=== PATIENT | female | born 1940 | race Caucasian/White ===

== ENCOUNTER → 2017-10-02 15:43 | Outpatient (CLI) | payer MEDICARE, SELFPAY ==
[2017-10-02 18:15] LABS: Absolute Lymphocyte Count 1.78 X10^3/ul (0.83-4.51); Absolute Neutrophil Count 5.6 X10^3/uL (2.0-7.7); Basophil# 0.03 X10^3/uL; Basophil% 0.3 % (0-1); Eosinophil# 0.28 X10^3/uL; Eosinophils% 3.2 % (0-5); Hematocrit 43.3 % (37-47); Hemoglobin 13.8 g/dl (12.0-15.0); Lymphocyte # 1.78 X10^3/ul (4.0); Lymphocyte % 20.5 % (19-41); Mean Corp Hgb Conc 31.9 g/gl (32-36); Mean Corpuscular Hgb 32.2 pg (27.0-32.0); Mean Corpuscular Volume 101.2 fL (81-99); Mean Platelet Vol. 10.6 fl (6.2-12.0); Monocyte# 0.99 X10^3/uL; Monocyte% 11.4 % (0-10); Neutrophil # 5.59 X10^3/uL (2.7-7.7); Neutrophil % 64.3 % (47-70); Platelet Count 230 K/mm3 (150-450); RBC Distribution Width CV 13.2 % (11.6-14.6); RBC Distribution Width SD 47.8 fl (35.1-43.9); Red Blood Count 4.28 M/mm3 (4.2-5.4); White Blood Count 8.7 K/mm3 (4.4-11.0)
[2017-10-02 18:21] LABS: POSITIVE COUNT NO; POSITIVE DIFFERENTIAL NO; POSITIVE MORPHOLOGY NO
[2017-10-02 18:28] LABS: ALB/GLOB Ratio 0.9 RATIO (0.9-2.4); AST(SGOT) 14 U/L (15-37); Alanine Aminotransfer ALT/SGPT 27 U/L (13-56); Albumin, Serum 3.5 g/dL (3.2-5.0); Alkaline Phosphatase 100 U/L (45-117); Anion Gap 10 (5-15); BUN 41 mg/dL (7-18); BUN/Creat Ratio 17.2 RATIO (10-20); Chloride 107 mmol/L (98-107); Creatinine, Serum 2.38 mg/dL (0.55-1.02); EST Glomerular Filtration Rate 21 mL/min (>60); Est Glom Filt Rate - Afr Amer 25 mL/min (>60); Globulin 3.8 g/dL (2.2-4.2); Glucose 69 mg/dL (74-106); Protein, Total 7.3 g/dL (6.4-8.2); Sodium Level 141 mmol/L (136-145); Uric Acid 9.1 mg/dL (2.6-6.0)
[2017-10-02 19:11] LABS: BNP,B-Type NATRIURETIC PEPTIDE 40.8 pg/mL (0-100)
== END ==
PROVIDERS: Family Provider Family Medicine; PCP Family Medicine; Visit Provider Family Medicine
DX: N18.4 Chronic kidney disease, stage 4 (severe) (principal); I50.9 Heart failure, unspecified
CPT/HCPCS: 36415; 80053; 82306; 83880; 83970; 84100; 84550; 85025

== ENCOUNTER → 2017-10-04 12:50 | Outpatient (CLI) | payer MEDICARE, SELFPAY ==
[2017-10-04 13:11] LABS: Color, Urine Yellow (Yellow); Glucose, Dipstick Normal (Normal); Ketone-Dipstick Negative (Negative); Leukocyte Esterase-Dipstick Negative /ul (Negative); Nitrite-Dipstick Negative (Negative); Occult Blood-Urine Negative /ul (Negative); Protein-Dipstick 15 mg/dl (Negative); Urine Bilirubin Dipstick Negative (Negative); Urine Clarity Clear (Clear); Urine Urobilinogen Normal (Normal); Urine pH 6.5 (5.0 - 8.0)
[2017-10-04 13:39] LABS: Microalbumin,Random Urine 57.9 mg/L (NO RANGE EST.); Microalbumin:Creatinine Ratio 58.3 mg/g CRE (<30 mg/g CRE)
== END ==
PROVIDERS: Family Provider Family Medicine; PCP Family Medicine; Visit Provider Family Medicine
DX: N18.4 Chronic kidney disease, stage 4 (severe) (principal); I50.9 Heart failure, unspecified
CPT/HCPCS: 81002; 82043; 82570

== ENCOUNTER 2017-10-10 12:36 | Emergency (ER) | payer MEDICARE, SELFPAY ==
[2017-10-10 12:40] VITALS: BP 133/74; PULSE 95; RESP 14; TEMP 36.6; O2SAT 94; O2SAT 97; BMI 39.0
[2017-10-10] MEDS: HYDROcodone Bitartrate/Apap 5/325 Tablet PO (12:59)
[2017-10-10] MEDS: predniSONE 20 MG Tablet 40 MG PO (12:59)
[2017-10-10 13:05] LABS: Bedside Glucose 68 mg/dL (70-110)
--- NOTE | 2017-10-10 13:12 | ED.VISSUMM ---
- ER Visit Summary Date of Service: 10/10/17 Chief Complaint: Atraumatic pain and swelling left foot History of Present Illness: The patient is a 77 F who presents from assisted living facility with atraumatic left foot pain. She states touch causes significant pain. She denies history of gout or pseudogout. She is diabetic. She is uncertain if she is on a water pill. She denies fever, chills night sweats. She denies any other symptoms. Please read written note for complete detail. Physical Examination: Vital signs are remarkable slight elevation blood pressure 133/74. Examination of the left foot reveals swelling erythema and slight warmth over the MTP joint of the left great toe. Minimal passive range of motion causes pain. Touching the area causes significant pain. There is no induration, lymphangitis, popliteal or inguinal lymphadenopathy. Test Results: Blood glucose is 68. Emergency Department Course and Treatment: Patient was informed she has gout. She received a dose of [place] and prednisone. Treatment Plan: Option for 40 mg of prednisone for 5 days and 24 hour supply of [place] Disposition: Discharge to assisted living facility Impression: 1. 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 History of type 2 diabetes 3. History of adrenal insufficiency 4. History of hypertension 5. History of end-stage renal disease secondary to hypertension This note was generated with [employer] dictation software. It may contain incorrect words, spelling, and punctuation that were not noted in review of the chart prior to signing ED Disposition - Plan for ED Patient: Disposition: Home or Assisted Living Chief Complaint: Lower Extremity Injury Instructions: ED Arthritis Gout, ED Diet Gout Prescriptions: Hydrocodone Bitart/Apap 5-325 [[place] 5MG-325MG] 1 tab PO Q4H PRN PRN 2 Days #10 tab PRN Reason: Pain Prednisone [Deltasone] 40 mg PO DAILY #10 tab Referrals: Tito Huerta DO [Primary Care Provider] - 3-5 Days if not improving
[2017-10-10 13:33] VITALS: BP 128/78; PULSE 90; RESP 14; O2SAT 97
--- NOTE | 2017-10-10 13:33 | NURSING ---
called hiral fox wheelchair for ride back to [facility]
== END 2017-10-10 14:09 | disposition home or self-care (01) ==
PROVIDERS: Emergency Provider Emergency Medicine; Family Provider Family Medicine; PCP Family Medicine
DX: M10.9 Gout, unspecified (principal); E11.9 Type 2 diabetes mellitus without complications; E27.40 Unspecified adrenocortical insufficiency; I12.0 Hypertensive chronic kidney disease with stage 5 chronic kidney disease or end stage renal disease; N18.6 End stage renal disease; K21.9 Gastro-esophageal reflux disease without esophagitis
CPT/HCPCS: 82962; 99285

== ENCOUNTER → 2018-01-08 13:17 | Outpatient (CLI) | payer MEDICARE, SELFPAY ==
--- NOTE | 2018-01-08 13:21 | VDLE_ITS ---
Reason For Study: Pain and Swelling RIGHT LEFT GSV is normal. GSV is normal. CFV is compressible, spontaneous, phasic, CFV is compressible, spontaneous, phasic, competent and demonstrates normal competent, and demonstrates normal augmentation. augmentation. FV is compressible, spontaneous, phasic, FV is compressible, spontaneous, phasic, competent and demonstrates normal competent and demonstrates normal augmentation. augmentation. POP V is compressible, spontaneous, phasic, POP V is compressible, spontaneous, phasic, competent and demonstrates normal competent and demonstrates normal augmentation. augmentation. T/P Trunk is compressible. T/P Trunk is compressible. PTV is compressible. PTV is compressible. Unable to visualize Rt PeroV LT PerV is compressible. Lt SFJ is Incompetent Unable to visualize Rt PTV mid and prox calf due to wounds/bandages Lt GSV is Competent Difficult to visualize GastrocV due to edema Lt SSV is Competent Rt SFJ is Competent Unable to visualize Lt PTV and Lt PeroV mid and prox calf due to wounds/bandages. Rt GSV is Competent Rt SSV is Competent. Procedure Exam performed in department. The study was technically difficult. The study was technically limited. The exam was of poor technical quality due to patient body habitus.. Patient unable to tolerate compressions and augments due to severe pain in the legs. Relied on color doppler. A preliminary report was called and/or faxed to Dr. Elmore. Interpretation Summary 1. Bilateral no DVT or SVt where visualized. 2. No significant relux noted in bilateral legs. Ordering Physician: David Elmore Referring Physician: Tito Huerta Performed By: Aneta Pineda, ADONAYCS, RVT
--- NOTE | 2018-01-10 07:59 | LEAS ---
Arterial Study - Arterial Study Arterial Study: Date of scan 01/08/[address] Elmore History: Patient with bilateral leg pain and edema Interpretation: Patient with increasing pain and unable to get any blood pressure cuffs on her ankle secondary to the pain so ABIs were not obtained. Duplex does show bilateral triphasic flow of both posterior tibial and dorsalis pedis. Able to get a digit brachial index was 0.97 on the right 0.87 on the left. X Impression: 1. Unable to get TEN secondary to pain. She does have normal triphasic waveform noted at the ankle and normal digit brachial index 0.97 and 0.87. Further evaluation as clinically clinically warranted
== END ==
PROVIDERS: Family Provider Family Medicine; PCP Family Medicine; Visit Provider Surgery Vascular Surgery
DX: I70.213 Atherosclerosis of native arteries of extremities with intermittent claudication, bilateral legs (principal); M79.89 Other specified soft tissue disorders; M79.609 Pain in unspecified limb
CPT/HCPCS: 93922; 93970

== ENCOUNTER 2018-02-06 08:29 | Outpatient (RCR) | payer MEDICARE, SELFPAY ==
--- NOTE | 2018-02-07 09:00 | HP.OTEVAL_ITS ---
Patient's Visit Information SVETLANA ELLIS is a 78 year old F, referred to Occupational Therapy by Tito Huerta DO, with a diagnosis of bilateral Lymphedema. Date of Evaluation: 02/06/18 Occupational Therapist: Kina Gonzalez, SYLVIA/Jaciel, CHT - Subjective Subjective: Pt states she has had swelling in her LE for about a year. pt states she had cellulitis, wounds and blisters on her LE. pt lives at [facility] and staff at the facility wraps her LE with ekenan wraps to help decrease swelling. pt states legs are painful and she has difficulty with ambulation. Pt states she sleeps sitting up in a chair with legs on foot stool. Pt states she feels like her room is damp at the [facility] and does not want to lay in her bed when it feels damp. But pt admits she has not been sleeping in her bad for a while. Pt states she would like to learn how to get swelling under control. Pt has complex medical hx. Dementia, CAD, CKA, COPD, OA, StageII pressure ulce of buttock, candidal dermatitis, anxiety, chronic pain. - Pain BLE 5 Pain Intensity Range: 1, 6 - Lymphedema (Circumferential Measure) Mid-foot: R/L 30cm/31cm Ankle: R/L 30cm/32cm Lower calf: R/L 36cm/38cm Largest calf: R/L 48cm/50cm Below knee: R/L 48cm/51cm - Lower Limb Functional Index Lower Extremity Functional Score: 5 - Goals Demonstrate adequate knowledge skin care/prec by 2nd week: Yes Demonstrate adequate knowledge therapeutic exercises by d/c: Yes Select approp compression garment w/donning/care/wear by d/c: Yes Voice need to replace compression garment every 4-6mo by dc: Yes Goal:: ed. pt on benefit laying down vs sitting up in her chair all day and night. - Rehabilitation General Assessment: Pt demo with stage II lymphedema to Bilateral LE. Pt arrives to facility with keenan wraps on LE. due to the high compression of keenan wraps this could be adding to LE pain. Pt legs dry and skin flakes. Therapist rec'd short wrap bandaging, but due to cost to pt she is unable to buy the short stretch wraps. Therapist rec'd 20-30 mmHg compression socks pt was more receptive to this as cost was much less then wraps. therapist gave pt handout on socks to show staff at [facility]. Pt demo understanding and advised therapist to speak with social media intern at [facility]. PT was ed. on lymph stim ex, as well as the benefits to laying down vs sitting in her chair all day and night. pt demo understanding -Therapist gave pt contact info so pt and social media intern could call therapist with questions/concerns. pt to return once she get her compression hose to ensure proper fit. Rehabilitation Potential: Questionable - Anticipated Interventions Anticipated Interventions: Education re Diagnosis, Manual Lymph Drainage, Education re Life-long lymphedema Management, Education re Skin Care and Precautions, Education re Self Massage Techniques, Education re Correct Donning Tech,Care&Wearing Sched Comp Garments, Caregiver Training - Visit Plan Frequency: PRN TEXT: Thank you for the opportunity to evaluate your patient. For Medicare and Medicare HMO plans, please review the plan of care and approve it. It will need to be FAXED BACK to us at [phone] for Medicare purposes. Please let me know if there are questions or concerns regarding this plan of care. Physician Signature: Date:
--- NOTE | 2018-04-17 07:55 | HP.OT.NRP ---
HP - Discharge Summary - Patient Information SVETLANA ELLIS was seen in my office for initial evaluation on 02/06/18. The following Plan of Care was established for this patient: Initial Frequency: PRN - Anticipated Interventions Anticipated Interventions: Education re Diagnosis, Manual Lymph Drainage, Education re Life-long lymphedema Management, Education re Skin Care and Precautions, Education re Self Massage Techniques, Education re Correct Donning Tech,Care&Wearing Sched Comp Garments, Caregiver Training This patient was last seen in our office 02/06/18. Pertinent comments regarding their Occupational therapy will appear below: Pt seen for inital OT eval only. pt has not scheduled a follow up visit. Due to timelaps in scheduling Pt. D/C at this time. At this point I will be discontinuing this patient from occupational therapy. I would be happy to see this patient again in the future if found appropriate by the physician. Thank you! Kina Gonzalez, OTR/L, CHT
== END 2018-02-06 19:00 | disposition home or self-care (01) ==
LOC: OT 08:29
PROVIDERS: Family Provider Family Medicine; PCP Family Medicine; Visit Provider Family Medicine
DX: I89.0 Lymphedema, not elsewhere classified (principal)
CPT/HCPCS: 97165; 97166

== ENCOUNTER 2018-02-25 08:09 | Observation (INO) | payer MEDICARE, SELFPAY ==
[2018-02-25 08:10] VITALS: BP 142/63; PULSE 77; RESP 18; TEMP 36.5; O2SAT 100; BMI 40.5
--- NOTE | 2018-02-25 08:30 | ED.DCSUM_ITS ---
- ER Visit Summary Date of Service: 02/25/18 Chief Complaint: Chronic leg wounds History of Present Illness: The patient is a 78 F states she lives in assisted living. Patient states that so a pressure sore on her lower buttock back area. She denies any recent illness. She denies any nausea, vomiting or diarrhea. She denies any fever. States she was recently hospitalized at another facility within the last month. Physical Examination: Older female vital signs: Afebrile. She does not look septic or toxic. She is in no acute. H EENT exam unremarkable. Moist mucous membranes. Normal speech. Neck nontender. No lymphadenopathy. Lungs clear to auscultation bilaterally. Heart regular rhythm no murmur. Abdomen soft and nontender. She is moving all 4 extremities. She has chronic 1+ edema in the lower extremities. Neurologically she is awake and alert. Answering questions and following commands. No focal motor deficits. Test Results: CBC shows a white count of 5. Hemoglobin 12. Electrolytes unremarkable. Gap is 7. Chronic renal insufficiency with a creatinine 1.7 previously was 2.3. Glucose of 151. Emergency Department Course and Treatment: I spoke to the patient's daughter via phone. She would like her mother admitted. She also wants wound care consulted and her to be transferred once her evaluation and workup is complete in the hospital to a extended care facility. She does not feel she can any longer be in assisted living. Treatment Plan: I spoke to the hospitalist Dr. Lopez and the patient will be admitted to the medical surgical floor. Disposition: admit Impression: Acute on chronic bilateral lower extremity lymphedema Facial buttock pressure sore Chronic renal insufficiency History of insulin-dependent diabetes This note was generated with [employer] dictation software. It may contain incorrect words, spelling, and punctuation that were not noted in review of the chart prior to signing ED Disposition - Plan for ED Patient: Chief Complaint: Wound Check Referrals: Tito Huerta DO [Primary Care Provider] -
[2018-02-25] MEDS: morphine 8 MG/ML Syringe 6 MG IV (09:20)
[2018-02-25] MEDS: Ondansetron 4 MG/2 ML Vial IV (09:20)
[2018-02-25 09:29] LABS: Absolute Lymphocyte Count 1.12 X10^3/ul (0.83-4.51); Absolute Neutrophil Count 3.5 X10^3/uL (2.0-7.7); Anion Gap 7 (5-15); BUN 41 mg/dL (7-18); BUN/Creat Ratio 24.1 RATIO (10-20); Basophil# 0.01 X10^3/uL; Basophil% 0.2 % (0-1); Calcium,Total 8.8 mg/dL (8.5-10.1); Chloride 107 mmol/L (98-107); EST Glomerular Filtration Rate 31 mL/min (>60); Eosinophil# 0.31 X10^3/uL; Eosinophils% 5.5 % (0-5); Est Glom Filt Rate - Afr Amer 37 mL/min (>60); Estimated Creatinine Clearance 21.57 ml/min; Glucose 151 mg/dL (74-106); Hematocrit 38.9 % (37-47); Hemoglobin 12.4 g/dl (12.0-15.0); Lymphocyte # 1.12 X10^3/ul (4.0); Mean Corp Hgb Conc 31.9 g/gl (32-36); Mean Corpuscular Volume 97.3 fL (81-99); Mean Platelet Vol. 10.2 fl (6.2-12.0); Monocyte# 0.68 X10^3/uL; Monocyte% 12.1 % (0-10); Neutrophil # 3.48 X10^3/uL (2.7-7.7); Platelet Count 202 K/mm3 (150-450); Potassium 3.4 mmol/L (3.5-5.1); RBC Distribution Width CV 13.1 % (11.6-14.6); RBC Distribution Width SD 46.3 fl (35.1-43.9); Sodium Level 141 mmol/L (136-145); White Blood Count 5.6 K/mm3 (4.4-11.0)
[2018-02-25 09:30] LABS: POSITIVE COUNT NO; POSITIVE DIFFERENTIAL NO; POSITIVE MORPHOLOGY NO
--- NOTE | 2018-02-25 10:07 | NURSING ---
DR ANTONIO PISANO
--- NOTE | 2018-02-25 10:16 | NURSING ---
MED SURG LYMPHEDEMA, PRESSURE SORES, IDDM, RENAL INSUFFICIENCY TERLETSKY OBS
[2018-02-25 11:18] VITALS: BMI 40.1
[2018-02-25 11:47] VITALS: BP 108/64; PULSE 87; RESP 18; TEMP 36.8; O2SAT 99
--- NOTE | 2018-02-25 12:06 | HP.PCM_ITS ---
Problem List (1) Pressure ulcer Status: Chronic (2) Lymphedema Status: Chronic (3) Glucocorticoid deficiency Status: Chronic (4) Esophageal reflux Status: Chronic (5) Type 2 diabetes mellitus without (mention of) complications Status: Chronic (6) Hypertensive chronic kidney disease with stage 1 through stage 4 chronic kidney disease, or chronic kidney disease Status: Chronic (7) Hypertension Status: Chronic (8) Anemia Status: Chronic History of Present Illness Date of Admission: 02/25/18 Chief Complaint: worsening lymphedema The patient is a 78 year old F with a hx of lymphedema, DMt2, CKDIII, Dementia, GERD, hypothyroid, adrenal insufficiency, HTN, epilepsy, who presents to the ER with c/o worsening LE edema. She has lymphedema treated by her PCP and home nursing at assisted living. She also has a known sacral pressure ulcer treated at home as well. She was told to come to [facility] by her home nurses as the legs have been more swollen, painful, and draining clear fluid from blisters. She does not have lymphedema pumps. The patient is also very weak and cannot stand without assistance. Her daughters are present and state that she is severely demented, and that her whom she lives with is severely demented. They are concerned that she is unsafe to return to assisted living and that she is not making rational decisions, and that she will try to leave tonight. 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 They are also concerned that one of her sons is bringing her additional pain medication doses at assisted living, which is strictly controlled by the nurses because she might be addicted. [] Past Medical History Past Medical History (Chronic Problems): Chronic Problems Pressure ulcer (Chronic) Lymphedema (Chronic) Glucocorticoid deficiency (Chronic) Esophageal reflux (Chronic) Epilepsy undetermined as to focal or generalized, intractable (Chronic) Diverticulosis of colon (without mention of hemorrhage) (Chronic) Type 2 diabetes mellitus without (mention of) complications (Chronic) Chronic kidney disease (CKD), stage IV (severe) (Chronic) Carotid artery occlusion without infarction (Chronic) Stage II pressure ulcer of left buttock (Chronic) 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 (Chronic) Stage III pressure ulcer of left buttock (Chronic) Stage III pressure ulcer of sacral region (Chronic) Anxiety (Chronic) Asthma, chronic (Chronic) Stage III pressure ulcer of right buttock (Chronic) Adrenal insufficiency (Chronic) Renal artery atherosclerosis (Chronic) Pure hypercholesterolemia (Chronic) 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, or chronic kidney disease (Chronic) Hypertension (Chronic) Anemia (Chronic) Allergies Iodinated Contrast- Oral and IV Dye [Iodinated Contrast Media - IV Dye] Adverse Reaction (Verified 10/10/17 12:37) Other NAUSEA AFFECTS KIDNEYS Home Medications: Ambulatory Orders Medication Instructions Recorded Buspirone HCl [Buspar] 10 mg PO BID 06/06/14 Omeprazole [Prilosec] 20 mg PO DAILY 05/08/15 Colesevelam Hydrochloride [Welchol] 650 mg PO BID 08/07/15 Insulin Aspart [Novolog Flexpen] 16 units SC TID 12/21/15 Calcium Carbonate [Calcium] 500 mg PO DAILY 01/26/17 Hydrocortisone 5 mg PO TID 01/26/17 Aspirin [Aspir-Low] 81 mg PO DAILY 02/25/18 Bumetanide [Bumex] 2 mg PO BID 02/25/18 Cholecalciferol (Vitamin D3) 50,000 unit PO Q7D 02/25/18 [Vitamin D3] Docusate Sodium [Colace] 100 mg PO DAILY 02/25/18 Donepezil HCl [Aricept] 10 mg PO QHS 02/25/18 Insulin Glargine,Hum.rec.anlog 30 unit SQ DAILY 02/25/18 [Basaglar Kwikpen U-100] Insulin Glargine,Hum.rec.anlog 70 unit SQ QHS 02/25/18 [Basaglar Kwikpen U-100] Levothyroxine [Synthroid] 150 mcg PO DAILY 02/25/18 Loratadine [Claritin] 10 mg PO DAILY 02/25/18 Lorazepam [Ativan] 0.5 mg PO BID 02/25/18 Oxycodone CR [Oxycontin] 20 mg PO TID 02/25/18 Potassium Chloride [K-Dur] 20 meq PO DAILY 02/25/18 Topiramate [Topamax] 100 mg PO QHS 02/25/18 Topiramate [Topamax] 200 mg PO DAILY 02/25/18 Surgical History: cholecystectomy, back surgery Psychiatric History: Anxiety RECREATION PROGRAM SPECIALIST History: No pertinent RECREATION PROGRAM SPECIALIST history Lives: Spouse/ Significant Other Smoking Status: Former smoker Tobacco Use: Non-smoker Alcohol: None Drugs: None - *Family History Maternal History Items: Cancer Paternal History Items: Cancer Review of Systems Constitutional: Denies: Chills, Fever, Weight Change HEENT: Denies: Head Aches, Sinus Congestion, Sinus Drainage Cardiovascular: Denies: Chest Pain, Palpitations Respiratory: Denies: Cough, Shortness of breath at rest, Sputum production Gastrointestinal: Denies: Abdominal Pain, Nausea, Vomiting Genitourinary: Denies: Dysuria Musculoskeletal: Denies: Joint Pain, Joint Tenderness Skin: Reports: Skin Changes, Wounds, - - increased swelling, pain, drainage, blisters.. Denies: Rash Neurological: Denies: Numbness, Tingling, Focal weakness Psychiatric: Denies: Anxiety, Depression, Homicidal Ideations, Suicidal Ideations Hematologic/ Lymphatic: Denies: Easy Bruising, Easy Bleeding VTE Information - Inpt Only VTE Present on Admission: No VTE Mechan Device Prophylaxis: None VTE Pharm Prophylaxis ordered?: Yes - Physical Exam General: Alert, Cooperative, Confused HEENT: Atraumatic, PERRLA, EOMI, Normocephalic Neck: Supple, No JVD, Negative Carotid Bruits Lungs: Clear to auscultation, Normal air movement Cardiovascular: Regular rate, No murmurs Abdomen: Bowel Sounds Present, Soft, Non Tender Extremities: Capillary Refill Less than 3 Seconds, Edema, - - lymphedema with blisters, sloughing, clear drainage, tender to light touch. Skin: No rashes, No breakdown Musculoskeletal: No Tenderness to Palpation of Joints or Extremities Neurological: Cranial nerves II-XII grossly intact Psych/Mental Status: Normal Affect, Appropriate, - - pleasantly confused Vital Signs Temp Pulse Resp BP Pulse Ox 98.2 F 87 18 108/64 99 02/25/18 11:47 02/25/18 11:47 02/25/18 11:47 02/25/18 11:47 02/25/18 11:47 Oxygen Delivery Method Room Air Weight: 219 lb 5.759 oz Body Mass Index (BMI) 40.1 Assessment/Plan All Active Problems Skin ulcer of buttock (Acute) Syncope and collapse (Acute) Dysuria (Acute) 1. Worsening of lymphedema - daily dressings, wound care consult. Also sacral pressure ulcer present on admission. Wound care to eval. 2. Worsening of generalized weakness - PTOT, SNF placement 3. Dementia - aricept + namenda 4. CKD III - stable 5. DMt2 with morbid obesity - add SSI, titrate home insulin 6. HTN - stable 7. 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 8. Hx epilepsy - topamax 9. Hypothyroid - synthroid DVT ppx: heparin DC planning: SNF. C/s to case management for dementia of pt and , poor decision making, no POA. This patient was seen by Anshu Argueta PA-C under the supervision of Doctor Posey.
[2018-02-25 12:51] LABS: Bedside Glucose 136 mg/dL (70-110)
[2018-02-25] MEDS: Heparin Injection (Vial) 5,000 UNIT/ML VIAL 5000 UNIT SC ×2 (14:35→22:11)
[2018-02-25] MEDS: Hydrocortisone 10 MG Tablet 5 MG PO ×2 (14:36→22:09)
[2018-02-25] MEDS: Furosemide 40 MG/4 ML Vial IV ×2 (14:36→22:12)
[2018-02-25] MEDS: 0.9% NaCl Peripheral Flush Adult/Peds IV (14:48)
[2018-02-25 17:00] VITALS: BP 112/60; PULSE 94; RESP 18; TEMP 37.2; O2SAT 96
[2018-02-25] MEDS: Insulin Lispro 100 UNIT/ML INSULN.PEN 16 UNIT SC (17:05)
[2018-02-25] MEDS: Acetaminophen 325 MG Tablet 650 MG PO (17:09)
[2018-02-25] MEDS: Insulin Lispro 100 UNIT/ML INSULN.PEN SC (17:10)
[2018-02-25 17:26] LABS: Bedside Glucose 208 mg/dL (70-110)
[2018-02-25 21:03] VITALS: BP 140/69; PULSE 90; RESP 20; TEMP 37.2; O2SAT 99
[2018-02-25] MEDS: LORazepam 0.5 MG Tablet PO (22:08)
[2018-02-25] MEDS: busPIRone 5 MG Tablet 10 MG PO (22:09)
[2018-02-25] MEDS: Donepezil HCl 10 MG Tablet PO (22:11)
[2018-02-25] MEDS: Topiramate 100 MG Tablet PO (22:12)
[2018-02-25] MEDS: Memantine Hydrochloride 5 MG Tablet PO (22:12)
[2018-02-25 22:56] LABS: Bedside Glucose 60 mg/dL (70-110)
[2018-02-25] MEDS: oxyCODONE 5 MG Tablet PO (23:00)
[2018-02-25 23:05] LABS: Bedside Glucose 85 mg/dL (70-110)
[2018-02-26] MEDS: Acetaminophen 325 MG Tablet 650 MG PO ×3 (03:27→20:22)
[2018-02-26 03:30] VITALS: BP 128/58; PULSE 85; RESP 18; TEMP 36.9; O2SAT 96
[2018-02-26 03:46] LABS: Bedside Glucose 151 mg/dL (70-110)
[2018-02-26] MEDS: Hydrocortisone 10 MG Tablet 5 MG PO ×3 (06:24→22:31)
[2018-02-26] MEDS: Menthol/Lanolin/Calamine/Znox 113 GM Tube 1 APPLIC TOPICAL ×3 (06:24→22:33)
[2018-02-26] MEDS: Levothyroxine 150 MCG Tablet PO (06:25)
[2018-02-26] MEDS: Heparin Injection (Vial) 5,000 UNIT/ML VIAL 5000 UNIT SC ×3 (06:25→22:31)
[2018-02-26] MEDS: Furosemide 40 MG/4 ML Vial IV ×3 (06:25→22:32)
[2018-02-26] MEDS: 0.9% NaCl Peripheral Flush Adult/Peds IV ×2 (06:26→14:06)
[2018-02-26 06:52] LABS: Anion Gap 8 (5-15); BUN 35 mg/dL (7-18); BUN/Creat Ratio 21.9 RATIO (10-20); Calcium,Total 8.5 mg/dL (8.5-10.1); Chloride 111 mmol/L (98-107); EST Glomerular Filtration Rate 33 mL/min (>60); Est Glom Filt Rate - Afr Amer 40 mL/min (>60); Estimated Creatinine Clearance 22.92 ml/min; Glucose 139 mg/dL (74-106); Potassium 3.3 mmol/L (3.5-5.1); Sodium Level 146 mmol/L (136-145)
[2018-02-26 08:12] VITALS: BP 117/62; PULSE 81; RESP 16; TEMP 36.9; O2SAT 96
[2018-02-26] MEDS: Pantoprazole Sodium 20 MG Tablet PO (08:44)
[2018-02-26] MEDS: Aspirin E.C. 81 MG Tablet PO (08:44)
[2018-02-26] MEDS: Docusate Sodium 100 MG Capsule PO (08:44)
[2018-02-26] MEDS: busPIRone 5 MG Tablet 10 MG PO ×2 (08:44→22:31)
[2018-02-26] MEDS: Topiramate 200 MG Tablet PO (08:44)
[2018-02-26] MEDS: Insulin Lispro 100 UNIT/ML INSULN.PEN 16 UNIT SC ×2 (08:45→12:16)
[2018-02-26] MEDS: Calcium (Elemental) 500 MG Tablet PO (08:45)
[2018-02-26] MEDS: oxyCODONE 5 MG Tablet PO ×2 (08:45→17:31)
[2018-02-26] MEDS: LORazepam 0.5 MG Tablet PO ×2 (09:01→22:33)
[2018-02-26] MEDS: Memantine Hydrochloride 5 MG Tablet PO ×2 (09:02→22:33)
--- NOTE | 2018-02-26 09:17 | NURSING ---
wound photo: right medial lower leg
--- NOTE | 2018-02-26 09:18 | NURSING ---
wound photo: left medial lower leg
--- NOTE | 2018-02-26 09:26 | PCA ---
Sent to doctor radha office a request from medical records that doctor brandt requested for colonoscopy results..
[2018-02-26 09:36] LABS: Bedside Glucose 132 mg/dL (70-110)
--- NOTE | 2018-02-26 10:05 | CASEMGMT ---
Social Work Note RUTHIE placed a call to pt's daughter Jemma. Jemma confirms that the pt is from [facility] but Jemma is wanting a referral sent to first choice [facility] and then second choice [facility] for short term rehabilitation with the transition to long-term care. RUTHIE explained referral process and pre-cert needing to obtained before pt is able to discharge. RUTHIE asked Jemma about Advanced Directives. Per Jemma, pt hasn't completed Advanced Directives yet but pt needs to while at [facility]. RUTHIE explained that pt has to be alert and orientated and able to complete advanced directives on own. Jemma states understanding. Jemma asked this worker about pt's Jacob being able to transfer to facility that pt goes to. RUTHIE explained that this worker will inform facilities that eventually pt's Jacob would be coming to new facility as well. RUTHIE placed a call to quality management Camryn Wellington and informed her of referrals to [facility] or [facility]. Per Camryn she will send referrals. Plan: [facility] or [facility] pending acceptance and pre-cert SW to follow up with pt to complete advanced directives. Nida Potts EXPORT SALES MANAGER, EXHIBITOR SALES
--- NOTE | 2018-02-26 10:26 | CASEMGMT ---
Per RUTHIE Mix, patient's first choice is [facility] for SNF, second choice is [facility]. Call placed to Tammy at [facility], Tammy will get back to this WAREHOUSE SHIPPING SUPERVISOR in regards to bed availability. Referral not faxed at this time. Call placed to Alta at [facility], voicemail left regarding referral being faxed. Camryn Wellington, WAREHOUSE SHIPPING SUPERVISOR Clinical Support
--- NOTE | 2018-02-26 11:13 | CASEMGMT ---
Have not had a response from [facility]. Referral faxed to nicanor Holm, at [facility]. Fax confirmation rec'd. Camryn Wellington LPN Clinical Support
[2018-02-26 11:56] VITALS: BP 128/64; PULSE 78; RESP 16; TEMP 37.6; O2SAT 97
--- NOTE | 2018-02-26 11:58 | CASEMGMT ---
Rec'd call from Alta at [facility]. Needs PT/OT documentation before giving an answer about whether they can accept patient. Call placed to RUTHIE Alva to inform her that [facility] needs therapy documentation prior to giving a response. No return phone call from [facility] at this time. RUTHIE updated of same. Camryn Wellington LPN Clinical Support
[2018-02-26 12:25] LABS: Bedside Glucose 80 mg/dL (70-110)
--- NOTE | 2018-02-26 14:30 | CASEMGMT ---
Social Work Note Pt is listed as being from [facility]. Per H+P, pt's daughter joya DO that they want pt to go to either [facility] or [facility] for halfway facility. H+P states that pt is severely demented, pleasantly confused and is poor historian. RUTHIE placed a call to pt's daughter Jemma as she is noted to be person to contact for pt. Per Jemma she confirms that pt is from [facility] but she doesn't want pt to return there at discharge. Per Jemma, pt has had a lot of issues at [facility] including financial issues and staffing issues. Jemma states that pt has not gotten the care that she needs at [facility]. Jemma states that pt's Jacob lives at [facility] family literacy coordinator care next to pt and pt is dependent on Jacob to provide her with care instead of the staff. Jemma states that the hope is for pt to go to SNF short term initially for short term rehabilitation and then transition to [facility] care with her Jacob coming to new facility for family literacy coordinator care as well. Jemma states that she would also like pt to completed Advanced Directives. RUTHIE explained that pt has to be alert and orientated and able to comprehend Advanced Directives. Jemma states understanding. SW met with pt. SW introduced self and role at [facility]. Pt is alert and oriented but does display some confusion. Pt confirms that she is from [facility] but is unsure at this time where she wishes to discharge to. Pt asked this worker why she can't return to [facility]. SW explained that per pt's daughter Jemma, Jemma felt like pt wasn't getting good enough care at [facility]. SW explained to pt that Jemma had wanted referrals sent to either [facility] or [facility] and would like pt to have private room. Pt states concerns about leaving her Jacob back at [facility]. SW explained that per pt's daughter Jemma she hopes to move pt's Jacob to new facility for family literacy coordinator care with pt. SW attempted to complete Advanced Directives with pt, but as mentioned above pt's H+P states pt has dementia and has confusion. SW updated pt's daughter Jemma that because pt has confusion and dementia, Advanced Directives can't be completed at this time. RUTHIE explained that Advanced Directives can be completed once pt goes to new facility. Jemma states understanding and would like Advanced Directives information and documents to complete. RUTHIE states understanding and informed Jemma that she can come to [facility] and ask for Advanced Directive documents or documents can go to SNF with pt. Jemma states understanding. RUTHIE placed a call to Tammy at [facility] and spoke with Tammy. Per Tammy she is waiting to hear back from pt's on waitlist to determine if she has a bed available. RUTHIE faxed PT/OT notes to Alta at [facility] and called Alta and left her a voicemail. Plan: SNF pending acceptance and pre-cert. SW to continue to follow along to determine discharge plans. Nida Potts SUPERVISORY AIDE, DIVISION SALES MANAGER
--- NOTE | 2018-02-26 15:57 | CASEMGMT ---
Social Work Note SW received message from Tammy at [facility] stating she doesn't have any female beds at this time. SW waiting to hear back from [facility] if they are able to accept pt. Plan: [facility] pending acceptance and pre-cert Nida Potts WRAPPER SELECTOR, LEAD JAVASCRIPT DEVELOPER
[2018-02-26 16:31] LABS: Bedside Glucose 65 mg/dL (70-110)
--- NOTE | 2018-02-26 18:40 | PCM.PROGNOTE ---
Subjective: Patient seen and examined today, she remains confused and complains about generalized pains in her legs. I talked to the wound care nurse today, the wound care nurse states that it appears she is responding to Remy wraps on her legs and IV diuretics. We are currently awaiting for approval for the patient to be transferred to a penitentiary facility for further care. - Physical Exam General: Alert, Cooperative, Well developed, Confused HEENT: Atraumatic, PERRLA, EOMI, Normocephalic Oral: Moist Mucosa Neck: Supple, No Nuchal Rigidity, Trachea Midline, Thyroid Normal Size and Texture Lungs: Clear to auscultation, Normal air movement, No rhonchi, No wheeze, No rales Cardiovascular: Regular rate, Regular Rhythm, Normal S1, Normal S2, No murmurs, No Ectopic Activity, PMI Normal, No rub noted, No Gallop Abdomen: Bowel Sounds Present, Soft, Non Tender, Non-Distended, No hernias noted Extremities: No clubbing, No cyanosis, Edema - Generalized edema is noted over both lower legs Skin: No rashes, Ulcer/ Wound - There are open blisters noted over the patient's lower legs bilaterally Neurological: Cranial nerves II-XII grossly intact, Neuro grossly intact, Sensory exam intact to light touch and pain Psych/Mental Status: - - Patient is alert but confused Vital Signs Temp Pulse Resp BP Pulse Ox 99.6 F H 78 16 128/64 H 97 02/26/18 11:56 02/26/18 11:56 02/26/18 11:56 02/26/18 11:56 02/26/18 11:56 Oxygen Delivery Method Room Air Weight: 97.7 kg Body Mass Index (BMI) 40.1 Intake and Output for Last 24 Hours 02/24/18 02/25/18 02/26/18 23:59 23:59 23:59 Intake Total 1450 / 1450 Output Total 4700 / 4700 Balance -3250 / -3250 Laboratory Tests Past 24 Hrs 02/26/18 06:16 Sodium 146 H Potassium 3.3 L Chloride 111 H Carbon Dioxide 27.0 Anion Gap 8 BUN 35 H Creatinine 1.60 H Estim Creat Clear Calc 22.92 Est GFR (MDRD) Af Amer 40 L Est GFR (MDRD) Non-Af 33 L BUN/Creatinine Ratio 21.9 H Glucose 139 H Calcium 8.5 POC Glucose 02/26/18 02/26/18 02/26/18 16:09 12:10 08:35 POC Glucose 65 L 80 132 H 02/26/18 02/25/18 02/25/18 03:30 22:59 22:23 POC Glucose 151 H 85 60 L Medical Necessity - Tobacco Use Smoking Status: Former smoker Tobacco Use: Non-smoker Assessment/Plan All Active Problems Skin ulcer of buttock (Resolved) Syncope and collapse (Resolved) Dysuria (Resolved) #1 generalized debility secondary to dementia and osteoarthritis-we are currently awaiting placement in a penitentiary facility for the patient, PT and OT will continue #2 chronic lymphedema of the lower legs-patient will remain on IV Lasix, Remy wraps will be continued, wound care nurse is seeing patient #3 Alzheimer's dementia #4 osteoarthritis #5 hypokalemia-patient was given additional potassium today, BMP will be rechecked tomorrow #6 chronic kidney disease stage III secondary to type 2 diabetes #7 type 2 diabetes #8 adrenal insufficiency-patient has been on glucocorticoids for quite some time, I will order a serum cortisol level on the patient #9 hypothyroidism #10 seizure disorder #11 hyperlipidemia #12 hypertension #13 chronic pain secondary to osteoarthritis and lymphedema Code Visit OBSV E&M: 46750 Subsequent observation care L3
--- NOTE | 2018-02-26 18:44 | PN_ITS ---
Subjective: Patient seen and examined today, she remains confused and complains about generalized pains in her legs. I talked to the wound care nurse today, the wound care nurse states that it appears she is responding to Remy wraps on her legs and IV diuretics. We are currently awaiting for approval for the patient to be transferred to a group home facility for further care. - Physical Exam General: Alert, Cooperative, Well developed, Confused HEENT: Atraumatic, PERRLA, EOMI, Normocephalic Oral: Moist Mucosa Neck: Supple, No Nuchal Rigidity, Trachea Midline, Thyroid Normal Size and Texture Lungs: Clear to auscultation, Normal air movement, No rhonchi, No wheeze, No rales Cardiovascular: Regular rate, Regular Rhythm, Normal S1, Normal S2, No murmurs, No Ectopic Activity, PMI Normal, No rub noted, No Gallop Abdomen: Bowel Sounds Present, Soft, Non Tender, Non-Distended, No hernias noted Extremities: No clubbing, No cyanosis, Edema - Generalized edema is noted over both lower legs Skin: No rashes, Ulcer/ Wound - There are open blisters noted over the patient' s lower legs bilaterally Neurological: Cranial nerves II-XII grossly intact, Neuro grossly intact, Sensory exam intact to light touch and pain Psych/Mental Status: - - Patient is alert but confused Vital Signs Temp Pulse Resp BP Pulse Ox 99.6 F H 78 16 128/64 H 97 02/26/18 11:56 02/26/18 11:56 02/26/18 11:56 02/26/18 11:56 02/26/18 11:56 Oxygen Delivery Method Room Air Weight: 97.7 kg Body Mass Index (BMI) 40.1 Intake and Output for Last 24 Hours 02/24/18 02/25/18 02/26/18 23:59 23:59 23:59 Intake Total 1450 / 1450 Output Total 4700 / 4700 Balance -3250 / -3250 Laboratory Tests Past 24 Hrs 02/26/18 06:16 Sodium 146 H Potassium 3.3 L Chloride 111 H Carbon Dioxide 27.0 Anion Gap 8 BUN 35 H Creatinine 1.60 H Estim Creat Clear Calc 22.92 Est GFR (MDRD) Af Amer 40 L Est GFR (MDRD) Non-Af 33 L BUN/Creatinine Ratio 21.9 H Glucose 139 H Calcium 8.5 POC Glucose 02/26/18 02/26/18 02/26/18 16:09 12:10 08:35 POC Glucose 65 L 80 132 H 02/26/18 02/25/18 02/25/18 03:30 22:59 22:23 POC Glucose 151 H 85 60 L Medical Necessity - Tobacco Use Smoking Status: Former smoker Tobacco Use: Non-smoker Assessment/Plan All Active Problems Skin ulcer of buttock (Resolved) Syncope and collapse (Resolved) Dysuria (Resolved) #1 generalized debility secondary to dementia and osteoarthritis-we are currently awaiting placement in a group home facility for the patient, PT and OT will continue #2 chronic lymphedema of the lower legs-patient will remain on IV Lasix, Remy wraps will be continued, wound care nurse is seeing patient #3 Alzheimer's dementia #4 osteoarthritis #5 hypokalemia-patient was given additional potassium today, BMP will be rechecked tomorrow #6 chronic kidney disease stage III secondary to type 2 diabetes #7 type 2 diabetes #8 adrenal insufficiency-patient has been on glucocorticoids for quite some time , I will order a serum cortisol level on the patient #9 hypothyroidism #10 seizure disorder #11 hyperlipidemia #12 hypertension #13 chronic pain secondary to osteoarthritis and lymphedema Code Visit OBSV E&M: 13409 Subsequent observation care L3
[2018-02-26 20:48] VITALS: BP 133/65; PULSE 80; RESP 16; TEMP 37.1; O2SAT 98
[2018-02-26] MEDS: Donepezil HCl 10 MG Tablet PO (22:31)
[2018-02-26] MEDS: Topiramate 100 MG Tablet PO (22:34)
[2018-02-26 22:46] LABS: Bedside Glucose 148 mg/dL (70-110)
[2018-02-27] MEDS: oxyCODONE 5 MG Tablet PO ×2 (00:45→10:01)
[2018-02-27 02:00] VITALS: BP 150/73; PULSE 82; RESP 16; TEMP 36.5; O2SAT 100
[2018-02-27] MEDS: Levothyroxine 150 MCG Tablet PO (05:47)
[2018-02-27] MEDS: Heparin Injection (Vial) 5,000 UNIT/ML VIAL 5000 UNIT SC ×3 (05:48→22:25)
[2018-02-27] MEDS: Hydrocortisone 10 MG Tablet 5 MG PO ×3 (05:48→22:27)
[2018-02-27] MEDS: Furosemide 40 MG/4 ML Vial IV (05:48)
[2018-02-27] MEDS: Menthol/Lanolin/Calamine/Znox 113 GM Tube 1 APPLIC TOPICAL ×3 (05:48→22:27)
[2018-02-27 07:38] LABS: Anion Gap 10 (5-15); BUN 28 mg/dL (7-18); BUN/Creat Ratio 17.6 RATIO (10-20); Calcium,Total 8.9 mg/dL (8.5-10.1); Chloride 108 mmol/L (98-107); Creatinine, Serum 1.59 mg/dL (0.55-1.02); EST Glomerular Filtration Rate 33 mL/min (>60); Est Glom Filt Rate - Afr Amer 40 mL/min (>60); Estimated Creatinine Clearance 23.06 ml/min; Glucose 92 mg/dL (74-106); Potassium 3.4 mmol/L (3.5-5.1); Sodium Level 145 mmol/L (136-145)
[2018-02-27 07:50] VITALS: BP 133/68; PULSE 74; RESP 16; TEMP 37.1; O2SAT 91
[2018-02-27] MEDS: Aspirin E.C. 81 MG Tablet PO (07:55)
[2018-02-27] MEDS: Calcium (Elemental) 500 MG Tablet PO (07:56)
--- NOTE | 2018-02-27 09:00 | CASEMGMT ---
Addendum entered by Nida Potts 02/27/18 10:47: SW placed a call to pt's CM Aye Romero at [facility] and left her a message informing her of pt's admission into [facility] and the discharge plan. Original Note: Social Work Note SW received message from Tammy at [facility] stating she doesn't have any beds available at this time. SW received mesage from Alta at [facility] stating she is unable to accept pt. RUTHIE placed a call to pt's daughter Jemma and informed her of this. Per Jemma she wishes to have pt discharge back to [facility] and placed on the [facility] waitlist. RUTHIE placed a call to Tammy at [facility] and left her a message and informed her that pt is going to be discharged back to [facility] but per the pt's family they wish to place the pt on [facility] waitlist. RUTHIE placed a call to [facility] and spoke with Princess who states Poornima is not in yet but will give this worker a call once she is in. RUTHIE faxed referral to Poornima at [facility]. Plan: Discharge to [facility] skilled pending pre-cert Nida Potts TEAM OTR TRUCK DRIVER, FELT CUTTING MACHINE OPERATOR
[2018-02-27 09:06] LABS: Bedside Glucose 100 mg/dL (70-110)
[2018-02-27] MEDS: LORazepam 0.5 MG Tablet PO ×2 (09:58→22:26)
[2018-02-27] MEDS: Docusate Sodium 100 MG Capsule PO (09:58)
[2018-02-27] MEDS: busPIRone 5 MG Tablet 10 MG PO ×2 (09:58→22:25)
[2018-02-27] MEDS: Topiramate 200 MG Tablet PO (09:59)
[2018-02-27] MEDS: Pantoprazole Sodium 20 MG Tablet PO (09:59)
[2018-02-27] MEDS: Memantine Hydrochloride 5 MG Tablet PO ×2 (09:59→22:27)
[2018-02-27] MEDS: Insulin Lispro 100 UNIT/ML INSULN.PEN 16 UNIT SC (10:07)
--- NOTE | 2018-02-27 11:17 | CASEMGMT ---
Addendum entered by Nida Potts 02/27/18 11:19: SW updated pt of this. Pt states understanding. Original Note: Social Work Note SW spoke with Poornima at [facility] who states she is able to accept pt and has submitted for pre-cert. SW asked that since pt is LISA at [facility] if pt can discharge without pre-cert and then once pre-cert is obtained transition to Skilled side. [facility]orn[facility] states that she will need pre-cert before pt can go to skilled side. Plan: [facility] once pre-cert is obtained Nida Potts GUNNER'S MATE M, VIBRATION TECHNICIAN
[2018-02-27 11:47] VITALS: BP 112/49; PULSE 80; RESP 16; TEMP 37.2; O2SAT 96
[2018-02-27 12:25] LABS: Bedside Glucose 190 mg/dL (70-110)
--- NOTE | 2018-02-27 14:47 | PCM.PROGNOTE ---
Subjective: resting comfortably in bed. Drainage decreased per nursing. BL burning leg pain continues. No sob. No cough. no n/v/d. waiting for placement. No difficulty emptying cath. - Physical Exam General: Alert, Oriented x3, Cooperative HEENT: Atraumatic, PERRLA, EOMI, Normocephalic Neck: Supple, No JVD, Negative Carotid Bruits Lungs: Clear to auscultation, Normal air movement Cardiovascular: Regular rate, No murmurs Abdomen: Bowel Sounds Present, Soft, Non Tender Extremities: Capillary Refill Less than 3 Seconds, Tenderness, - - lymphedema, improved. wrapped. Skin: No rashes, No breakdown Musculoskeletal: No Tenderness to Palpation of Joints or Extremities Neurological: Cranial nerves II-XII grossly intact Psych/Mental Status: Normal Affect, Appropriate, Alert and oriented to time, place, person, mood and affect Vital Signs Temp Pulse Resp BP Pulse Ox 99.0 F 80 16 112/49 L 96 02/27/18 11:47 02/27/18 11:47 02/27/18 11:47 02/27/18 11:47 02/27/18 11:47 Oxygen Delivery Method Room Air Weight: 214 lb 8.156 oz Body Mass Index (BMI) 40.1 Finger Stick Blood Glucose 68 Intake and Output for Last 24 Hours 02/25/18 02/26/18 02/27/18 23:59 23:59 23:59 Intake Total 1450 / 1450 300 / 300 Output Total 4700 / 4700 1100 / 1100 Balance -3250 / -3250 -800 / -800 Laboratory Tests Past 24 Hrs 02/27/18 06:55 Sodium 145 Potassium 3.4 L Chloride 108 H Carbon Dioxide 27.0 Anion Gap 10 BUN 28 H Creatinine 1.59 H Estim Creat Clear Calc 23.06 Est GFR (MDRD) Af Amer 40 L Est GFR (MDRD) Non-Af 33 L BUN/Creatinine Ratio 17.6 Glucose 92 Calcium 8.9 POC Glucose 02/27/18 02/27/18 02/26/18 11:45 07:54 22:26 POC Glucose 190 H 100 148 H 02/26/18 16:09 POC Glucose 65 L Medical Necessity - Tobacco Use Smoking Status: Former smoker Tobacco Use: Non-smoker Assessment/Plan All Active Problems Skin ulcer of buttock (Resolved) Syncope and collapse (Resolved) Dysuria (Resolved) 1. Worsening of lymphedema - daily dressings, wound care consult. Also sacral pressure ulcer present on admission. Wound care following. adaptic and keenan wraps. lasix to po today. trial neurontin for BLE pain. 2. Worsening of generalized weakness - PTOT, SNF placement 3. Dementia - aricept + namenda 4. CKD III - stable 5. DMt2 with morbid obesity - add SSI, titrate home insulin 6. HTN - stable 7. 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 8. Hx epilepsy - topamax 9. Hypothyroid - synthroid DVT ppx: heparin DC planning: SNF. precert pending. This patient was seen by Anshu Argueta PA-C under the supervision of Doctor Posey.
[2018-02-27 15:00] VITALS: RESP 18
[2018-02-27] MEDS: Furosemide 40 MG Tablet PO ×2 (15:12→22:29)
[2018-02-27 15:34] LABS: Magnesium 2.1 mg/dL (1.6-2.6); Phosphorus 4.1 mg/dL (2.5-4.9)
[2018-02-27 16:31] VITALS: BP 128/61; PULSE 75; RESP 16; TEMP 37.3; O2SAT 96
[2018-02-27] MEDS: Gabapentin 100 MG Capsule PO (16:40)
[2018-02-27 17:00] LABS: Bedside Glucose 113 mg/dL (70-110)
[2018-02-27] MEDS: Topiramate 100 MG Tablet PO (22:25)
[2018-02-27 22:30] VITALS: BP 114/60; PULSE 75; RESP 16; TEMP 36.6; O2SAT 98
[2018-02-27] MEDS: Donepezil HCl 10 MG Tablet PO (22:31)
[2018-02-27 22:40] LABS: Bedside Glucose 144 mg/dL (70-110)
[2018-02-28 04:30] VITALS: BP 116/62; PULSE 71; RESP 16; TEMP 37; O2SAT 97
[2018-02-28] MEDS: Furosemide 40 MG Tablet PO ×3 (05:11→22:15)
[2018-02-28] MEDS: Hydrocortisone 10 MG Tablet 5 MG PO ×3 (05:11→22:11)
[2018-02-28] MEDS: Levothyroxine 150 MCG Tablet PO (05:11)
[2018-02-28] MEDS: Menthol/Lanolin/Calamine/Znox 113 GM Tube 1 APPLIC TOPICAL ×3 (05:12→22:01)
[2018-02-28] MEDS: Heparin Injection (Vial) 5,000 UNIT/ML VIAL 5000 UNIT SC ×3 (05:12→22:03)
[2018-02-28] MEDS: Aspirin E.C. 81 MG Tablet PO (08:03)
[2018-02-28] MEDS: Calcium (Elemental) 500 MG Tablet PO (08:04)
[2018-02-28] MEDS: Gabapentin 100 MG Capsule PO (08:06)
[2018-02-28] MEDS: oxyCODONE 5 MG Tablet PO (08:06)
[2018-02-28 08:16] LABS: Bedside Glucose 82 mg/dL (70-110)
--- NOTE | 2018-02-28 08:42 | NURSING ---
wound photo: left lower leg
--- NOTE | 2018-02-28 08:42 | NURSING ---
wound photo: right lower leg
[2018-02-28] MEDS: Insulin Lispro 100 UNIT/ML INSULN.PEN 16 UNIT SC ×2 (08:58→12:42)
[2018-02-28 09:02] VITALS: BP 100/54; PULSE 72; RESP 16; TEMP 36.9; O2SAT 93
--- NOTE | 2018-02-28 09:06 | CASEMGMT ---
Addendum entered by Nida Potts 02/28/18 10:31: RUTHIE faxed updated clinicals to Poornima at [facility]. Still waiting for pre-certification Original Note: Addendum entered by Nida Potts 02/28/18 10:17: SW spoke with pt's daughter Jemma who states she and pt's daughters were talking and wanted pt to go to a different SNF than [facility] and then transition pt to [facility]. SW explained that referral has already been sent to [facility] and they accepted and pre-cert has already been submitted. SW explained that if pre-cert is cancelled pt may get denied skilled care. Jemma states understanding and is ok with pt returning to [facility] and wait until [facility] has a bed available for pt. Original Note: Social Work Note SW received message from pt's daughter Jemma stating she would like pt to be placed at SNF with the moth exterminator goal to get pt to [facility]. Per previous notes, this has been the plan for pt and this worker is waiting to get pre-certification from pt's insurance to get pt to [facility]. Pt is already placed on [facility] waitlist. RUTHIE attempted to call Jemma back but Jemma didn't answer and pt's voicemail is full and this worker is unable to leave message. RUTHIE will attempt to call pt's daughter at a later time today. Plan: [facility] pending pre-cert Nida Potts BUTTON STATION WORKER, VIDEO PRODUCER
[2018-02-28] MEDS: busPIRone 5 MG Tablet 10 MG PO ×2 (10:34→22:15)
[2018-02-28] MEDS: Docusate Sodium 100 MG Capsule PO (10:35)
[2018-02-28] MEDS: Memantine Hydrochloride 5 MG Tablet PO (10:36)
[2018-02-28] MEDS: Pantoprazole Sodium 20 MG Tablet PO (10:36)
[2018-02-28] MEDS: LORazepam 0.5 MG Tablet PO ×2 (10:43→22:14)
[2018-02-28] MEDS: Acetaminophen 325 MG Tablet 650 MG PO (10:50)
[2018-02-28] MEDS: Topiramate 200 MG Tablet PO (11:34)
[2018-02-28 11:55] LABS: Bedside Glucose 82 mg/dL (70-110)
--- NOTE | 2018-02-28 12:21 | CASEMGMT ---
Addendum entered by Nida Potts 02/28/18 13:09: SW received message from Poornima at [facility] stating she hasn't received pre-cert yet from pt's insurance. Original Note: Social Work Note SW placed a call to [facility] and per Radha Noguera just stepped out of the office. Radha took message for Poornima. RUTHIE waiting to hear back from Poornima at [facility] in regards to pre-cert. Plan: [facility] pending pre-cert Nida Potts SECOND GRADE TEACHER, PHARMACY HELPER
--- NOTE | 2018-02-28 13:07 | PCM.PROGNOTE ---
Subjective: No acute issues. Pain has started to improve since gabapentin - bee stings. Edema has decreased. No SOB. - Physical Exam General: Alert, Oriented x3, Cooperative HEENT: Atraumatic, PERRLA, EOMI, Normocephalic Neck: Supple, No JVD, Negative Carotid Bruits Lungs: Clear to auscultation, Normal air movement Cardiovascular: Regular rate, No murmurs Abdomen: Bowel Sounds Present, Soft, Non Tender Extremities: Capillary Refill Less than 3 Seconds, Edema - improved. Skin: No rashes, No breakdown Musculoskeletal: No Tenderness to Palpation of Joints or Extremities Neurological: Cranial nerves II-XII grossly intact Psych/Mental Status: Normal Affect, Appropriate, Alert and oriented to time, place, person, mood and affect Vital Signs Temp Pulse Resp BP Pulse Ox 98.5 F 72 16 100/54 L 93 02/28/18 09:02 02/28/18 09:02 02/28/18 09:02 02/28/18 09:02 02/28/18 09:02 Oxygen Delivery Method Room Air Weight: 212 lb 11.937 oz Body Mass Index (BMI) 40.1 Finger Stick Blood Glucose 68 Intake and Output for Last 24 Hours 02/26/18 02/27/18 02/28/18 23:59 23:59 23:59 Intake Total 1450 / 1450 900 / 900 500 / 500 Output Total 4700 / 4700 1100 / 1100 500 / 500 Balance -3250 / -3250 -200 / -200 0 / 0 Laboratory Tests Past 24 Hrs 02/27/18 06:55 Phosphorus 4.1 Magnesium 2.1 POC Glucose 02/28/18 02/28/18 02/27/18 11:38 07:57 22:24 POC Glucose 82 82 144 H 02/27/18 16:26 POC Glucose 113 H Medical Necessity - Tobacco Use Smoking Status: Former smoker Tobacco Use: Non-smoker Assessment/Plan All Active Problems Skin ulcer of buttock (Resolved) Syncope and collapse (Resolved) Dysuria (Resolved) 1. Worsening of lymphedema - daily dressings, wound care consult. Also sacral pressure ulcer present on admission. Wound care following. adaptic and keenan wraps. lasix to po today. trial neurontin for BLE pain. 2. Worsening of generalized weakness - PTOT, SNF placement. Stands and pivots with assist. 3. Dementia - aricept + namenda 4. CKD III - stable 5. DMt2 with morbid obesity - add SSI, titrate home insulin 6. HTN - stable 7. 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 8. Hx epilepsy - topamax 9. Hypothyroid - synthroid DVT ppx: heparin DC planning: SNF. precert pending. This patient was seen by Anshu Argueta PA-C under the supervision of Doctor Posey.
[2018-02-28 15:21] VITALS: BP 101/54; PULSE 66; RESP 16; TEMP 37.2; O2SAT 95
--- NOTE | 2018-02-28 15:38 | TREXTCAR_ITS ---
Addendum entered and electronically signed by TIGIST Hicks 03/02/18 10:06: Code Visit Discharge date 03/02/18. Original Note: - Diet 02/25/18 10:14 Diet: Calorie Controlled How many daily calories?: 1800 calorie - Routine Orders/Code Status Suppository Type: Dulcolax 10mg Suppository Frequency: Daily PRN Routine Lab Work: BMP - 3 days Code Status: Full Code - Wound(s) BILAT LE Wound Type: blisters COCCYX Wound Type: Pressure Injury left elbow Wound Type: Abrasion right medial lower leg Wound Type: open blister Dressing Change: Adaptic left medial lower leg Wound Type: small open blister Dressing Change: Adaptic - Therapies Physical Therapy: Eval and Treat Occupational Therapy: Eval and Treat - Problem/Diagnosis (1) Pressure ulcer Status: Chronic Current Visit: Yes (2) Lymphedema Status: Chronic Current Visit: Yes (3) Glucocorticoid deficiency Status: Chronic Current Visit: No (4) Esophageal reflux Status: Chronic Current Visit: No (5) Type 2 diabetes mellitus without (mention of) complications Status: Chronic Current Visit: No (6) Hypertension Status: Chronic Current Visit: No (7) Anemia Status: Chronic Current Visit: No (8) CKD (chronic kidney disease) stage 3, GFR 30-59 ml/min Status: Chronic Current Visit: Yes - Allergies/Procedures Done in Hospital Allergies/Adverse Reactions: Allergies Iodinated Contrast- Oral and IV Dye [Iodinated Contrast Media - IV Dye] Adverse Reaction (Verified 10/10/17 12:37) Other NAUSEA AFFECTS KIDNEYS Procedures: None - Type of Care/Length of Stay Estimated LOS: Convalescent Care Less Than 30 days Type of Care Needed: Skilled Rehab Potential: Fair Prognosis: Fair - Additional Orders/Day of Discharge Additional Orders: Continue wound care with daily Adaptic with firm Remy wraps to bilateral lower extremities from toes to below the knees Day of Discharge: 02/28/18 - Dietary and Speech Recommendations Dietitian Recommendations/Changes: Rec diet change to 1800 og Cardiac/low sodium w/ fluid restriction as indicated. Rec Dev bid to help w/ skin healing - order from pharmacy - Follow Up Care Primary Care Physician: Tito Huerta DO [Primary Care Provider] - Please follow up with your Primary Care Physician in: 1-2 weeks
--- NOTE | 2018-02-28 15:45 | DS.PCM_ITS ---
Discharge Date and Diagnosis Date of Admission: 02/25/18 Date of Discharge: 02/28/18 - Primary Discharge Diagnosis Worsening of lymphedema Debility with inability to ambulate CKD stage III Dementia Diabetes mellitus type 2 with obesity Hypertension History of epilepsy Chronic pain syndrome Hypothyroidism Decubitus ulcer present on admission Glucocorticoid insufficiency - Secondary Discharge Diagnosis Chronic Problems CKD (chronic kidney disease) stage 3, GFR 30-59 ml/min (Chronic) Pressure ulcer (Chronic) Lymphedema (Chronic) Glucocorticoid deficiency (Chronic) Esophageal reflux (Chronic) Epilepsy undetermined as to focal or generalized, intractable (Chronic) Diverticulosis of colon (without mention of hemorrhage) (Chronic) Type 2 diabetes mellitus without (mention of) complications (Chronic) Chronic kidney disease (CKD), stage IV (severe) (Chronic) Carotid artery occlusion without infarction (Chronic) Stage II pressure ulcer of left buttock (Chronic) 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 (Chronic) Stage III pressure ulcer of left buttock (Chronic) Stage III pressure ulcer of sacral region (Chronic) Anxiety (Chronic) Asthma, chronic (Chronic) Stage III pressure ulcer of right buttock (Chronic) Adrenal insufficiency (Chronic) Renal artery atherosclerosis (Chronic) Pure hypercholesterolemia (Chronic) 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, or chronic kidney disease (Chronic) Hypertension (Chronic) Anemia (Chronic) Hospital Course and Treatment Consultations 02/25/18 11:17 Consult: Onc/Wound/designer writer Routine Comment: Operations: None Procedures: None Summary of Care Provided: Physical exam on day of discharge: See daily progress note Hospital course: The patient is a 78 year old F with a history of decubitus ulcer, lymphedema, epilepsy, glucocorticoid insufficiency, hypertension, CKD stage III, dementia, who presented to the emergency room from assisted living as directed by her home health care team as they noticed her lymphedema was significantly worse with sloughing, increased clear drainage from her wounds, and worsening ability to function at home with inability to walk on her own. She was admitted to the general medical floor and wound care was consulted. She was given daily Adaptic dressings with firm Remy wraps. Her Bumex was changed to a higher dose of Lasix with appropriate potassium supplementation. She continued to have some burning pain described as bee sting sensations in her lower extremities and was given gabapentin with good response. She worked with physical therapy and occupational therapy and correction was recommended as opposed to going home back to assisted living with home care. This was arranged for her and the patient was agreeable. Namenda was added to Aricept for discharge. She is discharged to correction in stable condition. Please continue daily wound care as above, with nutrition supplementation. She needs daily PT and OT. Please check a BMP in 3 days to assess effectiveness of Lasix and potassium. She will need to follow-up with her PCP in 1-2 weeks. This patient was seen by Anshu Argueta PA-C under the supervision of Doctor Kalpesh. [] Discharge Diet: Low fat/ Low Cholesterol, 1800 Calorie Control Diet, 2000 mg Sodium Diet Discharge Activity: Return to Normal Activity Home Medications: Medications to take at Discharge Buspirone HCl [Buspar] 10 mg PO BID 06/06/14 Omeprazole [Prilosec] 20 mg PO DAILY 05/08/15 Colesevelam Hydrochloride [Welchol] 650 mg PO BID 08/07/15 Insulin Aspart [Novolog Flexpen] 16 units SC TID 12/21/15 Calcium Carbonate [Calcium] 500 mg PO DAILY 01/26/17 Hydrocortisone 5 mg PO TID 01/26/17 Aspirin [Aspir-Low] 81 mg PO DAILY 02/25/18 Cholecalciferol (Vitamin D3) [Vitamin D3] 50,000 unit PO Q7D 02/25/18 Docusate Sodium [Colace] 100 mg PO DAILY 02/25/18 Donepezil HCl [Aricept] 10 mg PO QHS 02/25/18 Insulin Glargine,Hum.rec.anlog [Basaglar Kwikpen U-100] 30 unit SQ DAILY 02/25/18 Insulin Glargine,Hum.rec.anlog [Basaglar Kwikpen U-100] 70 unit SQ QHS 02/25/18 Levothyroxine [Synthroid] 150 mcg PO DAILY 02/25/18 Topiramate [Topamax] 100 mg PO QHS 02/25/18 Topiramate [Topamax] 200 mg PO DAILY 02/25/18 Acetaminophen [Tylenol Tablet] 650 mg PO Q6H PRN PRN tablet 02/28/18 Furosemide [Lasix] 40 mg PO TID tablet 02/28/18 Gabapentin [Neurontin] 200 mg PO BIDCM capsule 02/28/18 Lorazepam [Ativan] 0.5 mg PO BID PRN PRN 3 Days #6 tab 02/28/18 Memantine Hydrochloride [Namenda] 10 mg PO BID tablet 02/28/18 Menthol/Lanolin/Calamine/Znox [Calmoseptine Ointment] 1 applic TOPICAL TID tube 02/28/18 Oxycodone CR [Oxycontin] 20 mg PO TID 2 Days #6 tab 02/28/18 Potassium Chloride [K-Dur] 20 meq PO BIDCM tablet 02/28/18 Following Prescrptions Were Given to Patient: Lorazepam [Ativan] 0.5 mg PO BID PRN PRN 3 Days #6 tab PRN Reason: Anxiety Oxycodone CR [Oxycontin] 20 mg PO TID 2 Days #6 tab Primary Care Physician: Tito Huerta DO [Primary Care Provider] - Please follow up with your Primary Care Physician in: 1-2 weeks [facility]position[facility] facility Minutes spent on discharge:: 35 Patient Condition:: Stable Medical Necessity - Tobacco Use Smoking Status: Former smoker Tobacco Use: Non-smoker Meaningful Use Info Meaningful Use Diagnoses (Choose all that apply): None applicable
--- NOTE | 2018-02-28 16:42 | NURSING ---
REPORT CALLED TO [facility] SPOKE WITH FRANCESCO BERUMEN
--- NOTE | 2018-02-28 17:00 | NURSING ---
orders changed and pt not going to [facility] today - [place] [facility] - will call [facility] and let them know pt is not coming today
[2018-02-28] MEDS: Gabapentin 100 MG Capsule 200 MG PO (17:07)
--- NOTE | 2018-02-28 17:30 | CASEMGMT ---
Social Work Note SW received call from Poornima at [facility] that pre-cert has been obtained and pt is able to discharge to [facility] today. RUTHIE updated Anshu DAY. RUTHIE faxed completed discharge paperwork including transfer to extended care facility, signed medication list and any scripts. Originals in SNF folder and on pt's chart. RUTHIE completed PAS/RR in HENS. Original in SNF folder and copy on pt's chart. SW set up transportation via cot through [facility] for 5:00pm. Transportation form on SNF folder and copy on pt's chart. RUTHIE placed a call to pt's daughter Jemma and updated her on this. Jemma states that her and her sister don't want pt returning to [facility] at discharge. RUTHIE explained that discharge orders have been put in and medically the pt is able to discharge. SW explained that once pt return to [facility] if they are continued to be unhappy with pt's care at [facility] pt can be transferred to a different facility at a later time. RUTHIE explained that pt will be returning to the skilled side at discharge and will get more care compared to when pt was on AL side. Jemma states that she still doesn't want pt to return there at discharge and will call her sister to discuss discharge plans. Pt's daughters Fely and Jemma present at [facility]. RUTHIE explained to Fely that discharge orders are in and pt is ready to discharge. Fely states that pt won't be returning to [facility] and asked to have discharge orders cancelled. RUTHIE updated Anshu DAY and Dr. Posey of pt's daughter wanting to cancel the discharge. Fely states that she is fine with pt going to any other facility than [facility] and [facility] is the third choice. RUTHIE explained that this worker spoke with pt's daughter Jemma yesterday who informed this worker that she was fine with pt returning to [facility] until a bed became available at [facility]. Fely states that this was miscommunication between this worker and her sister Jemma and once again states pt won't be returning to [facility] as pt didn't receive the care she needed. RUTHIE once again explained that pt is going to the skilled side at discharge and pt will be getting more care than she was on the AL side. Fely is still adamant that she doesn't want pt to discharge to [facility]. RUTHIE explained that this worker will have to check on beds at [facility] and will have to start pre-cert process again. Fely states understanding. RUTHIE placed a call to [facility] and cancelled transportation. [place] Rita informed this worker that she called [facility] and informed them that pt won't be discharged tonight. It should be noted that this SW gave pt's daughter Jemma the option of looking at other facilities or returning to [facility] the other day when Jemma informed this worker that she was fine with pt returning to [facility]. RUTHIE placed a call to Yvonne at [facility] and informed her of referral for pt. RUTHIE explained that the plan is for pt to come to [facility] skilled and then transition to railroad worker side with her Jacob transitioning to [facility] at a later time. Yvonne states understanding and she has beds available. SW to fax referral to [facility] tomorrow as admission has now left for the day. Plan: [facility] pending pre-cert Nida Potts ROVING TECHNICIAN, AUTOMOTIVE BRAKE SPECIALIST
[2018-02-28 17:31] LABS: Bedside Glucose 95 mg/dL (70-110)
[2018-02-28 17:31] LABS: Bedside Glucose 58 mg/dL (70-110)
[2018-02-28 17:31] LABS: Bedside Glucose 57 mg/dL (70-110)
[2018-02-28 21:51] VITALS: BP 92/63; PULSE 77; RESP 16; TEMP 37; O2SAT 92
[2018-02-28] MEDS: Insulin Lispro 100 UNIT/ML INSULN.PEN SC (21:59)
[2018-02-28] MEDS: Memantine Hydrochloride 10 MG Tablet PO (22:14)
[2018-02-28] MEDS: Donepezil HCl 10 MG Tablet PO (22:15)
[2018-02-28] MEDS: Topiramate 100 MG Tablet PO (22:15)
[2018-02-28 22:36] LABS: Bedside Glucose 193 mg/dL (70-110)
[2018-03-01 03:46] VITALS: BP 103/56; PULSE 77; RESP 16; TEMP 36.9; O2SAT 94
[2018-03-01] MEDS: Heparin Injection (Vial) 5,000 UNIT/ML VIAL 5000 UNIT SC ×3 (05:30→22:11)
[2018-03-01] MEDS: Menthol/Lanolin/Calamine/Znox 113 GM Tube 1 APPLIC TOPICAL ×3 (05:30→22:33)
[2018-03-01] MEDS: Hydrocortisone 10 MG Tablet 5 MG PO ×3 (05:31→22:11)
[2018-03-01] MEDS: Furosemide 40 MG Tablet PO ×3 (05:31→22:08)
[2018-03-01] MEDS: Levothyroxine 150 MCG Tablet PO (05:31)
[2018-03-01 06:42] LABS: Anion Gap 7 (5-15); BUN 33 mg/dL (7-18); BUN/Creat Ratio 19.9 RATIO (10-20); Calcium,Total 8.6 mg/dL (8.5-10.1); Chloride 107 mmol/L (98-107); Creatinine, Serum 1.66 mg/dL (0.55-1.02); EST Glomerular Filtration Rate 32 mL/min (>60); Est Glom Filt Rate - Afr Amer 38 mL/min (>60); Estimated Creatinine Clearance 22.09 ml/min; Glucose 134 mg/dL (74-106); Sodium Level 140 mmol/L (136-145)
[2018-03-01 08:31] LABS: Bedside Glucose 147 mg/dL (70-110)
[2018-03-01] MEDS: Aspirin E.C. 81 MG Tablet PO (08:38)
[2018-03-01] MEDS: Gabapentin 100 MG Capsule 200 MG PO ×2 (08:39→16:37)
[2018-03-01] MEDS: Calcium (Elemental) 500 MG Tablet PO (08:39)
[2018-03-01] MEDS: Insulin Lispro 100 UNIT/ML INSULN.PEN 16 UNIT SC ×3 (08:40→17:36)
[2018-03-01] MEDS: oxyCODONE 5 MG Tablet PO (08:42)
--- NOTE | 2018-03-01 10:33 | CASEMGMT ---
Social Work Note SW met with pt today as pt is upset with her daughters and to confirm discharge plans. It should be noted that Camryn Lance SUPERVISOR MELT HOUSE, RN Janice and Charge Nurse Aye feel that pt is alert and orientated to make decisions for herself regarding SNF placement. SW met with pt. Spent much time with pt providing emotional support and confirming discharge plans. Pt states that she is very upset with her daughters Jemma and Fely and that they don't need to be making decisions for her. Pt states that she was unable to sleep last night as she was very upset with her daughters for making decisions for her. SW explained that as long as pt is alert and orientated she is able to make decisions for herself and she has the right to determine which facilities she wishes to discharge to. Pt states understanding. SW provided active listening skills and provided support for pt. Pt states I don't know which facility to go to, I just want to go somewhere where they will be able to provided care for my legs. SW explained that any facility she wants to go to can provided skilled services and will be able to provide skilled services which will involve more care. SW explained that once pt gets the extra care she needs she can then transition to AL side again. SW explained that once pt goes to a facility if she doesn't like it there or wishes to go to a different facility she can choose to do so. Pt states understanding. Pt spent much time talking to this worker about her children and how she feels like her daughters are controlling and don't make the best decisions for her. Pt states she would much rather have her son's either Roderick. Timothy, or Alberto make decisions for her. SW approached topic of Advanced Directives. Pt states that she wishes to think about them and who she wants to name HCPOA. SW will meet with pt at later time to determine if she wishes to complete advanced directives. SW explained that Advanced Directives can also be completed at SNF. Pt states she wishes to view ratings on SNF as she is still unsure where she wants to go. SW provided pt with Medicare ratings and discussed Medicare Ratings with pt. Pt states that she would prefer a SNF in [place] and doesn't want to go to [place]. SW compared [facility]. SW explained that overall it is her choice which facility she chooses to go with. SW explained that this worker had already called [facility] yesterday and they confirmed that they have beds available and will be able to take her Jacob on the prison side as well. Pt states that she is still hesitate to leave Jacob at [facility] and that he is a little demented and she feels bad for leaving her. SW again provided active listening skills and provided emotional support and again informed pt that [facility] already knows about pt's and that they will have a bed available for him at [facility]. SW again though informed pt that she can choose where she wishes to go at discharge. Pt states understanding. Pt states that she is agreeable to referral being sent to [facility]. Pt states that [facility] is in [place] and it is closer to her children if they want to visit her. Pt states that her daughters were the ones that put her at [facility] but since she's been there they haven't visited a lot. Pt's son Timothy called pt while this worker was in room. Pt gave this worker permission to speak to her son Timothy. Per pt Timothy lives in [place]. SW spoke with Timothy about discharge plans. Timothy is ok with pt going to [facility] if her Jacob is able to come to [facility] as well. SW explained that this worker has already spoken to [facility] that her would also be coming to [facility] on the continuous churn buttermaker side eventually and they were ok with this. SW explained that this worker went over Medicare ratings with pt and informed Timothy that [facility] was rated above average or average on three of the four categories and [facility] was rated below or much below average on three of the four categories. Timothy states understanding and once again is ok with pt moving to [facility]. SW confirmed with pt that she wishes to have a referral sent to [facility] and pt confirms this. Pt thanked this worker for talking to her. SW placed a call to Yvonne at [facility] and informed her that referral will be faxed. Yvonne states that once referral is received she will submit for pre-cert. SW asked Yvonne if she could expedite the referral and Yvonne states that she will ask [facility] to expedite the pre-cert. SW faxed referral to [facility]. Plan: [facility] pending pre-cert Nida Potts CLIENT SERVICES VICE PRESIDENT, PIPE BLANKS CUT OFF SAW OPERATOR
--- NOTE | 2018-03-01 10:55 | PN_ITS ---
Subjective: Patient seen and examined. Resting in chair eating breakfast, no acute distress. Complains of lower extremity pain following dressing changes this morning. Denies other complaints. - Physical Exam General: Alert, Cooperative, No apparent distress HEENT: Atraumatic, PERRLA, EOMI, Normocephalic Oral: Moist Mucosa Neck: Supple, No JVD, Negative Carotid Bruits Lungs: Clear to auscultation, Diminished Cardiovascular: Regular rate, Regular Rhythm, Normal S1, Normal S2, No murmurs Abdomen: Bowel Sounds Present, Soft, Non Tender, Non-Distended, Obese Extremities: No clubbing, No cyanosis, Edema - BLLE Skin: No rashes, No breakdown, - - Bilateral lower extremity wounds, dressings clean dry and intact. Musculoskeletal: No Tenderness to Palpation of Joints or Extremities Neurological: Cranial nerves II-XII grossly intact, Neuro grossly intact Psych/Mental Status: Normal Affect, Appropriate Vital Signs Temp Pulse Resp BP Pulse Ox 98.5 F 77 16 103/56 L 94 03/01/18 03:46 03/01/18 03:46 03/01/18 03:46 03/01/18 03:46 03/01/18 03:46 Oxygen Delivery Method Room Air Weight: 212 lb 15.465 oz Body Mass Index (BMI) 40.1 Finger Stick Blood Glucose 68 Intake and Output for Last 24 Hours 02/27/18 02/28/18 03/01/18 23:59 23:59 23:59 Intake Total 900 / 900 1650 / 1650 200 / 200 Output Total 1100 / 1100 1000 / 1000 1100 / 1100 Balance -200 / -200 650 / 650 -900 / -900 Laboratory Tests Past 24 Hrs 03/01/18 06:08 Sodium 140 Potassium 4.0 Chloride 107 Carbon Dioxide 26.0 Anion Gap 7 BUN 33 H Creatinine 1.66 H Estim Creat Clear Calc 22.09 Est GFR (MDRD) Af Amer 38 L Est GFR (MDRD) Non-Af 32 L BUN/Creatinine Ratio 19.9 Glucose 134 H Calcium 8.6 POC Glucose 03/01/18 02/28/18 02/28/18 08:24 21:57 17:14 POC Glucose 147 H 193 H 95 02/28/18 02/28/18 02/28/18 16:53 16:33 11:38 POC Glucose 58 L 57 L 82 Medical Necessity - Tobacco Use Smoking Status: Former smoker Tobacco Use: Non-smoker Assessment/Plan All Active Problems Skin ulcer of buttock (Resolved) Syncope and collapse (Resolved) Dysuria (Resolved) 1. Dementia, failure to thrive/generalized weakness-SNF pending pre-cert. Previously from assisted living which patient was not receiving adequate care. Continue Aricept and Namenda regimen. PT/OT. 2. Chronic lymphedema with bilateral lower extremity wounds, present on admission-patient noted to have sacral pressure ulcer, also present on admission. Wound RN following. Continue adaptic/Remy wraps bilateral lower extremities. Continue Lasix regimen. Neurontin added for bilateral lower extremity pain. 3. Type 2 diabetes [id number]-[id number] before meals at bedtime with sliding scale insulin. 4. Chronic kidney disease stage III- stable. 5. Hypertension-stable, continue current regimen. 6. History of seizures-continue home Topamax regimen. 7. Hypothyroidism-continue home Synthroid regimen. 8. Morbid obesity-encourage diet and lifestyle modifications. Nutrition cons ult. DVT prophylaxis-heparin subcu. This patient was seen by TIGIST Hicks under the supervision of Dr. Posey.
[2018-03-01 11:05] VITALS: BP 99/55; PULSE 76; RESP 18; TEMP 37.1; O2SAT 97
[2018-03-01] MEDS: busPIRone 5 MG Tablet 10 MG PO ×2 (11:13→22:10)
[2018-03-01] MEDS: Docusate Sodium 100 MG Capsule PO (11:13)
[2018-03-01] MEDS: LORazepam 0.5 MG Tablet PO ×2 (11:24→22:08)
[2018-03-01] MEDS: Pantoprazole Sodium 20 MG Tablet PO (11:25)
[2018-03-01] MEDS: Topiramate 200 MG Tablet PO (11:26)
[2018-03-01 12:00] LABS: Bedside Glucose 142 mg/dL (70-110)
[2018-03-01] MEDS: Memantine Hydrochloride 10 MG Tablet PO ×2 (13:39→22:33)
[2018-03-01 13:45] VITALS: BP 101/64; PULSE 74; RESP 18; TEMP 37.2; O2SAT 95
[2018-03-01 16:46] LABS: Bedside Glucose 72 mg/dL (70-110)
[2018-03-01 19:43] VITALS: BP 143/121; PULSE 90; RESP 16; TEMP 36.8; O2SAT 100
[2018-03-01] MEDS: Topiramate 100 MG Tablet PO (22:09)
[2018-03-01] MEDS: Donepezil HCl 10 MG Tablet PO (22:10)
[2018-03-01 22:40] LABS: Bedside Glucose 121 mg/dL (70-110)
[2018-03-02 03:59] VITALS: BP 125/60; PULSE 71; RESP 14; TEMP 36.9; O2SAT 96
[2018-03-02 06:27] LABS: Anion Gap 9 (5-15); BUN 38 mg/dL (7-18); BUN/Creat Ratio 25.3 RATIO (10-20); Calcium,Total 8.6 mg/dL (8.5-10.1); Chloride 108 mmol/L (98-107); EST Glomerular Filtration Rate 36 mL/min (>60); Est Glom Filt Rate - Afr Amer 43 mL/min (>60); Estimated Creatinine Clearance 24.45 ml/min; Glucose 123 mg/dL (74-106); Potassium 3.8 mmol/L (3.5-5.1); Sodium Level 143 mmol/L (136-145)
[2018-03-02] MEDS: Menthol/Lanolin/Calamine/Znox 113 GM Tube 1 APPLIC TOPICAL (06:43)
[2018-03-02] MEDS: Hydrocortisone 10 MG Tablet 5 MG PO (06:44)
[2018-03-02] MEDS: Furosemide 40 MG Tablet PO (06:45)
[2018-03-02] MEDS: Heparin Injection (Vial) 5,000 UNIT/ML VIAL 5000 UNIT SC (06:45)
[2018-03-02] MEDS: Levothyroxine 150 MCG Tablet PO (06:46)
[2018-03-02 07:35] LABS: Bedside Glucose 118 mg/dL (70-110)
[2018-03-02 07:53] VITALS: BP 106/62; PULSE 65; RESP 16; TEMP 37.1; O2SAT 96
[2018-03-02 08:03] VITALS: PULSE 65; O2SAT 96
[2018-03-02] MEDS: Gabapentin 100 MG Capsule 200 MG PO (08:45)
[2018-03-02] MEDS: Calcium (Elemental) 500 MG Tablet PO (08:45)
[2018-03-02] MEDS: Aspirin E.C. 81 MG Tablet PO (08:45)
[2018-03-02] MEDS: busPIRone 5 MG Tablet 10 MG PO (08:46)
[2018-03-02] MEDS: Docusate Sodium 100 MG Capsule PO (08:46)
[2018-03-02] MEDS: Memantine Hydrochloride 10 MG Tablet PO (08:46)
[2018-03-02] MEDS: Pantoprazole Sodium 20 MG Tablet PO (08:47)
[2018-03-02] MEDS: Topiramate 200 MG Tablet PO (08:47)
[2018-03-02] MEDS: LORazepam 0.5 MG Tablet PO (08:51)
[2018-03-02] MEDS: Insulin Lispro 100 UNIT/ML INSULN.PEN 16 UNIT SC ×2 (08:56→10:53)
--- NOTE | 2018-03-02 09:12 | CASEMGMT ---
Social Work Note SW faxed updated clinicals to Yvonne at [facility]. Plan: [facility] pending pre-cert Nida Potts FLIGHT ENGINEER INSTRUCTOR, WILDLIFE REFUGE MANAGER
--- NOTE | 2018-03-02 10:12 | PCM.DC.SUM ---
Discharge Date and Diagnosis Date of Admission: 02/25/18 Date of Discharge: 03/02/18 - Primary Discharge Diagnosis 1. Worsening lymphedema with bilateral lower extremity wounds, present on admission 2. Dementia, failure to thrive/generalized weakness 3. Type 2 diabetes mellitus 4. Chronic kidney disease stage III 5. Hypertension 6. History of seizures 7. Hypothyroidism 8. Morbid obesity - Secondary Discharge Diagnosis Chronic Problems CKD (chronic kidney disease) stage 3, GFR 30-59 ml/min (Chronic) Pressure ulcer (Chronic) Lymphedema (Chronic) Glucocorticoid deficiency (Chronic) Esophageal reflux (Chronic) Epilepsy undetermined as to focal or generalized, intractable (Chronic) Diverticulosis of colon (without mention of hemorrhage) (Chronic) Type 2 diabetes mellitus without (mention of) complications (Chronic) Chronic kidney disease (CKD), stage IV (severe) (Chronic) Carotid artery occlusion without infarction (Chronic) Stage II pressure ulcer of left buttock (Chronic) 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 (Chronic) Stage III pressure ulcer of left buttock (Chronic) Stage III pressure ulcer of sacral region (Chronic) Anxiety (Chronic) Asthma, chronic (Chronic) Stage III pressure ulcer of right buttock (Chronic) Adrenal insufficiency (Chronic) Renal artery atherosclerosis (Chronic) Pure hypercholesterolemia (Chronic) 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 She has a past medical history of lymphedema, dementia, type 2 diabetes mellitus, chronic kidney disease stage III, GERD, hypothyroidism, adrenal insufficiency, hypertension, history of seizure disorder. Previously from assisted living facility. Patient requiring more care and will be discharged to SNF. 1. Dementia, failure to thrive/generalized weakness-SNF at discharge. Previously from assisted living which patient was not receiving adequate care. Continue Aricept and Namenda regimen. PT/OT. 2. Worsening chronic lymphedema with bilateral lower extremity wounds, present on admission-patient noted to have sacral pressure ulcer, also present on admission. Continue adaptic/Remy wraps bilateral lower extremities. Continue wound care daily. Elevate lower extremities. Continue Lasix regimen. Neurontin added for bilateral lower extremity pain. 3. Type 2 diabetes mellitus-continue home insulin regimen. 4. Chronic kidney disease stage III- stable. 5. Hypertension-stable, continue current regimen. 6. History of seizures-continue home Topamax regimen. 7. Hypothyroidism-continue home Synthroid regimen. 8. Morbid obesity-encourage diet and lifestyle modifications. General: Alert, Cooperative, No apparent distress HEENT: Atraumatic, PERRLA, EOMI, Normocephalic Oral: Moist Mucosa Neck: Supple, No JVD, Negative Carotid Bruits Lungs: Clear to auscultation, Diminished Cardiovascular: Regular rate, Regular Rhythm, Normal S1, Normal S2, No murmurs Abdomen: Bowel Sounds Present, Soft, Non Tender, Non-Distended, Obese Extremities: No clubbing, No cyanosis, Edema - BLLE lymphedema Skin: No rashes, No breakdown, - - Bilateral lower extremity wounds, dressings clean dry and intact. Musculoskeletal: No Tenderness to Palpation of Joints or Extremities Neurological: Cranial nerves II-XII grossly intact, Neuro grossly intact Psych/Mental Status: Normal Affect, Appropriate Patient seen exam prior to discharge. Physical assessment as noted above. Patient stable for discharge to SNF. This patient was seen by TIGIST Hicks under the supervision of Dr. Posey. Discharge Diet: Low fat/ Low Cholesterol, 1800 Calorie Control Diet, 2000 mg Sodium Diet Discharge Activity: Return to Normal Activity Home Medications: Medications to take at Discharge Buspirone HCl [Buspar] 10 mg PO BID 06/06/14 Omeprazole [Prilosec] 20 mg PO DAILY 05/08/15 Colesevelam Hydrochloride [Welchol] 650 mg PO BID 08/07/15 Insulin Aspart [Novolog Flexpen] 16 units SC TID 12/21/15 Calcium Carbonate [Calcium] 500 mg PO DAILY 01/26/17 Hydrocortisone 5 mg PO TID 01/26/17 Aspirin [Aspir-Low] 81 mg PO DAILY 02/25/18 Cholecalciferol (Vitamin D3) [Vitamin D3] 50,000 unit PO Q7D 02/25/18 Docusate Sodium [Colace] 100 mg PO DAILY 02/25/18 Donepezil HCl [Aricept] 10 mg PO QHS 02/25/18 Insulin Glargine,Hum.rec.anlog [Basaglar Kwikpen U-100] 30 unit SQ DAILY 02/25/18 Insulin Glargine,Hum.rec.anlog [Basaglar Kwikpen U-100] 70 unit SQ QHS 02/25/18 Levothyroxine [Synthroid] 150 mcg PO DAILY 02/25/18 Topiramate [Topamax] 100 mg PO QHS 02/25/18 Topiramate [Topamax] 200 mg PO DAILY 02/25/18 Acetaminophen [Tylenol Tablet] 650 mg PO Q6H PRN PRN tablet 02/28/18 Furosemide [Lasix] 40 mg PO TID tablet 02/28/18 Gabapentin [Neurontin] 200 mg PO BIDCM capsule 02/28/18 Lorazepam [Ativan] 0.5 mg PO BID PRN PRN 3 Days #6 tab 02/28/18 Memantine Hydrochloride [Namenda] 10 mg PO BID tablet 02/28/18 Menthol/Lanolin/Calamine/Znox [Calmoseptine Ointment] 1 applic TOPICAL TID tube 02/28/18 Potassium Chloride [K-Dur] 20 meq PO BIDCM tablet 02/28/18 Following Prescrptions Were Given to Patient: Lorazepam [Ativan] 0.5 mg PO BID PRN PRN 3 Days #6 tab PRN Reason: Anxiety Primary Care Physician: Tito Huerta DO [Primary Care Provider] - Please follow up with your Primary Care Physician in: 1-2 weeks Disposition: Longterm facility Minutes spent on discharge:: 35 Patient Condition:: Stable Medical Necessity - Tobacco Use Smoking Status: Former smoker Tobacco Use: Non-smoker Meaningful Use Info Meaningful Use Diagnoses (Choose all that apply): None applicable
--- NOTE | 2018-03-02 10:44 | CASEMGMT ---
Addendum entered by Nida Potts 03/02/18 12:29: SW once again spoke with pt about this worker calling her daughter to let her know pt is being discharged today to [facility]. Pt states that her daughter Fely called in today and she updated her that pt was going to be discharged to [facility]. Pt gave this worker permission to clall her daughter Jemma. SW placed a call to pt's daughter Jemma and updated her on discharge. Original Note: Social Work Note SW received message from Shira at [facility] stating that she received pre-cert. SW updated Camryn Lance NP. RUTHIE faxed completed discharge paperwork to Shira at [facility] including transfer to extended care facility, signed medication list, and any scripts. Originals in SNF folder and copy on pt's chart. SW updated pt on pre-cert being obtained. Pt states that she would like transportation to be set up via cot. SW placed a call to [facility] and set up transportation for 1:00pm. Transportation form on SNF folder and copy on pt's chart. RUTHIE updated pt, RN Sha, Charge Nurse Erinn, Home Care Manager Rn Emeterio and left a message for Shira at [facility] of transportation time. SW completed PAS/RR. Original in SNF folder and copy on pt's chart. SW emailed the help desk at [facility] and updated them that the original PAS/RR is not the correct one and the one that was submitted today is correct. Pt states she doesn't want this SW calling her daughter to let her know of discharge and requests that this worker call her son Roderick to let him know. SW placed a call to pt's son and left him a message regarding discharge. Plan: Pt to discharge to [facility] today at 1:00pm with [facility] transporting Nida Delroy MANAGER CULINARY, TRACER POWDER BLENDER
[2018-03-02] MEDS: Insulin Lispro 100 UNIT/ML INSULN.PEN SC (10:53)
[2018-03-02] MEDS: oxyCODONE 5 MG Tablet PO (10:59)
[2018-03-02] MEDS: Acetaminophen 325 MG Tablet 650 MG PO (11:00)
[2018-03-02 11:06] LABS: Bedside Glucose 154 mg/dL (70-110)
== END 2018-03-02 13:26 | disposition skilled nursing facility (03) ==
LOC: ED 08:35 → MS3 11:02
PROVIDERS: Nurse Practitioner Family; Physician Assistant; Admitting Provider Internal Medicine; Emergency Provider Emergency Medicine; Family Provider Family Medicine; PCP Family Medicine; Visit Provider Internal Medicine
DX: I89.0 Lymphedema, not elsewhere classified (principal); L89.153 Pressure ulcer of sacral region, stage 3; E11.22 Type 2 diabetes mellitus with diabetic chronic kidney disease; I12.9 Hypertensive chronic kidney disease with stage 1 through stage 4 chronic kidney disease, or unspecified chronic kidney disease; N18.3 Chronic kidney disease, stage 3 (moderate); E27.49 Other adrenocortical insufficiency; Z23 Encounter for immunization; K21.9 Gastro-esophageal reflux disease without esophagitis; G40.909 Epilepsy, unspecified, not intractable, without status epilepticus; F41.9 Anxiety disorder, unspecified; E66.01 Morbid (severe) obesity due to excess calories; E03.9 Hypothyroidism, unspecified; G89.4 Chronic pain syndrome; E11.40 Type 2 diabetes mellitus with diabetic neuropathy, unspecified; Z87.891 Personal history of nicotine dependence; Z79.899 Other long term (current) drug therapy; Z79.4 Long term (current) use of insulin; Z79.82 Long term (current) use of aspirin; Z79.52 Long term (current) use of systemic steroids; Z68.39 Body mass index [BMI] 39.0-39.9, adult; Z71.3 Dietary counseling and surveillance; G30.9 Alzheimer's disease, unspecified; F02.80 Dementia in other diseases classified elsewhere, unspecified severity, without behavioral disturbance, psychotic disturbance, mood disturbance, and anxiety; E78.5 Hyperlipidemia, unspecified; M19.90 Unspecified osteoarthritis, unspecified site; E87.6 Hypokalemia
CPT/HCPCS: 36415; 80048; 82962; 83735; 84100; 85025; 96372; 96374; 96375; 96376; 97162; 97166; 97530; 97535; 97802; 99218; 99285; J7050; 90686; A4216; G0378; J1940; J2405

== ENCOUNTER 2018-08-08 14:41 | Inpatient (IN) | payer MEDICARE, SELFPAY ==
[2018-08-08] VITALS (13 sets, daily range): BP systolic 92–114; BP diastolic 40–69; PULSE 74–95; RESP 18–24; TEMP 37.6–39.3; O2SAT 89–97; BMI 37.4; BMI 40.4
--- NOTE | 2018-08-08 15:06 | EKG12_ITS ---
Test Reason : FEVER Blood Pressure : / mmHG Vent. Rate : 090 BPM Atrial Rate : 090 BPM P-R Int : 162 ms QRS Dur : 094 ms QT Int : 380 ms P-R-T Axes : 050 -33 024 degrees QTc Int : 464 ms Normal sinus rhythm Left axis deviation Moderate voltage criteria for LVH, may be normal variant Inferior infarct , age undetermined Abnormal ECG Confirmed by ESEQUIEL FISHER, BETSY ([id number]), news editor EMA JOHNSON ([id number]) on 08/14/2018 8:54:02 AM Referred By: NEO Confirmed By:BETSY IRAHETA MD
--- NOTE | 2018-08-08 15:15 | RAD_ITS ---
STUDY: X-RAY CHEST REASON FOR EXAM: Female, 78 years old. Fever. CHF. TECHNIQUE: Single AP portable view of the chest. COMPARISON: Comparison is made with prior study dated June 08, 2016. FINDINGS: EKG electrode leads are seen. There is evidence of vascular congestion and mild degree of CHF. There is no demonstrated pleural abnormality. There is moderate cardiac enlargement. Normal mediastinum and violet. Normal visualized pulmonary arteries. There is atherosclerotic calcification of the aortic arch with tortuosity. There are diffuse degenerative changes of the visualized thoracic spine. Scoliosis. There is degenerative osteoarthritis of the bilateral shoulders. There is no demonstrated abnormality of the visualized soft tissue structures of the upper abdomen. RAD/Chest 1 View (Portable) IMPRESSION: Vascular congestion and mild degree of CHF. Electronically Signed: Maxime Arreguin, at 15:36 EST , Service support ,
--- NOTE | 2018-08-08 15:16 | VDLE_ITS ---
Reason For Study: LEG SWELLING Procedure LEFT Exam performed portable in ED. GSV is normal. Technically difficult due to body habitus. CFV is compressible, spontaneous, phasic, A preliminary report was called and/or faxed competent, and demonstrates normal to ED nurse. augmentation. FV is compressible, spontaneous, phasic, competent and demonstrates normal augmentation. POP V is compressible, spontaneous, phasic, competent and demonstrates normal augmentation. T/P Trunk is compressible. PTV is compressible. LT PerV is compressible. Interpretation Summary Deep veins of the left lower extremity are patent and compressible segmentally. There is no evidence of left lower extremity deep vein thrombosis. Valvular competence appears intact within the proximal deep venous system on the left . The left greater saphenous vein appears patent and compressible segmentally. Ordering Physician: Junie Osborne Referring Physician: Tito Huerta Performed By: Laila Garza RVT
--- NOTE | 2018-08-08 15:20 | ED.VISSUMM ---
- ER Visit Summary Date of Service: 08/08/18 Chief Complaint: Fever History of Present Illness: The patient is a 78 F presenting with fever. Patient had a temperature up to 104.4 at the senior care this morning. Family states that she was doing well yesterday. alf staff called today advising of a fever and confusion. Her roommate at the senior care recently had pneumonia. She has a history of dementia and history is limited. She presented to the ED with clothes soaked in urine. She has history of lymphedema. She has increasing redness left lower extremity. Physical Examination: Blood pressure 111/58, temperature 102.8, heart rate 95, respiratory rate 24. Pulse ox 89% on room air. Alert no acute distress. HEENT exam dry mucous membranes Neck is supple. No meningismus Lungs are clear and equal bilaterally. Heart is regular rate and rhythm. Abdomen is soft nontender nondistended. Extremities left lower extremity diffusely tender with erythema to the mid thigh. Anterior leg wounds with purulent drainage. Normal distal pulses. Skin is warm and dry. No focal neurologic deficit. Remainder of exam is unremarkable. Emergency Department Course and Treatment: Patient was given Tylenol. Chest x-ray shows vascular congestion, mild CHF. Left lower extremity ultrasound shows no evidence of DVT. EKG is sinus rate of 90. CBC shows white count 13.2. Chemistries show potassium 3.4, glucose 167, BUN 31, creatinine 1.76. Urinalysis unremarkable. Troponin 0.069. BNP 110.1. Lactic acid 2.1. Blood cultures were sent. Influenza was negative. She is given Ancef IV. Discussed with hospitalist for admission. Disposition: Admission Impression: Left lower extremity cellulitis, mild CHF This note was generated with [employer] dictation software. It may contain incorrect words, spelling, and punctuation that were not noted in review of the chart prior to signing ED Disposition - Plan for ED Patient: Referrals: Tito Huerta DO [STAFF PHYSICIAN] -
[2018-08-08 15:23] LABS: Absolute Lymphocyte Count 0.39 X10^3/ul (0.83-4.51); Absolute Neutrophil Count 11.8 X10^3/uL (2.0-7.7); Basophil# 0.01 X10^3/uL; Basophil% 0.1 % (0-1); Eosinophil# 0.04 X10^3/uL; Eosinophils% 0.3 % (0-5); Hematocrit 41.2 % (37-47); Hemoglobin 12.7 g/dl (12.0-15.0); Lymphocyte # 0.39 X10^3/ul (4.0); Mean Corp Hgb Conc 30.8 g/gl (32-36); Mean Corpuscular Hgb 30.7 pg (27.0-32.0); Mean Corpuscular Volume 99.5 fL (81-99); Mean Platelet Vol. 10.4 fl (6.2-12.0); Monocyte# 0.91 X10^3/uL; Monocyte% 6.9 % (0-10); Neutrophil # 11.76 X10^3/uL (2.7-7.7); Neutrophil % 89.2 % (47-70); Platelet Count 201 K/mm3 (150-450); RBC Distribution Width CV 14.1 % (11.6-14.6); RBC Distribution Width SD 50.4 fl (35.1-43.9); Red Blood Count 4.14 M/mm3 (4.2-5.4); White Blood Count 13.2 K/mm3 (4.4-11.0)
--- NOTE | 2018-08-08 15:23 | ED.DCSUM_ITS ---
- ER Visit Summary Date of Service: 08/08/18 Chief Complaint: Fever History of Present Illness: The patient is a 78 F presenting with fever. Patient [facility] a [facility]4 [facility]. Family states that she was doing well yesterday. senior living staff called today advising of a fever and confusion. Her [facility]mate at the [facility] recently had pneumonia. She has a history of dementia and history is limited. She presented to the ED with clothes soaked in urine. She has history of lymphedema. She has increasing redness left lower extremity. Physical Examination: Blood pressure 111/58, temperature 102.8, heart rate 95, respiratory rate 24. Pulse ox 89% on room air. Alert no acute distress. HEENT exam dry mucous membranes Neck is supple. No meningismus Lungs are clear and equal bilaterally. Heart is regular rate and rhythm. Abdomen is soft nontender nondistended. Extremities left lower extremity diffusely tender with erythema to the mid thigh. Anterior leg wounds with purulent drainage. Normal distal pulses. Skin is warm and dry. No focal neurologic deficit. Remainder of exam is unremarkable. Emergency Department Course and Treatment: Patient was given Tylenol. Chest x- ray shows vascular congestion, mild CHF. Left lower extremity ultrasound shows no evidence of DVT. EKG is sinus rate of 90. CBC shows white count 13.2. Chemistries show potassium 3.4, glucose 167, BUN 31, creatinine 1.76. Urinalysis unremarkable. Troponin 0.069. BNP 110.1. Lactic acid 2.1. Blood cultures were sent. Influenza was negative. She is given Ancef IV. Discussed with hospitalist for admission. Disposition: Admission Impression: Left lower extremity cellulitis, mild CHF This note was generated with [employer] dictation software. It may contain incorrect words, spelling, and punctuation that were not noted in review of the chart prior to signing ED Disposition - Plan for ED Patient: Referrals: Tito Huerta DO [STAFF PHYSICIAN] -
[2018-08-08 15:24] LABS: Differential Indicated SCAN CRITERIA MET; POSITIVE COUNT NO; POSITIVE DIFFERENTIAL YES; POSITIVE MORPHOLOGY NO
[2018-08-08] MEDS: Acetaminophen 500 MG Tablet 1000 MG PO (15:24)
[2018-08-08 15:38] LABS: Anion Gap 11 (5-15); BUN 31 mg/dL (7-18); BUN/Creat Ratio 17.6 RATIO (10-20); Calcium,Total 8.4 mg/dL (8.5-10.1); Chloride 110 mmol/L (98-107); Creatinine, Serum 1.76 mg/dL (0.55-1.02); EST Glomerular Filtration Rate 30 mL/min (>60); Est Glom Filt Rate - Afr Amer 36 mL/min (>60); Estimated Creatinine Clearance 24.66 ml/min; Glucose 167 mg/dL (74-106); Potassium 3.4 mmol/L (3.5-5.1); Sodium Level 144 mmol/L (136-145)
[2018-08-08 15:51] LABS: Lactic Acid 2.1 mmol/L (0.4-2.0)
[2018-08-08 15:58] LABS: Platelet Estimate ADEQUATE (ADEQ)
[2018-08-08 15:59] LABS: Anisocytosis 1+; Red Cell Morphology N CHROM NORMAL (NORM C&C)
[2018-08-08 16:00] LABS: BNP,B-Type NATRIURETIC PEPTIDE 110.1 pg/mL (0-100)
[2018-08-08 16:01] LABS: Bacteria 0 SEEN /hpf (None Seen); Mucous, Urine 0 SEEN /hpf (<or=2+); Red Blood Cells-Urine 0 SEEN /hpf (0-5); Squamous Epithelial Cells - UA 0 SEEN /hpf (5-10); White Blood Cells 0 SEEN /hpf (0-5)
[2018-08-08 16:06] LABS: Color, Urine Yellow (Yellow); Glucose, Dipstick Normal (Normal); Ketone-Dipstick Negative (Negative); Leukocyte Esterase-Dipstick Negative /ul (Negative); Nitrite-Dipstick Negative (Negative); Occult Blood-Urine 25 /ul (Negative); Protein-Dipstick 30 mg/dl (Negative); Urine Bilirubin Dipstick Negative (Negative); Urine Clarity Clear (Clear); Urine Urobilinogen Normal (Normal)
[2018-08-08] MEDS: Cefazolin 1 GM/50 ML BAG IV (17:37)
--- NOTE | 2018-08-08 17:38 | NURSING ---
113 EMPERATRIZ SWARTZ CELLULITIS, MILD CHF
--- NOTE | 2018-08-08 18:02 | CASEMGMT ---
RN CM Assessment Introduced role of RN CM to Patient daughter Jemma at bedside as patient was sleeping. Care providers, pharmacy, and demographics verified. Presentation: Patient currently residential/Correction at [facility]. Sent by [facility] for Fever 104.4, O2 sats 90%ra, labs and Cxr- elevated WBC and CHF. Per dtr Jemma Redness to LE sudden and unsure of timeframe when wounds started to LE. PCP: Dr Torres- Koffi at [facility] Specialists: Endo- Dr Wall Preferred Pharmacy: [facility] Insurance: [employer] [facility] Prescription Benefit: Yes LNOK: Son Roderick Walden Living Arrangements: Lives at [facility], [facility]. Currently receiving OT at [facility]. Transportation: [facility] to appointments. DME: Glucometer, WC, Walker, Motorized Scooter HHC: Past SNF: [facility] and then converted from Skilled to Correction. DC PLAN: Back to [facility], May need Skilled for possible IV Abx, Wound Care, PT. SGilberto Snowden RNCM
--- NOTE | 2018-08-08 18:57 | ECHOCS_ITS ---
Reason For Study: CHF Procedure This was a 2D Doppler, Color Flow transthoracic echocardiogram. Contrast injection was performed. Exam performed portable in patient room. Left Ventricle Mild concentric left ventricular hypertrophy. The estimated ejection fraction is 65 %. Stage 1 diastolic dysfunction. No regional wall motion abnormalities noted. Right Ventricle Normal size and thickness. Normal systolic function. Atria Normal left atrium. Normal right atrium. Normal atrial septum. Mitral Valve The mitral valve is structurally normal. No prolapse or stenosis seen. Tricuspid Valve Normal tricuspid valve. Trivial tricuspid valve insufficiency. Right ventricular systolic pressure estimated to be 41 mmHg. Mild pulmonary hypertension. Aortic Valve Trisinus/trileaflet aortic valve. Mild diffuse aortic valve thickening. Pulmonic Valve The pulmonic valve is not well visualized. Great Vessels Normal aortic root. Normal arch. Normal inferior vena cava. Inferior vena cava collapse with sniff. Pericardium/Pleural No pericardial effusion. Medication Diluted definity 2ml given slow IV push to enhance endocardial definition. MMode/2D Measurements & Calculations LVIDd: 4.4 cm IVSd: 1.2 cm LVOT diam: 2.0 cm LVIDs: 2.6 cm LVPWd: 1.5 cm FS: 41.3 % LVOT area: 3.3 cm2 Ao root diam: 3.1 cm LAV(MOD-sp4): 50.6 ml LA A4 area: 19.6 cm2 LA dimension: 3.4 cm Time Measurements MV dec time: 0.29 sec Doppler Measurements & Calculations MV E max franc: 74.1 cm/sec Lat Peak E' Franc: 8.3 cm/sec Med Peak E' Franc: 8.1 cm/sec MV A max franc: 112.5 cm/sec E/E' lat: 8.9 E/E' med: 9.1 MV E/A: 0.66 MV V2 max: 152.2 cm/sec MV P1/2t max franc: 112.7 cm/sec Ao V2 max: 249.4 cm/sec MV max P.3 mmHg MV P1/2t: 84.0 msec Ao max P.9 mmHg MV V2 mean: 79.1 cm/sec Ao V2 mean: 156.4 cm/sec MV mean P.0 mmHg MV dec slope: 392.9 cm/sec2 Ao mean P.8 mmHg MV V2 VTI: 44.0 cm MVA(P1/2t): 2.6 cm2 Ao V2 VTI: 45.1 cm MVA(VTI): 2.3 cm2 GENESIS(I,D): 2.2 cm2 GENESIS(V,D): 1.9 cm2 AI max franc: 301.5 cm/sec LV V1 max: 146.7 cm/sec SV(LVOT): 101.1 ml AI max P.4 mmHg LV V1 max P.6 mmHg AI dec slope: 179.0 cm/sec2 LV V1 mean P.7 mmHg AI P1/2t: 493.3 msec LV V1 mean: 87.3 cm/sec LV V1 VTI: 30.6 cm PA V2 max: 79.9 cm/sec TR max franc: 301.0 cm/sec TR max P.2 mmHg Interpretation Summary Mild concentric left ventricular hypertrophy. The estimated ejection fraction is 65 %. Stage 1 diastolic dysfunction. Trivial tricuspid valve insufficiency. Right ventricular systolic pressure estimated to be 41 mmHg. Mild pulmonary hypertension. Compared to echo report dated 03/08/2017, LV function has remained the same, but RVSP has increased from 27 to 41 mm Hg. The study was technically difficult. Contrast injection was performed. Ordering Physician: Miguel Aguila Referring Physician: Rubin Valdivia Performed By: Brennon Aguilar RCS
--- NOTE | 2018-08-08 19:03 | HP.PCM_ITS ---
Problem List (1) Severe sepsis Status: Acute (2) Cellulitis of left lower extremity Status: Acute History of Present Illness Date of Admission: 08/08/18 Chief Complaint: fever The patient is a 78 year old F presents with fever and left lower extremity erythema. Patient was in her normal state of health yesterday. And then her symptoms began. Patient has chronic lymphedema of her lower extremities and some venous stasis ulcers. Patient was sent to the emergency room where her fever was 39.1 Celsius had a lactic acid of 2.1. In the emergency room, she received Tylenol, Cefazolin. Patient has not had cellulitis of her left lower extremity previously. [] Past Medical History Past Medical History (Chronic Problems): Chronic Problems CKD (chronic kidney disease) stage 3, GFR 30-59 ml/min (Chronic) Pressure ulcer (Chronic) Lymphedema (Chronic) Glucocorticoid deficiency (Chronic) Esophageal reflux (Chronic) Epilepsy undetermined as to focal or generalized, intractable (Chronic) Diverticulosis of colon (without mention of hemorrhage) (Chronic) Type 2 diabetes mellitus without (mention of) complications (Chronic) Chronic kidney disease (CKD), stage IV (severe) (Chronic) Carotid artery occlusion without infarction (Chronic) Stage II pressure ulcer of left buttock (Chronic) 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 (Chronic) Stage III pressure ulcer of left buttock (Chronic) Stage III pressure ulcer of sacral region (Chronic) Anxiety (Chronic) Asthma, chronic (Chronic) Stage III pressure ulcer of right buttock (Chronic) Adrenal insufficiency (Chronic) Renal artery atherosclerosis (Chronic) Pure hypercholesterolemia (Chronic) 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, or chronic kidney disease (Chronic) Hypertension (Chronic) Anemia (Chronic) Allergies Iodinated Contrast- Oral and IV Dye [Iodinated Contrast Media - IV Dye] Adverse Reaction (Verified 08/08/18 15:16) Other NAUSEA AFFECTS KIDNEYS Home Medications: Ambulatory Orders Medication Instructions Recorded Omeprazole [Prilosec] 20 mg PO DAILY 05/08/15 Insulin Aspart [Novolog Flexpen] 10 units SC TIDCM 12/21/15 Aspirin [Aspir-Low] 81 mg PO DAILY 02/25/18 Docusate Sodium [Colace] 100 mg PO DAILY 02/25/18 Donepezil HCl [Aricept] 10 mg PO QHS 02/25/18 Insulin Glargine,Hum.rec.anlog 40 unit SQ QHS 02/25/18 [Basaglar Kwikpen U-100] Insulin Glargine,Hum.rec.anlog 45 unit SQ DAILY 02/25/18 [Basaglar Kwikpen U-100] Levothyroxine [Synthroid] 150 mcg PO DAILY 02/25/18 Topiramate [Topamax] 100 mg PO QHS MDD epilepsy 02/25/18 Potassium Chloride [K-Dur] 20 meq PO BIDCM tablet 02/28/18 Acetaminophen [Tylenol Tablet] 650 mg PO Q4H PRN PRN 08/08/18 Ammonium Lactate [Skin Treatment] 1 applic TP QHS 08/08/18 Calcium Carbonate 500 mg PO DAILY 08/08/18 Cholecalciferol (Vitamin D3) 50,000 unit PO SA 08/08/18 [Vitamin D] Cholestyramine (with Sugar) 4 gm PO QHS 08/08/18 [Questran Packet] Furosemide [Lasix] 40 mg PO TIDCM 08/08/18 Gabapentin [Neurontin] 300 mg PO TIDCM 08/08/18 Hydrocortisone 5 mg PO TID 08/08/18 Memantine Hydrochloride [Namenda] 10 mg PO BID 08/08/18 Oxycodone HCl 5 mg PO Q6H PRN PRN 08/08/18 Paroxetine HCl [Paxil] 10 mg PO QHS 08/08/18 Topiramate [Topamax] 200 mg PO DAILY 08/08/18 Surgical History: cholecystectomy, back surgery Smoking Status: Former smoker Tobacco Use: Cigarettes - *Family History Maternal History Items: Cancer Paternal History Items: Cancer Review of Systems Constitutional: Reports: Chills, Fever, Malaise, Weakness. Denies: Anorexia Eyes: Denies: Blurred vision, Double vision Cardiovascular: Reports: Edema. Denies: Chest Pain, Palpitations Respiratory: Denies: Cough, Shortness of breath at rest, Sputum production Gastrointestinal: Denies: Abdominal Pain, Nausea, Vomiting Genitourinary: Denies: Dysuria Musculoskeletal: Reports: Leg Pain. Denies: Arm Pain Skin: Reports: Rash, Wounds Neurological: Denies: Numbness, Tingling, Focal weakness Psychiatric: Denies: Anxiety, Depression Endocrine: Reports: Change in Body Habitus. Denies: Heat/ Cold Intolerance Hematologic/ Lymphatic: Denies: Easy Bruising, Easy Bleeding, Hx of blood clot Comment: A 10 point review of systems were negative except as mentioned in the history of present illness and the other review of systems. VTE Information - Inpt Only VTE Present on Admission: No VTE Mechan Device Prophylaxis: None VTE Pharm Prophylaxis ordered?: Yes Patient Problems: Active and Suspected Problems Severe sepsis (Acute) Cellulitis of left lower extremity (Acute) - Physical Exam General: Alert, Cooperative, No apparent distress, - - febrile HEENT: Atraumatic, Normocephalic Oral: Moist Mucosa, No Gingival or Mucosal Lesions/ Ulcerations Neck: No Nodes, Thyroid Normal Size and Texture Lungs: Diminished, Wheezes Cardiovascular: Regular rate, Regular Rhythm, Normal S1, Normal S2, No murmurs Abdomen: Bowel Sounds Present, Soft, Non Tender, Non-Distended, No Hepato- splenomegaly Extremities: Edema Skin: - - Erythema of the left lower extremity. Does have some superficial lesions on the anterior mathew. No erythema extending into the foot. Does have onychomycosis of bilateral feet. Musculoskeletal: No Muscle Wasting, Tenderness Neurological: Neuro grossly intact, Sensory exam intact to light touch and pain Psych/Mental Status: Normal Affect, Appropriate Vital Signs Temp Pulse Resp BP Pulse Ox 39.1 C H 80 23 H 92/42 L 94 08/08/18 18:10 08/08/18 18:15 08/08/18 18:10 08/08/18 18:10 08/08/18 18:10 Oxygen Flow Rate (L/min) 2 Oxygen Delivery Method Nasal Cannula Weight: 103.4 kg Body Mass Index (BMI) 40.4 Finger Stick Blood Glucose 68 Microbiology Past 72 Hours 08/08/18 15:16 Influenza Types A,B Direct FA (SILVIO) - Final Mucosa - Nose Laboratory Tests Past 24 Hrs 08/08/18 08/08/18 08/08/18 15:00 15:00 15:00 WBC 13.2 H RBC 4.14 L Hgb 12.7 Hct 41.2 MCV 99.5 H MCH 30.7 MCHC 30.8 L RDW 14.1 RDW Differential 50.4 H Plt Count 201 MPV 10.4 Immature Gran % (Auto) 0.500 Neut % (Auto) 89.2 H Lymph % (Auto) 3.0 L [place] % (Auto) 6.9 Eos % (Auto) 0.3 Baso % (Auto) 0.1 Absolute Neuts (auto) 11.8 H Absolute Lymphs (auto) 0.39 L Total Counted Not Reportable Differential Comment Platelet Estimate ADEQUATE RBC Morphology N CHROM Anisocytosis 1+ Sodium 144 Potassium 3.4 L Chloride 110 H Carbon Dioxide 23.0 Anion Gap 11 BUN 31 H Creatinine 1.76 H Estim Creat Clear Calc 24.66 Est GFR (MDRD) Af Amer 36 L Est GFR (MDRD) Non-Af 30 L BUN/Creatinine Ratio 17.6 Glucose 167 H Lactic Acid 2.1 H Calcium 8.4 L Troponin I 0.069 H B-Natriuretic Peptide Urine Color Urine Clarity Urine pH Ur Specific [place] Urine Protein Urine Glucose (UA) Urine Ketones Urine Occult Blood Urine Nitrite Urine Bilirubin Urine Urobilinogen Ur Leukocyte Esterase Urine RBC Urine WBC Ur Squamous Epith Cells Urine Bacteria Urine Mucus 08/08/18 08/08/18 15:00 15:50 WBC RBC Hgb Hct MCV MCH MCHC RDW RDW Differential Plt Count MPV Immature Gran % (Auto) Neut % (Auto) Lymph % (Auto) [place] % (Auto) Eos % (Auto) Baso % (Auto) Absolute Neuts (auto) Absolute Lymphs (auto) Total Counted Differential Comment Platelet Estimate RBC Morphology Anisocytosis Sodium Potassium Chloride Carbon Dioxide Anion Gap BUN Creatinine Estim Creat Clear Calc Est GFR (MDRD) Af Amer Est GFR (MDRD) Non-Af BUN/Creatinine Ratio Glucose Lactic Acid Calcium Troponin I B-Natriuretic Peptide 110.1 H Urine Color Yellow Urine Clarity Clear Urine pH 6.0 Ur Specific [place] 1.010 Urine Protein 30 H Urine Glucose (UA) Normal Urine Ketones Negative Urine Occult Blood 25 H Urine Nitrite Negative Urine Bilirubin Negative Urine Urobilinogen Normal Ur Leukocyte Esterase Negative Urine RBC 0 SEEN Urine WBC 0 SEEN Ur Squamous Epith Cells 0 SEEN Urine Bacteria 0 SEEN Urine Mucus 0 SEEN Chest x-ray reviewed and shows poor respiratory effort no obvious pulmonary edema nor infiltrates. Unchanged from June 2016. Assessment/Plan All Active Problems Severe sepsis (Acute) Cellulitis of left lower extremity (Acute) Skin ulcer of buttock (Resolved) Syncope and collapse (Resolved) Dysuria (Resolved) 1. Severe sepsis: Present on admission. Secondary to left lower extremity cellulitis. Influenza negative. Blood cultures pending. IV fluids and reevaluate lactic acid 2. Left lower extremity cellulitis. Likely nidus of infection was her superficial venous stasis ulcers. Received cefazolin in the emergency room. More concerned about staph or MRSA so I will put the patient on vancomycin. Try to elevate the left lower extremity as much as possible. No concern for necrotizing fasciitis at this time. 3. Elevated troponin: Minimally elevated. I suspect is more of a demand issue related with her severe sepsis. We will cycle troponins. We will check an echocardiogram as patient has not had an echocardiogram in our system in about 6 years. 4. Heart failure with preserved ejection fraction: I do not appreciate heart failure on her chest x-ray but her echocardiogram from 2013 showed ejection fraction of 65% but also right ventricular systolic pressure of 41 mmHg. Concern about worsening right heart failure and pulmonary hypertension is to the source of her continued and worsening lower extremity edema. 5. Diabetes mellitus type 2: Continue with her home medications plus sliding scale. 6. Chronic kidney disease stage III. Creatinine appears around baseline overall. Be cautious with vancomycin and follow-up BMPs while she is here. Follow-up with nephrology as outpatient or unless there is an acute worsening while she is inpatient. 7. DVT prophylaxis with subcu heparin 8. Advanced care planning: Discussed with the patient and her daughter at bedside. Verify the patient is DNR Comfort Care arrest no intubation. I advised him that this can be changed if deemed necessary. Code Visit Inpatient E&M: 41598 Init Hosp L3
[2018-08-08 19:12] LABS: Reflex Lactate? Y
[2018-08-08] MEDS: oxyCODONE 5 MG Tablet PO (20:15)
[2018-08-08] MEDS: 0.9% Normal Saline 1,000 ML 150 ML IV (20:16)
--- NOTE | 2018-08-08 20:25 | PCM.RX.CS ---
Consult Pharmacy has been consulted to manage selected antiobiotic: Vancomycin Type of Consult: New start Suspected Infection: Sepsis Prior Doses of Antibiotics Received/Current Regimen: NONE Labs: Sodium 144 mmol/L (136-145) 08/08/18 15:00 Potassium 3.4 mmol/L (3.5-5.1) L 08/08/18 15:00 Chloride 110 mmol/L (98-107) H 08/08/18 15:00 Carbon Dioxide 23.0 mmol/L (21.0-32.0) 08/08/18 15:00 Anion Gap 11 (5-15) 08/08/18 15:00 BUN 31 mg/dL (7-18) H 08/08/18 15:00 Creatinine 1.76 mg/dL (0.55-1.02) H 08/08/18 15:00 Est GFR (MDRD) Af Amer 36 mL/min (>60) L 08/08/18 15:00 Est GFR (MDRD) Non-Af 30 mL/min (>60) L 08/08/18 15:00 BUN/Creatinine Ratio 17.6 RATIO (10-20) 08/08/18 15:00 Glucose 167 mg/dL (74-106) H 08/08/18 15:00 Microbiology: Microbiology 08/08/18 15:16 Mucosa - Nose Influenza Types A,B Direct FA (SILVIO) - Final Weight used for dosin kg Estimated Creatinine Clearance: 24ML/MIN Goal Trough: 15-20 mcg/mL Pharmacy Plan for Drug Dosing: PLAN/RECOMMENDATIONS 1. Vancomycin initial dose of 1500mg IV x1 to be given 08/08/18 @2099 2. Scheduled vancomycin 1000mg IV q24hrs to start 08/09/18 @2099 3. Trough ordered prior to 3rd total dose per protocol 08/10/18 @2029 4. Pharmacy Service will continue to monitor and adjust dosing as required.
[2018-08-08 20:51] LABS: Lactic Acid 1.6 mmol/L (0.4-2.0)
[2018-08-08] MEDS: Donepezil HCl 10 MG Tablet PO (22:34)
[2018-08-08] MEDS: Heparin Injection (Vial) 5,000 UNIT/ML VIAL 5000 UNIT SC (22:35)
[2018-08-08] MEDS: Memantine Hydrochloride 10 MG Tablet PO (22:36)
[2018-08-08] MEDS: PARoxetine 10 MG Tablet PO (22:36)
[2018-08-08] MEDS: Senna/Docusate Sodium 1 Tablet 2 TABLET PO (22:37)
[2018-08-08] MEDS: Topiramate 100 MG Tablet PO (22:38)
[2018-08-08] MEDS: Acetaminophen 325 MG Tablet 650 MG PO (22:40)
[2018-08-08] MEDS: Cholestyramine/Sucrose 4 GM/PACKET PO (22:42)
[2018-08-09] VITALS (11 sets, daily range): BP systolic 100–119; BP diastolic 39–58; PULSE 68–84; RESP 16–20; TEMP 37.1–38.7; O2SAT 90–95
[2018-08-09 00:05] LABS: Bedside Glucose 143 mg/dL (70-110)
[2018-08-09 05:23] LABS: Absolute Lymphocyte Count 0.87 X10^3/ul (0.83-4.51); Absolute Neutrophil Count 10.8 X10^3/uL (2.0-7.7); Basophil# 0.02 X10^3/uL; Basophil% 0.2 % (0-1); Eosinophil# 0.02 X10^3/uL; Eosinophils% 0.2 % (0-5); Hematocrit 38.7 % (37-47); Hemoglobin 11.7 g/dl (12.0-15.0); Lymphocyte # 0.87 X10^3/ul (4.0); Lymphocyte % 6.8 % (19-41); Mean Corp Hgb Conc 30.2 g/gl (32-36); Mean Corpuscular Hgb 30.6 pg (27.0-32.0); Mean Corpuscular Volume 101.3 fL (81-99); Mean Platelet Vol. 10.1 fl (6.2-12.0); Monocyte# 0.94 X10^3/uL; Monocyte% 7.4 % (0-10); Neutrophil # 10.83 X10^3/uL (2.7-7.7); Neutrophil % 85.2 % (47-70); Platelet Count 170 K/mm3 (150-450); RBC Distribution Width CV 14.2 % (11.6-14.6); RBC Distribution Width SD 51.2 fl (35.1-43.9); Red Blood Count 3.82 M/mm3 (4.2-5.4); White Blood Count 12.7 K/mm3 (4.4-11.0)
[2018-08-09 05:28] LABS: POSITIVE COUNT NO; POSITIVE DIFFERENTIAL NO; POSITIVE MORPHOLOGY NO
[2018-08-09 05:36] LABS: Anion Gap 10 (5-15); BUN 32 mg/dL (7-18); BUN/Creat Ratio 17.7 RATIO (10-20); Calcium,Total 7.9 mg/dL (8.5-10.1); Chloride 110 mmol/L (98-107); Creatinine, Serum 1.81 mg/dL (0.55-1.02); EST Glomerular Filtration Rate 29 mL/min (>60); Est Glom Filt Rate - Afr Amer 35 mL/min (>60); Estimated Creatinine Clearance 21.19 ml/min; Glucose 110 mg/dL (74-106); Magnesium 1.9 mg/dL (1.6-2.6); Potassium 3.3 mmol/L (3.5-5.1); Sodium Level 144 mmol/L (136-145)
[2018-08-09] MEDS: Heparin Injection (Vial) 5,000 UNIT/ML VIAL 5000 UNIT SC ×3 (06:54→21:07)
[2018-08-09] MEDS: Levothyroxine 150 MCG Tablet PO (06:54)
[2018-08-09] MEDS: Acetaminophen 325 MG Tablet 650 MG PO (06:54)
[2018-08-09 07:05] LABS: Bedside Glucose 104 mg/dL (70-110)
[2018-08-09] MEDS: Hydrocortisone 10 MG Tablet 5 MG PO ×3 (08:58→17:12)
[2018-08-09] MEDS: Aspirin E.C. 81 MG Tablet PO (08:58)
[2018-08-09] MEDS: Furosemide 40 MG Tablet PO (08:59)
[2018-08-09] MEDS: Gabapentin 300 MG Capsule PO ×3 (08:59→17:12)
[2018-08-09] MEDS: Docusate Sodium 100 MG Capsule PO (09:00)
[2018-08-09] MEDS: Calcium (Elemental) 500 MG Tablet PO (09:00)
[2018-08-09] MEDS: Memantine Hydrochloride 10 MG Tablet PO ×2 (09:00→21:08)
[2018-08-09] MEDS: Topiramate 100 MG Tablet 200 MG PO (09:01)
[2018-08-09] MEDS: Senna/Docusate Sodium 1 Tablet 2 TABLET PO ×2 (09:01→21:09)
[2018-08-09] MEDS: Insulin Lispro 100 UNIT/ML INSULN.PEN 10 UNIT SC ×3 (09:09→17:11)
[2018-08-09] MEDS: Pantoprazole Sodium 20 MG Tablet PO (09:09)
[2018-08-09 09:40] LABS: Phosphorus 3.7 mg/dL (2.5-4.9)
--- NOTE | 2018-08-09 10:48 | RAD_ITS ---
STUDY: X-RAY - LEFT KNEE REASON FOR EXAM: Female, 78 years old. Pain TECHNIQUE: 3 view(s) of the knee. COMPARISON: None. FINDINGS: There is no evidence of fracture or dislocation. There are moderate to severe tricompartmental degenerative changes which are most pronounced in the medial compartment. There are no radiodense foreign bodies. RAD/Knee 1 or 2 Views IMPRESSION: No fracture or dislocation. Moderate to severe degenerative changes which are most pronounced in the medial compartment. Electronically Signed: Justin Ramos, at 15:01 EST Tel , Service support ,
--- NOTE | 2018-08-09 11:34 | NURSING ---
wound photo: right mathew
--- NOTE | 2018-08-09 11:35 | NURSING ---
wound photo: left anterior lower leg
--- NOTE | 2018-08-09 11:35 | NURSING ---
wound photo: left posterolateral lower leg
[2018-08-09] MEDS: Magnesium Oxide 400 MG Tablet 800 MG PO (11:58)
[2018-08-09] MEDS: oxyCODONE 5 MG Tablet PO (11:59)
[2018-08-09 12:10] LABS: Bedside Glucose 127 mg/dL (70-110)
--- NOTE | 2018-08-09 13:09 | CASEMGMT ---
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 RUTHIE faxed updates to [facility]. Felisha BLANCO MSW
[2018-08-09 13:52] LABS: M R Staph aureus DNA By PCR Negative (Negative); Probe Check PASS; Specimen Processing Control PASS; Staph aureus DNA By PCR POSITIVE (Negative)
--- NOTE | 2018-08-09 14:36 | PN_ITS ---
<Anshu Argueta - Last Filed: 08/09/18 14:28> Patient Problems: Active and Suspected Problems Severe sepsis (Acute) Cellulitis of left lower extremity (Acute) Subjective: Ongoing 6/10 pain in left leg. + fever this AM. No chills. Small open areas on wound. No n/v/d. No SOB. She complains of significant knee swelling and pain, however some of this is chronic and she is weight bearing on it. - Physical Exam General: Alert, Oriented x3, Cooperative HEENT: Atraumatic, PERRLA, EOMI, Normocephalic Neck: Supple, No JVD, Negative Carotid Bruits Lungs: Clear to auscultation, Normal air movement Cardiovascular: Regular rate, No murmurs Abdomen: Bowel Sounds Present, Soft, Non Tender Extremities: Capillary Refill Less than 3 Seconds, Edema Skin: Rash Present - LLE foot to proximal leg erythema, warmth, small open areas, no abscess. Tender to touch. Left knee tender to light touch, minimal ROM. Musculoskeletal: No Tenderness to Palpation of Joints or Extremities Neurological: Cranial nerves II-XII grossly intact Psych/Mental Status: Normal Affect, Appropriate Vital Signs Temp Pulse Resp BP Pulse Ox 100.9 F H 74 18 108/39 L 92 08/09/18 08:20 08/09/18 08:20 08/09/18 08:20 08/09/18 08:20 08/09/18 08:20 Oxygen Flow Rate (L/min) 2 Oxygen Delivery Method Room Air Weight: 227 lb 15.327 oz Body Mass Index (BMI) 40.4 Finger Stick Blood Glucose 68 Intake and Output for Last 24 Hours 08/07/18 08/08/18 08/09/18 23:59 23:59 23:59 Intake Total 1320 / 1320 1369 / 1369 Output Total 275 / 275 500 / 500 Balance 1045 / 1045 869 / 869 Microbiology Past 72 Hours 08/09/18 11:42 Gram Stain - Final Wound - Leg, Left 08/08/18 15:16 Influenza Types A,B Direct FA (SILVIO) - Final Mucosa - Nose Laboratory Tests Past 24 Hrs 08/08/18 08/08/18 08/08/18 15:00 15:00 15:00 WBC 13.2 H RBC 4.14 L Hgb 12.7 Hct 41.2 MCV 99.5 H MCH 30.7 MCHC 30.8 L RDW 14.1 RDW Differential 50.4 H Plt Count 201 MPV 10.4 Immature Gran % (Auto) 0.500 Neut % (Auto) 89.2 H Lymph % (Auto) 3.0 L [place] % (Auto) 6.9 Eos % (Auto) 0.3 Baso % (Auto) 0.1 Absolute Neuts (auto) 11.8 H Absolute Lymphs (auto) 0.39 L Total Counted Not Reportable Differential Comment Platelet Estimate ADEQUATE RBC Morphology N CHROM Anisocytosis 1+ Sodium 144 Potassium 3.4 L Chloride 110 H Carbon Dioxide 23.0 Anion Gap 11 BUN 31 H Creatinine 1.76 H Estim Creat Clear Calc 24.66 Est GFR (MDRD) Af Amer 36 L Est GFR (MDRD) Non-Af 30 L BUN/Creatinine Ratio 17.6 Glucose 167 H Lactic Acid 2.1 H Calcium 8.4 L Phosphorus Magnesium Troponin I 0.069 H B-Natriuretic Peptide Urine Color Urine Clarity Urine pH Ur Specific [place] Urine Protein Urine Glucose (UA) Urine Ketones Urine Occult Blood Urine Nitrite Urine Bilirubin Urine Urobilinogen Ur Leukocyte Esterase Urine RBC Urine WBC Ur Squamous Epith Cells Urine Bacteria Urine Mucus S.aureus Protein A PCR MRSA (PCR) 08/08/18 08/08/18 08/08/18 15:00 15:50 19:25 WBC RBC Hgb Hct MCV MCH MCHC RDW RDW Differential Plt Count MPV Immature Gran % (Auto) Neut % (Auto) Lymph % (Auto) [place] % (Auto) Eos % (Auto) Baso % (Auto) Absolute Neuts (auto) Absolute Lymphs (auto) Total Counted Differential Comment Platelet Estimate RBC Morphology Anisocytosis Sodium Potassium Chloride Carbon Dioxide Anion Gap BUN Creatinine Estim Creat Clear Calc Est GFR (MDRD) Af Amer Est GFR (MDRD) Non-Af BUN/Creatinine Ratio Glucose Lactic Acid Calcium Phosphorus Magnesium Troponin I 0.073 H B-Natriuretic Peptide 110.1 H Urine Color Yellow Urine Clarity Clear Urine pH 6.0 Ur Specific [place] 1.010 Urine Protein 30 H Urine Glucose (UA) Normal Urine Ketones Negative Urine Occult Blood 25 H Urine Nitrite Negative Urine Bilirubin Negative Urine Urobilinogen Normal Ur Leukocyte Esterase Negative Urine RBC 0 SEEN Urine WBC 0 SEEN Ur Squamous Epith Cells 0 SEEN Urine Bacteria 0 SEEN Urine Mucus 0 SEEN S.aureus Protein A PCR MRSA (PCR) 08/08/18 08/08/18 08/09/18 20:04 22:07 05:10 WBC 12.7 H RBC 3.82 L Hgb 11.7 L Hct 38.7 MCV 101.3 H MCH 30.6 MCHC 30.2 L RDW 14.2 RDW Differential 51.2 H Plt Count 170 MPV 10.1 Immature Gran % (Auto) 0.200 Neut % (Auto) 85.2 H Lymph % (Auto) 6.8 L [place] % (Auto) 7.4 Eos % (Auto) 0.2 Baso % (Auto) 0.2 Absolute Neuts (auto) 10.8 H Absolute Lymphs (auto) 0.87 Total Counted Not Reportable Differential Comment Platelet Estimate RBC Morphology Anisocytosis Sodium Potassium Chloride Carbon Dioxide Anion Gap BUN Creatinine Estim Creat Clear Calc Est GFR (MDRD) Af Amer Est GFR (MDRD) Non-Af BUN/Creatinine Ratio Glucose Lactic Acid 1.6 Calcium Phosphorus Magnesium Troponin I 0.048 H B-Natriuretic Peptide Urine Color Urine Clarity Urine pH Ur Specific [place] Urine Protein Urine Glucose (UA) Urine Ketones Urine Occult Blood Urine Nitrite Urine Bilirubin Urine Urobilinogen Ur Leukocyte Esterase Urine RBC Urine WBC Ur Squamous Epith Cells Urine Bacteria Urine Mucus S.aureus Protein A PCR MRSA (PCR) 08/09/18 08/09/18 08/09/18 05:10 05:10 11:42 WBC RBC Hgb Hct MCV MCH MCHC RDW RDW Differential Plt Count MPV Immature Gran % (Auto) Neut % (Auto) Lymph % (Auto) [place] % (Auto) Eos % (Auto) Baso % (Auto) Absolute Neuts (auto) Absolute Lymphs (auto) Total Counted Differential Comment Platelet Estimate RBC Morphology Anisocytosis Sodium 144 Potassium 3.3 L Chloride 110 H Carbon Dioxide 24.0 Anion Gap 10 BUN 32 H Creatinine 1.81 H Estim Creat Clear Calc 21.19 Est GFR (MDRD) Af Amer 35 L Est GFR (MDRD) Non-Af 29 L BUN/Creatinine Ratio 17.7 Glucose 110 H Lactic Acid Calcium 7.9 L Phosphorus 3.7 Magnesium 1.9 Troponin I B-Natriuretic Peptide Urine Color Urine Clarity Urine pH Ur Specific [place] Urine Protein Urine Glucose (UA) Urine Ketones Urine Occult Blood Urine Nitrite Urine Bilirubin Urine Urobilinogen Ur Leukocyte Esterase Urine RBC Urine WBC Ur Squamous Epith Cells Urine Bacteria Urine Mucus S.aureus Protein A PCR POSITIVE H MRSA (PCR) Negative POC Glucose 08/09/18 08/09/18 08/08/18 11:55 06:58 22:13 POC Glucose 127 H 104 143 H Medical Necessity - Tobacco Use Smoking Status: Former smoker Tobacco Use: Cigarettes Assessment/Plan All Active Problems Severe sepsis (Acute) Cellulitis of left lower extremity (Acute) Skin ulcer of buttock (Resolved) Syncope and collapse (Resolved) Dysuria (Resolved) 1. Acute severe sepsis 2/2 LLE cellulitis - MRSA neg, MSSA +. Vanc to cefazolin. Still with fever. WBC improved. Cultures pending. Rash has not receding. Xray knee for involvement. 2. Elevated troponin - no CP. tele/ekg negative. trops flat. likely 2/2 sepsis / demand ischemia. Echo pending. 3. Hx chronic diastolic CHF - no acute exacerbation at this time. 4. CKDIII - small bump, trend. 5. Hypokalemia - replete. replete mag. 6. DMt2 with morbid obesity - currently well controlled. Continue current therapy. DVT ppx: heparin DC planning: return to SNF when appropriate. This patient was seen by Anshu Argueta PA-C under the supervision of Doctor Elmore. <Erica Elmore - Last Filed: 08/09/18 15:00> - Physical Exam Vital Signs Temp Pulse Resp BP Pulse Ox 99.5 F H 68 16 100/42 L 95 08/09/18 14:49 08/09/18 14:49 08/09/18 14:49 08/09/18 14:49 08/09/18 14:49 Oxygen Flow Rate (L/min) 2 Oxygen Delivery Method Room Air Weight: 103.4 kg Body Mass Index (BMI) 40.4 Finger Stick Blood Glucose 68 Intake and Output for Last 24 Hours 08/07/18 08/08/18 08/09/18 23:59 23:59 23:59 Intake Total 1320 / 1320 1369 / 1369 Output Total 275 / 275 500 / 500 Balance 1045 / 1045 869 / 869 Microbiology Past 72 Hours 08/09/18 11:42 Gram Stain - Final Wound - Leg, Left 08/08/18 15:16 Influenza Types A,B Direct FA (SILVIO) - Final Mucosa - Nose Laboratory Tests Past 24 Hrs 08/08/18 08/08/18 08/08/18 15:00 15:00 15:00 WBC 13.2 H RBC 4.14 L Hgb 12.7 Hct 41.2 MCV 99.5 H MCH 30.7 MCHC 30.8 L RDW 14.1 RDW Differential 50.4 H Plt Count 201 MPV 10.4 Immature Gran % (Auto) 0.500 Neut % (Auto) 89.2 H Lymph % (Auto) 3.0 L [place] % (Auto) 6.9 Eos % (Auto) 0.3 Baso % (Auto) 0.1 Absolute Neuts (auto) 11.8 H Absolute Lymphs (auto) 0.39 L Total Counted Not Reportable Differential Comment Platelet Estimate ADEQUATE RBC Morphology N CHROM Anisocytosis 1+ Sodium 144 Potassium 3.4 L Chloride 110 H Carbon Dioxide 23.0 Anion Gap 11 BUN 31 H Creatinine 1.76 H Estim Creat Clear Calc 24.66 Est GFR (MDRD) Af Amer 36 L Est GFR (MDRD) Non-Af 30 L BUN/Creatinine Ratio 17.6 Glucose 167 H Lactic Acid 2.1 H Calcium 8.4 L Phosphorus Magnesium Troponin I 0.069 H B-Natriuretic Peptide Urine Color Urine Clarity Urine pH Ur Specific [place] Urine Protein Urine Glucose (UA) Urine Ketones Urine Occult Blood Urine Nitrite Urine Bilirubin Urine Urobilinogen Ur Leukocyte Esterase Urine RBC Urine WBC Ur Squamous Epith Cells Urine Bacteria Urine Mucus S.aureus Protein A PCR MRSA (PCR) 08/08/18 08/08/18 08/08/18 15:00 15:50 19:25 WBC RBC Hgb Hct MCV MCH MCHC RDW RDW Differential Plt Count MPV Immature Gran % (Auto) Neut % (Auto) Lymph % (Auto) [place] % (Auto) Eos % (Auto) Baso % (Auto) Absolute Neuts (auto) Absolute Lymphs (auto) Total Counted Differential Comment Platelet Estimate RBC Morphology Anisocytosis Sodium Potassium Chloride Carbon Dioxide Anion Gap BUN Creatinine Estim Creat Clear Calc Est GFR (MDRD) Af Amer Est GFR (MDRD) Non-Af BUN/Creatinine Ratio Glucose Lactic Acid Calcium Phosphorus Magnesium Troponin I 0.073 H B-Natriuretic Peptide 110.1 H Urine Color Yellow Urine Clarity Clear Urine pH 6.0 Ur Specific [place] 1.010 Urine Protein 30 H Urine Glucose (UA) Normal Urine Ketones Negative Urine Occult Blood 25 H Urine Nitrite Negative Urine Bilirubin Negative Urine Urobilinogen Normal Ur Leukocyte Esterase Negative Urine RBC 0 SEEN Urine WBC 0 SEEN Ur Squamous Epith Cells 0 SEEN Urine Bacteria 0 SEEN Urine Mucus 0 SEEN S.aureus Protein A PCR MRSA (PCR) 08/08/18 08/08/18 08/09/18 20:04 22:07 05:10 WBC 12.7 H RBC 3.82 L Hgb 11.7 L Hct 38.7 MCV 101.3 H MCH 30.6 MCHC 30.2 L RDW 14.2 RDW Differential 51.2 H Plt Count 170 MPV 10.1 Immature Gran % (Auto) 0.200 Neut % (Auto) 85.2 H Lymph % (Auto) 6.8 L [place] % (Auto) 7.4 Eos % (Auto) 0.2 Baso % (Auto) 0.2 Absolute Neuts (auto) 10.8 H Absolute Lymphs (auto) 0.87 Total Counted Not Reportable Differential Comment Platelet Estimate RBC Morphology Anisocytosis Sodium Potassium Chloride Carbon Dioxide Anion Gap BUN Creatinine Estim Creat Clear Calc Est GFR (MDRD) Af Amer Est GFR (MDRD) Non-Af BUN/Creatinine Ratio Glucose Lactic Acid 1.6 Calcium Phosphorus Magnesium Troponin I 0.048 H B-Natriuretic Peptide Urine Color Urine Clarity Urine pH Ur Specific [place] Urine Protein Urine Glucose (UA) Urine Ketones Urine Occult Blood Urine Nitrite Urine Bilirubin Urine Urobilinogen Ur Leukocyte Esterase Urine RBC Urine WBC Ur Squamous Epith Cells Urine Bacteria Urine Mucus S.aureus Protein A PCR MRSA (PCR) 08/09/18 08/09/18 08/09/18 05:10 05:10 11:42 WBC RBC Hgb Hct MCV MCH MCHC RDW RDW Differential Plt Count MPV Immature Gran % (Auto) Neut % (Auto) Lymph % (Auto) [place] % (Auto) Eos % (Auto) Baso % (Auto) Absolute Neuts (auto) Absolute Lymphs (auto) Total Counted Differential Comment Platelet Estimate RBC Morphology Anisocytosis Sodium 144 Potassium 3.3 L Chloride 110 H Carbon Dioxide 24.0 Anion Gap 10 BUN 32 H Creatinine 1.81 H Estim Creat Clear Calc 21.19 Est GFR (MDRD) Af Amer 35 L Est GFR (MDRD) Non-Af 29 L BUN/Creatinine Ratio 17.7 Glucose 110 H Lactic Acid Calcium 7.9 L Phosphorus 3.7 Magnesium 1.9 Troponin I B-Natriuretic Peptide Urine Color Urine Clarity Urine pH Ur Specific [place] Urine Protein Urine Glucose (UA) Urine Ketones Urine Occult Blood Urine Nitrite Urine Bilirubin Urine Urobilinogen Ur Leukocyte Esterase Urine RBC Urine WBC Ur Squamous Epith Cells Urine Bacteria Urine Mucus S.aureus Protein A PCR POSITIVE H MRSA (PCR) Negative POC Glucose 08/09/18 08/09/18 08/08/18 11:55 06:58 22:13 POC Glucose 127 H 104 143 H Assessment/Plan This patient was seen in conjunction with SHAY Avilez. I have independently interviewed and examined the patient and reviewed pertinent historical, laboratory, and other data. Please refer to SHAY Avilez note for his patient's presentation, findings, and recommendations. I have reviewed and his note and concur with his documentation Patient was seen and examined. Complains of severe pain in the left lower extremity. Examined patient in the presence of the wound nurse. Seen superficial venous blisters and ulceration that appear acute on chronic. Patient is fevers. T-max is 102.8F 2D echo shows EF of 65%, stage I dysfunction. Blood cultures are pending Physical Exam: Gen: Looks in some discomfort, morbidly obese, not pale, not jaundiced CVS:HS I +II, regular, no murmurs RESP: Diminished at lung bases GI: Full, soft, nontender, no palpable organs EXT: Bilateral leg edema, +2-3, erythema of the right lower extremity up to the groin, superficial venous stasis ulcerations and blisters Kindly refer to the wound nurse follow ASSESSMENT: 1. Severe sepsis secondary to Lower extremity cellulitis, likely pathogen is Streptococcus, will discontinue vancomycin, switch to cefazolin 2. Elevated troponins, indeterminate, secondary to sepsis, 2D echo shows EF 55%, diastolic dysfunction 3. Possible acute on chronic diastolic CHF, in a morbidly obese patient, admitting BNP was 110.1, patient has acute on chronic venous stasis ulcers 4. Acute on chronic venous stasis ulcers 5. CKD stage III 6. Hypokalemia, hypomagnesemia 7. Type II DM 8. Morbidly obese, BMI 40.4 Plan: Switch patient from oral Lasix to IV Lasix 20 mg q. 8 Topical wound dressing, Remy wrap to the extremity, elevate leg Continue on IV cefazolin, trend labs Replace electrolytes Continue to monitor blood sugars Code Visit Inpatient E&M: 80604 Subs Hosp L2
--- NOTE | 2018-08-09 14:46 | CHAPLAIN ---
Type of Pastoral Visit _x__ Initial Visit ___ Follow-up Visit ___ On-call Visit ___ General Patient Visit ___ Spiritual Assessment ___ Family Conference ___ Bereavement ___ Rapid Response ___ Code Blue ___ Other (describe below) Pastoral Care Referral From _x__ Patient ___ Family ___ Nurse ___ Physician ___ Chief Operating Engineer ___ Military Administrative Technician ___ Other (describe below) Sacrament/Intervention _x__ Active listening ___ Anointing ___ Orthodoxy ___ Bereavement ___ Communion _x__ Shanice exploration ___ _x__ Life review _x__ Prayer ___ Reconciliation ___ Sacrament of Sick _x__ Supportive presence ___ Wedding ___ Other (describe below) Pastoral Comments found patient to be eager for spiritual support, prayer, and conversation
[2018-08-09] MEDS: Furosemide 20 MG/2 ML VIAL IV ×2 (14:52→21:08)
[2018-08-09] MEDS: Acetaminophen 500 MG Tablet 1000 MG PO ×2 (14:52→21:12)
[2018-08-09] MEDS: Insulin Lispro 100 UNIT/ML INSULN.PEN SQ (17:10)
[2018-08-09 17:26] LABS: Bedside Glucose 168 mg/dL (70-110)
[2018-08-09] MEDS: Donepezil HCl 10 MG Tablet PO (21:07)
[2018-08-09] MEDS: 0.9% NaCl Peripheral Flush Adult/Peds IV ×2 (21:08→21:17)
[2018-08-09] MEDS: Cholestyramine/Sucrose 4 GM/PACKET PO (21:09)
[2018-08-09] MEDS: PARoxetine 10 MG Tablet PO (21:09)
[2018-08-09] MEDS: Topiramate 100 MG Tablet PO (21:10)
[2018-08-09] MEDS: Cefazolin 2 GM in 0.9% Normal Saline 100 ML IV (21:13)
[2018-08-09 22:51] LABS: Bedside Glucose 161 mg/dL (70-110)
[2018-08-10] VITALS (11 sets, daily range): BP systolic 108–154; BP diastolic 55–67; PULSE 63–72; RESP 16–18; TEMP 36.9–37.3; O2SAT 93–95
[2018-08-10] MEDS: 0.9% NaCl Peripheral Flush Adult/Peds IV ×4 (05:28→22:42)
[2018-08-10] MEDS: Levothyroxine 150 MCG Tablet PO (05:28)
[2018-08-10] MEDS: Acetaminophen 500 MG Tablet 1000 MG PO ×3 (05:28→22:48)
[2018-08-10] MEDS: Heparin Injection (Vial) 5,000 UNIT/ML VIAL 5000 UNIT SC ×3 (05:29→22:44)
[2018-08-10] MEDS: Furosemide 20 MG/2 ML VIAL IV ×3 (05:29→22:45)
[2018-08-10] MEDS: oxyCODONE 5 MG Tablet PO ×3 (05:37→20:31)
[2018-08-10 06:07] LABS: Anion Gap 9 (5-15); BUN 32 mg/dL (7-18); BUN/Creat Ratio 18.4 RATIO (10-20); Calcium,Total 8.1 mg/dL (8.5-10.1); Chloride 112 mmol/L (98-107); Creatinine, Serum 1.74 mg/dL (0.55-1.02); EST Glomerular Filtration Rate 30 mL/min (>60); Est Glom Filt Rate - Afr Amer 36 mL/min (>60); Estimated Creatinine Clearance 22.04 ml/min; Glucose 115 mg/dL (74-106); Magnesium 2.3 mg/dL (1.6-2.6); Potassium 3.6 mmol/L (3.5-5.1); Sodium Level 144 mmol/L (136-145)
[2018-08-10 06:19] LABS: Absolute Lymphocyte Count 0.98 X10^3/ul (0.83-4.51); Absolute Neutrophil Count 5.5 X10^3/uL (2.0-7.7); Basophil# 0.02 X10^3/uL; Basophil% 0.3 % (0-1); Eosinophil# 0.33 X10^3/uL; Eosinophils% 4.4 % (0-5); Hematocrit 36.3 % (37-47); Hemoglobin 10.9 g/dl (12.0-15.0); Lymphocyte # 0.98 X10^3/ul (4.0); Mean Corpuscular Hgb 30.4 pg (27.0-32.0); Mean Corpuscular Volume 101.4 fL (81-99); Mean Platelet Vol. 10.4 fl (6.2-12.0); Monocyte# 0.71 X10^3/uL; Monocyte% 9.4 % (0-10); Neutrophil # 5.47 X10^3/uL (2.7-7.7); Neutrophil % 72.8 % (47-70); Platelet Count 179 K/mm3 (150-450); RBC Distribution Width CV 14.3 % (11.6-14.6); RBC Distribution Width SD 51.7 fl (35.1-43.9); Red Blood Count 3.58 M/mm3 (4.2-5.4); White Blood Count 7.5 K/mm3 (4.4-11.0)
[2018-08-10 06:33] LABS: POSITIVE COUNT NO; POSITIVE DIFFERENTIAL NO; POSITIVE MORPHOLOGY NO
[2018-08-10 07:00] LABS: Bedside Glucose 111 mg/dL (70-110)
[2018-08-10] MEDS: Hydrocortisone 10 MG Tablet 5 MG PO ×3 (08:49→17:02)
[2018-08-10] MEDS: Gabapentin 300 MG Capsule PO ×3 (08:49→17:02)
[2018-08-10] MEDS: Senna/Docusate Sodium 1 Tablet 2 TABLET PO ×2 (08:50→22:48)
[2018-08-10] MEDS: Aspirin E.C. 81 MG Tablet PO (08:50)
[2018-08-10] MEDS: Docusate Sodium 100 MG Capsule PO (08:50)
[2018-08-10] MEDS: Calcium (Elemental) 500 MG Tablet PO (08:50)
[2018-08-10] MEDS: Memantine Hydrochloride 10 MG Tablet PO ×2 (08:51→22:46)
[2018-08-10] MEDS: Topiramate 100 MG Tablet 200 MG PO (08:51)
[2018-08-10] MEDS: Pantoprazole Sodium 20 MG Tablet PO (08:54)
[2018-08-10] MEDS: Insulin Lispro 100 UNIT/ML INSULN.PEN 10 UNIT SC ×3 (08:57→17:03)
[2018-08-10] MEDS: Cefazolin 2 GM in 0.9% Normal Saline 100 ML IV ×2 (09:01→22:42)
[2018-08-10 09:48] LABS: Vitamin B12 333 pg/mL (211-911)
[2018-08-10 09:55] LABS: Iron 20 ug/dL (50-170); Iron Binding Capacity,Total 182 ug/dL (250-450)
--- NOTE | 2018-08-10 11:32 | CASEMGMT ---
RUTHIE faxed therapy notes to [facility] this am. RUTHIE also called Olena and let her know patient may be discharged over the weekend. RUTHIE put green sheet on chart with instructions. Plan: d/c back to [facility] under skilled level of care. Staff to set up transport. Felisha BLANCO MSW
--- NOTE | 2018-08-10 13:35 | PCM.PROGNOTE ---
<Anshu Argueta - Last Filed: 08/10/18 13:35> Patient Problems: Active and Suspected Problems Severe sepsis (Acute) Cellulitis of left lower extremity (Acute) Subjective: Night sweats continue. No further fever, no chills. Left leg pain is still severe, rash has only had minimal improvement. No N/V/D. pt is able to use bedside commode, will dc chilel. - Physical Exam General: Alert, Oriented x3, Cooperative HEENT: Atraumatic, PERRLA, EOMI, Normocephalic Neck: Supple, No JVD, Negative Carotid Bruits Lungs: Clear to auscultation, Normal air movement Cardiovascular: Regular rate, No murmurs Abdomen: Bowel Sounds Present, Soft, Non Tender, Obese Extremities: No edema, Capillary Refill Less than 3 Seconds Skin: Rash Present - her LE rash, erythema, warmth has only slight improvement with margins slightly receding away from demarcations. Musculoskeletal: No Tenderness to Palpation of Joints or Extremities Neurological: Cranial nerves II-XII grossly intact Psych/Mental Status: Normal Affect, Appropriate, Alert and oriented to time, place, person, mood and affect Vital Signs Temp Pulse Resp BP Pulse Ox 98.4 F 66 16 111/55 L 95 08/10/18 08:44 08/10/18 11:00 08/10/18 08:44 08/10/18 08:44 08/10/18 08:44 Oxygen Flow Rate (L/min) 2 Oxygen Delivery Method Room Air Weight: 233 lb 3.985 oz Body Mass Index (BMI) 40.4 Finger Stick Blood Glucose 68 Intake and Output for Last 24 Hours 08/08/18 08/09/18 08/10/18 23:59 23:59 23:59 Intake Total 1320 / 1320 1509 / 1509 Output Total 275 / 275 1250 / 1250 1025 / 1025 Balance 1045 / 1045 259 / 259 -1025 / -1025 Microbiology Past 72 Hours 08/09/18 11:42 Gram Stain - Final Wound - Leg, Left Wound Culture - Preliminary Staphylococcus aureus 08/08/18 15:16 Influenza Types A,B Direct FA (SILVIO) - Final Mucosa - Nose Laboratory Tests Past 24 Hrs 08/09/18 08/10/18 08/10/18 11:42 05:25 05:25 WBC 7.5 RBC 3.58 L Hgb 10.9 L Hct 36.3 L MCV 101.4 H MCH 30.4 MCHC 30.0 L RDW 14.3 RDW Differential 51.7 H Plt Count 179 MPV 10.4 Immature Gran % (Auto) 0.100 Neut % (Auto) 72.8 H Lymph % (Auto) 13.0 L [place] % (Auto) 9.4 Eos % (Auto) 4.4 Baso % (Auto) 0.3 Absolute Neuts (auto) 5.5 Absolute Lymphs (auto) 0.98 Total Counted Not Reportable Sodium 144 Potassium 3.6 Chloride 112 H Carbon Dioxide 23.0 Anion Gap 9 BUN 32 H Creatinine 1.74 H Estim Creat Clear Calc 22.04 Est GFR (MDRD) Af Amer 36 L Est GFR (MDRD) Non-Af 30 L BUN/Creatinine Ratio 18.4 Glucose 115 H Calcium 8.1 L Magnesium 2.3 Iron TIBC Iron Saturation Vitamin B12 Folate S.aureus Protein A PCR POSITIVE H MRSA (PCR) Negative 08/10/18 08/10/18 09:00 09:00 WBC RBC Hgb Hct MCV MCH MCHC RDW RDW Differential Plt Count MPV Immature Gran % (Auto) Neut % (Auto) Lymph % (Auto) [place] % (Auto) Eos % (Auto) Baso % (Auto) Absolute Neuts (auto) Absolute Lymphs (auto) Total Counted Sodium Potassium Chloride Carbon Dioxide Anion Gap BUN Creatinine Estim Creat Clear Calc Est GFR (MDRD) Af Amer Est GFR (MDRD) Non-Af BUN/Creatinine Ratio Glucose Calcium Magnesium Iron 20 L TIBC 182 L Iron Saturation 11.0 L Vitamin B12 333 Folate 13.80 S.aureus Protein A PCR MRSA (PCR) POC Glucose 08/10/18 08/09/18 08/09/18 06:57 21:04 17:07 POC Glucose 111 H 161 H 168 H Medical Necessity - Tobacco Use Smoking Status: Former smoker Tobacco Use: Cigarettes Assessment/Plan All Active Problems Severe sepsis (Acute) Cellulitis of left lower extremity (Acute) Skin ulcer of buttock (Resolved) Syncope and collapse (Resolved) Dysuria (Resolved) 1. Acute severe sepsis 2/2 LLE cellulitis - MRSA neg, MSSA +. Continue cefazolin. WBC count normal now. Culture showing staph susceptibility pending. Rash with miminal improvement. LLE venous US negative Knee XR negative for acute process - arthritis. 2. Elevated troponin - no CP. tele/ekg negative. trops flat. likely 2/2 sepsis / demand ischemia. Echo shows EF 65%, st 1 diastolic dysfxn, no wall abnormalities, mild pulmonary htn. 3. Hx chronic diastolic CHF - no acute exacerbation at this time. 4. CKDIII - stable 5. Hypokalemia - resolved 6. DMt2 with morbid obesity - currently well controlled. Continue current therapy. 7. Macrocytic anemia - iron panels with deficiency, folate and b12 negative. provide venofer with transition to ferrex. DVT ppx: heparin DC planning: return to SNF when appropriate. This patient was seen by Anshu Argueta PA-C under the supervision of Doctor Ramírez. <Erica Elmore - Last Filed: 08/10/18 16:33> - Physical Exam Vital Signs Temp Pulse Resp BP Pulse Ox 98.5 F 72 16 125/61 H 93 08/10/18 14:29 08/10/18 14:29 08/10/18 14:29 08/10/18 14:29 08/10/18 14:29 Oxygen Flow Rate (L/min) 2 Oxygen Delivery Method Room Air Weight: 105.8 kg Body Mass Index (BMI) 40.4 Finger Stick Blood Glucose 68 Intake and Output for Last 24 Hours 08/08/18 08/09/18 08/10/18 23:59 23:59 23:59 Intake Total 1320 / 1320 1509 / 1509 Output Total 275 / 275 1250 / 1250 1025 / 1025 Balance 1045 / 1045 259 / 259 -1025 / -1025 Microbiology Past 72 Hours 08/09/18 11:42 Gram Stain - Final Wound - Leg, Left Wound Culture - Preliminary Staphylococcus aureus 08/08/18 15:16 Influenza Types A,B Direct FA (SILVIO) - Final Mucosa - Nose Laboratory Tests Past 24 Hrs 08/10/18 08/10/18 08/10/18 05:25 05:25 09:00 WBC 7.5 RBC 3.58 L Hgb 10.9 L Hct 36.3 L MCV 101.4 H MCH 30.4 MCHC 30.0 L RDW 14.3 RDW Differential 51.7 H Plt Count 179 MPV 10.4 Immature Gran % (Auto) 0.100 Neut % (Auto) 72.8 H Lymph % (Auto) 13.0 L [place] % (Auto) 9.4 Eos % (Auto) 4.4 Baso % (Auto) 0.3 Absolute Neuts (auto) 5.5 Absolute Lymphs (auto) 0.98 Total Counted Not Reportable Sodium 144 Potassium 3.6 Chloride 112 H Carbon Dioxide 23.0 Anion Gap 9 BUN 32 H Creatinine 1.74 H Estim Creat Clear Calc 22.04 Est GFR (MDRD) Af Amer 36 L Est GFR (MDRD) Non-Af 30 L BUN/Creatinine Ratio 18.4 Glucose 115 H Calcium 8.1 L Magnesium 2.3 Iron 20 L TIBC 182 L Iron Saturation 11.0 L Vitamin B12 Folate 13.80 08/10/18 09:00 WBC RBC Hgb Hct MCV MCH MCHC RDW RDW Differential Plt Count MPV Immature Gran % (Auto) Neut % (Auto) Lymph % (Auto) [place] % (Auto) Eos % (Auto) Baso % (Auto) Absolute Neuts (auto) Absolute Lymphs (auto) Total Counted Sodium Potassium Chloride Carbon Dioxide Anion Gap BUN Creatinine Estim Creat Clear Calc Est GFR (MDRD) Af Amer Est GFR (MDRD) Non-Af BUN/Creatinine Ratio Glucose Calcium Magnesium Iron TIBC Iron Saturation Vitamin B12 333 Folate POC Glucose 08/10/18 08/10/18 08/09/18 11:58 06:57 21:04 POC Glucose 149 H 111 H 161 H 08/09/18 17:07 POC Glucose 168 H Assessment/Plan This patient was seen in conjunction with SHAY Avilez. I have independently interviewed and examined the patient and reviewed pertinent historical, laboratory, and other data. Please refer to SHAY Avilez note for his patient's presentation, findings, and recommendations. I have reviewed and his note and concur with his documentation Patient was seen and examined. Overall she feels improved, fevers seen overnight. Vitals are stable. No acute events overnight. Physical Exam: Gen: Comfortable, morbidly obese, not pale, not jaundiced CVS:HS I +II, regular, no murmurs RESP: Diminished at lung bases GI: Full, soft, nontender, no palpable organs EXT: Bilateral leg edema, REMY wraps to both legs, erythema of left leg is improving ASSESSMENT: 1. Severe sepsis secondary to Lower extremity cellulitis, improving 2. Elevated troponins, indeterminate, secondary to sepsis, 2D echo shows EF 55%, diastolic dysfunction 3. Possible acute on chronic diastolic CHF, in a morbidly obese patient, admitting BNP was 110.1, patient has acute on chronic venous stasis ulcers 4. Acute on chronic venous stasis ulcers 5. CKD stage III 6. Hypokalemia, hypomagnesemia 7. Type II DM 8. Morbidly obese, BMI 40.4 Plan: Continue on cefazolin, continue with Remy wraps, Continue Chiell catheter We will continue to evaluate patient Code Visit Inpatient E&M: 22875 Subs Hosp L2
[2018-08-10 14:41] LABS: Bedside Glucose 149 mg/dL (70-110)
[2018-08-10] MEDS: Glucerna Shake 120 ML LIQUID PO ×2 (17:10→22:49)
[2018-08-10 17:15] LABS: Bedside Glucose 149 mg/dL (70-110)
[2018-08-10] MEDS: Cholestyramine/Sucrose 4 GM/PACKET PO (20:34)
[2018-08-10] MEDS: Donepezil HCl 10 MG Tablet PO (22:43)
[2018-08-10] MEDS: PARoxetine 10 MG Tablet PO (22:47)
[2018-08-10] MEDS: Topiramate 100 MG Tablet PO (22:48)
[2018-08-11 00:31] LABS: Bedside Glucose 127 mg/dL (70-110)
[2018-08-11 02:30] VITALS: BP 136/63; PULSE 65; RESP 18; TEMP 37.3; O2SAT 93
[2018-08-11] MEDS: oxyCODONE 5 MG Tablet PO ×2 (02:44→08:55)
[2018-08-11 03:00] VITALS: PULSE 62
[2018-08-11] MEDS: 0.9% NaCl Peripheral Flush Adult/Peds IV ×4 (05:58→14:52)
[2018-08-11] MEDS: Acetaminophen 500 MG Tablet 1000 MG PO ×2 (05:58→14:51)
[2018-08-11] MEDS: Furosemide 20 MG/2 ML VIAL IV ×2 (05:58→14:51)
[2018-08-11] MEDS: Heparin Injection (Vial) 5,000 UNIT/ML VIAL 5000 UNIT SC (05:58)
[2018-08-11] MEDS: Levothyroxine 150 MCG Tablet PO (05:59)
[2018-08-11 06:54] VITALS: PULSE 58
[2018-08-11 07:10] LABS: Bedside Glucose 86 mg/dL (70-110)
[2018-08-11 07:39] LABS: Absolute Lymphocyte Count 1.27 X10^3/ul (0.83-4.51); Absolute Neutrophil Count 2.9 X10^3/uL (2.0-7.7); Basophil# 0.02 X10^3/uL; Basophil% 0.4 % (0-1); Eosinophil# 0.39 X10^3/uL; Eosinophils% 7.2 % (0-5); Hematocrit 37.5 % (37-47); Hemoglobin 11.2 g/dl (12.0-15.0); Lymphocyte # 1.27 X10^3/ul (4.0); Lymphocyte % 23.4 % (19-41); Mean Corp Hgb Conc 29.9 g/gl (32-36); Mean Corpuscular Hgb 30.3 pg (27.0-32.0); Mean Corpuscular Volume 101.4 fL (81-99); Mean Platelet Vol. 10.6 fl (6.2-12.0); Monocyte# 0.83 X10^3/uL; Monocyte% 15.3 % (0-10); Neutrophil % 53.3 % (47-70); Platelet Count 199 K/mm3 (150-450); RBC Distribution Width CV 14.1 % (11.6-14.6); RBC Distribution Width SD 51.3 fl (35.1-43.9); White Blood Count 5.4 K/mm3 (4.4-11.0)
[2018-08-11 07:49] LABS: POSITIVE COUNT NO; POSITIVE DIFFERENTIAL NO; POSITIVE MORPHOLOGY NO
[2018-08-11 07:51] LABS: Anion Gap 8 (5-15); BUN 31 mg/dL (7-18); BUN/Creat Ratio 19.6 RATIO (10-20); Calcium,Total 8.5 mg/dL (8.5-10.1); Chloride 111 mmol/L (98-107); Creatinine, Serum 1.58 mg/dL (0.55-1.02); EST Glomerular Filtration Rate 34 mL/min (>60); Est Glom Filt Rate - Afr Amer 41 mL/min (>60); Estimated Creatinine Clearance 24.27 ml/min; Glucose 80 mg/dL (74-106); Potassium 3.8 mmol/L (3.5-5.1); Sodium Level 144 mmol/L (136-145)
[2018-08-11] MEDS: Aspirin E.C. 81 MG Tablet PO (08:50)
[2018-08-11] MEDS: Gabapentin 300 MG Capsule PO ×2 (08:50→11:02)
[2018-08-11] MEDS: Hydrocortisone 10 MG Tablet 5 MG PO ×2 (08:50→11:03)
[2018-08-11] MEDS: Calcium (Elemental) 500 MG Tablet PO (08:50)
[2018-08-11 08:56] VITALS: BP 121/65; PULSE 60; RESP 18; TEMP 36.6; O2SAT 94
[2018-08-11] MEDS: Insulin Lispro 100 UNIT/ML INSULN.PEN 10 UNIT SC ×2 (08:58→11:10)
[2018-08-11] MEDS: Cefazolin 2 GM in 0.9% Normal Saline 100 ML IV (10:56)
[2018-08-11] MEDS: Memantine Hydrochloride 10 MG Tablet PO (10:58)
[2018-08-11] MEDS: Senna/Docusate Sodium 1 Tablet 2 TABLET PO (10:58)
[2018-08-11] MEDS: Docusate Sodium 100 MG Capsule PO (10:58)
[2018-08-11] MEDS: Topiramate 100 MG Tablet 200 MG PO (10:59)
[2018-08-11] MEDS: Glucerna Shake 120 ML LIQUID PO ×2 (11:07→14:52)
[2018-08-11] MEDS: Pantoprazole Sodium 20 MG Tablet PO (11:07)
[2018-08-11 11:21] LABS: Bedside Glucose 130 mg/dL (70-110)
--- NOTE | 2018-08-11 11:44 | CASEMGMT ---
Pt's daughter had left a message for RUTHIE/TORI to call her. SW called daughter Jemma Larsen, let her know that pt returning to [facility] today. Daughter is agreeable for pt to return to [facility]. However, she states things have not been addressed as they should at the retirement. She spoke to SW at [facility] about moving pt from [facility], daughter does not feel that [facility] has enough staff. She does have pt on a waiting list at another facility. Daughter asked about pt getting follow up at the [facility], and if there is anything else she can do at [facility]. SW explained will talk to the PA about putting for pt to follow up at the [facility] on the discharge instructions. RUTHIE also gave daughter the number to the [facility] at [facility], encouraged her to follow up as they may be able to assist her in navigating the situation at [facility]. Daughter states they are due for a case conference at [facility] and they want to do it during the day, and Jemma ames cannot get there during the day as she works. RUTHIE also encouraged daughter to speak w/the director life sales at [facility], and see if the only time they can do the conference is during the day, if they can call daughter and have her participate via speaker phone. Daughter states understanding. No further needs, pt to [facility] today, support and encouragement offered to daughter, and RUTHIE did let PA know about having pt follow up at the [facility]. NANO Law, [employer]ATOR
[2018-08-11 11:54] VITALS: PULSE 78
--- NOTE | 2018-08-11 12:14 | PCM.EXTCARCO ---
- Diet 08/08/18 18:57 Diet: Cardiac/Low Cholesterol, Calorie controlled diet 1800 og/day Food consistency:: Regular Liquid Consistency:: Regular/Thin Is pt able to select menu?: Yes - Routine Orders/Code Status Suppository Type: Dulcolax 10mg Suppository Frequency: Daily PRN Routine Lab Work: CBC - 5 days, BMP - 3 days Code Status: DNC-A - Wound(s) L anterior mathew Wound Type: blisters/open R mathew Wound Type: Stasis Ulcer Dressing Change: Adaptic left lower leg Wound Type: scattered superficial stasis ulcers Dressing Change: Adaptic - Therapies Physical Therapy: Eval and Treat Occupational Therapy: Eval and Treat - Problem/Diagnosis (1) Severe sepsis Status: Acute Current Visit: Yes (2) Cellulitis of left lower extremity Status: Acute Current Visit: Yes (3) Diabetes Status: Chronic Current Visit: Yes (4) Iron deficiency anemia Status: Chronic Current Visit: Yes (5) Adrenal insufficiency Status: Chronic Current Visit: No (6) Anxiety Status: Chronic Current Visit: No (7) Asthma, chronic Status: Chronic Current Visit: No (8) CKD (chronic kidney disease) stage 3, GFR 30-59 ml/min Status: Chronic Current Visit: No (9) Esophageal reflux Status: Chronic Current Visit: No (10) Hypertension Status: Chronic Current Visit: No (11) 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 Current Visit: No - Allergies/Procedures Done in Hospital Allergies/Adverse Reactions: Allergies Iodinated Contrast- Oral and IV Dye [Iodinated Contrast Media - IV Dye] Adverse Reaction (Verified 08/08/18 15:16) Other NAUSEA AFFECTS KIDNEYS Procedures: 2-D Echocardiogram - Type of Care/Length of Stay Estimated LOS: Convalescent Care Less Than 30 days Type of Care Needed: Skilled Rehab Potential: Fair Prognosis: Fair - Additional Orders/Day of Discharge H&P will serve as current which was dated: 08/08/18 Day of Discharge: 08/11/18 - Dietary and Speech Recommendations Dietitian Recommendations/Changes: Rec diet change to 1800 calorie controlled, cardiac, low sodium diet. Will provide Glucerna 120 mL 4x/day w/ medpass for additional calories/protein if consumed. - Follow Up Care Primary Care Physician: Tito Huerta DO [STAFF PHYSICIAN] - Please follow up with your Primary Care Physician in: 2 weeks Please Follow Up With: [facility] When: 3-5 days
--- NOTE | 2018-08-11 14:17 | PCM.DC.SUM ---
<Anshu Argueta - Last Filed: 08/11/18 14:17> Discharge Date and Diagnosis - Problem List Patient Problems: Active and Suspected Problems Severe sepsis (Acute) Cellulitis of left lower extremity (Acute) Date of Admission: 08/08/18 Date of Discharge: 08/11/18 - Primary Discharge Diagnosis Active and Suspected Problems Severe sepsis (Acute) 2.2 Cellulitis of left lower extremity (Acute) - MSSA Elevated troponin, indeterminate, secondary to sepsis demand History of chronic diastolic congestive heart failure CKD stage III Hypokalemia-resolved Type 2 diabetes mellitus with morbid obesity Microcytic anemia with iron deficiency Severe debility Dementia osteoarthritis - Secondary Discharge Diagnosis Chronic Problems CKD (chronic kidney disease) stage 3, GFR 30-59 ml/min (Chronic) Iron deficiency anemia (Chronic) Diabetes (Chronic) Pressure ulcer (Chronic) Lymphedema (Chronic) Glucocorticoid deficiency (Chronic) Esophageal reflux (Chronic) Epilepsy undetermined as to focal or generalized, intractable (Chronic) Diverticulosis of colon (without mention of hemorrhage) (Chronic) Type 2 diabetes mellitus without (mention of) complications (Chronic) Chronic kidney disease (CKD), stage IV (severe) (Chronic) Carotid artery occlusion without infarction (Chronic) Stage II pressure ulcer of left buttock (Chronic) 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 (Chronic) Stage III pressure ulcer of left buttock (Chronic) Stage III pressure ulcer of sacral region (Chronic) Anxiety (Chronic) Asthma, chronic (Chronic) Stage III pressure ulcer of right buttock (Chronic) Adrenal insufficiency (Chronic) Renal artery atherosclerosis (Chronic) Pure hypercholesterolemia (Chronic) 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 Interpretation Summary Deep veins of the left lower extremity are patent and compressible segmentally. There is no evidence of left lower extremity deep vein thrombosis. Valvular competence appears intact within the proximal deep venous system on the left . The left greater saphenous vein appears patent and compressible segmentally. Echo: Interpretation Summary Mild concentric left ventricular hypertrophy. The estimated ejection fraction is 65 %. Stage 1 diastolic dysfunction. Trivial tricuspid valve insufficiency. Right ventricular systolic pressure estimated to be 41 mmHg. Mild pulmonary hypertension. Compared to echo report dated 03/08/2017, LV function has remained the same, but RVSP has increased from 27 to 41 mm Hg. RAD/Knee 1 or 2 Views IMPRESSION: No fracture or dislocation. Moderate to severe degenerative changes which are most pronounced in the medial compartment. Consultations 08/09/18 01:51 Consult: Onc/Wound/pipe inspector Routine Comment: Operations: None Procedures: 2-D Echocardiogram Summary of Care Provided: Hospital course: The patient is a 78 year old F with past medical history of CKD stage III, diastolic congestive heart failure, type 2 diabetes, morbid obesity, dementia, who [facility] complaints of left lower extremity swelling, rash, pain. She appeared to have signs of severe sepsis as her leg appeared cellulitic, she had a fever, pulse greater than 90, tachypnea, and lactic acidosis. She was started on Vanco and Zosyn and admitted to the PCU and cardiac monitoring as she had an indeterminate troponin. She had some open wounds on the distal lower extremity medial aspect. Wound care was provided. A culture was obtained. Culture demonstrated MSSA. She was transitioned to cefazolin. She continued to progressively improve. As she had an indeterminate troponin we obtained an echocardiogram which did not demonstrate any significant acute findings. Her indeterminate troponin was felt to be secondary to demand ischemia and sepsis. She was somewhat anemic and iron panel revealed iron deficiency. This was repleted and she was started on oral iron. Signs of sepsis resolved. She was transitioned to Keflex and will complete a total of 10 days of therapy. She reported that the oxycodone pain regimen that she was prescribed did not provide her with any pain relief at all, and she was agreeable to trying a different agent-she agreed to try tramadol. This was ordered to discharge. [facility]. She will need to follow-up with her PCP in 1-2 weeks. I have also advised her to follow-up with the wound care center within the next week. This patient was seen by Anshu Argueta PA-C under the supervision of Doctor Elmore. [] Patient Problems: Active and Suspected Problems Severe sepsis (Acute) Cellulitis of left lower extremity (Acute) - Physical Exam General: Alert, Oriented x3, Cooperative HEENT: Atraumatic, PERRLA, EOMI, Normocephalic Neck: Supple, No JVD, Negative Carotid Bruits Lungs: Clear to auscultation, Normal air movement Cardiovascular: Regular rate, No murmurs Abdomen: Bowel Sounds Present, Soft, Non Tender, Obese Extremities: Capillary Refill Less than 3 Seconds, Edema Skin: Rash Present - LLE, demarcated, warmth, erythema, receding away from demarcations. Musculoskeletal: No Tenderness to Palpation of Joints or Extremities Neurological: Cranial nerves II-XII grossly intact Psych/Mental Status: Normal Affect, Appropriate, Alert and oriented to time, place, person, mood and affect Vital Signs Temp Pulse Resp BP Pulse Ox 97.8 F 60 18 121/65 H 94 08/11/18 08:56 08/11/18 08:56 08/11/18 08:56 08/11/18 08:56 08/11/18 08:56 Oxygen Flow Rate (L/min) 2 Oxygen Delivery Method Room Air Weight: 233 lb 3.985 oz Body Mass Index (BMI) 40.4 Finger Stick Blood Glucose 68 Intake and Output for Last 24 Hours 08/09/18 08/10/18 08/11/18 23:59 23:59 23:59 Intake Total 1509 / 1509 233 / 233 500 / 500 Output Total 1250 / 1250 2875 / 2875 1150 / 1150 Balance 259 / 259 -2642 / -2642 -650 / -650 Microbiology Past 72 Hours 08/08/18 15:00 Blood Culture - Preliminary Blood Culture (Wb) - Right Forearm No growth in 48 hours. 08/08/18 15:00 Blood Culture - Preliminary Blood Culture (Wb) - Anticubital Left No growth in 48 hours. 08/09/18 11:42 Gram Stain - Final Wound - Leg, Left Wound Culture - Preliminary Staphylococcus aureus 08/08/18 15:16 Influenza Types A,B Direct FA (SILVIO) - Final Mucosa - Nose Laboratory Tests Past 24 Hrs 08/11/18 08/11/18 06:37 06:37 WBC 5.4 RBC 3.70 L Hgb 11.2 L Hct 37.5 MCV 101.4 H MCH 30.3 MCHC 29.9 L RDW 14.1 RDW Differential 51.3 H Plt Count 199 MPV 10.6 Immature Gran % (Auto) 0.400 Neut % (Auto) 53.3 Lymph % (Auto) 23.4 Butts % (Auto) 15.3 H Eos % (Auto) 7.2 H Baso % (Auto) 0.4 Absolute Neuts (auto) 2.9 Absolute Lymphs (auto) 1.27 Total Counted Not Reportable Sodium 144 Potassium 3.8 Chloride 111 H Carbon Dioxide 25.0 Anion Gap 8 BUN 31 H Creatinine 1.58 H Estim Creat Clear Calc 24.27 Est GFR (MDRD) Af Amer 41 L Est GFR (MDRD) Non-Af 34 L BUN/Creatinine Ratio 19.6 Glucose 80 Calcium 8.5 POC Glucose 08/11/18 08/11/18 08/10/18 11:09 06:49 22:39 POC Glucose 130 H 86 127 H 08/10/18 08/10/18 16:56 11:58 POC Glucose 149 H 149 H Discharge Diet: 1800 Calorie Control Diet Discharge Activity: Return to Normal Activity Home Medications: Medications to take at Discharge Omeprazole [Prilosec] 20 mg PO DAILY 05/08/15 Insulin Aspart [Novolog Flexpen] 10 units SC TIDCM 12/21/15 Aspirin [Aspir-Low] 81 mg PO DAILY 02/25/18 Docusate Sodium [Colace] 100 mg PO DAILY 02/25/18 Donepezil HCl [Aricept] 10 mg PO QHS 02/25/18 Insulin Glargine,Hum.rec.anlog [Basaglar Kwikpen U-100] 40 unit SQ QHS 02/25/18 Insulin Glargine,Hum.rec.anlog [Basaglar Kwikpen U-100] 45 unit SQ DAILY 02/25/18 Levothyroxine [Synthroid] 150 mcg PO DAILY 02/25/18 Topiramate [Topamax] 100 mg PO QHS MDD epilepsy 02/25/18 Acetaminophen [Tylenol Tablet] 650 mg PO Q4H PRN PRN 08/08/18 Ammonium Lactate [Skin Treatment] 1 applic TP QHS 08/08/18 Calcium Carbonate 500 mg PO DAILY 08/08/18 Cholecalciferol (Vitamin D3) [Vitamin D3] 50,000 unit PO SA 08/08/18 Cholestyramine (with Sugar) [Questran Packet] 4 gm PO QHS 08/08/18 Gabapentin [Neurontin] 300 mg PO TIDCM 08/08/18 Hydrocortisone 5 mg PO TID 08/08/18 Memantine Hydrochloride [Namenda] 10 mg PO BID 08/08/18 Paroxetine HCl [Paxil] 10 mg PO QHS 08/08/18 Topiramate [Topamax] 200 mg PO DAILY 08/08/18 Cephalexin [Keflex] 500 mg PO Q12H #13 capsule 08/11/18 Furosemide [Lasix] 40 mg PO BID #0 08/11/18 Glucerna Shake 120 ml PO 4X/DAY liquid 08/11/18 Iron Polysaccharide Complex [Ferrex 150] 150 mg PO DAILYCM capsule 08/11/18 Potassium Chloride [K-Dur] 40 meq PO BIDCM tablet 08/11/18 traMADol [Ultram] 50 mg PO Q6H PRN PRN 3 Days #12 tab 08/11/18 Following Prescrptions Were Given to Patient: Cephalexin [Keflex] 500 mg PO Q12H #13 capsule traMADol [Ultram] 50 mg PO Q6H PRN PRN 3 Days #12 tab PRN Reason: Moderate Pain (4-5/10) Primary Care Physician: Tito Huerta DO [STAFF PHYSICIAN] - Please follow up with your Primary Care Physician in: 2 weeks Please Follow Up With: [facility] When: 3-5 days Disposition: [facility] facility Minutes spent on discharge:: 35 Patient Condition:: Stable Medical Necessity - Tobacco Use Smoking Status: Former smoker Tobacco Use: Cigarettes Meaningful Use Info Meaningful Use Diagnoses (Choose all that apply): None applicable <Erica Elmore - Last Filed: 08/11/18 16:56> Discharge Date and Diagnosis - Primary Discharge Diagnosis Active and Suspected Problems Severe sepsis (Acute) Cellulitis of left lower extremity (Acute) - Secondary Discharge Diagnosis Chronic Problems CKD (chronic kidney disease) stage 3, GFR 30-59 ml/min (Chronic) Iron deficiency anemia (Chronic) Diabetes (Chronic) Pressure ulcer (Chronic) Lymphedema (Chronic) Glucocorticoid deficiency (Chronic) Esophageal reflux (Chronic) Epilepsy undetermined as to focal or generalized, intractable (Chronic) Diverticulosis of colon (without mention of hemorrhage) (Chronic) Type 2 diabetes mellitus without (mention of) complications (Chronic) Chronic kidney disease (CKD), stage IV (severe) (Chronic) Carotid artery occlusion without infarction (Chronic) Stage II pressure ulcer of left buttock (Chronic) 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 (Chronic) Stage III pressure ulcer of left buttock (Chronic) Stage III pressure ulcer of sacral region (Chronic) Anxiety (Chronic) Asthma, chronic (Chronic) Stage III pressure ulcer of right buttock (Chronic) Adrenal insufficiency (Chronic) Renal artery atherosclerosis (Chronic) Pure hypercholesterolemia (Chronic) 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 I have independently interviewed and examined the patient and reviewed pertinent historical, laboratory, and other data. Please refer to SHAY Avilez note for his patient's presentation, findings, and recommendations. I have reviewed and his note and concur with his documentation 78-year-old female with past medical history of chronic diastolic CHF, type II DM, morbid obesity, BMI 41, CKD stage III, who is a resident in a detention comes in with complaint complaints of left lower extremity erythema, pain and swelling. She was seen and managed as severe sepsis secondary to left lower extremity cellulitis. She had acute on chronic venous stasis ulcerations with blistering Patient was started initially on IV vancomycin and Zosyn. This was switched to IV cefazolin. Wound cultures grew MSSA. She had indeterminate troponins without any complaints of chest pain. Patient was also started on Lasix, Remy wrapping of the legs. Her left lower extremity erythema continued to improve and she was finally discharged back to the detention. On the day of discharge, patient denied any new complaints, did not have any fevers or chills or dizziness or chest pain. Physical Exam: Gen:Appears comfortable, on room air,, morbidly obese, not pale, not jaundiced CVS:HS I +II, regular, no murmurs RESP: Diminished at lung bases GI: Full, soft, nontender, no palpable organs EXT: Bilateral leg edema, wraps to both lower extremities ASSESSMENT 1. Severe sepsis secondary to Lower extremity cellulitis, 2. Elevated troponins, indeterminate, secondary to sepsis, 2D echo shows EF 55%, diastolic dysfunction 3. Possible acute on chronic diastolic CHF, in a morbidly obese patient 4. Acute on chronic venous stasis ulcers 5. CKD stage III 6. Hypokalemia, hypomagnesemia, resolved 7. Type II DM 8. Morbidly obese, BMI 40.4 Plan: Continue with Keflex, Lasix, REMY-wraps to both lower extremities. - Physical Exam Vital Signs Temp Pulse Resp BP Pulse Ox 98.3 F 63 17 103/53 L 95 08/11/18 14:43 08/11/18 14:43 08/11/18 14:43 08/11/18 14:43 08/11/18 14:43 Oxygen Flow Rate (L/min) 2 Oxygen Delivery Method Room Air Weight: 105.8 kg Body Mass Index (BMI) 40.4 Finger Stick Blood Glucose 68 Intake and Output for Last 24 Hours 08/09/18 08/10/18 08/11/18 23:59 23:59 23:59 Intake Total 1509 / 1509 233 / 233 500 / 500 Output Total 1250 / 1250 2875 / 2875 1150 / 1150 Balance 259 / 259 -2642 / -2642 -650 / -650 Microbiology Past 72 Hours 08/08/18 15:00 Blood Culture - Preliminary Blood Culture (Wb) - Right Forearm No growth in 48 hours. 08/08/18 15:00 Blood Culture - Preliminary Blood Culture (Wb) - Anticubital Left No growth in 48 hours. 08/09/18 11:42 Gram Stain - Final Wound - Leg, Left Wound Culture - Preliminary Staphylococcus aureus 08/08/18 15:16 Influenza Types A,B Direct FA (SILVIO) - Final Mucosa - Nose Laboratory Tests Past 24 Hrs 08/11/18 08/11/18 06:37 06:37 WBC 5.4 RBC 3.70 L Hgb 11.2 L Hct 37.5 MCV 101.4 H MCH 30.3 MCHC 29.9 L RDW 14.1 RDW Differential 51.3 H Plt Count 199 MPV 10.6 Immature Gran % (Auto) 0.400 Neut % (Auto) 53.3 Lymph % (Auto) 23.4 Butts % (Auto) 15.3 H Eos % (Auto) 7.2 H Baso % (Auto) 0.4 Absolute Neuts (auto) 2.9 Absolute Lymphs (auto) 1.27 Total Counted Not Reportable Sodium 144 Potassium 3.8 Chloride 111 H Carbon Dioxide 25.0 Anion Gap 8 BUN 31 H Creatinine 1.58 H Estim Creat Clear Calc 24.27 Est GFR (MDRD) Af Amer 41 L Est GFR (MDRD) Non-Af 34 L BUN/Creatinine Ratio 19.6 Glucose 80 Calcium 8.5 POC Glucose 08/11/18 08/11/18 08/10/18 11:09 06:49 22:39 POC Glucose 130 H 86 127 H 08/10/18 16:56 POC Glucose 149 H Code Visit Inpatient E&M: 13466 Disch Hosp
--- NOTE | 2018-08-11 14:24 | DS.PCM_ITS ---
<Anshu Argueta - Last Filed: 08/11/18 14:17> Discharge Date and Diagnosis - Problem List Patient Problems: Active and Suspected Problems Severe sepsis (Acute) Cellulitis of left lower extremity (Acute) Date of Admission: 08/08/18 Date of Discharge: 08/11/18 - Primary Discharge Diagnosis Active and Suspected Problems Severe sepsis (Acute) 2.2 Cellulitis of left lower extremity (Acute) - MSSA Elevated troponin, indeterminate, secondary to sepsis demand History of chronic diastolic congestive heart failure CKD stage III Hypokalemia-resolved Type 2 diabetes mellitus with morbid obesity Microcytic anemia with iron deficiency Severe debility Dementia osteoarthritis - Secondary Discharge Diagnosis Chronic Problems CKD (chronic kidney disease) stage 3, GFR 30-59 ml/min (Chronic) Iron deficiency anemia (Chronic) Diabetes (Chronic) Pressure ulcer (Chronic) Lymphedema (Chronic) Glucocorticoid deficiency (Chronic) Esophageal reflux (Chronic) Epilepsy undetermined as to focal or generalized, intractable (Chronic) Diverticulosis of colon (without mention of hemorrhage) (Chronic) Type 2 diabetes mellitus without (mention of) complications (Chronic) Chronic kidney disease (CKD), stage IV (severe) (Chronic) Carotid artery occlusion without infarction (Chronic) Stage II pressure ulcer of left buttock (Chronic) 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 (Chronic) Stage III pressure ulcer of left buttock (Chronic) Stage III pressure ulcer of sacral region (Chronic) Anxiety (Chronic) Asthma, chronic (Chronic) Stage III pressure ulcer of right buttock (Chronic) Adrenal insufficiency (Chronic) Renal artery atherosclerosis (Chronic) Pure hypercholesterolemia (Chronic) 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 Interpretation Summary Deep veins of the left lower extremity are patent and compressible segmentally. There is no evidence of left lower extremity deep vein thrombosis. Valvular competence appears intact within the proximal deep venous system on the left . The left greater saphenous vein appears patent and compressible segmentally. Echo: Interpretation Summary Mild concentric left ventricular hypertrophy. The estimated ejection fraction is 65 %. Stage 1 diastolic dysfunction. Trivial tricuspid valve insufficiency. Right ventricular systolic pressure estimated to be 41 mmHg. Mild pulmonary hypertension. Compared to echo report dated 03/08/2017, LV function has remained the same, but RVSP has increased from 27 to 41 mm Hg. RAD/Knee 1 or 2 Views IMPRESSION: No fracture or dislocation. Moderate to severe degenerative changes which are most pronounced in the medial compartment. Consultations 08/09/18 01:51 Consult: Onc/Wound/television camera operator Routine Comment: Operations: None Procedures: 2-D Echocardiogram Summary of Care Provided: Hospital course: The patient is a 78 year old F with past medical history of CKD stage III, diastolic congestive heart failure, type 2 diabetes, morbid obesity, dementia, who presented to the emergency room from assisted with complaints of left lower extremity swelling, rash, pain. She appeared to have signs of severe sepsis as her leg appeared cellulitic, she had a fever, pulse greater than 90, tachypnea, and lactic acidosis. She was started on Vanco and Zosyn and admitted to the PCU and cardiac monitoring as she had an indeterminate troponin. She had some open wounds on the distal lower extremity medial aspect. Wound care was p rovided. A culture was obtained. Culture demonstrated MSSA. She was transitioned to cefazolin. She continued to progressively improve. As she had an indeterminate troponin we obtained an echocardiogram which did not demonstrate any significant acute findings. Her indeterminate troponin was felt to be secondary to demand ischemia and sepsis. She was somewhat anemic and iron panel revealed iron deficiency. This was repleted and she was started on oral iron. Signs of sepsis resolved. She was transitioned to Keflex and will complete a total of 10 days of therapy. She reported that the oxycodone pain regimen that she was prescribed did not provide her with any pain relief at all, and she was agreeable to trying a different agent-she agreed to try tramadol. This was ordered to discharge. She was discharged back to assisted in stable condition. She will need to follow-up with her PCP in 1-2 weeks. I have also advised her to follow-up with the wound care center within the next week. This patient was seen by Anshu Argueta PA-C under the supervision of Doctor Elmore. [] Patient Problems: Active and Suspected Problems Severe sepsis (Acute) Cellulitis of left lower extremity (Acute) - Physical Exam General: Alert, Oriented x3, Cooperative HEENT: Atraumatic, PERRLA, EOMI, Normocephalic Neck: Supple, No JVD, Negative Carotid Bruits Lungs: Clear to auscultation, Normal air movement Cardiovascular: Regular rate, No murmurs Abdomen: Bowel Sounds Present, Soft, Non Tender, Obese Extremities: Capillary Refill Less than 3 Seconds, Edema Skin: Rash Present - LLE, demarcated, warmth, erythema, receding away from demarcations. Musculoskeletal: No Tenderness to Palpation of Joints or Extremities Neurological: Cranial nerves II-XII grossly intact Psych/Mental Status: Normal Affect, Appropriate, Alert and oriented to time, place, person, mood and affect Vital Signs Temp Pulse Resp BP Pulse Ox 97.8 F 60 18 121/65 H 94 08/11/18 08:56 08/11/18 08:56 08/11/18 08:56 08/11/18 08:56 08/11/18 08:56 Oxygen Flow Rate (L/min) 2 Oxygen Delivery Method Room Air Weight: 233 lb 3.985 oz Body Mass Index (BMI) 40.4 Finger Stick Blood Glucose 68 Intake and Output for Last 24 Hours 08/09/18 08/10/18 08/11/18 23:59 23:59 23:59 Intake Total 1509 / 1509 233 / 233 500 / 500 Output Total 1250 / 1250 2875 / 2875 1150 / 1150 Balance 259 / 259 -2642 / -2642 -650 / -650 Microbiology Past 72 Hours 08/08/18 15:00 Blood Culture - Preliminary Blood Culture (Wb) - Right Forearm No growth in 48 hours. 08/08/18 15:00 Blood Culture - Preliminary Blood Culture (Wb) - Anticubital Left No growth in 48 hours. 08/09/18 11:42 Gram Stain - Final Wound - Leg, Left Wound Culture - Preliminary Staphylococcus aureus 08/08/18 15:16 Influenza Types A,B Direct FA (SILVIO) - Final Mucosa - Nose Laboratory Tests Past 24 Hrs 08/11/18 08/11/18 06:37 06:37 WBC 5.4 RBC 3.70 L Hgb 11.2 L Hct 37.5 MCV 101.4 H MCH 30.3 MCHC 29.9 L RDW 14.1 RDW Differential 51.3 H Plt Count 199 MPV 10.6 Immature Gran % (Auto) 0.400 Neut % (Auto) 53.3 Lymph % (Auto) 23.4 Swain % (Auto) 15.3 H Eos % (Auto) 7.2 H Baso % (Auto) 0.4 Absolute Neuts (auto) 2.9 Absolute Lymphs (auto) 1.27 Total Counted Not Reportable Sodium 144 Potassium 3.8 Chloride 111 H Carbon Dioxide 25.0 Anion Gap 8 BUN 31 H Creatinine 1.58 H Estim Creat Clear Calc 24.27 Est GFR (MDRD) Af Amer 41 L Est GFR (MDRD) Non-Af 34 L BUN/Creatinine Ratio 19.6 Glucose 80 Calcium 8.5 POC Glucose 08/11/18 08/11/18 08/10/18 11:09 06:49 22:39 POC Glucose 130 H 86 127 H 08/10/18 08/10/18 16:56 11:58 POC Glucose 149 H 149 H Discharge Diet: 1800 Calorie Control Diet Discharge Activity: Return to Normal Activity Home Medications: Medications to take at Discharge Omeprazole [Prilosec] 20 mg PO DAILY 05/08/15 Insulin Aspart [Novolog Flexpen] 10 units SC TIDCM 12/21/15 Aspirin [Aspir-Low] 81 mg PO DAILY 02/25/18 Docusate Sodium [Colace] 100 mg PO DAILY 02/25/18 Donepezil HCl [Aricept] 10 mg PO QHS 02/25/18 Insulin Glargine,Hum.rec.anlog [Basaglar Kwikpen U-100] 40 unit SQ QHS 02/25/18 Insulin Glargine,Hum.rec.anlog [Basaglar Kwikpen U-100] 45 unit SQ DAILY 02/25/18 Levothyroxine [Synthroid] 150 mcg PO DAILY 02/25/18 Topiramate [Topamax] 100 mg PO QHS MDD epilepsy 02/25/18 Acetaminophen [Tylenol Tablet] 650 mg PO Q4H PRN PRN 08/08/18 Ammonium Lactate [Skin Treatment] 1 applic TP QHS 08/08/18 Calcium Carbonate 500 mg PO DAILY 08/08/18 Cholecalciferol (Vitamin D3) [Vitamin D3] 50,000 unit PO SA 08/08/18 Cholestyramine (with Sugar) [Questran Packet] 4 gm PO QHS 08/08/18 Gabapentin [Neurontin] 300 mg PO TIDCM 08/08/18 Hydrocortisone 5 mg PO TID 08/08/18 Memantine Hydrochloride [Namenda] 10 mg PO BID 08/08/18 Paroxetine HCl [Paxil] 10 mg PO QHS 08/08/18 Topiramate [Topamax] 200 mg PO DAILY 08/08/18 Cephalexin [Keflex] 500 mg PO Q12H #13 capsule 08/11/18 Furosemide [Lasix] 40 mg PO BID #0 08/11/18 Glucerna Shake 120 ml PO 4X/DAY liquid 08/11/18 Iron Polysaccharide Complex [Ferrex 150] 150 mg PO DAILYCM capsule 08/11/18 Potassium Chloride [K-Dur] 40 meq PO BIDCM tablet 08/11/18 traMADol [Ultram] 50 mg PO Q6H PRN PRN 3 Days #12 tab 08/11/18 Following Prescrptions Were Given to Patient: Cephalexin [Keflex] 500 mg PO Q12H #13 capsule traMADol [Ultram] 50 mg PO Q6H PRN PRN 3 Days #12 tab PRN Reason: Moderate Pain (4-5/10) Primary Care Physician: Tito Huerta DO [STAFF PHYSICIAN] - Please follow up with your Primary Care Physician in: 2 weeks Please Follow Up With: Wound Care Center When: 3-5 days Disposition: [facility] Minutes spent on discharge:: 35 Patient Condition:: Stable Medical Necessity - Tobacco Use Smoking Status: Former smoker Tobacco Use: Cigarettes Meaningful Use Info Meaningful Use Diagnoses (Choose all that apply): None applicable <Erica Elmore - Last Filed: 08/11/18 16:56> Discharge Date and Diagnosis - Primary Discharge Diagnosis Active and Suspected Problems Severe sepsis (Acute) Cellulitis of left lower extremity (Acute) - Secondary Discharge Diagnosis Chronic Problems CKD (chronic kidney disease) stage 3, GFR 30-59 ml/min (Chronic) Iron deficiency anemia (Chronic) Diabetes (Chronic) Pressure ulcer (Chronic) Lymphedema (Chronic) Glucocorticoid deficiency (Chronic) Esophageal reflux (Chronic) Epilepsy undetermined as to focal or generalized, intractable (Chronic) Diverticulosis of colon (without mention of hemorrhage) (Chronic) Type 2 diabetes mellitus without (mention of) complications (Chronic) Chronic kidney disease (CKD), stage IV (severe) (Chronic) Carotid artery occlusion without infarction (Chronic) Stage II pressure ulcer of left buttock (Chronic) 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 (Chronic) Stage III pressure ulcer of left buttock (Chronic) Stage III pressure ulcer of sacral region (Chronic) Anxiety (Chronic) Asthma, chronic (Chronic) Stage III pressure ulcer of right buttock (Chronic) Adrenal insufficiency (Chronic) Renal artery atherosclerosis (Chronic) Pure hypercholesterolemia (Chronic) 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 I have independently interviewed and examined the patient and reviewed pertinent historical, laboratory, and other data. Please refer to SHAY Avilez note for his patient's presentation, findings, and recommendations. I have reviewed and his note and concur with his documentation 78-year-old female with past medical history of chronic diastolic CHF, type II DM, morbid obesity, BMI 41, CKD stage III, who is a resident in a [facility] comes in with complaint complaints of left lower extremity erythema, pain and swelling. She was seen and managed as severe sepsis secondary to left lower extremity cellulitis. She had acute on chronic venous stasis ulcerations with blistering Patient was started initially on IV vancomycin and Zosyn. This was switched to IV cefazolin. Wound cultures grew MSSA. She had indeterminate troponins without any complaints of chest pain. Patient was also started on Lasix, Remy wrapping of the legs. Her left lower extremity erythema continued to improve and she was finally discharged back to the [facility]. On the day of discharge, patient denied any new complaints, did not have any fevers or chills or dizziness or chest pain. Physical Exam: Gen:Appears comfortable, on room air,, morbidly obese, not pale, not jaundiced CVS:HS I +II, regular, no murmurs RESP: Diminished at lung bases GI: Full, soft, nontender, no palpable organs EXT: Bilateral leg edema, wraps to both lower extremities ASSESSMENT 1. Severe sepsis secondary to Lower extremity cellulitis, 2. Elevated troponins, indeterminate, secondary to sepsis, 2D echo shows EF 55%, diastolic dysfunction 3. Possible acute on chronic diastolic CHF, in a morbidly obese patient 4. Acute on chronic venous stasis ulcers 5. CKD stage III 6. Hypokalemia, hypomagnesemia, resolved 7. Type II DM 8. Morbidly obese, BMI 40.4 Plan: Continue with Keflex, Lasix, REMY-wraps to both lower extremities. - Physical Exam Vital Signs Temp Pulse Resp BP Pulse Ox 98.3 F 63 17 103/53 L 95 08/11/18 14:43 08/11/18 14:43 08/11/18 14:43 08/11/18 14:43 08/11/18 14:43 Oxygen Flow Rate (L/min) 2 Oxygen Delivery Method Room Air Weight: 105.8 kg Body Mass Index (BMI) 40.4 Finger Stick Blood Glucose 68 Intake and Output for Last 24 Hours 08/09/18 08/10/18 08/11/18 23:59 23:59 23:59 Intake Total 1509 / 1509 233 / 233 500 / 500 Output Total 1250 / 1250 2875 / 2875 1150 / 1150 Balance 259 / 259 -2642 / -2642 -650 / -650 Microbiology Past 72 Hours 08/08/18 15:00 Blood Culture - Preliminary Blood Culture (Wb) - Right Forearm No growth in 48 hours. 08/08/18 15:00 Blood Culture - Preliminary Blood Culture (Wb) - Anticubital Left No growth in 48 hours. 08/09/18 11:42 Gram Stain - Final Wound - Leg, Left Wound Culture - Preliminary Staphylococcus aureus 08/08/18 15:16 Influenza Types A,B Direct FA (SILVIO) - Final Mucosa - Nose Laboratory Tests Past 24 Hrs 08/11/18 08/11/18 06:37 06:37 WBC 5.4 RBC 3.70 L Hgb 11.2 L Hct 37.5 MCV 101.4 H MCH 30.3 MCHC 29.9 L RDW 14.1 RDW Differential 51.3 H Plt Count 199 MPV 10.6 Immature Gran % (Auto) 0.400 Neut % (Auto) 53.3 Lymph % (Auto) 23.4 Swain % (Auto) 15.3 H Eos % (Auto) 7.2 H Baso % (Auto) 0.4 Absolute Neuts (auto) 2.9 Absolute Lymphs (auto) 1.27 Total Counted Not Reportable Sodium 144 Potassium 3.8 Chloride 111 H Carbon Dioxide 25.0 Anion Gap 8 BUN 31 H Creatinine 1.58 H Estim Creat Clear Calc 24.27 Est GFR (MDRD) Af Amer 41 L Est GFR (MDRD) Non-Af 34 L BUN/Creatinine Ratio 19.6 Glucose 80 Calcium 8.5 POC Glucose 08/11/18 08/11/18 08/10/18 11:09 06:49 22:39 POC Glucose 130 H 86 127 H 08/10/18 16:56 POC Glucose 149 H Code Visit Inpatient E&M: [id number] Disch Hosp
[2018-08-11 14:43] VITALS: BP 103/53; PULSE 63; RESP 17; TEMP 36.8; O2SAT 95
[2018-08-11] MEDS: traMADol 50 MG Tablet PO (14:51)
--- NOTE | 2018-08-11 16:53 | NURSING ---
called report to cc also called and spoke with daughter and gave her updates
== END 2018-08-11 16:27 | disposition skilled nursing facility (03) | DRG 871 ==
LOC: ED 16:22 → PCU 17:35
PROVIDERS: Physician Assistant; Emergency Provider Emergency Medicine; Family Provider Family Medicine; PCP Family Medicine; Visit Provider Internal Medicine
DX: A41.01 Sepsis due to Methicillin susceptible Staphylococcus aureus (principal); I50.33 Acute on chronic diastolic (congestive) heart failure; L03.116 Cellulitis of left lower limb; Z68.41 Body mass index [BMI] 40.0-44.9, adult; I24.8 Other forms of acute ischemic heart disease; I13.0 Hypertensive heart and chronic kidney disease with heart failure and stage 1 through stage 4 chronic kidney disease, or unspecified chronic kidney disease; R65.20 Severe sepsis without septic shock; E66.01 Morbid (severe) obesity due to excess calories; E87.6 Hypokalemia; E83.42 Hypomagnesemia; R53.81 Other malaise; F03.90 Unspecified dementia, unspecified severity, without behavioral disturbance, psychotic disturbance, mood disturbance, and anxiety; M19.90 Unspecified osteoarthritis, unspecified site; E11.40 Type 2 diabetes mellitus with diabetic neuropathy, unspecified; I87.2 Venous insufficiency (chronic) (peripheral); D50.9 Iron deficiency anemia, unspecified; E11.22 Type 2 diabetes mellitus with diabetic chronic kidney disease; Z79.4 Long term (current) use of insulin; N18.3 Chronic kidney disease, stage 3 (moderate); K21.9 Gastro-esophageal reflux disease without esophagitis; Z87.891 Personal history of nicotine dependence; B95.61 Methicillin susceptible Staphylococcus aureus infection as the cause of diseases classified elsewhere
CPT/HCPCS: 36415; 71045; 73560; 80048; 81001; 82607; 82746; 82962; 83540; 83550; 83605; 83735; 83880; 84100; 84484; 85025; 87040; 87070; 87077; 87186; 87205; 87640; 87804; 93005; 93306; 93971; 97162; 97166; 97530; 99285; J1756; J7030; J7040; Q9957; A4216; C8929; J1940

== ENCOUNTER 2020-11-20 03:59 | Inpatient (IN) | payer MEDICARE, MEDICAID, SELFPAY ==
[2018-08-08 18:10] VITALS: BMI 40.4
[2020-11-20] VITALS (21 sets, daily range): BP systolic 83–119; BP diastolic 37–63; PULSE 54–79; RESP 14–19; TEMP 35.8–37; O2SAT 89–100; BMI 40.6; BMI 39.9
--- NOTE | 2020-11-20 04:15 | RAD_ITS ---
STUDY: X-RAY CHEST REASON FOR EXAM: Female, 80 years old. Altered mental status TECHNIQUE: Single AP portable view of the chest. COMPARISON: 08/08/2018 chest x-ray FINDINGS: The lungs are clear and expanded. There is no demonstrated pleural abnormality. There is mild cardiac enlargement. Normal mediastinum and violet. Normal visualized pulmonary arteries. There is atherosclerotic calcification of the aortic arch with tortuosity. There are diffuse degenerative changes of the visualized thoracic spine. Normal visualized ribs, clavicles, and shoulders. There is no demonstrated abnormality of the visualized soft tissue structures of the upper abdomen. RAD/Chest 1 View (Portable) IMPRESSION: Degenerative changes, as described above. Mild cardiac enlargement. No demonstrated acute cardiopulmonary process. Electronically Signed: Dalila Macdonald MD at 5:22 EDT Tel , Service support ,
--- NOTE | 2020-11-20 04:15 | EKG12_ITS ---
Test Reason : CONFUSION Blood Pressure : / mmHG Vent. Rate : 061 BPM Atrial Rate : 061 BPM P-R Int : 178 ms QRS Dur : 092 ms QT Int : 466 ms P-R-T Axes : 026 -33 013 degrees QTc Int : 469 ms Normal sinus rhythm Left axis deviation Minimal voltage criteria for LVH, may be normal variant Abnormal ECG Confirmed by BERENICE FISHER, HOLLIE ([id number]), photo editor JUAN R RAJPUT ([id number]) on 11/23/2020 10:59:36 A M Referred By: JULIÁN Confirmed By:RAOUL NG MD
--- NOTE | 2020-11-20 04:15 | CT_ITS ---
STUDY: CT BRAIN WITHOUT CONTRAST REASON FOR EXAM: Female, 80 years old. Altered mental status RADIATION DOSAGE (If Supplied By Facility): CTDIvol = ( 44.99 ) mGy, DLP = ( 815.79 ) mGycm TECHNIQUE: Transaxial CT imaging of the brain was performed without administration of intravenous contrast material. Individualized dose optimization techniques were used for this CT. COMPARISON: 12/21/2015 CT head FINDINGS: Normal soft tissue structures. Normal calvarium. There is disproportionate enlargement of the lateral and third ventricles, as compared to the extra-axial spaces. The findings suggest normal pressure hydrocephalus (NPH). There are areas of decreased attenuation within the white matter tracts of the supratentorial brain, consistent with microvascular disease changes. Normal basal ganglia and thalami. Normal brainstem. There is mild cerebellar atrophy. There is no intracranial hemorrhage. There are no findings of an acute ischemic infarction. Normal visualized paranasal sinuses. CT/Brain/Head without Contrast IMPRESSION: There is persistent disproportionate distention of the ventricles including the third ventricle relative to the CSF space which could potentially represent normal pressure/hydrocephalus. No evidence of acute hemorrhage or infarct or edema. Electronically Signed: Dalila Macdonald MD at 5:18 EDT Tel , Service support ,
[2020-11-20 04:27] LABS: Absolute Lymphocyte Count 1.77 X10^3/uL (0.83-4.51); Absolute Neutrophil Count 7.6 X10^3/uL (2.0-7.7); Basophil# 0.05 X10^3/uL; Basophil% 0.5 % (0-1); Eosinophil# 0.19 X10^3/uL; Eosinophils% 1.8 % (0-5); Hematocrit 33.8 % (37-47); Hemoglobin 10.5 g/dL (12.0-15.0); Lymphocyte # 1.77 X10^3/ul (0.83-4.51); Lymphocyte % 16.6 % (19-41); Mean Corp Hgb Conc 31.1 g/dL (32-36); Mean Corpuscular Hgb 30.4 pg (27.0-32.0); Mean Platelet Vol. 10.7 fl (6.2-12.0); Monocyte# 1.08 X10^3/uL; Monocyte% 10.1 % (0-10); NRBC Flagged by Analyzer 0 % (0-5); Neutrophil # 7.55 X10^3/uL (2.7-7.7); Neutrophil % 70.7 % (47-70); Platelet Count 184 K/mm3 (150-450); RBC Distribution Width CV 14.5 % (11.6-14.6); RBC Distribution Width SD 52.3 fl (35.1-43.9); Red Blood Count 3.45 M/mm3 (4.2-5.4); White Blood Count 10.7 K/mm3 (4.4-11.0)
--- NOTE | 2020-11-20 04:27 | EX.ED.DYSGE1 ---
HPI History of Present Illness Chief Complaint: Confusion Narrative Narrative: 80-year-old female presenting for altered mental status. It is reported by her halfway she is usually alert and oriented x3 but now she seems a little confused. She has history of pressure ulcers on her sacrum and buttocks. She presents today with erythema, swelling, pressure ulcer on the left leg. There was no reported fever. The patient states her leg hurts. She is not complaining of cough or shortness of breath. She states she felt sleepy all day yesterday and apparently at some point had a temperature of 100.9. She states that she has no other pain. [facility] Medical History Atrial fibrillation Dementia Hyperlipidemia Irregular heart beat Home Medications omeprazole 20 mg PO DAILY 05/08/15 [History Last Taken 08/08/18] Basaglar KwikPen U-100 Insulin 40 unit SQ QHS 02/25/18 [History Last Taken 08/07/18] Basaglar KwikPen U-100 Insulin 42 unit SQ DAILY 02/25/18 [History Last Taken 08/08/18] aspirin [Aspir-Low] 81 mg PO DAILY 02/25/18 [History Last Taken 08/08/18] docusate sodium [DOK] 100 mg PO DAILY 02/25/18 [History Last Taken 08/08/18] donepezil 10 mg PO QHS 02/25/18 [History Last Taken 08/07/18] levothyroxine 150 mcg PO DAILY 02/25/18 [History Last Taken 08/08/18] acetaminophen [Tylenol] 650 mg PO Q4H PRN PRN 08/08/18 [History Last Taken 08/08/18] ammonium lactate [Skin Treatment] 1 applic TP QHS 08/08/18 [History Last Taken 08/07/18] cholecalciferol (vitamin D3) 50,000 unit PO SA 08/08/18 [History Last Taken 08/04/18] gabapentin 300 mg PO TIDCM 08/08/18 [History Last Taken 08/08/18] hydrocortisone 5 mg PO TID 08/08/18 [History Last Taken 08/08/18] memantine 10 mg PO BID 08/08/18 [History Last Taken 08/08/18] furosemide 40 mg PO BID #0 08/11/18 [Rx Last Taken 08/08/18] potassium chloride [Klor-Con M20] 40 meq PO BIDCM tablet 08/11/18 [Rx Last Taken Unknown] aripiprazole 1 mg PO QHS 11/20/20 [History Last Taken Unknown] atorvastatin 20 mg PO DAILY 11/20/20 [History Last Taken Unknown] citalopram [Celexa] 30 mg PO QHS 11/20/20 [History Last Taken Unknown] clonidine HCl 0.5 mg PO BID 11/20/20 [History Last Taken Unknown] cyanocobalamin (vitamin B-12) 500 mcg PO DAILY 11/20/20 [History Last Taken Unknown] fenofibrate 145 mg PO QHS 11/20/20 [History Last Taken Unknown] insulin glargine [Basaglar KwikPen U-100 Insulin] 34 unit SUBCUT QPM 11/20/20 [History Last Taken Unknown] insulin lispro [Humalog U-100 Insulin] 6 unit SUBCUT DAILY 11/20/20 [History Last Taken Unknown] lisinopril 5 mg PO DAILY 11/20/20 [History Last Taken Unknown] Allergy/AdvReac Type Severity Reaction Status Date / Time Iodinated Contrast Media AdvReac Other Verified 11/20/20 04:05 [Iodinated Contrast Media - IV Dye] Social History Smoking Status: Former smoker ROS ROS ED Eyes Eyes: Denies blurry vision or change in vision ENT ENT ED: Denies ear pain or rhinorrhea Cardiovascular Cardiovascular: Denies chest pain, palpitations or racing heartbeat Respiratory/Chest Respiratory/Chest: Denies cough or dyspnea Gastrointestinal Gastrointestinal: Denies abdominal pain, nausea or vomiting Musculoskeletal Musculoskeletal: Reports other Details: Left leg pain Neurologic Neurologic: Reports weakness; Denies headache(s) Endocrine Endocrinology: Denies polydipsia or polyuria EXAM Physical Exam Const Vital Signs: 11/20/20 04:00 11/20/20 05:00 11/20/20 05:02 Temperature 98.6 F 98.0 F Temperature Source Oral Oral Pulse Rate 63 79 79 Respiratory Rate 19 H 16 16 Blood Pressure 98/46 L 103/51 L 103/51 L Blood Pressure Mean 63 68 68 Pulse Ox 92 92 92 Oxygen Delivery Method Room Air Room Air Oxygen Flow Rate (L/min) 06/18/21 05:59 11/20/20 06:05 Temperature 97.6 F L 97.6 F L Temperature Source Temporal Temporal Pulse Rate 56 L 56 L Respiratory Rate 16 16 Blood Pressure 99/56 L 99/56 L Blood Pressure Mean 70 70 Pulse Ox 89 96 Oxygen Delivery Method Nasal Cannula Nasal Cannula Oxygen Flow Rate (L/min) 2 2 Positive obese General Appearance ED: other Hypotensive but answering questions Nutritional Appearance: obese HEENT Reports dry mucous membranes Negative for trauma Mouth ED: Yes dry mucous membranes Mouth: dry mucous membranes Eyes PERRL and EOMs intact bilaterally Resp normal respiratory effort and clear to auscultation bilaterally Cardio regular rate and regular rhythm GI normal to inspection, nondistended, normoactive bowel sounds Palpation: soft Extremity Extremity Narrative: Erythema and swelling noted diffusely over the left lateral calf. There appears to be a developing pressure ulcer here as well. I do not feel any crepitance. Neuro oriented x3 Sensorium / Orientation: alert Psych mental status grossly normal Skin Skin Narrative: Wound as described above MDM MDM MDM Narrative Medical decision making narrative: 80-year-old female presenting with generalized weakness, confusion, left leg pain. This appears to be cellulitic on the left leg and there might be a developing ulcer here. Patient had hypotension and was slightly tachypneic and her O2 sat dropped to 90 therefore sepsis work-up was initiated. Given the hypotension she is given vancomycin and Zosyn as well. EKG performed on arrival shows a sinus rhythm at 61 bpm, FL interval 178, QRS duration 92, QTc 469. Patient's blood pressure did respond and was 103/51 following 1500 cc of fluids. I did give her a dose of Solu-Cortef 50 mg with the last liter of fluids after seeing in the medical record that she has adrenal insufficiency. Patient's white blood cell count is 10.7 with a slight left shift. Hemoglobin is near baseline. Her electrolytes are normal however creatinine is 2.27 which is worse than her normal creatinine. She seems to be usually between 1.5 and 1.8 her creatinine. LFTs are unremarkable. Lactic acid is 0.7. Urinalysis is negative. Chest x-ray as interpreted by myself shows cardiomegaly but no acute infiltrates. Ammonia level was normal. I did obtain a CT brain which was read as persistent disproportionate distention of the ventricles including the third ventricle relative to the CSF space which could potentially represent normal pressure/hydrocephalus. There does not appear to be any acute change from previous CTs of her brain. X-ray of the left tib-fib shows no subcutaneous gas and no acute fracture as interpreted by myself and the radiologist does agree. Patient was discussed with hospitalist and will be admitted to the ICU. Impression: 1. Cellulitis left leg 2. Hypotension 3. Generalized weakness 4. Acute kidney injury Lab Data Labs: Laboratory Results - last 24 hr 11/20/20 11/20/20 11/20/20 04:05 04:05 04:05 WBC 10.7 RBC 3.45 L Hgb 10.5 L Hct 33.8 L MCV 98.0 MCH 30.4 MCHC 31.1 L RDW Std Deviation 52.3 H RDW Coeff of Neisha 14.5 Plt Count 184 MPV 10.7 Immature Gran % (Auto) 0.300 Neut % (Auto) 70.7 H Lymph % (Auto) 16.6 L [place] % (Auto) 10.1 H Eos % (Auto) 1.8 Baso % (Auto) 0.5 Absolute Neuts (auto) 7.6 Absolute Lymphs (auto) 1.77 Nucleated RBC % 0 Sodium 141 Potassium 4.2 Chloride 105 Carbon Dioxide 28.0 Anion Gap 8 BUN 49 H Creatinine 2.27 H Estim Creat Clear Calc 16.35 Est GFR (MDRD) Af Amer 27 L Est GFR (MDRD) Non-Af 22 L BUN/Creatinine Ratio 21.6 H Glucose 100 Lactic Acid Calcium 8.3 L Total Bilirubin 0.40 AST 18 ALT 12 L Alkaline Phosphatase 83 Ammonia Troponin I < 0.015 Total Protein 6.5 Albumin 2.6 L Globulin 3.9 Albumin/Globulin Ratio 0.7 L Urine Color Urine Clarity Urine pH Ur Specific [place] Urine Protein Urine Glucose (UA) Urine Ketones Urine Occult Blood Urine Nitrite Urine Bilirubin Urine Urobilinogen Ur Leukocyte Esterase Urine RBC Urine WBC Ur Squamous Epith Cells Urine Bacteria Urine Mucus Urine Opiates Screen Urine Methadone Screen Ur Barbiturates Screen Ur Phencyclidine Scrn Ur Amphetamines Screen U Methamphetamin-MDMA U Benzodiazepines Scrn Urine Cocaine Screen U Cannabinoids Screen Ur Drug Screen Comment Ethyl Alcohol 3.0 11/20/20 11/20/20 11/20/20 04:20 04:45 04:45 WBC RBC Hgb Hct MCV MCH MCHC RDW Std Deviation RDW Coeff of Neisha Plt Count MPV Immature Gran % (Auto) Neut % (Auto) Lymph % (Auto) [place] % (Auto) Eos % (Auto) Baso % (Auto) Absolute Neuts (auto) Absolute Lymphs (auto) Nucleated RBC % Sodium Potassium Chloride Carbon Dioxide Anion Gap BUN Creatinine Estim Creat Clear Calc Est GFR (MDRD) Af Amer Est GFR (MDRD) Non-Af BUN/Creatinine Ratio Glucose Lactic Acid 0.7 Calcium Total Bilirubin AST ALT Alkaline Phosphatase Ammonia Troponin I Total Protein Albumin Globulin Albumin/Globulin Ratio Urine Color Yellow Urine Clarity Clear Urine pH 6.0 Ur Specific [place] 1.010 Urine Protein 15 H Urine Glucose (UA) Normal Urine Ketones Negative Urine Occult Blood 25 H Urine Nitrite Negative Urine Bilirubin Negative Urine Urobilinogen Normal Ur Leukocyte Esterase 25 H Urine RBC 0-5 SEEN Urine WBC 0-5 SEEN Ur Squamous Epith Cells 0 SEEN Urine Bacteria 0 SEEN Urine Mucus 0 SEEN Urine Opiates Screen NEGATIVE Urine Methadone Screen NEGATIVE Ur Barbiturates Screen NEGATIVE Ur Phencyclidine Scrn NEGATIVE Ur Amphetamines Screen NEGATIVE U Methamphetamin-MDMA NEGATIVE U Benzodiazepines Scrn NEGATIVE Urine Cocaine Screen NEGATIVE U Cannabinoids Screen NEGATIVE Ur Drug Screen Comment Ethyl Alcohol 11/20/20 04:55 WBC RBC Hgb Hct MCV MCH MCHC RDW Std Deviation RDW Coeff of Neisha Plt Count MPV Immature Gran % (Auto) Neut % (Auto) Lymph % (Auto) [place] % (Auto) Eos % (Auto) Baso % (Auto) Absolute Neuts (auto) Absolute Lymphs (auto) Nucleated RBC % Sodium Potassium Chloride Carbon Dioxide Anion Gap BUN Creatinine Estim Creat Clear Calc Est GFR (MDRD) Af Amer Est GFR (MDRD) Non-Af BUN/Creatinine Ratio Glucose Lactic Acid Calcium Total Bilirubin AST ALT Alkaline Phosphatase Ammonia 17.0 Troponin I Total Protein Albumin Globulin Albumin/Globulin Ratio Urine Color Urine Clarity Urine pH Ur Specific [place] Urine Protein Urine Glucose (UA) Urine Ketones Urine Occult Blood Urine Nitrite Urine Bilirubin Urine Urobilinogen Ur Leukocyte Esterase Urine RBC Urine WBC Ur Squamous Epith Cells Urine Bacteria Urine Mucus Urine Opiates Screen Urine Methadone Screen Ur Barbiturates Screen Ur Phencyclidine Scrn Ur Amphetamines Screen U Methamphetamin-MDMA U Benzodiazepines Scrn Urine Cocaine Screen U Cannabinoids Screen Ur Drug Screen Comment Ethyl Alcohol Radiography Diagnostic Testing: Radiology Impression Brain CT 11/20/20 04:15 IMPRESSION: There is persistent disproportionate distention of the ventricles including the third ventricle relative to the CSF space which could potentially represent normal pressure/hydrocephalus. No evidence of acute hemorrhage or infarct or edema. Electronically Signed: Dalila Macdonald MD at 5:18 EDT Tel , Service support , Chest X-Ray 11/20/20 04:15 IMPRESSION: Degenerative changes, as described above. Mild cardiac enlargement. No demonstrated acute cardiopulmonary process. Electronically Signed: Dalila Macdonald MD at 5:22 EDT Tel , Service support , Tibia/Fibula X-Ray 11/20/20 04:28 IMPRESSION: Bony osteopenia is worse, advanced degenerative change of the left knee joint. No visualized acute fracture. Electronically Signed: Dalila Macdonald MD at 5:24 EDT Tel , Service support , Discharge Plan Triage Chief Complaint: Confusion ED Provider: Johnathan Fleming Dx/Rx/DC Orders Prescriptions: No Action omeprazole 20 MG capsule 20 mg PO DAILY RF: 0 donepezil 10 MG tablet 10 mg PO QHS RF: 0 aspirin [Aspir-Low] 81 MG tablet,delayed release (DR/EC) 81 mg PO DAILY RF: 0 levothyroxine 150 MCG tablet 150 mcg PO DAILY RF: 0 docusate sodium [DOK] 100 MG capsule 100 mg PO DAILY RF: 0 Basaglar KwikPen U-100 Insulin 100 UNIT/ML insulin pen 42 unit SQ DAILY RF: 0 Basaglar KwikPen U-100 Insulin 100 UNIT/ML insulin pen 40 unit SQ QHS RF: 0 hydrocortisone 5 MG tablet 5 mg PO TID RF: 0 ammonium lactate [Skin Treatment] 400 GM Lotion 1 applic TP QHS RF: 0 gabapentin 300 MG capsule 300 mg PO TIDCM RF: 0 cholecalciferol (vitamin D3) 50,000 UNIT capsule 50,000 unit PO SA RF: 0 acetaminophen [Tylenol] 325 MG tablet 650 mg PO Q4H PRN PRN (Reason: pain and fever) RF: 0 memantine 10 MG tablet 10 mg PO BID RF: 0 potassium chloride [Klor-Con M20] 20 MEQ tablet 40 meq PO BIDCM RF: 0 furosemide 40 MG tablet 40 mg PO BID Qty: 0 RF: 0 clonidine HCl 0.1 mg Tablet 0.5 mg PO BID RF: 0 atorvastatin 20 mg Tablet 20 mg PO DAILY RF: 0 citalopram [Celexa] 20 mg Tablet 30 mg PO QHS RF: 0 lisinopril 5 mg Tablet 5 mg PO DAILY RF: 0 Humalog U-100 Insulin 100 unit/mL Cartridge 6 unit SUBCUT DAILY RF: 0 aripiprazole 2 mg Tablet 1 mg PO QHS RF: 0 Basaglar KwikPen U-100 Insulin 100 unit/mL (3 mL) Insulin Pen 34 unit SUBCUT QPM RF: 0 fenofibrate 120 mg Tablet 145 mg PO QHS RF: 0 cyanocobalamin (vitamin B-12) 500 mcg Lozenge 500 mcg PO DAILY RF: 0 Primary Care Provider: Enedina Castaneda
--- NOTE | 2020-11-20 04:28 | RAD_ITS ---
STUDY: X-RAY - LEFT TIBIA AND FIBULA REASON FOR EXAM: Female, 80 years old. Leg pain TECHNIQUE: 4 view(s) of the tibia and fibula were obtained. COMPARISON: Left knee x-ray 04/09/2014 FINDINGS: There is demineralization of the tibia. There is demineralization of the fibula. 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 There is degenerative change of the patellofemoral compartment. Vascular calcifications. RAD/Tibia & Fibula 2 Views IMPRESSION: Bony osteopenia is worse, advanced degenerative change of the left knee joint. No visualized acute fracture. Electronically Signed: Dalila Macdonald MD at 5:24 EDT Tel , Service support ,
[2020-11-20 04:41] LABS: ALB/GLOB Ratio 0.7 RATIO (0.9-2.4); AST(SGOT) 18 U/L (15-37); Alanine Aminotransfer ALT/SGPT 12 U/L (13-56); Albumin, Serum 2.6 g/dL (3.2-5.0); Alkaline Phosphatase 83 U/L (45-117); Anion Gap 8 (5-15); BUN 49 mg/dL (7-18); BUN/Creat Ratio 21.6 RATIO (10-20); Calcium,Total 8.3 mg/dL (8.5-10.1); Chloride 105 mmol/L (98-107); Creatinine, Serum 2.27 mg/dL (0.55-1.02); EST Glomerular Filtration Rate 22 mL/min (>60); Est Glom Filt Rate - Afr Amer 27 mL/min (>60); Estimated Creatinine Clearance 16.35 ml/min; Globulin 3.9 g/dL (2.2-4.2); Glucose 100 mg/dL (74-106); Potassium 4.2 mmol/L (3.5-5.1); Protein, Total 6.5 g/dL (6.4-8.2); Sodium Level 141 mmol/L (136-145)
[2020-11-20 04:47] LABS: Bacteria 0 SEEN /hpf (None Seen); Mucous, Urine 0 SEEN /hpf (<or=2+); Squamous Epithelial Cells - UA 0 SEEN /hpf (5-10)
[2020-11-20 04:48] LABS: Lactic Acid 0.7 mmol/L (0.4-1.9)
[2020-11-20 04:49] LABS: Color, Urine Yellow (Yellow); Glucose, Dipstick Normal (Normal); Ketone-Dipstick Negative (Negative); Leukocyte Esterase-Dipstick 25 /ul (Negative); Nitrite-Dipstick Negative (Negative); Occult Blood-Urine 25 /ul (Negative); Protein-Dipstick 15 mg/dl (Negative); Urine Bilirubin Dipstick Negative (Negative); Urine Clarity Clear (Clear); Urine Urobilinogen Normal (Normal)
[2020-11-20 04:54] LABS: Red Blood Cells-Urine 0-5 SEEN /hpf (0-5); White Blood Cells 0-5 SEEN /hpf (0-5)
[2020-11-20 05:00] LABS: Amphetamine Urine VISTA NEGATIVE (<1000 ng/mL); Barbiturate Urine VISTA NEGATIVE (< 200 ng/mL); Benzodiazepine Urine VISTA NEGATIVE (< 200 ng/mL); Cocaine Urine VISTA NEGATIVE (< 300 ng/mL); Ecstacy Urine VISTA NEGATIVE (< 500 ng/mL); Methadone Urine VISTA NEGATIVE (< 300 ng/mL); PCP Urine VISTA NEGATIVE (< 25 ng/mL); THC Urine VISTA NEGATIVE (< 50 ng/mL); Vista UDS pH Range 6
--- NOTE | 2020-11-20 06:21 | PCM.HP.STD ---
HPI - General General Date of Admission: 11/20/20 HPI Narrative SVETLANA ELLIS, is a 80 F with a significant history of diabetes mellitus; asthma; epilepsy; atrial fibrillation; sacrococcygeal pressure ulcer; and adrenal insufficiency and who lives at a longterm who presents to the emergency department with altered mental status for started a day before presentation. Patient reported that she was sleepy all day. Further reportedly she has a temperature of 100.9 Fahrenheit at the longterm. She reported that she has had a wound at this a right leg but the wound seems to be worsening. [facility] Medical History Atrial fibrillation Dementia Hyperlipidemia Irregular heart beat Home Medications omeprazole 20 mg PO DAILY 05/08/15 [History Last Taken 08/08/18] Basaglar KwikPen U-100 Insulin 40 unit SQ QHS 02/25/18 [History Last Taken 08/07/18] Basaglar KwikPen U-100 Insulin 42 unit SQ DAILY 02/25/18 [History Last Taken 08/08/18] aspirin [Aspir-Low] 81 mg PO DAILY 02/25/18 [History Last Taken 08/08/18] docusate sodium [DOK] 100 mg PO DAILY 02/25/18 [History Last Taken 08/08/18] donepezil 10 mg PO QHS 02/25/18 [History Last Taken 08/07/18] levothyroxine 150 mcg PO DAILY 02/25/18 [History Last Taken 08/08/18] acetaminophen [Tylenol] 650 mg PO Q4H PRN PRN 08/08/18 [History Last Taken 08/08/18] ammonium lactate [Skin Treatment] 1 applic TP QHS 08/08/18 [History Last Taken 08/07/18] cholecalciferol (vitamin D3) 50,000 unit PO SA 08/08/18 [History Last Taken 08/04/18] gabapentin 300 mg PO TIDCM 08/08/18 [History Last Taken 08/08/18] hydrocortisone 5 mg PO TID 08/08/18 [History Last Taken 08/08/18] memantine 10 mg PO BID 08/08/18 [History Last Taken 08/08/18] furosemide 40 mg PO BID #0 08/11/18 [Rx Last Taken 08/08/18] potassium chloride [Klor-Con M20] 40 meq PO BIDCM tablet 08/11/18 [Rx Last Taken Unknown] aripiprazole 1 mg PO QHS 11/20/20 [History Last Taken Unknown] atorvastatin 20 mg PO DAILY 11/20/20 [History Last Taken Unknown] citalopram [Celexa] 30 mg PO QHS 11/20/20 [History Last Taken Unknown] clonidine HCl 0.5 mg PO BID 11/20/20 [History Last Taken Unknown] cyanocobalamin (vitamin B-12) 500 mcg PO DAILY 11/20/20 [History Last Taken Unknown] fenofibrate 145 mg PO QHS 11/20/20 [History Last Taken Unknown] insulin glargine [Basaglar KwikPen U-100 Insulin] 34 unit SUBCUT QPM 11/20/20 [History Last Taken Unknown] insulin lispro [Humalog U-100 Insulin] 6 unit SUBCUT DAILY 11/20/20 [History Last Taken Unknown] lisinopril 5 mg PO DAILY 11/20/20 [History Last Taken Unknown] Allergy/AdvReac Type Severity Reaction Status Date / Time Iodinated Contrast Media AdvReac Other Verified 11/20/20 04:05 [Iodinated Contrast Media - IV Dye] Family History Other Cancer Surgical History H/O: hysterectomy History of tonsillectomy Social History Smoking Status: Former smoker ROS ROS Narrative 12 point review of system is negative except as stated in HPI. Vital Signs Vital Signs Vital Signs: 11/20/20 04:00 11/20/20 05:00 11/20/20 05:02 Temperature 98.6 F 98.0 F Temperature Source Oral Oral Pulse Rate 63 79 79 Respiratory Rate 19 H 16 16 Blood Pressure 98/46 L 103/51 L 103/51 L Blood Pressure Mean 63 68 68 Pulse Ox 92 92 92 Oxygen Delivery Method Room Air Room Air Oxygen Flow Rate (L/min) 11/20/20 05:59 11/20/20 06:05 Temperature 97.6 F L 97.6 F L Temperature Source Temporal Temporal Pulse Rate 56 L 56 L Respiratory Rate 16 16 Blood Pressure 99/56 L 99/56 L Blood Pressure Mean 70 70 Pulse Ox 89 96 Oxygen Delivery Method Nasal Cannula Nasal Cannula Oxygen Flow Rate (L/min) 2 2 Weight Weight: 103.9 kg Body Mass Index (BMI) 40.6 Physical Exam Narrative Physical exam: General: Well-nourished, well-developed, no acute distress Head: Normocephalic, atraumatic, no tenderness Eyes: PERRLA, EOMI ENT, no trauma, moist mucous membranes, no rhinorrhea Neck: Nontender, full range of motion, no spinal tenderness, deformities, step-off CVS: Regular rate and rhythm Respiratory no acute distress, clear to auscultation bilaterally, chest wall nontender, no wheezing Abdomen: Soft, nontender, nondistended, normal bowel sounds, no masses : Deferred Back: Nontender, no CVA tenderness, no midline spinal tenderness, deformities, step-offs Extremities: Nontender full range of motion, no trauma Skin: Normal color, no trauma, abrasions Neuro: Lethargic, oriented to place; month and year. Cranial nerves II through XII grossly intact. Integumentary: Left leg with erythema and swelling. Wound at posterior left leg. Sacral coccygeal area with open areas. Inguinal folds with erythema. Results Lab / Micro Data Result Diagrams: 11/20/20 04:05 11/20/20 04:05 Labs: Laboratory Results - last 24 hr 11/20/20 11/20/20 11/20/20 04:05 04:05 04:05 WBC 10.7 RBC 3.45 L Hgb 10.5 L Hct 33.8 L MCV 98.0 MCH 30.4 MCHC 31.1 L RDW Std Deviation 52.3 H RDW Coeff of Neisha 14.5 Plt Count 184 MPV 10.7 Immature Gran % (Auto) 0.300 Neut % (Auto) 70.7 H Lymph % (Auto) 16.[address] % (Auto) 10.1 H Eos % (Auto) 1.8 Baso % (Auto) 0.5 Absolute Neuts (auto) 7.6 Absolute Lymphs (auto) 1.77 Nucleated RBC % 0 Sodium 141 Potassium 4.2 Chloride 105 Carbon Dioxide 28.0 Anion Gap 8 BUN 49 H Creatinine 2.27 H Estim Creat Clear Calc 16.35 Est GFR (MDRD) Af Amer 27 L Est GFR (MDRD) Non-Af 22 L BUN/Creatinine Ratio 21.6 H Glucose 100 Lactic Acid Calcium 8.3 L Total Bilirubin 0.40 AST 18 ALT 12 L Alkaline Phosphatase 83 Ammonia Troponin I < 0.015 Total Protein 6.5 Albumin 2.6 L Globulin 3.9 Albumin/Globulin Ratio 0.7 L Urine Color Urine Clarity Urine pH Ur Specific Gentry Urine Protein Urine Glucose (UA) Urine Ketones Urine Occult Blood Urine Nitrite Urine Bilirubin Urine Urobilinogen Ur Leukocyte Esterase Urine RBC Urine WBC Ur Squamous Epith Cells Urine Bacteria Urine Mucus Urine Opiates Screen Urine Methadone Screen Ur Barbiturates Screen Ur Phencyclidine Scrn Ur Amphetamines Screen U Methamphetamin-MDMA U Benzodiazepines Scrn Urine Cocaine Screen U Cannabinoids Screen Ur Drug Screen Comment Ethyl Alcohol 3.0 11/20/20 11/20/20 11/20/20 04:20 04:45 04:45 WBC RBC Hgb Hct MCV MCH MCHC RDW Std Deviation RDW Coeff of Neisha Plt Count MPV Immature Gran % (Auto) Neut % (Auto) Lymph % (Auto) [facility] % (Auto) Eos % (Auto) Baso % (Auto) Absolute Neuts (auto) Absolute Lymphs (auto) Nucleated RBC % Sodium Potassium Chloride Carbon Dioxide Anion Gap BUN Creatinine Estim Creat Clear Calc Est GFR (MDRD) Af Amer Est GFR (MDRD) Non-Af BUN/Creatinine Ratio Glucose Lactic Acid 0.7 Calcium Total Bilirubin AST ALT Alkaline Phosphatase Ammonia Troponin I Total Protein Albumin Globulin Albumin/Globulin Ratio Urine Color Yellow Urine Clarity Clear Urine pH 6.0 Ur Specific Gentry 1.010 Urine Protein 15 H Urine Glucose (UA) Normal Urine Ketones Negative Urine Occult Blood 25 H Urine Nitrite Negative Urine Bilirubin Negative Urine Urobilinogen Normal Ur Leukocyte Esterase 25 H Urine RBC 0-5 SEEN Urine WBC 0-5 SEEN Ur Squamous Epith Cells 0 SEEN Urine Bacteria 0 SEEN Urine Mucus 0 SEEN Urine Opiates Screen NEGATIVE Urine Methadone Screen NEGATIVE Ur Barbiturates Screen NEGATIVE Ur Phencyclidine Scrn NEGATIVE Ur Amphetamines Screen NEGATIVE U Methamphetamin-MDMA NEGATIVE U Benzodiazepines Scrn NEGATIVE Urine Cocaine Screen NEGATIVE U Cannabinoids Screen NEGATIVE Ur Drug Screen Comment Ethyl Alcohol 11/20/20 04:55 WBC RBC Hgb Hct MCV MCH MCHC RDW Std Deviation RDW Coeff of Neisha Plt Count MPV Immature Gran % (Auto) Neut % (Auto) Lymph % (Auto) [facility] % (Auto) Eos % (Auto) Baso % (Auto) Absolute Neuts (auto) Absolute Lymphs (auto) Nucleated RBC % Sodium Potassium Chloride Carbon Dioxide Anion Gap BUN Creatinine Estim Creat Clear Calc Est GFR (MDRD) Af Amer Est GFR (MDRD) Non-Af BUN/Creatinine Ratio Glucose Lactic Acid Calcium Total Bilirubin AST ALT Alkaline Phosphatase Ammonia 17.0 Troponin I Total Protein Albumin Globulin Albumin/Globulin Ratio Urine Color Urine Clarity Urine pH Ur Specific Gentry Urine Protein Urine Glucose (UA) Urine Ketones Urine Occult Blood Urine Nitrite Urine Bilirubin Urine Urobilinogen Ur Leukocyte Esterase Urine RBC Urine WBC Ur Squamous Epith Cells Urine Bacteria Urine Mucus Urine Opiates Screen Urine Methadone Screen Ur Barbiturates Screen Ur Phencyclidine Scrn Ur Amphetamines Screen U Methamphetamin-MDMA U Benzodiazepines Scrn Urine Cocaine Screen U Cannabinoids Screen Ur Drug Screen Comment Ethyl Alcohol Micro: Microbiology 11/20/20 04:30 SARS-CoV-2 Antigen (Rapid) - Final Mucosa - Nose Radiology Impression Brain CT 11/20/20 04:15 IMPRESSION: There is persistent disproportionate distention of the ventricles including the third ventricle relative to the CSF space which could potentially represent normal pressure/hydrocephalus. No evidence of acute hemorrhage or infarct or edema. Electronically Signed: Dalila Macdonald MD at 5:18 EDT Tel , Service support , Chest X-Ray 11/20/20 04:15 IMPRESSION: Degenerative changes, as described above. Mild cardiac enlargement. No demonstrated acute cardiopulmonary process. Electronically Signed: Dalila Macdonald MD at 5:22 EDT Tel , Service support , Tibia/Fibula X-Ray 11/20/20 04:28 IMPRESSION: Bony osteopenia is worse, advanced degenerative change of the left knee joint. No visualized acute fracture. Electronically Signed: Dalila Macdonald MD at 5:24 EDT Tel , Service support , Assessment & Plan Assessment/Plan (1) Cellulitis: QUALIFIERS: Laterality: left Site of cellulitis: extremity Site of cellulitis of extremity: lower extremity Qualified Code(s): L03.116 - Cellulitis of left lower limb (2) Chronic kidney disease (CKD), stage IV (severe): (3) JEB (acute kidney injury): (4) 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: (5) Stage II pressure ulcer of left buttock: (6) Diabetes mellitus, type 2: QUALIFIERS: Chronic kidney disease stage: stage 4 (severe) Diabetes mellitus complication detail: with chronic kidney disease Diabetes mellitus complication status: with kidney complications Diabetes mellitus [facility] insulin use: with [facility] use Qualified Code(s): E11.22 - Type 2 diabetes mellitus with diabetic chronic kidney disease; N18.4 - Chronic kidney disease, stage 4 (severe); Z79.4 - [facility] (current) use of insulin (7) Adrenal insufficiency: (8) Adrenal insufficiency: PLAN: Cellulitis Impression of CXR: Degenerative changes, as described above. Mild cardiac enlargement. No demonstrated acute cardiopulmonary process. Actual Chest x-ray image was independently reviewed and I agree radiologist interpretation. Tibia-fibula x-ray with no fracture or acute pathology. CT of the brain with no acute pathology but with chronic enlargement of the ventricles. While at the emergency department her blood pressure to my reading were less than 65. Of note review of old records shows that patient's blood pressures are typically soft. Will admit patient to intensive care unit. Received vancomycin and Zosyn in the emergency department. Vancomycin and ceftriaxone ordered. Lactic acid was less than 2. Blood cultures were ordered emergency department follow. Review of ED records shows normal white counts. Trend CBC and BMP. JEB on ckd stage IV. Likely secondary to hypertensive nephrosclerosis and diabetic nephropathy Review of old records shows a creatinine baseline around 1.75. Of note last creatinine on file was in 2019. On presentation creatinine was 2.27. Received normal saline bolus at emergency department. Gentle IV hydration ordered. Avoid nephrotoxins. De-escalate home gabapentin. Hold home fenofibrate. Hold home NALLELY inhibitor and home Lasix. Trend BMP. Diabetes mellitus Blood sugar is marginal. Hold on home hypoglycemic regimen. Trend BMP. Stage II pressure ulcer on sacrococcygeal area/leg wound Calmoseptine ordered Wound care consult Adrenal insufficiency On home steroids. Discussed with ED doctor to escalate steroids. Hydrocortisone 50 mg IV push x1 given at the ED. Hydrocortisone 50 mg IV every 8 hours. Intertrigo Nystatin ordered DVT prophylaxis Subcutaneous heparin ordered Charges/Coding Visit Charges Inpatient E&M: 51812 Init Hosp L3
--- NOTE | 2020-11-20 06:32 | ED.RN ---
ALEX dodson called and notified of admission
--- NOTE | 2020-11-20 06:33 | NURSING ---
129 agyepong sepsis, cellulitis
--- NOTE | 2020-11-20 06:33 | ED.RN ---
called and spoke with daughter at this time and made aware of admission, and patient condition and admission status
[2020-11-20] MEDS: Hydrocortisone Sod Succinate 100 MG/2 ML Vial 50 MG IV ×3 (06:40→21:53)
--- NOTE | 2020-11-20 06:58 | ED.RN ---
report called to icu,liz toro.
--- NOTE | 2020-11-20 07:04 | ED.RN ---
per dr norris,he wanted the full liter of normal saline to be completed and not just the one liter.
--- NOTE | 2020-11-20 07:27 | PN.HOSP_ITS ---
Subjective Subjective An 80-year-old lady resident of the [facility] brought to the emergency department with increasing confusion with an assessment of cellulitis made admitted for subsequent inpatient management Objective Data Objective Data Vital Signs: Vital Signs Temp Pulse Resp BP Pulse Ox 97.6 F L 60 16 95/41 L 96 11/20/20 06:43 11/20/20 06:43 11/20/20 06:43 11/20/20 06:43 11/20/20 06:43 Oxygen Flow Rate (L/min) 2 Oxygen Delivery Method Nasal Cannula Weight: 103.9 kg Body Mass Index (BMI) 40.6 Intake & Output: Intake and Output for Last 24 Hours 11/18/20 11/19/20 11/20/20 23:59 23:59 23:59 Intake Total 2049 Balance 2049 Lab / Micro Data Result Diagrams: 11/20/20 04:05 11/20/20 04:05 Micro: Microbiology 11/20/20 04:30 Mucosa - Nose SARS-CoV-2 Antigen (Rapid) - Final Radiography Diagnostic Testing: Radiology Impression Brain CT 11/20/20 04:15 IMPRESSION: There is persistent disproportionate distention of the ventricles including the third ventricle relative to the CSF space which could potentially represent normal pressure/hydrocephalus. No evidence of acute hemorrhage or infarct or edema. Electronically Signed: Dalila Macdonald MD at 5:18 EDT Tel , Service support , Chest X-Ray 11/20/20 04:15 IMPRESSION: Degenerative changes, as described above. Mild cardiac enlargement. No demonstrated acute cardiopulmonary process. Electronically Signed: Dalila Macdonald MD at 5:22 EDT Tel , Service support , Tibia/Fibula X-Ray 11/20/20 04:28 IMPRESSION: Bony osteopenia is worse, advanced degenerative change of the left knee joint. No visualized acute fracture. Electronically Signed: Dalila Macdonald MD at 5:24 EDT Tel , Service support , Physical Exam Narrative GENERAL: cooperative HEENT: Atraumatic; EYES; Anicteric, Normal Conjunctiva NECK; supple, normal thyroid, RESPIRATORY: Diminished to auscultation CARDIOVASCULAR: Regular S1 S2, GI: soft, normoactive bowel sounds, : No Renal angle tenderness; EXTREMITIES: Area of erythema distal right lower extremity MUSCULOSKELETAL: no muscle waisting NEURO: Awake; no lateralizing signs. SKIN: As described above PSYCH; Flat affect Assessment & Plan Assessment/Plan (1) Cellulitis: QUALIFIERS: Laterality: left Site of cellulitis: extremity Site of cellulitis of extremity: lower extremity Qualified Code(s): L03.116 - Cellulitis of left lower limb (2) Chronic kidney disease (CKD), stage IV (severe): (3) JEB (acute kidney injury): (4) 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: (5) Stage II pressure ulcer of left buttock: (6) Diabetes mellitus, type 2: QUALIFIERS: Chronic kidney disease stage: stage 4 (severe) Diabetes mellitus complication detail: with chronic kidney disease Diabetes mellitus complication status: with kidney complications Diabetes mellitus [facility] [employer] [facility] repeater insulin use: with [facility] terminal and repeater use Qualified Code(s): E11.22 - Type 2 diabetes mellitus with diabetic chronic kidney disease; N18.4 - Chronic kidney disease, stage 4 (severe); 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 Right lower extremity cellulitis ?Admitted t intensive care initially in view of patient relatively low blood pressure. Started on broad-spectrum antibiotic therapy with vancomycin as well as cefazolin 2. Acute on chronic kidney disease stage IV . Baseline creatinine 1.75 patient creatinine on admission was 2.27 started on IV fluid with subsequent monitoring of electrolytes 3. Diabetes mellitus type II -patient's oral hypoglycemics held. Placed on long acting insulin, Accu-Cheks a.c. and at bedtime and covered with sliding scale insulin 4. Hypothyroidism - Patient is on levothyroxine home dose continued 5. Essential hypertension ?Patient blood pressure on hold 6. Dyslipidemia ?Patient is on fenofibrate held 7. Depression with anxiety ?Patient is on SSRI 8. GERD patient is on PPI 9. Dyslipidemia -Patient is on statin therapy, continued at home dose 10. Stage II pressure ulcer on sacrococcygeal area/leg wound Present on admission consult placed wound care nurse 11. Adrenal insufficiency On home steroids. Patient started on stress doses of hydrocortisone 50 mg IV every 8 hours. 12. Intertrigo Nystatin ordered 13. DVT prophylaxis Subcutaneous heparin ordered 14. Obesity with BMI of 39.9 ?Weight loss advised Advance planning; did discuss with the patientregarding advanced directives as well as CODE STATUS. Did explain the various scenarios involved ( FULL CODE, DNR CCA, DNR CCA with no intubation, and DNR CC and what each meant) patient elected to be DNR CCA no intubation. Order was placed. Time spent on discussion 18 minutes. Charges/Coding Procedures Hospitalists Procedures: 58028 Advncd Care Plan 30 Min
[2020-11-20] MEDS: 0.9% Normal Saline 1,000 ML 75 ML IV ×2 (08:10→21:49)
--- NOTE | 2020-11-20 09:28 | CASEMGMT ---
Patient is from [facility]. According to the paperwork from [facility] it looks like she is there longterm. SW will follow for d/c back to [facility]. Felisha BLANCO
[2020-11-20] MEDS: 0.9% Normal Saline 1,000 ML 999 ML IV (09:30)
[2020-11-20] MEDS: 0.9% Saline Lock 10 ML Syringe IV ×2 (10:47→14:16)
[2020-11-20] MEDS: Nystatin Powder 15gm Bottle 1 APPLIC TOPICAL ×3 (10:52→21:49)
[2020-11-20] MEDS: Cefazolin 2 GM in 0.9% Normal Saline 100 ML IV ×2 (11:09→21:49)
[2020-11-20] MEDS: Gabapentin 100 MG Capsule PO ×2 (11:14→17:15)
[2020-11-20] MEDS: Heparin Injection (Vial) 5,000 UNIT/ML VIAL 5000 UNIT SC ×2 (11:14→21:53)
[2020-11-20] MEDS: Aspirin E.C. 81 MG Tablet PO (11:14)
[2020-11-20] MEDS: Cyanocobalamin 500 MCG Tablet PO (11:15)
[2020-11-20] MEDS: Memantine Hydrochloride 10 MG Tablet PO ×2 (11:15→21:53)
[2020-11-20] MEDS: Levothyroxine 150 MCG Tablet PO (11:15)
[2020-11-20] MEDS: Pantoprazole Sodium 20 MG Tablet PO (11:15)
[2020-11-20] MEDS: Atorvastatin Calcium 20 MG Tablet PO (11:15)
--- NOTE | 2020-11-20 12:26 | CON.PCM.CC_ITS ---
Assessment & Plan Assessment/Plan (1) Cellulitis: QUALIFIERS: Laterality: left Site of cellulitis: extremity Site of cellulitis of extremity: lower extremity Qualified Code(s): L03.116 - Cellulitis of left lower limb (2) Adrenal insufficiency: PLAN: RECOMMENDATIONS: 1. Continue empiric antimicrobials. 2. Continue stress dose steroids. 3. Continue gentle IV fluid hydration. 4. Encourage incentive spirometer use and mobilize patient as tolerated. IMPRESSIONS: 1. Lower extremity cellulitis The patient does have some chronic lower extremity wounds along with sacrococcygeal pressure ulcers. Wound care will evaluate the patient. In the interim, antibiotics have been initiated. The patient will be continued on stress dose steroids given her history of adrenal insufficiency. Fluids have already been administered. 2. Acute on chronic kidney disease Likely prerenal in etiology. Anticipate improvement with volume expansion. Continue to monitor urine output. No current indication for renal replacement therapy. 3. Adrenal insufficiency Plan to continue hydrocortisone given tenuous hemodynamics and concern for underlying infection. 4. Obesity/diabetes mellitus/hypothyroidism/hypertension/hyperlipidemia/GERD Complicates care, management, recovery and prognosis. Continue to hold antihypertensives and diuretics for now. This note was generated with Zazoom dictation software. It may contain incorrect words, spelling, and punctuation that were not noted in checking the note before signing. HPI Consult Data Date of Consult: 11/20/20 HPI Narrative Reason for Consultation: Severe sepsis HPI Narrative: The patient is an 80-year-old female, with a history as outlined below, who presented to the emergency department on November 20 with altered mentation and low-grade fever. The patient has a known history of pressure ulce rs and adrenal insufficiency. She currently resides in a custodial facility. On presentation to the emergency department, the patient was noted to be afebrile with a presenting blood pressure of 98/46 mmHg. She was, nevertheless, maintaining appropriate oxygen saturations on room air. Laboratory evaluation revealed a normal white blood cell count. Chemistry profile was notable for acute on chronic kidney disease. Lactate was within normal limits. Urine analysis was unremarkable. Toxicology screen was negative. CT head revealed findings concerning for normal pressure hydrocephalus. No other intracranial abnormality was identified. Chest x-ray demonstrated no acute cardiopulmonary process. The patient received supplemental IV fluid hydration was started on stress dose steroids. Antimicrobials were initiated. The patient was subsequently transferred to the medical intensive care unit for further management. [facility] Medical History Atrial fibrillation Dementia Hyperlipidemia Irregular heart beat Home Medications omeprazole 20 mg PO DAILY 05/08/15 [History Last Taken 08/08/18] Basaglar KwikPen U-100 Insulin 40 unit SQ QHS 02/25/18 [History Last Taken 08/07/18] Basaglar KwikPen U-100 Insulin 42 unit SQ DAILY 02/25/18 [History Last Taken 08/08/18] aspirin [Aspir-Low] 81 mg PO DAILY 02/25/18 [History Last Taken 08/08/18] docusate sodium [DOK] 100 mg PO DAILY 02/25/18 [History Last Taken 08/08/18] donepezil 10 mg PO QHS 02/25/18 [History Last Taken 08/07/18] levothyroxine 150 mcg PO DAILY 02/25/18 [History Last Taken 08/08/18] acetaminophen [Tylenol] 650 mg PO Q4H PRN PRN 08/08/18 [History Last Taken ] ammonium lactate [Skin Treatment] 1 applic TP QHS 08/08/18 [History Last Taken 08/07/18] cholecalciferol (vitamin D3) 50,000 unit PO SA 08/08/18 [History Last Taken 08/04/18] gabapentin 300 mg PO TIDCM 08/08/18 [History Last Taken 08/08/18] hydrocortisone 5 mg PO TID 08/08/18 [History Last Taken 08/08/18] memantine 10 mg PO BID 08/08/18 [History Last Taken 08/08/18] furosemide 40 mg PO BID #0 08/11/18 [Rx Last Taken 08/08/18] potassium chloride [Klor-Con M20] 40 meq PO BIDCM tablet 08/11/18 [Rx Last Taken Unknown] aripiprazole 1 mg PO QHS 11/20/20 [History Last Taken Unknown] atorvastatin 20 mg PO DAILY 11/20/20 [History Last Taken Unknown] citalopram [Celexa] 30 mg PO QHS 11/20/20 [History Last Taken Unknown] clonidine HCl 0.5 mg PO BID 11/20/20 [History Last Taken Unknown] cyanocobalamin (vitamin B-12) 500 mcg PO DAILY 11/20/20 [History Last Taken Unknown] fenofibrate 145 mg PO QHS 11/20/20 [History Last Taken Unknown] insulin glargine [Basaglar KwikPen U-100 Insulin] 34 unit SUBCUT QPM 11/20/20 [History Last Taken Unknown] insulin lispro [Humalog U-100 Insulin] 6 unit SUBCUT DAILY 11/20/20 [History Last Taken Unknown] lisinopril 5 mg PO DAILY 11/20/20 [History Last Taken Unknown] Allergy/AdvReac Type Severity Reaction Status Date / Time Iodinated Contrast Media AdvReac Other Verified 11/20/20 04:05 [Iodinated Contrast Media - IV Dye] Family History Other Cancer Surgical History H/O: hysterectomy History of tonsillectomy Social History Smoking Status: Former smoker ROS Review of Systems ROS Unobtainable: due to mental status Physical Exam Const alert and no apparent distress General Appearance: cooperative Nutritional Appearance: obese HEENT normocephalic and head/scalp atraumatic Eyes PERRL and conjunctivae normal Neck supple General: trachea midline Resp normal respiratory effort Auscultation: Negative for rales, rhonchi or wheezes Cardio regular rate and regular rhythm GI normal to inspection, nondistended, normoactive bowel sounds Extremity no clubbing, cyanosis or edema Skin Skin Narrative: Lower extremity and sacrococcygeal pressure ulcers. Neuro moves all extremities and no focal motor deficits Psych Mood & Affect: flat affect Lab / Micro Data Result Diagrams: 11/20/20 04:05 11/20/20 04:05 Labs: Laboratory Results - last 24 hr 11/20/20 11/20/20 11/20/20 04:05 04:05 04:05 WBC 10.7 RBC 3.45 L Hgb 10.5 L Hct 33.8 L MCV 98.0 MCH 30.4 MCHC 31.1 L RDW Std Deviation 52.3 H RDW Coeff of Neisha 14.5 Plt Count 184 MPV 10.7 Immature Gran % (Auto) 0.300 Neut % (Auto) 70.7 H Lymph % (Auto) 16.[address] [place] % (Auto) 10.1 H Eos % (Auto) 1.8 Baso % (Auto) 0.5 Absolute Neuts (auto) 7.6 Absolute Lymphs (auto) 1.77 Nucleated RBC % 0 Sodium 141 Potassium 4.2 Chloride 105 Carbon Dioxide 28.0 Anion Gap 8 BUN 49 H Creatinine 2.27 H Estim Creat Clear Calc 16.35 Est GFR (MDRD) Af Amer 27 L Est GFR (MDRD) Non-Af 22 L BUN/Creatinine Ratio 21.6 H Glucose 100 Lactic Acid Calcium 8.3 L Total Bilirubin 0.40 AST 18 ALT 12 L Alkaline Phosphatase 83 Ammonia Troponin I < 0.015 Total Protein 6.5 Albumin 2.6 L Globulin 3.9 Albumin/Globulin Ratio 0.7 L Urine Color Urine Clarity Urine pH Ur Specific [place] Urine Protein Urine Glucose (UA) Urine Ketones Urine Occult Blood Urine Nitrite Urine Bilirubin Urine Urobilinogen Ur Leukocyte Esterase Urine RBC Urine WBC Ur Squamous Epith Cells Urine Bacteria Urine Mucus Urine Opiates Screen Urine Methadone Screen Ur Barbiturates Screen Ur Phencyclidine Scrn Ur Amphetamines Screen U Methamphetamin-MDMA U Benzodiazepines Scrn Urine Cocaine Screen U Cannabinoids Screen Ur Drug Screen Comment Ethyl Alcohol 3.0 11/20/20 11/20/20 11/20/20 04:20 04:45 04:45 WBC RBC Hgb Hct MCV MCH MCHC RDW Std Deviation RDW Coeff of Neisha Plt Count MPV Immature Gran % (Auto) Neut % (Auto) Lymph % (Auto) [place] % (Auto) Eos % (Auto) Baso % (Auto) Absolute Neuts (auto) Absolute Lymphs (auto) Nucleated RBC % Sodium Potassium Chloride Carbon Dioxide Anion Gap BUN Creatinine Estim Creat Clear Calc Est GFR (MDRD) Af Amer Est GFR (MDRD) Non-Af BUN/Creatinine Ratio Glucose Lactic Acid 0.7 Calcium Total Bilirubin AST ALT Alkaline Phosphatase Ammonia Troponin I Total Protein Albumin Globulin Albumin/Globulin Ratio Urine Color Yellow Urine Clarity Clear Urine pH 6.0 Ur Specific [place] 1.010 Urine Protein 15 H Urine Glucose (UA) Normal Urine Ketones Negative Urine Occult Blood 25 H Urine Nitrite Negative Urine Bilirubin Negative Urine Urobilinogen Normal Ur Leukocyte Esterase 25 H Urine RBC 0-5 SEEN Urine WBC 0-5 SEEN Ur Squamous Epith Cells 0 SEEN Urine Bacteria 0 SEEN Urine Mucus 0 SEEN Urine Opiates Screen NEGATIVE Urine Methadone Screen NEGATIVE Ur Barbiturates Screen NEGATIVE Ur Phencyclidine Scrn NEGATIVE Ur Amphetamines Screen NEGATIVE U Methamphetamin-MDMA NEGATIVE U Benzodiazepines Scrn NEGATIVE Urine Cocaine Screen NEGATIVE U Cannabinoids Screen NEGATIVE Ur Drug Screen Comment Ethyl Alcohol 11/20/20 04:55 WBC RBC Hgb Hct MCV MCH MCHC RDW Std Deviation RDW Coeff of Neisha Plt Count MPV Immature Gran % (Auto) Neut % (Auto) Lymph % (Auto) [facility] % (Auto) Eos % (Auto) Baso % (Auto) Absolute Neuts (auto) Absolute Lymphs (auto) Nucleated RBC % Sodium Potassium Chloride Carbon Dioxide Anion Gap BUN Creatinine Estim Creat Clear Calc Est GFR (MDRD) Af Amer Est GFR (MDRD) Non-Af BUN/Creatinine Ratio Glucose Lactic Acid Calcium Total Bilirubin AST ALT Alkaline Phosphatase Ammonia 17.0 Troponin I Total Protein Albumin Globulin Albumin/Globulin Ratio Urine Color Urine Clarity Urine pH Ur Specific [place] Urine Protein Urine Glucose (UA) Urine Ketones Urine Occult Blood Urine Nitrite Urine Bilirubin Urine Urobilinogen Ur Leukocyte Esterase Urine RBC Urine WBC Ur Squamous Epith Cells Urine Bacteria Urine Mucus Urine Opiates Screen Urine Methadone Screen Ur Barbiturates Screen Ur Phencyclidine Scrn Ur Amphetamines Screen U Methamphetamin-MDMA U Benzodiazepines Scrn Urine Cocaine Screen U Cannabinoids Screen Ur Drug Screen Comment Ethyl Alcohol Micro: Microbiology 11/20/20 04:30 SARS-CoV-2 Antigen (Rapid) - Final Mucosa - Nose Radiology Impression Brain CT 11/20/20 04:15 IMPRESSION: There is persistent disproportionate distention of the ventricles including the third ventricle relative to the CSF space which could potentially represent normal pressure/hydrocephalus. No evidence of acute hemorrhage or infarct or edema. Electronically Signed: Dalila Macdonald MD at 5:18 EDT Tel , Service support , Chest X-Ray 11/20/20 04:15 IMPRESSION: Degenerative changes, as described above. Mild cardiac enlargement. No demonstrated acute cardiopulmonary process. Electronically Signed: Dalila Macdonald MD at 5:22 EDT Tel , Service support , Tibia/Fibula X-Ray 11/20/20 04:28 IMPRESSION: Bony osteopenia is worse, advanced degenerative change of the left knee joint. No visualized acute fracture. Electronically Signed: Dalila Macdonald MD at 5:24 EDT Tel , Service support , Charges/Coding Visit Charges Inpatient E&M: 52044 Init Hosp L3
--- NOTE | 2020-11-20 13:59 | PCM.RX.CS ---
Consult Pharmacy has been consulted to manage selected antiobiotic: Vancomycin Type of Consult: New start Suspected Infection: Skin/Soft tissue Labs: Sodium 141 mmol/L (136-145) 11/20/20 04:05 Potassium 4.2 mmol/L (3.5-5.1) 11/20/20 04:05 Chloride 105 mmol/L (98-107) 11/20/20 04:05 Carbon Dioxide 28.0 mmol/L (21.0-32.0) 11/20/20 04:05 Anion Gap 8 (5-15) 11/20/20 04:05 BUN 49 mg/dL (7-18) H 11/20/20 04:05 Creatinine 2.27 mg/dL (0.55-1.02) H 11/20/20 04:05 Est GFR (MDRD) Af Amer 27 mL/min (>60) L 11/20/20 04:05 Est GFR (MDRD) Non-Af 22 mL/min (>60) L 11/20/20 04:05 BUN/Creatinine Ratio 21.6 RATIO (10-20) H 11/20/20 04:05 Glucose 100 mg/dL (74-106) 11/20/20 04:05 Microbiology: Microbiology 11/20/20 04:30 Mucosa - Nose SARS-CoV-2 Antigen (Rapid) - Final Goal Trough: 15-20 mcg/mL Pharmacy Plan for Drug Dosing: NEW START IV VANCOMYCIN Consulting Physician: Ryanne Indication: Cellulitis, Sepsis Goal Trough: 15-20 SrCr: 2.27 CrCl: 22.57 (using an adjusted body weight of 72kg) Comments: Vancomcyin Dose: pt received a 1500mg dose in the ER 11/20/20 at 0546. Recommend an initial dose of 500mg q24h starting 11/21/20 at 0600 Pending Level: 11/22/20 at 0530 Pharmacy Service will continue to monitor and adjust dosing as required. Follow-Up Labs: Trough Vancomycin - 11/22/20 at 0530
[2020-11-20] MEDS: Glucerna Shake 120 ML LIQUID PO (14:17)
--- NOTE | 2020-11-20 14:39 | CASEMGMT ---
RUTHIE spoke with Dianna at [facility] and she confirmed patient is from their facility. RUTHIE let her know it is possible she could return over the weekend. Green sheet on chart. Felisha BLANCO
[2020-11-20 17:05] LABS: Bedside Glucose 280 mg/dL (70-110)
[2020-11-20] MEDS: Insulin Lispro 100 UNIT/ML INSULN.PEN SC ×2 (18:00→21:50)
[2020-11-20] MEDS: Menthol/Lanolin/Calamine/Znox 113 GM Tube 1 APPLIC TOPICAL (21:49)
[2020-11-20] MEDS: Donepezil HCl 10 MG Tablet PO (21:52)
[2020-11-20] MEDS: ARIPiprazole 2 MG Tablet 1 MG PO (21:52)
[2020-11-20] MEDS: Citalopram 10 MG Tablet 30 MG PO (21:52)
[2020-11-20 22:06] LABS: Bedside Glucose 355 mg/dL (70-110)
[2020-11-21] MEDS: hydrOXYzine PAM 25 MG Capsule PO ×2 (00:26→20:10)
[2020-11-21 03:32] VITALS: BP 133/64; PULSE 64; RESP 18; TEMP 37.1; O2SAT 95
[2020-11-21] MEDS: Nystatin Powder 15gm Bottle 1 APPLIC TOPICAL ×3 (06:27→20:10)
[2020-11-21] MEDS: Hydrocortisone Sod Succinate 100 MG/2 ML Vial 50 MG IV ×3 (06:27→20:12)
[2020-11-21] MEDS: Insulin Lispro 100 UNIT/ML INSULN.PEN SC ×4 (06:27→20:22)
[2020-11-21] MEDS: Levothyroxine 150 MCG Tablet PO (06:27)
[2020-11-21 06:40] LABS: Bedside Glucose 246 mg/dL (70-110)
[2020-11-21 06:54] LABS: Absolute Lymphocyte Count 1.19 X10^3/uL (0.83-4.51); Basophil# 0.03 X10^3/uL; Basophil% 0.4 % (0-1); Eosinophil# 0.08 X10^3/uL; Hematocrit 32.2 % (37-47); Hemoglobin 10.2 g/dL (12.0-15.0); Lymphocyte # 1.19 X10^3/ul (0.83-4.51); Lymphocyte % 14.9 % (19-41); Mean Corp Hgb Conc 31.7 g/dL (32-36); Mean Corpuscular Hgb 30.9 pg (27.0-32.0); Mean Corpuscular Volume 97.6 fL (81-99); Mean Platelet Vol. 10.7 fl (6.2-12.0); Monocyte# 0.64 X10^3/uL; NRBC Flagged by Analyzer 0 % (0-5); Neutrophil % 75.4 % (47-70); Platelet Count 169 K/mm3 (150-450); RBC Distribution Width CV 13.7 % (11.6-14.6)
[2020-11-21 07:18] LABS: Anion Gap 8 (5-15); BUN 33 mg/dL (7-18); BUN/Creat Ratio 20.9 RATIO (10-20); Calcium,Total 7.8 mg/dL (8.5-10.1); Chloride 111 mmol/L (98-107); Creatinine, Serum 1.58 mg/dL (0.55-1.02); EST Glomerular Filtration Rate 33 mL/min (>60); Est Glom Filt Rate - Afr Amer 40 mL/min (>60); Estimated Creatinine Clearance 23.49 ml/min; Glucose 260 mg/dL (74-106); Magnesium 1.7 mg/dL (1.6-2.6); Potassium 3.9 mmol/L (3.5-5.1); Sodium Level 144 mmol/L (136-145)
--- NOTE | 2020-11-21 07:27 | PCM.PN.HOSP ---
Subjective Subjective Patient seen remains on broad-spectrum antibiotic therapy. Culture still pending do plan to observe patient for 1 additional day prior to discharging back to senior care facility Objective Data Objective Data Vital Signs: Vital Signs Temp Pulse Resp BP Pulse Ox 98.8 F 64 18 133/64 H 95 11/21/20 03:32 11/21/20 03:32 11/21/20 03:32 11/21/20 03:32 11/21/20 03:32 Oxygen Flow Rate (L/min) 1 Oxygen Delivery Method Room Air Weight: 104.417 kg Body Mass Index (BMI) 39.9 Intake & Output: Intake and Output for Last 24 Hours 11/19/20 11/20/20 11/21/20 23:59 23:59 23:59 Intake Total 5650 / 5650 350 / 350 Output Total 1100 / 1100 500 / 500 Balance 4550 / 4550 -150 / -150 Lab / Micro Data Result Diagrams: 11/21/20 06:25 11/21/20 06:25 Labs: Laboratory Results - last 24 hr 11/20/20 11/20/20 11/21/20 17:00 21:47 06:25 WBC 8.0 RBC 3.30 L Hgb 10.2 L Hct 32.2 L MCV 97.6 MCH 30.9 MCHC 31.7 L RDW Std Deviation 49.0 H RDW Coeff of Neisha 13.7 Plt Count 169 MPV 10.7 Immature Gran % (Auto) 0.300 Neut % (Auto) 75.4 H Lymph % (Auto) 14.9 L [place] % (Auto) 8.0 Eos % (Auto) 1.0 Baso % (Auto) 0.4 Absolute Neuts (auto) 6.0 Absolute Lymphs (auto) 1.19 Nucleated RBC % 0 Sodium Potassium Chloride Carbon Dioxide Anion Gap BUN Creatinine Estim Creat Clear Calc Est GFR (MDRD) Af Amer Est GFR (MDRD) Non-Af BUN/Creatinine Ratio Glucose Calcium Magnesium POC Glucose 280 H 355 H 11/21/20 11/21/20 06:25 06:25 WBC RBC Hgb Hct MCV MCH MCHC RDW Std Deviation RDW Coeff of Neisha Plt Count MPV Immature Gran % (Auto) Neut % (Auto) Lymph % (Auto) [place] % (Auto) Eos % (Auto) Baso % (Auto) Absolute Neuts (auto) Absolute Lymphs (auto) Nucleated RBC % Sodium 144 Potassium 3.9 Chloride 111 H Carbon Dioxide 25.0 Anion Gap 8 BUN 33 H Creatinine 1.58 H Estim Creat Clear Calc 23.49 Est GFR (MDRD) Af Amer 40 L Est GFR (MDRD) Non-Af 33 L BUN/Creatinine Ratio 20.9 H Glucose 260 H Calcium 7.8 L Magnesium 1.7 POC Glucose 246 H Micro: Microbiology 11/20/20 04:30 Mucosa - Nose SARS-CoV-2 Antigen (Rapid) - Final Physical Exam Narrative GENERAL: cooperative HEENT: Atraumatic; EYES; Anicteric, Normal Conjunctiva NECK; supple, normal thyroid, RESPIRATORY: Diminished to auscultation CARDIOVASCULAR: Regular S1 S2, GI: soft, normoactive bowel sounds, : No Renal angle tenderness; EXTREMITIES: Area of erythema distal right lower extremity MUSCULOSKELETAL: no muscle waisting NEURO: Awake; no lateralizing signs. SKIN: As described above PSYCH; Flat affect Assessment & Plan Assessment/Plan (1) Cellulitis: QUALIFIERS: Laterality: left Site of cellulitis: extremity Site of cellulitis of extremity: lower extremity Qualified Code(s): L03.116 - Cellulitis of left lower limb (2) Chronic kidney disease (CKD), stage IV (severe): (3) JEB (acute kidney injury): (4) 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: (5) Stage II pressure ulcer of left buttock: (6) Diabetes mellitus, type 2: QUALIFIERS: Chronic kidney disease stage: stage 4 (severe) Diabetes mellitus complication detail: with chronic kidney disease Diabetes mellitus complication status: with kidney complications Diabetes mellitus assistant terminal manager insulin use: with assistant terminal manager use Qualified Code(s): E11.22 - Type 2 diabetes mellitus with diabetic chronic kidney disease; N18.4 - Chronic kidney disease, stage 4 (severe); Z79.4 - terminal supervisor (current) use of insulin (7) Adrenal insufficiency: (8) Adrenal insufficiency: PLAN: An 80-year-old lady resident of the [facility] brought to the emergency department with increasing confusion with an assessment of cellulitis made admitted for subsequent inpatient management 1. Right lower extremity cellulitis ?Admitted t intensive care initially in view of patient relatively low blood pressure. Started on broad-spectrum antibiotic therapy with vancomycin as well as cefazolin 2. Acute on chronic kidney disease stage IV . Baseline creatinine 1.75 patient creatinine on admission was 2.27 started on IV fluid with subsequent monitoring of electrolytes -11/21/2020 kidney function improved with creatinine down to 1.58 3. Diabetes mellitus type II -patient's oral hypoglycemics held. Placed on long acting insulin, Accu-Cheks a.c. and at bedtime and covered with sliding scale insulin ?11/21/2020 blood glucose control not optimal adjusted insulin dose 4. Hypothyroidism - Patient is on levothyroxine home dose continued 5. Essential hypertension ?Patient blood pressure on hold 6. Dyslipidemia ?Patient is on fenofibrate held 7. Depression with anxiety ?Patient is on SSRI 8. GERD patient is on PPI 9. Dyslipidemia -Patient is on statin therapy, continued at home dose 10. Stage II pressure ulcer on sacrococcygeal area/leg wound Present on admission consult placed wound care nurse 11. Adrenal insufficiency On home steroids. Patient started on stress doses of hydrocortisone 50 mg IV every 8 hours. 12. Intertrigo Nystatin ordered 13. DVT prophylaxis Subcutaneous heparin ordered 14. Obesity with BMI of 39.9 ?Weight loss advised Charges/Coding Visit Charges Inpatient E&M: 96170 Subs Hosp L2
[2020-11-21] MEDS: Gabapentin 100 MG Capsule PO ×3 (07:37→16:05)
[2020-11-21] MEDS: Pantoprazole Sodium 20 MG Tablet PO (07:37)
[2020-11-21] MEDS: Heparin Injection (Vial) 5,000 UNIT/ML VIAL 5000 UNIT SC ×2 (07:37→20:12)
[2020-11-21] MEDS: Aspirin E.C. 81 MG Tablet PO (07:37)
[2020-11-21] MEDS: Memantine Hydrochloride 10 MG Tablet PO ×2 (07:38→20:11)
[2020-11-21] MEDS: Cyanocobalamin 500 MCG Tablet PO (07:38)
[2020-11-21] MEDS: Ergocalciferol 1.25 MG (50, 000 UNIT) Capsule PO (07:39)
[2020-11-21] MEDS: Atorvastatin Calcium 20 MG Tablet PO (07:39)
[2020-11-21] MEDS: Menthol/Lanolin/Calamine/Znox 113 GM Tube 1 APPLIC TOPICAL ×2 (07:40→20:14)
[2020-11-21 08:57] VITALS: BP 127/58; PULSE 52; RESP 16; TEMP 36.8; O2SAT 95
[2020-11-21] MEDS: Vancomycin IV 1,000 MG/200 ML BAG 200 MG IV (09:15)
--- NOTE | 2020-11-21 09:33 | PCM.RX.CS ---
Consult Pharmacy has been consulted to manage selected antiobiotic: Vancomycin Type of Consult: Follow-up Suspected Infection: Skin/Soft tissue Prior Doses of Antibiotics Received/Current Regimen: 1500mg x1 in E.R. yesterday at 0546 Labs: Sodium 144 mmol/L (136-145) 11/21/20 06:25 Potassium 3.9 mmol/L (3.5-5.1) 11/21/20 06:25 Chloride 111 mmol/L (98-107) H 11/21/20 06:25 Carbon Dioxide 25.0 mmol/L (21.0-32.0) 11/21/20 06:25 Anion Gap 8 (5-15) 11/21/20 06:25 BUN 33 mg/dL (7-18) H 11/21/20 06:25 Creatinine 1.58 mg/dL (0.55-1.02) H 11/21/20 06:25 Est GFR (MDRD) Af Amer 40 mL/min (>60) L 11/21/20 06:25 Est GFR (MDRD) Non-Af 33 mL/min (>60) L 11/21/20 06:25 BUN/Creatinine Ratio 20.9 RATIO (10-20) H 11/21/20 06:25 Glucose 260 mg/dL (74-106) H 11/21/20 06:25 Microbiology: Microbiology 11/20/20 04:30 Mucosa - Nose SARS-CoV-2 Antigen (Rapid) - Final Weight used for dosin.4 kg Estimated Creatinine Clearance: 32ml/min Goal Trough: 15-20 mcg/mL Pharmacy Plan for Drug Dosing: The patient had been ordered to start 500mg q24h this morning but that dose got discontinued upon transfer out of ICU yesterday afternoon. However, the vancomycin RX to dose consult order was still active so pharmacy called the physician this morning and it was decided to keep the patient on vancomycin. Due to the patient's SCr improving to 1.58 (CrCl 32 ml/min using adjusted body weight of 73kg), the dose will be increased to 1000mg q24h to start this morning. A trough will be checked before the 3rd total dose per protocol. Pharmacy Service will continue to monitor and adjust dosing as required. Follow-Up Labs: Trough Vancomycin Labs to be done on [date and time ordered]: 11/22/20 0830
[2020-11-21] MEDS: Cefazolin 2 GM in 0.9% Normal Saline 100 ML IV ×2 (10:24→20:37)
[2020-11-21] MEDS: 0.9% Normal Saline 1,000 ML 75 ML IV (11:19)
[2020-11-21 11:50] VITALS: BP 137/47; PULSE 74; RESP 16; TEMP 36.8; O2SAT 97
[2020-11-21 15:09] VITALS: BP 106/87; PULSE 58; RESP 16; TEMP 36.6; O2SAT 99
[2020-11-21 16:11] LABS: Bedside Glucose 256 mg/dL (70-110)
[2020-11-21 20:10] VITALS: BP 145/69; PULSE 58; RESP 18; TEMP 36.4; O2SAT 97
[2020-11-21] MEDS: Acetaminophen 325 MG Tablet 650 MG PO (20:10)
[2020-11-21] MEDS: Donepezil HCl 10 MG Tablet PO (20:12)
[2020-11-21] MEDS: Citalopram 10 MG Tablet 30 MG PO (20:12)
[2020-11-21] MEDS: ARIPiprazole 2 MG Tablet 1 MG PO (20:14)
[2020-11-21 21:15] LABS: Bedside Glucose 389 mg/dL (70-110)
[2020-11-22 00:55] LABS: Bedside Glucose 329 mg/dL (70-110)
[2020-11-22] MEDS: 0.9% Normal Saline 1,000 ML 75 ML IV (01:08)
[2020-11-22 04:56] VITALS: BP 135/54; PULSE 55; RESP 16; TEMP 36.8; O2SAT 95
[2020-11-22 04:57] LABS: Absolute Lymphocyte Count 1.83 X10^3/uL (0.83-4.51); Basophil# 0.04 X10^3/uL; Basophil% 0.6 % (0-1); Eosinophil# 0.28 X10^3/uL; Hematocrit 31.9 % (37-47); Hemoglobin 10.3 g/dL (12.0-15.0); Lymphocyte # 1.83 X10^3/ul (0.83-4.51); Lymphocyte % 26.4 % (19-41); Mean Corp Hgb Conc 32.3 g/dL (32-36); Mean Corpuscular Hgb 31.3 pg (27.0-32.0); Mean Platelet Vol. 10.5 fl (6.2-12.0); Monocyte% 10.1 % (0-10); NRBC Flagged by Analyzer 0 % (0-5); Neutrophil # 4.03 X10^3/uL (2.7-7.7); Neutrophil % 58.3 % (47-70); Platelet Count 181 K/mm3 (150-450); RBC Distribution Width CV 13.6 % (11.6-14.6); RBC Distribution Width SD 48.7 fl (35.1-43.9); Red Blood Count 3.29 M/mm3 (4.2-5.4); White Blood Count 6.9 K/mm3 (4.4-11.0)
[2020-11-22 05:27] LABS: Anion Gap 6 (5-15); BUN 24 mg/dL (7-18); BUN/Creat Ratio 18.9 RATIO (10-20); Calcium,Total 7.8 mg/dL (8.5-10.1); Chloride 112 mmol/L (98-107); Creatinine, Serum 1.27 mg/dL (0.55-1.02); EST Glomerular Filtration Rate 43 mL/min (>60); Est Glom Filt Rate - Afr Amer 52 mL/min (>60); Estimated Creatinine Clearance 29.23 ml/min; Glucose 193 mg/dL (74-106); Potassium 3.6 mmol/L (3.5-5.1); Sodium Level 144 mmol/L (136-145)
[2020-11-22] MEDS: Levothyroxine 150 MCG Tablet PO (06:11)
[2020-11-22] MEDS: Nystatin Powder 15gm Bottle 1 APPLIC TOPICAL (06:11)
[2020-11-22] MEDS: Hydrocortisone Sod Succinate 100 MG/2 ML Vial 50 MG IV (06:12)
[2020-11-22] MEDS: Insulin Lispro 100 UNIT/ML INSULN.PEN SC (06:14)
[2020-11-22 06:35] LABS: Bedside Glucose 172 mg/dL (70-110)
[2020-11-22 07:09] VITALS: O2SAT 95
--- NOTE | 2020-11-22 08:46 | DS.PCM_ITS ---
Providers Date of Admission: 11/20/20 Primary Care Physician: Dr. Enedina Castaneda MD Consultations 11/20/20 06:53 Consult: Custom Wood Stair Builder / Pulmonary Medicine Routine Consulting Provider: Clinton Gaming Reason for Consult: critical care EMERGENT Consult: No Notified: Yes Date Notified: 11/20/20 Time Notified: 06:53 Method of Notification: Verbal 11/20/20 07:46 Consult: Custom Wood Stair Builder / Pulmonary Medicine Routine Consulting Provider: Clinton Gaming Reason for Consult: Critical care EMERGENT Consult: No Notified: Yes Date Notified: 11/20/20 Time Notified: 06:41 Method of Notification: Verbal Consult: Onc/Wound/business intelligence director Routine Comment: Reason for Consult:: left leg wound; sacral ulcer Reason For Visit: SEVERE SEPSIS SECONDARY CELLULITIS Diagnosis Discharge Diagnosis (1) Cellulitis: Status: Acute Code(s): L03.90 - Cellulitis, unspecified Qualifiers: Laterality: left Site of cellulitis: extremity Site of cellulitis of extremity: lower extremity Qualified Code(s): L03.116 - Cellulitis of left lower limb (2) Chronic kidney disease (CKD), stage IV (severe): Status: Chronic Code(s): N18.4 - Chronic kidney disease, stage 4 (severe) (3) JEB (acute kidney injury): Status: Acute Code(s): N17.9 - Acute kidney failure, unspecified (4) 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: Status: Chronic Code(s): L89.312 - Pressure ulcer of right buttock, stage 2 (5) Stage II pressure ulcer of left buttock: Status: Chronic Code(s): L89.322 - Pressure ulcer of left buttock, stage 2 (6) Diabetes mellitus, type 2: Status: Acute Code(s): E11.9 - Type 2 diabetes mellitus without complications Qualifiers: Chronic kidney disease stage: stage 4 (severe) Diabetes mellitus complication detail: with chronic kidney disease Diabetes mellitus complication status: with kidney complications Diabetes mellitus fpc insulin use: with fpc use Qualified Code(s): E11.22 - Type 2 diabetes mellitus with diabetic chronic kidney disease; N18.4 - Chronic kidney disease, stage 4 (severe); Z79.4 - penitentiary (current) use of insulin (7) Adrenal insufficiency: Status: Acute Code(s): E27.40 - Unspecified adrenocortical insufficiency (8) Adrenal insufficiency: Status: Chronic Code(s): E27.40 - Unspecified adrenocortical insufficiency Medications at Discharge Home Medications omeprazole 20 mg PO DAILY 05/08/15 aspirin [Aspir-Low] 81 mg PO DAILY 02/25/18 docusate sodium [DOK] 100 mg PO DAILY 02/25/18 donepezil 10 mg PO QHS 02/25/18 levothyroxine 150 mcg PO DAILY 02/25/18 acetaminophen [Tylenol] 650 mg PO Q4H PRN PRN 08/08/18 ammonium lactate [Skin Treatment] 1 applic TP QHS 08/08/18 cholecalciferol (vitamin D3) 50,000 unit PO SA 08/08/18 gabapentin 300 mg PO TIDCM 08/08/18 hydrocortisone 5 mg PO TID 08/08/18 memantine 10 mg PO BID 08/08/18 aripiprazole 1 mg PO QHS 11/20/20 atorvastatin 20 mg PO DAILY 11/20/20 citalopram [Celexa] 30 mg PO QHS 11/20/20 clonidine HCl 0.5 mg PO BID 11/20/20 cyanocobalamin (vitamin B-12) 500 mcg PO DAILY 11/20/20 fenofibrate 145 mg PO QHS 11/20/20 lisinopril 5 mg PO DAILY 11/20/20 Basaglar KwikPen U-100 Insulin 20 unit SQ QHS #0 ml 11/22/20 Humalog U-100 Insulin 6 unit SUBCUT ACHS #0 ml 11/22/20 cefdinir 300 mg PO BID #10 cap 11/22/20 furosemide 40 mg PO DAILY #0 tab 11/22/20 insulin lispro [Humalog KwikPen Insulin] See Protocol SUBCUT ACHS #0 ml 11/22/20 potassium chloride [Klor-Con M20] 20 meq PO DAILY #0 tablet 11/22/20 Hospital Course Summary of Care Provided Minutes Spent on Discharge: 50 Hospital Course: An 80-year-old lady resident of the [facility] brought to the emergency department with increasing confusion with an assessment of cellulitis made admitted for subsequent inpatient management 1. Right lower extremity cellulitis ?Admitted t intensive care initially in view of patient relatively low blood pressure. Started on broad-spectrum antibiotic therapy with vancomycin as well as cefazolin -11/22/2020; patient was discharged on cefdinir 3 mg p.o. twice daily for 5 days 2. Acute on chronic kidney disease stage IV . Baseline creatinine 1.75 patient creatinine on admission was 2.27 started on IV fluid with subsequent monitoring of electrolytes -11/21/2020 kidney function improved with creatinine down to 1.58 -11/22/2020; kidney function at the time of discharge 1.27 3. Diabetes mellitus type II -patient's oral hypoglycemics held. Placed on long acting insulin, Accu-Cheks a.c. and at bedtime and covered with sliding scale insulin ?11/21/2020 blood glucose control not optimal adjusted insulin dose 4. Hypothyroidism - Patient is on levothyroxine home dose continued 5. Essential hypertension ?Patient blood pressure on hold 6. Dyslipidemia ?Patient is on fenofibrate held 7. Depression with anxiety ?Patient is on SSRI 8. GERD patient is on PPI 9. Dyslipidemia -Patient is on statin therapy, continued at home dose 10. Stage II pressure ulcer on sacrococcygeal area/leg wound Present on admission consult placed wound care nurse 11. Adrenal insufficiency On home steroids. Patient started on stress doses of hydrocortisone 50 mg IV every 8 hours. 12. Intertrigo Nystatin ordered 13. DVT prophylaxis Subcutaneous heparin ordered 14. Obesity with BMI of 39.9 ?Weight loss advised Physical Exam Narrative GENERAL: cooperative HEENT: Atraumatic; EYES; Anicteric, Normal Conjunctiva NECK; supple, normal thyroid, RESPIRATORY: Diminished to auscultation CARDIOVASCULAR: Regular S1 S2, GI: soft, normoactive bowel sounds, : No Renal angle tenderness; EXTREMITIES: Area of erythema distal right lower extremity MUSCULOSKELETAL: no muscle waisting NEURO: Awake; no lateralizing signs. SKIN: As described above PSYCH; Flat affect Weight / BMI Weight Weight: 104.417 kg Body Mass Index (BMI) 39.9 ABG / Lab / Microbiology Data Result Diagrams: 11/22/20 04:37 11/22/20 04:37 Laboratory: Laboratory Results - last 24 hr 11/21/20 11/21/20 11/21/20 11:04 16:02 20:19 WBC RBC Hgb Hct MCV MCH MCHC RDW Std Deviation RDW Coeff of Neisha Plt Count MPV Immature Gran % (Auto) Neut % (Auto) Lymph % (Auto) Jasper % (Auto) Eos % (Auto) Baso % (Auto) Absolute Neuts (auto) Absolute Lymphs (auto) Nucleated RBC % Sodium Potassium Chloride Carbon Dioxide Anion Gap BUN Creatinine Estim Creat Clear Calc Est GFR (MDRD) Af Amer Est GFR (MDRD) Non-Af BUN/Creatinine Ratio Glucose Calcium POC Glucose 329 H 256 H 389 H 11/22/20 11/22/20 11/22/20 04:37 04:37 06:13 WBC 6.9 RBC 3.29 L Hgb 10.3 L Hct 31.9 L MCV 97.0 MCH 31.3 MCHC 32.3 RDW Std Deviation 48.7 H RDW Coeff of Neisha 13.6 Plt Count 181 MPV 10.5 Immature Gran % (Auto) 0.600 Neut % (Auto) 58.3 Lymph % (Auto) 26.4 Jasper % (Auto) 10.1 H Eos % (Auto) 4.0 Baso % (Auto) 0.6 Absolute Neuts (auto) 4.0 Absolute Lymphs (auto) 1.83 Nucleated RBC % 0 Sodium 144 Potassium 3.6 Chloride 112 H Carbon Dioxide 26.0 Anion Gap 6 BUN 24 H Creatinine 1.27 H Estim Creat Clear Calc 29.23 Est GFR (MDRD) Af Amer 52 L Est GFR (MDRD) Non-Af 43 L BUN/Creatinine Ratio 18.9 Glucose 193 H Calcium 7.8 L POC Glucose 172 H Microbiology: Microbiology 11/20/20 04:10 Blood Culture - Preliminary Blood Culture (Wb) - Right Hand No growth in 48 hours. 11/20/20 04:05 Blood Culture - Preliminary Blood Culture (Wb) - No Site/Description Given No growth in 48 hours. Microbiology 11/20/20 04:10 Blood Culture (Wb) - Right Hand Blood Culture - Preliminary No growth in 48 hours. 11/20/20 04:05 Blood Culture (Wb) - No Site/Description Given Blood Culture - Preliminary No growth in 48 hours. 11/20/20 04:30 Mucosa - Nose SARS-CoV-2 Antigen (Rapid) - Final D/C Instructions Discharge Diet: 1800 Calorie Control Diet Call your doctor if you observe: Fever of 101 or Higher, Shortness of breath, Fainting spells and Chest pain Meaningful Use Info Meaningful Use Diagnoses (Choose all that apply): None applicable Discharge Plan Admission Admit Date/Time: 11/20/20 06:18 Primary Reason for Your Visit: Cellulitis Attending Provider: Ashu Buchanan Primary Care Provider: Enedina Castaneda Consulting Providers: Clinton Gaming Discharge Orders/Prescriptions Prescriptions: New cefdinir 300 mg capsule 300 mg PO BID Qty: 10 RF: 0 insulin lispro [Humalog KwikPen Insulin] 100 unit/mL Insulin Pen See Protocol unit subcut ACHS Qty: 0 RF: 0 Continued omeprazole 20 MG capsule 20 mg PO DAILY RF: 0 donepezil 10 MG tablet 10 mg PO QHS RF: 0 aspirin [Aspir-Low] 81 MG tablet,delayed release (DR/EC) 81 mg PO DAILY RF: 0 levothyroxine 150 MCG tablet 150 mcg PO DAILY RF: 0 docusate sodium [DOK] 100 MG capsule 100 mg PO DAILY RF: 0 hydrocortisone 5 MG tablet 5 mg PO TID RF: 0 ammonium lactate [Skin Treatment] 400 GM lotion 1 applic TP QHS RF: 0 gabapentin 300 MG capsule 300 mg PO TIDCM RF: 0 cholecalciferol (vitamin D3) 50,000 UNIT capsule 50,000 unit PO SA RF: 0 acetaminophen [Tylenol] 325 MG tablet 650 mg PO Q4H PRN PRN (Reason: pain and fever) RF: 0 memantine 10 MG tablet 10 mg PO BID RF: 0 clonidine HCl 0.1 mg Tablet 0.5 mg PO BID RF: 0 atorvastatin 20 mg Tablet 20 mg PO DAILY RF: 0 citalopram [Celexa] 20 mg Tablet 30 mg PO QHS RF: 0 lisinopril 5 mg Tablet 5 mg PO DAILY RF: 0 aripiprazole 2 mg Tablet 1 mg PO QHS RF: 0 fenofibrate 120 mg Tablet 145 mg PO QHS RF: 0 cyanocobalamin (vitamin B-12) 500 mcg Lozenge 500 mcg PO DAILY RF: 0 Changed furosemide 40 MG tablet 40 mg PO DAILY Qty: 0 RF: 0 potassium chloride [Klor-Con M20] 20 MEQ tablet 20 meq PO DAILY Qty: 0 RF: 0 Humalog U-100 Insulin 100 unit/mL Cartridge 6 unit SUBCUT ACHS Qty: 0 RF: 0 Basaglar KwikPen U-100 Insulin 100 UNIT/ML insulin pen 20 unit SQ QHS Qty: 0 RF: 0 Discontinued Basaglar KwikPen U-100 Insulin 100 UNIT/ML insulin pen 42 unit SQ DAILY RF: 0 Basaglar KwikPen U-100 Insulin 100 unit/mL (3 mL) Insulin Pen 34 unit SUBCUT QPM RF: 0 Referrals / Follow Up: Enedina Castaneda MD [Primary Care Provider] - In 1 Week Disposition Disposition (needs filled in before D/C Order can be placed): Jail Facility Charges/Coding Visit Charges Inpatient E&M: 69929 Disch Hosp
[2020-11-22 08:56] LABS: Vancomycin, Trough Level 10.2 ug/mL (5.0-15.0)
[2020-11-22] MEDS: Pantoprazole Sodium 20 MG Tablet PO (09:32)
[2020-11-22] MEDS: Atorvastatin Calcium 20 MG Tablet PO (09:32)
[2020-11-22] MEDS: Cyanocobalamin 500 MCG Tablet PO (09:32)
[2020-11-22] MEDS: Aspirin E.C. 81 MG Tablet PO (09:32)
[2020-11-22] MEDS: Gabapentin 100 MG Capsule PO (09:33)
[2020-11-22] MEDS: Vancomycin IV 1,000 MG/200 ML BAG 200 MG IV (09:33)
[2020-11-22] MEDS: Memantine Hydrochloride 10 MG Tablet PO (09:33)
[2020-11-22] MEDS: Heparin Injection (Vial) 5,000 UNIT/ML VIAL 5000 UNIT SC (09:33)
[2020-11-22] MEDS: Menthol/Lanolin/Calamine/Znox 113 GM Tube 1 APPLIC TOPICAL (09:34)
--- NOTE | 2020-11-22 10:02 | PCM.TXEXTCAR ---
Diet 11/20/20 07:46 Diet: Consistent Carb - Calorie Controlled How many daily calories?: 1800 calorie Wound(s) Lt coccyx: Wound Type: Pressure Injury LT coccyx #2: Wound Type: Pressure Injury LT calf: Wound Type: Pressure Injury LT lateral mathew: Wound Type: Pressure Injury LT mathew: Wound Type: Pressure Injury lt mathew #2: Wound Type: Pressure Injury lt mathew #3: Wound Type: Pressure Injury Therapies Physical Therapy: Eval and Treat Occupational Therapy: Eval and Treat Speech Therapy: Eval and Treat Problem/Diagnosis (1) Cellulitis: Status: Acute (2) Chronic kidney disease (CKD), stage IV (severe): Status: Chronic (3) JEB (acute kidney injury): Status: Acute (4) 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: Status: Chronic (5) Stage II pressure ulcer of left buttock: Status: Chronic (6) Diabetes mellitus, type 2: Status: Acute (7) Adrenal insufficiency: Status: Acute (8) Adrenal insufficiency: Status: Chronic Allergies/Procedures Done in Hospital Allergies Iodinated Contrast Media [Iodinated Contrast Media - IV Dye] Adverse Reaction (Verified 11/20/20 04:05) Other NAUSEA AFFECTS KIDNEYS Type of Care/Length of Stay Estimated LOS: Convalescent Care Less Than 30 days Type of Care Needed: Skilled Rehab Potential: Fair Prognosis: Fair Additional Orders/Day of Discharge Day of Discharge: 11/22/20 Dietary and Speech Recommendations Dietitian Recommendations/Changes: continue 1800 calorie, consistent CHO diet; will add 120mL glucerna 4x/day w/ medpass Discharge Plan Admission Admit Date/Time: 11/20/20 06:18 Primary Reason for Your Visit: Cellulitis Attending Provider: Ashu Buchanan Primary Care Provider: Enedina Castaneda Consulting Providers: Clinton Gaming Discharge Orders/Prescriptions Prescriptions: New cefdinir 300 mg capsule 300 mg PO BID Qty: 10 RF: 0 insulin lispro [Humalog KwikPen Insulin] 100 unit/mL Insulin Pen See Protocol unit subcut ACHS Qty: 0 RF: 0 Continued omeprazole 20 MG capsule 20 mg PO DAILY RF: 0 donepezil 10 MG tablet 10 mg PO QHS RF: 0 aspirin [Aspir-Low] 81 MG tablet,delayed release (DR/EC) 81 mg PO DAILY RF: 0 levothyroxine 150 MCG tablet 150 mcg PO DAILY RF: 0 docusate sodium [DOK] 100 MG capsule 100 mg PO DAILY RF: 0 hydrocortisone 5 MG tablet 5 mg PO TID RF: 0 ammonium lactate [Skin Treatment] 400 GM lotion 1 applic TP QHS RF: 0 gabapentin 300 MG capsule 300 mg PO TIDCM RF: 0 cholecalciferol (vitamin D3) 50,000 UNIT capsule 50,000 unit PO SA RF: 0 acetaminophen [Tylenol] 325 MG tablet 650 mg PO Q4H PRN PRN (Reason: pain and fever) RF: 0 memantine 10 MG tablet 10 mg PO BID RF: 0 clonidine HCl 0.1 mg Tablet 0.5 mg PO BID RF: 0 atorvastatin 20 mg Tablet 20 mg PO DAILY RF: 0 citalopram [Celexa] 20 mg Tablet 30 mg PO QHS RF: 0 lisinopril 5 mg Tablet 5 mg PO DAILY RF: 0 aripiprazole 2 mg Tablet 1 mg PO QHS RF: 0 fenofibrate 120 mg Tablet 145 mg PO QHS RF: 0 cyanocobalamin (vitamin B-12) 500 mcg Lozenge 500 mcg PO DAILY RF: 0 Changed furosemide 40 MG tablet 40 mg PO DAILY Qty: 0 RF: 0 potassium chloride [Klor-Con M20] 20 MEQ tablet 20 meq PO DAILY Qty: 0 RF: 0 Humalog U-100 Insulin 100 unit/mL Cartridge 6 unit SUBCUT ACHS Qty: 0 RF: 0 Basaglar KwikPen U-100 Insulin 100 UNIT/ML insulin pen 20 unit SQ QHS Qty: 0 RF: 0 Discontinued Basaglar KwikPen U-100 Insulin 100 UNIT/ML insulin pen 42 unit SQ DAILY RF: 0 Basaglar KwikPen U-100 Insulin 100 unit/mL (3 mL) Insulin Pen 34 unit SUBCUT QPM RF: 0 Referrals / Follow Up: Enedina Castaneda MD [Primary Care Provider] - In 1 Week Disposition Disposition (needs filled in before D/C Order can be placed): Retirement Facility
[2020-11-22 10:39] VITALS: BP 151/74; PULSE 70; RESP 16; TEMP 37.1; O2SAT 94
--- NOTE | 2020-11-22 11:01 | NURSING ---
Page to Dr. Buchanan concerning vistaril rx that daughter requests be sent to custodial on discharge today.
--- NOTE | 2020-11-22 11:15 | NURSING ---
This nurse called [facility] to give report on patient. Germination Worker was unable to find a nurse to take my call. Will try again.
--- NOTE | 2020-11-22 11:37 | NURSING ---
This nurse called [facility] to give report and no answer at this facility.
[2020-11-22 12:19] VITALS: BP 151/74; PULSE 70; RESP 18; TEMP 37.1; O2SAT 94
== END 2020-11-22 12:20 | disposition skilled nursing facility (03) | DRG 603 ==
LOC: ED 05:57 → ICU 06:43 → MS3 13:53
PROVIDERS: Admitting Provider Hospitalist; Emergency Provider Student in an Organized Health Care Education/Training Program; PCP Internal Medicine Geriatric Medicine; Visit Provider Internal Medicine
DX: L03.116 Cellulitis of left lower limb (principal); N17.9 Acute kidney failure, unspecified; N18.4 Chronic kidney disease, stage 4 (severe); E27.40 Unspecified adrenocortical insufficiency; Z68.41 Body mass index [BMI] 40.0-44.9, adult; E66.9 Obesity, unspecified; E03.9 Hypothyroidism, unspecified; E78.5 Hyperlipidemia, unspecified; K21.9 Gastro-esophageal reflux disease without esophagitis; L89.312 Pressure ulcer of right buttock, stage 2; L89.322 Pressure ulcer of left buttock, stage 2; E11.22 Type 2 diabetes mellitus with diabetic chronic kidney disease; I48.91 Unspecified atrial fibrillation; F03.90 Unspecified dementia, unspecified severity, without behavioral disturbance, psychotic disturbance, mood disturbance, and anxiety; I12.9 Hypertensive chronic kidney disease with stage 1 through stage 4 chronic kidney disease, or unspecified chronic kidney disease; F41.8 Other specified anxiety disorders; L89.152 Pressure ulcer of sacral region, stage 2; L30.4 Erythema intertrigo; Z66 Do not resuscitate; Z79.890 Hormone replacement therapy; Z79.4 Long term (current) use of insulin; Z87.891 Personal history of nicotine dependence; Z90.710 Acquired absence of both cervix and uterus
CPT/HCPCS: 36415; 70450; 71045; 73590; 80048; 80053; 80202; 80307; 81001; 82077; 82140; 82962; 83605; 83735; 84484; 85025; 87040; 87426; 93005; 97110; 97162; 97166; 97530; 97802; 99285; J7030; J7040; P9612; A4216

== ENCOUNTER → 2022-11-21 | Outpatient (REF) | payer MEDICARE, SELFPAY ==
[2022-11-21 09:34] LABS: Absolute Lymphocyte Count 1.62 X10^3/uL (0.83-4.51); Absolute Neutrophil Count 4.5 X10^3/uL (2.0-7.7); Basophil# 0.04 X10^3/uL; Basophil% 0.5 % (0-1); Eosinophil# 0.38 X10^3/uL; Eosinophils% 5.2 % (0-5); Hematocrit 39.9 % (37-47); Hemoglobin 12.5 g/dL (12.0-15.0); Lymphocyte # 1.62 X10^3/ul (0.83-4.51); Mean Corp Hgb Conc 31.3 g/dL (32-36); Mean Corpuscular Hgb 30.3 pg (27.0-32.0); Mean Corpuscular Volume 96.6 fL (81-99); Mean Platelet Vol. 10.7 fl (6.2-12.0); Monocyte% 10.9 % (0-10); NRBC Flagged by Analyzer 0 % (0-5); Neutrophil # 4.48 X10^3/uL (2.7-7.7); Platelet Count 227 K/mm3 (150-450); RBC Distribution Width CV 14.9 % (11.6-14.6); RBC Distribution Width SD 52.7 fl (35.1-43.9); Red Blood Count 4.13 M/mm3 (4.2-5.4); White Blood Count 7.4 K/mm3 (4.4-11.0)
[2022-11-21 09:54] LABS: ALB/GLOB Ratio 0.8 RATIO (0.9-2.4); AST(SGOT) 39 U/L (15-37); Alanine Aminotransfer ALT/SGPT 42 U/L (13-56); Albumin, Serum 2.8 g/dL (3.2-5.0); Alkaline Phosphatase 75 U/L (45-117); Anion Gap 7 (5-15); BUN 20 mg/dL (7-18); BUN/Creat Ratio 14.6 RATIO (10-20); Calcium,Total 8.9 mg/dL (8.5-10.1); Chloride 110 mmol/L (98-107); Cholesterol 140 mg/dL (200); Creatinine, Serum 1.37 mg/dL (0.55-1.02); EST Glomerular Filtration Rate 39 mL/min (>60); Est Glom Filt Rate - Afr Amer 47 mL/min (>60); Globulin 3.7 g/dL (2.2-4.2); Glucose 75 mg/dL (74-106); High Density Lipoprotein 37 mg/dL; Potassium 3.9 mmol/L (3.5-5.1); Protein, Total 6.5 g/dL (6.4-8.2); Sodium Level 143 mmol/L (136-145); Thyroid Stim Hormone (TSH) 3.78 uIU/mL (0.358-3.74); Triglycerides 207 mg/dL; Very Low Density Lipoprotein 41 mg/dL (5-40)
[2022-11-21 11:31] LABS: Hemoglobin A1c 7.5 % (3.8-5.6)
== END ==
LOC: OLS.WHLEAS 05:00
PROVIDERS: PCP Internal Medicine Geriatric Medicine; Visit Provider Internal Medicine
DX: E03.9 Hypothyroidism, unspecified (principal); Z79.899 Other long term (current) drug therapy
CPT/HCPCS: 36415; 80053; 80061; 83036; 84443; 85025

== ENCOUNTER → 2022-11-22 | Outpatient (REF) | payer MEDICARE, SELFPAY ==
[2022-11-22 06:55] LABS: T4 Free Direct 1.13 ng/dL (0.76-1.46)
[2022-11-22 08:17] LABS: T3 Total - Triiodothyronine 0.88 ng/mL (0.6-1.81)
== END ==
LOC: OLS.WHLEAS 05:00
PROVIDERS: PCP Internal Medicine Geriatric Medicine; Referring Provider Internal Medicine; Visit Provider Internal Medicine
DX: E03.9 Hypothyroidism, unspecified (principal); E11.22 Type 2 diabetes mellitus with diabetic chronic kidney disease; N18.9 Chronic kidney disease, unspecified; M81.0 Age-related osteoporosis without current pathological fracture; G30.9 Alzheimer's disease, unspecified
CPT/HCPCS: 36415; 84439; 84480

== ENCOUNTER → 2022-12-05 | Outpatient (REF) | payer MEDICARE, SELFPAY ==
[2022-12-05 08:46] LABS: Absolute Lymphocyte Count 1.91 X10^3/uL (0.83-4.51); Absolute Neutrophil Count 5.6 X10^3/uL (2.0-7.7); Basophil# 0.07 X10^3/uL; Basophil% 0.8 % (0-1); Eosinophil# 0.53 X10^3/uL; Eosinophils% 5.9 % (0-5); Hematocrit 44.3 % (37-47); Hemoglobin 13.6 g/dL (12.0-15.0); Lymphocyte # 1.91 X10^3/ul (0.83-4.51); Lymphocyte % 21.3 % (19-41); Mean Corp Hgb Conc 30.7 g/dL (32-36); Mean Corpuscular Hgb 29.6 pg (27.0-32.0); Mean Corpuscular Volume 96.3 fL (81-99); Mean Platelet Vol. 10.7 fl (6.2-12.0); Monocyte# 0.81 X10^3/uL; NRBC Flagged by Analyzer 0 % (0-5); Neutrophil # 5.61 X10^3/uL (2.7-7.7); Neutrophil % 62.6 % (47-70); Platelet Count 231 K/mm3 (150-450); RBC Distribution Width CV 14.7 % (11.6-14.6); RBC Distribution Width SD 51.8 fl (35.1-43.9)
[2022-12-05 09:13] LABS: Anion Gap 6 (5-15); BUN 30 mg/dL (7-18); BUN/Creat Ratio 20.4 RATIO (10-20); Calcium,Total 8.6 mg/dL (8.5-10.1); Chloride 108 mmol/L (98-107); Creatinine, Serum 1.47 mg/dL (0.55-1.02); EST Glomerular Filtration Rate 36 mL/min (>60); Est Glom Filt Rate - Afr Amer 44 mL/min (>60); Glucose 140 mg/dL (74-106); Sodium Level 140 mmol/L (136-145)
== END ==
LOC: OLS.WHLEAS 05:00
PROVIDERS: PCP Internal Medicine Geriatric Medicine; Visit Provider Internal Medicine
DX: E11.22 Type 2 diabetes mellitus with diabetic chronic kidney disease (principal); M81.0 Age-related osteoporosis without current pathological fracture; G30.9 Alzheimer's disease, unspecified; F03.A2 Unspecified dementia, mild, with psychotic disturbance
CPT/HCPCS: 36415; 80048; 85025

== ENCOUNTER → 2022-12-19 | Outpatient (REF) | payer MEDICARE, SELFPAY ==
[2022-12-19 08:49] LABS: Absolute Lymphocyte Count 1.86 X10^3/uL (0.83-4.51); Absolute Neutrophil Count 4.9 X10^3/uL (2.0-7.7); Basophil# 0.05 X10^3/uL; Basophil% 0.6 % (0-1); Eosinophil# 0.44 X10^3/uL; Eosinophils% 5.4 % (0-5); Hemoglobin 12.9 g/dL (12.0-15.0); Lymphocyte # 1.86 X10^3/ul (0.83-4.51); Lymphocyte % 22.8 % (19-41); Mean Corp Hgb Conc 31.5 g/dL (32-36); Mean Corpuscular Hgb 29.9 pg (27.0-32.0); Mean Corpuscular Volume 94.9 fL (81-99); Mean Platelet Vol. 10.8 fl (6.2-12.0); Monocyte# 0.94 X10^3/uL; Monocyte% 11.5 % (0-10); NRBC Flagged by Analyzer 0 % (0-5); Neutrophil # 4.85 X10^3/uL (2.7-7.7); Neutrophil % 59.3 % (47-70); Platelet Count 202 K/mm3 (150-450); RBC Distribution Width CV 14.6 % (11.6-14.6); RBC Distribution Width SD 51.5 fl (35.1-43.9); Red Blood Count 4.32 M/mm3 (4.2-5.4); White Blood Count 8.2 K/mm3 (4.4-11.0)
[2022-12-19 09:09] LABS: Vitamin D,25 Hydroxy 48.9 ng/mL
[2022-12-19 09:16] LABS: Anion Gap 7 (5-15); BUN 33 mg/dL (7-18); BUN/Creat Ratio 22.9 RATIO (10-20); Calcium,Total 8.8 mg/dL (8.5-10.1); Chloride 111 mmol/L (98-107); Creatinine, Serum 1.44 mg/dL (0.55-1.02); EST Glomerular Filtration Rate 37 mL/min (>60); Est Glom Filt Rate - Afr Amer 45 mL/min (>60); Glucose 88 mg/dL (74-106); Potassium 3.7 mmol/L (3.5-5.1); Sodium Level 144 mmol/L (136-145)
== END ==
LOC: OLS.WHLEAS 05:00
PROVIDERS: PCP Internal Medicine Geriatric Medicine; Visit Provider Internal Medicine
DX: E55.9 Vitamin D deficiency, unspecified (principal); E11.22 Type 2 diabetes mellitus with diabetic chronic kidney disease; M81.0 Age-related osteoporosis without current pathological fracture; N18.9 Chronic kidney disease, unspecified
CPT/HCPCS: 36415; 80048; 82306; 85025

== ENCOUNTER → 2023-01-02 | Outpatient (REF) | payer MEDICARE, MEDICAID, SELFPAY ==
[2023-01-02 08:42] LABS: Absolute Lymphocyte Count 1.87 X10^3/uL (0.83-4.51); Absolute Neutrophil Count 5.8 X10^3/uL (2.0-7.7); Basophil# 0.04 X10^3/uL; Basophil% 0.5 % (0-1); Eosinophil# 0.43 X10^3/uL; Eosinophils% 4.8 % (0-5); Hematocrit 44.3 % (37-47); Hemoglobin 13.8 g/dL (12.0-15.0); Lymphocyte # 1.87 X10^3/ul (0.83-4.51); Lymphocyte % 21.1 % (19-41); Mean Corp Hgb Conc 31.2 g/dL (32-36); Mean Corpuscular Hgb 29.6 pg (27.0-32.0); Mean Corpuscular Volume 95.1 fL (81-99); Mean Platelet Vol. 10.4 fl (6.2-12.0); Monocyte# 0.74 X10^3/uL; Monocyte% 8.3 % (0-10); NRBC Flagged by Analyzer 0 % (0-5); Neutrophil # 5.77 X10^3/uL (2.7-7.7); Platelet Count 246 K/mm3 (150-450); RBC Distribution Width CV 14.2 % (11.6-14.6); RBC Distribution Width SD 49.7 fl (35.1-43.9); Red Blood Count 4.66 M/mm3 (4.2-5.4); White Blood Count 8.9 K/mm3 (4.4-11.0)
[2023-01-02 08:56] LABS: Anion Gap 6 (5-15); BUN 27 mg/dL (7-18); Calcium,Total 8.8 mg/dL (8.5-10.1); Chloride 108 mmol/L (98-107); EST Glomerular Filtration Rate 35 mL/min (>60); Est Glom Filt Rate - Afr Amer 43 mL/min (>60); Glucose 79 mg/dL (74-106); Potassium 4.1 mmol/L (3.5-5.1); Sodium Level 141 mmol/L (136-145)
== END ==
LOC: OLS.WHLEAS 05:00
PROVIDERS: PCP Internal Medicine Geriatric Medicine; Visit Provider Nurse Practitioner Adult Health
DX: E11.22 Type 2 diabetes mellitus with diabetic chronic kidney disease (principal); N18.9 Chronic kidney disease, unspecified; M81.0 Age-related osteoporosis without current pathological fracture; G30.9 Alzheimer's disease, unspecified
CPT/HCPCS: 36415; 80048; 85025

== ENCOUNTER → 2023-01-16 | Outpatient (REF) | payer MEDICARE, MEDICAID, SELFPAY ==
[2023-01-16 09:02] LABS: Absolute Lymphocyte Count 1.75 X10^3/uL (0.83-4.51); Absolute Neutrophil Count 3.9 X10^3/uL (2.0-7.7); Basophil# 0.04 X10^3/uL; Basophil% 0.6 % (0-1); Eosinophil# 0.36 X10^3/uL; Eosinophils% 5.3 % (0-5); Hematocrit 41.4 % (37-47); Lymphocyte # 1.75 X10^3/ul (0.83-4.51); Lymphocyte % 25.8 % (19-41); Mean Corp Hgb Conc 31.4 g/dL (32-36); Mean Corpuscular Hgb 29.9 pg (27.0-32.0); Mean Corpuscular Volume 95.2 fL (81-99); Mean Platelet Vol. 10.1 fl (6.2-12.0); Monocyte# 0.68 X10^3/uL; NRBC Flagged by Analyzer 0 % (0-5); Neutrophil # 3.92 X10^3/uL (2.7-7.7); Neutrophil % 57.9 % (47-70); Platelet Count 194 K/mm3 (150-450); RBC Distribution Width SD 49.1 fl (35.1-43.9); Red Blood Count 4.35 M/mm3 (4.2-5.4); White Blood Count 6.8 K/mm3 (4.4-11.0)
[2023-01-16 09:32] LABS: Anion Gap 6 (5-15); BUN 29 mg/dL (7-18); BUN/Creat Ratio 21.6 RATIO (10-20); Calcium,Total 8.6 mg/dL (8.5-10.1); Chloride 108 mmol/L (98-107); Creatinine, Serum 1.34 mg/dL (0.55-1.02); EST Glomerular Filtration Rate 40 mL/min (>60); Est Glom Filt Rate - Afr Amer 49 mL/min (>60); Glucose 79 mg/dL (74-106); Potassium 3.9 mmol/L (3.5-5.1); Sodium Level 142 mmol/L (136-145)
== END ==
LOC: OLS.WHLEAS 04:00
PROVIDERS: PCP Internal Medicine Geriatric Medicine; Referring Provider Internal Medicine; Visit Provider Internal Medicine
DX: E11.22 Type 2 diabetes mellitus with diabetic chronic kidney disease (principal); N18.9 Chronic kidney disease, unspecified; M81.0 Age-related osteoporosis without current pathological fracture
CPT/HCPCS: 36415; 80048; 85025

== ENCOUNTER → 2023-01-30 | Outpatient (REF) | payer MEDICARE, MEDICAID, SELFPAY ==
[2023-01-30 09:17] LABS: Absolute Lymphocyte Count 1.69 X10^3/uL (0.83-4.51); Basophil# 0.05 X10^3/uL; Basophil% 0.7 % (0-1); Eosinophil# 0.34 X10^3/uL; Eosinophils% 4.9 % (0-5); Hematocrit 41.4 % (37-47); Hemoglobin 13.1 g/dL (12.0-15.0); Lymphocyte # 1.69 X10^3/ul (0.83-4.51); Lymphocyte % 24.3 % (19-41); Mean Corp Hgb Conc 31.6 g/dL (32-36); Mean Corpuscular Hgb 30.2 pg (27.0-32.0); Mean Corpuscular Volume 95.4 fL (81-99); Mean Platelet Vol. 10.5 fl (6.2-12.0); Monocyte# 0.82 X10^3/uL; Monocyte% 11.8 % (0-10); NRBC Flagged by Analyzer 0 % (0-5); Neutrophil # 4.04 X10^3/uL (2.7-7.7); Platelet Count 196 K/mm3 (150-450); RBC Distribution Width CV 13.8 % (11.6-14.6); RBC Distribution Width SD 49.1 fl (35.1-43.9); Red Blood Count 4.34 M/mm3 (4.2-5.4)
[2023-01-30 09:33] LABS: Anion Gap 6 (5-15); BUN 29 mg/dL (7-18); BUN/Creat Ratio 18.4 RATIO (10-20); Calcium,Total 8.8 mg/dL (8.5-10.1); Chloride 106 mmol/L (98-107); Creatinine, Serum 1.58 mg/dL (0.55-1.02); EST Glomerular Filtration Rate 33 mL/min (>60); Est Glom Filt Rate - Afr Amer 40 mL/min (>60); Glucose 111 mg/dL (74-106); Sodium Level 142 mmol/L (136-145)
== END ==
LOC: OLS.WHLEAS 05:00
PROVIDERS: PCP Internal Medicine Geriatric Medicine; Visit Provider Internal Medicine
DX: E11.22 Type 2 diabetes mellitus with diabetic chronic kidney disease (principal); N18.9 Chronic kidney disease, unspecified
CPT/HCPCS: 36415; 80048; 85025

== ENCOUNTER → 2023-04-04 | Outpatient (REF) | payer MEDICARE, MEDICAID, SELFPAY ==
[2023-04-04 08:28] LABS: Absolute Lymphocyte Count 1.71 X10^3/uL (0.83-4.51); Absolute Neutrophil Count 4.7 X10^3/uL (2.0-7.7); Basophil# 0.03 X10^3/uL; Basophil% 0.4 % (0-1); Eosinophil# 0.43 X10^3/uL; Eosinophils% 5.6 % (0-5); Hematocrit 39.7 % (37-47); Hemoglobin 12.3 g/dL (12.0-15.0); Lymphocyte # 1.71 X10^3/ul (0.83-4.51); Lymphocyte % 22.3 % (19-41); Mean Corpuscular Hgb 29.1 pg (27.0-32.0); Mean Corpuscular Volume 93.9 fL (81-99); Mean Platelet Vol. 10.5 fl (6.2-12.0); Monocyte# 0.78 X10^3/uL; Monocyte% 10.2 % (0-10); NRBC Flagged by Analyzer 0 % (0-5); Neutrophil # 4.68 X10^3/uL (2.7-7.7); Neutrophil % 61.1 % (47-70); Platelet Count 238 K/mm3 (150-450); RBC Distribution Width SD 47.4 fl (35.1-43.9); Red Blood Count 4.23 M/mm3 (4.2-5.4); White Blood Count 7.7 K/mm3 (4.4-11.0)
[2023-04-04 08:42] LABS: Anion Gap 4 (5-15); BUN 32 mg/dL (7-18); BUN/Creat Ratio 21.9 RATIO (10-20); Calcium,Total 8.8 mg/dL (8.5-10.1); Chloride 109 mmol/L (98-107); Creatinine, Serum 1.46 mg/dL (0.55-1.02); EST Glomerular Filtration Rate 36 mL/min (>60); Est Glom Filt Rate - Afr Amer 44 mL/min (>60); Glucose 91 mg/dL (74-106); Sodium Level 141 mmol/L (136-145)
== END ==
LOC: OLS.WHLEAS 05:30
PROVIDERS: PCP Internal Medicine Geriatric Medicine; Visit Provider Internal Medicine
DX: D64.9 Anemia, unspecified (principal); E11.22 Type 2 diabetes mellitus with diabetic chronic kidney disease; M81.0 Age-related osteoporosis without current pathological fracture; N18.9 Chronic kidney disease, unspecified
CPT/HCPCS: 36415; 80048; 85025

== ENCOUNTER → 2023-05-02 | Outpatient (REF) | payer MEDICARE, MEDICAID, SELFPAY ==
[2023-05-02 09:32] LABS: Absolute Lymphocyte Count 1.67 X10^3/uL (0.83-4.51); Absolute Neutrophil Count 7.3 X10^3/uL (2.0-7.7); Basophil# 0.05 X10^3/uL; Basophil% 0.5 % (0-1); Eosinophil# 0.42 X10^3/uL; Eosinophils% 4.1 % (0-5); Hematocrit 42.6 % (37-47); Hemoglobin 13.2 g/dL (12.0-15.0); Lymphocyte # 1.67 X10^3/ul (0.83-4.51); Lymphocyte % 16.1 % (19-41); Mean Corpuscular Hgb 28.7 pg (27.0-32.0); Mean Corpuscular Volume 92.6 fL (81-99); Mean Platelet Vol. 10.4 fl (6.2-12.0); Monocyte# 0.86 X10^3/uL; Monocyte% 8.3 % (0-10); NRBC Flagged by Analyzer 0 % (0-5); Neutrophil % 70.5 % (47-70); Platelet Count 329 K/mm3 (150-450); RBC Distribution Width CV 14.3 % (11.6-14.6); RBC Distribution Width SD 47.9 fl (35.1-43.9); White Blood Count 10.4 K/mm3 (4.4-11.0)
[2023-05-02 09:48] LABS: Anion Gap 6 (5-15); BUN 41 mg/dL (7-18); BUN/Creat Ratio 26.3 RATIO (10-20); Calcium,Total 8.9 mg/dL (8.5-10.1); Chloride 107 mmol/L (98-107); Creatinine, Serum 1.56 mg/dL (0.55-1.02); EST Glomerular Filtration Rate 34 mL/min (>60); Est Glom Filt Rate - Afr Amer 41 mL/min (>60); Glucose 196 mg/dL (74-106); Potassium 3.8 mmol/L (3.5-5.1); Sodium Level 138 mmol/L (136-145)
== END ==
LOC: OLS.WHLEAS 05:00
PROVIDERS: PCP Internal Medicine Geriatric Medicine; Visit Provider Internal Medicine
DX: E55.9 Vitamin D deficiency, unspecified (principal); D64.9 Anemia, unspecified; E11.22 Type 2 diabetes mellitus with diabetic chronic kidney disease; N18.9 Chronic kidney disease, unspecified
CPT/HCPCS: 36415; 80048; 82306; 85025

== ENCOUNTER → 2023-05-30 | Outpatient (REF) | payer MEDICARE, MEDICAID, SELFPAY ==
[2023-05-30 08:07] LABS: Absolute Lymphocyte Count 1.93 X10^3/uL (0.83-4.51); Absolute Neutrophil Count 5.1 X10^3/uL (2.0-7.7); Basophil# 0.03 X10^3/uL; Basophil% 0.4 % (0-1); Eosinophil# 0.29 X10^3/uL; Eosinophils% 3.5 % (0-5); Hematocrit 40.1 % (37-47); Hemoglobin 12.6 g/dL (12.0-15.0); Lymphocyte # 1.93 X10^3/ul (0.83-4.51); Lymphocyte % 23.5 % (19-41); Mean Corp Hgb Conc 31.4 g/dL (32-36); Mean Corpuscular Hgb 28.8 pg (27.0-32.0); Mean Corpuscular Volume 91.6 fL (81-99); Monocyte# 0.81 X10^3/uL; Monocyte% 9.8 % (0-10); NRBC Flagged by Analyzer 0 % (0-5); Neutrophil # 5.14 X10^3/uL (2.7-7.7); Neutrophil % 62.4 % (47-70); Platelet Count 228 K/mm3 (150-450); RBC Distribution Width CV 14.7 % (11.6-14.6); RBC Distribution Width SD 49.7 fl (35.1-43.9); Red Blood Count 4.38 M/mm3 (4.2-5.4); White Blood Count 8.2 K/mm3 (4.4-11.0)
[2023-05-30 08:23] LABS: AST(SGOT) 17 U/L (15-37); Alanine Aminotransfer ALT/SGPT 25 U/L (13-56); Albumin, Serum 2.3 g/dL (3.2-5.0); Alkaline Phosphatase 82 U/L (45-117); Anion Gap 4 (5-15); BUN 22 mg/dL (7-18); BUN/Creat Ratio 18.6 RATIO (10-20); Bilirubin, Direct 0.06 mg/dL (0.00-0.30); Calcium,Total 8.5 mg/dL (8.5-10.1); Chloride 108 mmol/L (98-107); Cholesterol 199 mg/dL (200); Creatinine, Serum 1.18 mg/dL (0.55-1.02); EST Glomerular Filtration Rate 46 mL/min (>60); Est Glom Filt Rate - Afr Amer 56 mL/min (>60); Globulin 3.8 g/dL (2.2-4.2); Glucose 64 mg/dL (74-106); High Density Lipoprotein 38 mg/dL; Potassium 3.8 mmol/L (3.5-5.1); Protein, Total 6.1 g/dL (6.4-8.2); Sodium Level 141 mmol/L (136-145); Thyroid Stim Hormone (TSH) 3.46 uIU/mL (0.358-3.74); Triglycerides 212 mg/dL; Very Low Density Lipoprotein 42 mg/dL (5-40)
[2023-05-30 09:03] LABS: Hemoglobin A1c 7.5 % (3.8-5.6)
--- OUTSIDE RECORDS SUMMARY | 2023-05-31 18:48 | XMS RPT_ITS | CCD ---
Author Name Unknown Address [address] [place] [address] Organization [facility] Care Team Providers Care Hotel Dining Room Cashier Name Role Phone KIANNA CAZARES Unavailable Unavailable KIANNA CAZARES Unavailable Unavailable NO REFERRING Unavailable Unavailable ARAVIND KAUFFMAN Unavailable Unavailable DEYVI MURRELL Unavailable Unavailable IMCA Unavailable Unavailable RUBIN DE LA TORRE Unavailable Unavailable Akila Donato Unavailable Unavailable PROVIDER, UNKNOWN Unavailable Unavailable Melendrez, Rubin Unavailable Unavailable Kabree, Akila Unavailable Unavailable PROVIDER, UNKNOWN Unavailable Unavailable Rubin Melendrez Unavailable Unavailable PARISH SOLIS Unavailable Unavailable RUBIN MELENDREZ Unavailable Unavailable Unavailable Primary Care Provider UnavailKIANNA Cunningham Referring Unavailable KIANNA READ Referring Unavailable Allergies Allergy Classification Reported Allergen(s) Allergy Type Date of Onset Reaction(s) Facility (1 source) iodine; Translations: [IODINE] Drug Allergy [facility] Repository Problems Active Problems Problem Classification Problem Date Documented Date Episodic/Chronic Delirium, dementia amnestic and other cognitive disorders (2 sources) Vascular dementia without behavioral disturbance; Translations: [Vascular dementia without behavioral disturbance] Onset: 06-14-2017 Chronic Nutritional deficiencies (2 sources) Vitamin D deficiency, unspecified; Translations: [Vitamin D deficiency, unspecified] Onset: 05-31-2017 Chronic Other and ill-defined cerebrovascular disease (2 sources) Cerebrovascular disease, unspecified; Translations: [Cerebrovascular disease, unspecified] Onset: 06-14-2017 Chronic Other screening for suspected conditions (not mental disorders or infectious disease) (1 source) Encounter for screening mammogram for malignant neoplasm of breast; Translations: [Encounter for screening mammogram for malignant neoplasm of breast] Onset: 06-15-2022 Episodic Residual codes; unclassified (1 source) Asymptomatic menopausal state; Translations: [Asymptomatic menopausal state] Onset: 06-15-2022 Episodic Schizophrenia and other psychotic disorders (2 sources) Delusional disorders; Translations: [Delusional disorders] Onset: 06-14-2017 Chronic Unclassified (1 source) Unknown / UNK(Unknown) Onset: 12-30-2016 Past or Other Problems Problem Classification Problem Date Documented Date Episodic/Chronic Other aftercare (2 sources) Other fdc (current) drug therapy; Translations: [Other fdc (current) drug therapy] Onset: 05-31-2017 Episodic Other nervous system disorders (2 sources) Unspecified abnormalities of gait and mobility; Translations: [Unspecified abnormalities of gait and mobility] Onset: 05-31-2017 Episodic Unclassified (2 sources) Other amnesia; Translations: [Other amnesia] Onset: 05-31-2017 Episodic Unclassified (1 source) R39.14 Onset: 12-30-2016 Results Test Name Value Interpretation Reference Range Facil ity Encounters Encounter Date Encounter Type Care Provider Facility Start: 06-15-2022 ambulatory KIANNA MORINAM Facil ity:[facility] Start: 06-15-2022 End: 06-15-2022 Subsequent hospital visit by physician Screen/Diagnostic Mammo [facility] Work Phone: Mammography Procedures Date Procedure Procedure Detail Performing Clinician Start: 06-15-2022 Dxa bone density ovi dy 1/> sites axial skel [facility] Provider Start: 06-15-2022 Screening mammograph y bi 2-view breast inc cad [facility] Provider Plan of Treatment Date Care Activity Detail Author Start: 06-05-2022 ADVANCE DIRECTIVE DISCUSSION ADVANCE DIRECTIVE DISCUSSION [facility] Start: 06-05-2022 DEPRESSION ASSESSMENT DEPRESSION ASS ESSMENT [facility] Start: 02-03-2022 Influenza vaccination INFLUENZA (#1) [facility] Start: 01-07-2005 PNEUMOCOCCAL: 65+ (1 - PCV) PNEUMOCOCCAL: 65+ (1 - PCV) [facility] Start: 01-07-1990 SHINGRIX VACCINE (1 of 2) ACOSTA GRIX VACCINE (1 of 2) [facility] Start: 01-07-1985 DIABETES SCREEN DIABETES SCREEN [facility] Start: 01-07-1959 Urine microalbumin profile DTAP,TDAP ,TD (1 - Tdap) [facility] Start: 1940 COVID-19 VACCINE (#1) COVID-19 VACCI NE (#1) [facility] Payers Date Payer Category Payer Medicare [employer] [id number] 2021-Present [phone] [address] [place] [address] Medicare [id number] 2018 Medicare [id number] Unknown Social History Date Type Detail Facility Tobacco smoking stat [facility] Tobacco smoking consumption unknown [facility] Start: 1940 Sex Assigned At Not on file [facility] Note 06-15-2022 Letter - Mammography Coordinator - 06/15/2022 4:38 PM EST Note Date & Type Note Facility 06-15-2022 Miscellaneous Notes Formattin g of this note might be different from the original. June 15, 2022 PID: [id number] Kelsey Walden [address] [place] [address] Dear Ms. Walden, We are pleased to inform you that the results of your recent breast imaging exam on 06/15/2022 are normal. Early detection of cancer is very important. We also understand recommendations regarding breast cancer screening are controversial. Please discuss with your primary care provider which strategy is best for you and whether a mammogram is right for you. Your imaging studies and report will be kept on file at [facility] as part of your permanent medical record and are available for your continuing care. Thank you for allowing us to help in meeting your health care needs. Sincerely, Dr. Raygoza Interpreting Radiologist [facility] (Normal over 40) documented in this encounter [facility] Summary Purpose Family History No Family History Records FoundNo Family History Records FoundNo Family History Records FoundNo Family History Records FoundNo Family History Records FoundNo Family History Records FoundNo Family History Records FoundNo Family History Records Found Advance Directives No Advanced Directives Records FoundNo Advanced Directives Records FoundNo Advanced Directives Records FoundNo Advanced Directives Records FoundNo Advanced Directives Records FoundNo Advanced Directives Records FoundNo Advanced Directives Records FoundNo Advanced Directives Records Found Additional Source Comments INFORMATION SOURCE (unrecogn ized section and content) DATE CREATED AUTHOR AUTHOR'S ORGANIZ ATION 11/27/2017 [facility] DATE CREATED AUTHOR AUTHOR'S ORGANIZ ATION 01/23/2018 [facility] DATE CREATED AUTHOR AUTHOR'S ORGANIZ ATION 03/15/2018 [facility] ([place]) DATE CREATED AUTHOR AUTHOR'S ORGANIZ ATION 07/11/2020 [facility] DATE CREATED AUTHOR AUTHOR'S ORGANIZ ATION 06/18/2021 [facility] DATE CREATED AUTHOR AUTHOR'S ORGANIZ ATION 06/16/2022 [facility] DATE CREATED AUTHOR AUTHOR'S ORGANIZ ATION 06/17/2022 [facility] Source Comments (unrecognize d section and content) In the event this informatio n is protected by the Federal Confidentiality of Alcohol and Drug Abuse Patient Records regulations: The Federal rules restrict any use of the information to criminally investigate or prosecute any alcohol or drug abuse patient.[facility] the event this information is protected by the Federal Confidentiality of Alcohol and Drug Abuse Patient Records regulations: The Federal rules restrict any use of the information to criminally investigate or prosecute any alcohol or drug abuse patient.[facility] Healthcare[facility] the event this information is protected by the Federal Confidentiality of Alcohol and Drug Abuse Patient Records regulations: The Federal rules restrict any use of the information to criminally investigate or prosecute any alcohol or drug abuse patient.[facility] FOR RECORDS PERTAINING TO PATIENTS WHO ARE OR HAVE BEEN ENROLLED IN A CHEMICAL DEPENDENCY/SUBSTANCEABUSE PROGRAM, SOME INFORMATION MAY BE OMITTED. This clinical summary was aggregated from multiple sources. Caution should be exercised in using it in the provision of clinical care. This summary normalizes information from multiple sources, and as a consequence, information in this document may materially change the coding, format and clinical context of patient data. In addition, data may be omitted in some cases. CLINICAL DECISIONS SHOULD BE BASED ON THE PRIMARY CLINICAL RECORDS. [facility] [employer] [facility] provides no warranty or guarantee of the accuracy or completeness of information in this document.
== END ==
LOC: OLS.WHLEAS 05:00
PROVIDERS: PCP Internal Medicine Geriatric Medicine; Visit Provider Internal Medicine
DX: D64.9 Anemia, unspecified (principal); E11.22 Type 2 diabetes mellitus with diabetic chronic kidney disease; M81.0 Age-related osteoporosis without current pathological fracture; F03.A2 Unspecified dementia, mild, with psychotic disturbance; N18.9 Chronic kidney disease, unspecified
CPT/HCPCS: 36415; 80048; 80061; 80076; 83036; 84443; 85025

== ENCOUNTER → 2023-06-27 | Outpatient (REF) | payer MEDICARE, MEDICAID, SELFPAY ==
--- OUTSIDE RECORDS SUMMARY | 2023-06-27 04:28 | XMS RPT_ITS | CCD ---
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; Translations: [Other usp (current) drug therapy] Onset: 05-31-2017 Episodic Other [...] Facility Start: 06-15-2022 ambulatory KIANNA MORINAM Facil ity:[facility] Start: 06-15-2022 End: 06-15-2022 Subsequent hospital visit by physician Screen/Diagnostic Mammo 1 [facility] Work Phone: Mammography Procedures Date Procedure Procedure Detail Performing Clinician Start: 06-15-2022 Dxa bone density ovi dy 1/> sites axial skel [facility] Provider Start: 06-15-2022 Screening mammograph y bi 2-view breast inc cad [facility] Provider Plan of Treatment Date Care Activity Detail Author Start: 06-05-2022 ADVANCE DIRECTIVE DISCUSSION ADVANCE DIRECTIVE DISCUSSION [facility] Start: 06-05-2022 DEPRESSION ASSESSMENT DEPRESSION ASS ESSMENT [facility] Start: 02-03-2022 Influenza vaccination INFLUENZA (#1) [facility] Start: 01-07-2005 PNEUMOCOCCAL: 65+ (1 - PCV) PNEUMOCOCCAL: 65+ (1 - PCV) [facility] Start: 01-07-1990 SHINGRIX VACCINE (1 of 2) ACOSTA GRIX VACCINE (1 of 2) [facility] Start: 01-07-1985 DIABETES SCREEN DIABETES SCREEN [facility] Start: 01-07-1959 Urine microalbumin profile DTAP,TDAP ,TD (1 - Tdap) [facility] Start: 1940 COVID-19 VACCINE (#1) COVID-19 VACCI NE (#1) [facility] Payers Date Payer Category Payer Medicare [employer] ARE [employer]ARE [id number] 2021-Present [phone] [address] [place] [address] Medicare [id number] 2018 Medicare [id number] Unknown Social History Date Type Detail Facility Tobacco smoking stat [facility] Tobacco smoking consumption unknown [facility] Start: 1940 Sex Assigned At Not on file [facility] Note 06-15-2022 Letter - Mammography Coordinator - 06/15/2022 4:38 PM EST Note Date & Type Note Facility 06-15-2022 Miscellaneous Notes Formattin g of this note might be different from the original. June 15, 2022 PID: [id number] Kelsey Walden [address] [place] [address] Dear Ms. Walden, We are pleased to [...] report will be kept on file at [facility] as part of your permanent medical record and are available for your continuing care. Thank you for allowing us to help in meeting your health care needs. Sincerely, Dr. Raygoza Interpreting Radiologist [facility] (Normal over 40) documented in this encounter [facility] Summary Purpose Family History No Family History [...] DATE CREATED AUTHOR AUTHOR'S ORGANIZ ATION 11/27/2017 [facility] DATE CREATED AUTHOR AUTHOR'S ORGANIZ ATION 01/23/2018 [facility] DATE CREATED AUTHOR AUTHOR'S ORGANIZ ATION 03/15/2018 [facility] ([place]) DATE CREATED AUTHOR AUTHOR'S ORGANIZ ATION 07/11/2020 [facility] DATE CREATED AUTHOR AUTHOR'S ORGANIZ ATION 06/18/2021 [facility] DATE CREATED AUTHOR AUTHOR'S ORGANIZ ATION 06/16/2022 [facility] DATE CREATED AUTHOR AUTHOR'S ORGANIZ ATION 06/17/2022 [facility] Source Comments (unrecognize d section and content) In the event this informatio n is protected by the Federal Confidentiality of Alcohol and Drug Abuse Patient Records regulations: The Federal rules restrict any use of the information to criminally investigate or prosecute any alcohol or drug abuse patient.[facility] the event this information is protected by the Federal Confidentiality of Alcohol and Drug Abuse Patient Records regulations: The Federal rules restrict any use of the information to criminally investigate or prosecute any alcohol or drug abuse patient.[facility] the event this information is protected by the Federal Confidentiality of Alcohol and Drug Abuse Patient Records regulations: The Federal rules restrict any use of the information to criminally investigate or prosecute any alcohol or drug abuse patient.[facility] FOR RECORDS PERTAINING TO PATIENTS WHO ARE [...] BE BASED ON THE PRIMARY CLINICAL RECORDS. [facility] [email or web address] [facility]. provides no warranty or guarantee of the accuracy or completeness of information in this document.
[2023-06-27 09:14] LABS: Absolute Lymphocyte Count 1.48 X10^3/uL (0.83-4.51); Absolute Neutrophil Count 4.5 X10^3/uL (2.0-7.7); Basophil# 0.05 X10^3/uL; Basophil% 0.7 % (0-1); Eosinophil# 0.64 X10^3/uL; Eosinophils% 8.6 % (0-5); Hemoglobin 12.9 g/dL (12.0-15.0); Lymphocyte # 1.48 X10^3/ul (0.83-4.51); Lymphocyte % 19.9 % (19-41); Mean Corp Hgb Conc 30.7 g/dL (32-36); Mean Corpuscular Hgb 27.3 pg (27.0-32.0); Monocyte# 0.72 X10^3/uL; Monocyte% 9.7 % (0-10); NRBC Flagged by Analyzer 0 % (0-5); Neutrophil # 4.51 X10^3/uL (2.7-7.7); Neutrophil % 60.8 % (47-70); Platelet Count 242 K/mm3 (150-450); RBC Distribution Width CV 15.2 % (11.6-14.6); RBC Distribution Width SD 49.6 fl (35.1-43.9); Red Blood Count 4.72 M/mm3 (4.2-5.4); White Blood Count 7.4 K/mm3 (4.4-11.0)
[2023-06-27 10:14] LABS: Anion Gap 6 (5-15); BUN 26 mg/dL (7-18); BUN/Creat Ratio 18.1 RATIO (10-20); Calcium,Total 9.2 mg/dL (8.5-10.1); Chloride 109 mmol/L (98-107); Creatinine, Serum 1.44 mg/dL (0.55-1.02); EST Glomerular Filtration Rate 37 mL/min (>60); Est Glom Filt Rate - Afr Amer 45 mL/min (>60); Glucose 141 mg/dL (74-106); Potassium 3.7 mmol/L (3.5-5.1); Sodium Level 139 mmol/L (136-145)
== END ==
LOC: OLS.WHLEAS 05:00
PROVIDERS: PCP Internal Medicine Geriatric Medicine; Visit Provider Internal Medicine
DX: D64.9 Anemia, unspecified (principal)
CPT/HCPCS: 36415; 80048; 85025

== ENCOUNTER → 2023-08-01 | Outpatient (REF) | payer MEDICARE, MEDICAID, SELFPAY ==
--- OUTSIDE RECORDS SUMMARY | 2023-08-01 04:50 | XMS RPT_ITS | CCD ---
Author Name Unknown Address [address] [place] [address] Organization [facility] Care Team Providers Care Publication Distributor Name Role Phone KIANNA CAZARES Unavailable Unavailable [...] (1 source) iodine; Translations: [IODINE] Drug Allergy [facility] Repository Problems Active Problems Problem [...] Date Episodic/Chronic Other aftercare (2 sources) Other detention (current) drug therapy; Translations: [Other detention (current) drug therapy] Onset: 05-31-2017 Episodic Other [...] Facility Start: 06-15-2022 ambulatory KIANNA MORINAM Facil ity:[facility] Start: 06-15-2022 End: 06-15-2022 Subsequent hospital visit by physician Screen/Diagnostic Mammo 1 [facility] Work Phone: Mammography Procedures Date Procedure Procedure Detail Performing Clinician Start: 06-15-2022 Dxa bone density ovi dy 1/> sites axial skel [facility] Provider Start: 06-15-2022 Screening mammograph y bi 2-view breast inc cad [facility] Provider Plan of Treatment Date Care Activity Detail Author Start: 06-05-2022 ADVANCE DIRECTIVE DISCUSSION ADVANCE DIRECTIVE DISCUSSION [facility] Start: 06-05-2022 DEPRESSION ASSESSMENT DEPRESSION ASS ESSMENT [facility] Start: 02-03-2022 Influenza vaccination INFLUENZA (#1) [facility] Start: 01-07-2005 PNEUMOCOCCAL: 65+ (1 - PCV) PNEUMOCOCCAL: 65+ (1 - PCV) [facility] Start: 01-07-1990 SHINGRIX VACCINE (1 of 2) ACOSTA GRIX VACCINE (1 of 2) [facility] Start: 01-07-1985 DIABETES SCREEN DIABETES SCREEN [facility] Start: 01-07-1959 Urine microalbumin profile DTAP,TDAP ,TD (1 - Tdap) [facility] Start: 1940 COVID-19 VACCINE (#1) COVID-19 VACCI NE (#1) [facility] Payers Date Payer Category Payer Medicare [employer] ARE [employer] MEDICARE [id number] 2021-Present [phone] [address] [place] [address] Medicare [id number] 2018 Medicare [id number] Unknown Social History Date Type Detail Facility Tobacco smoking stat [facility] Tobacco smoking consumption unknown [facility] Start: 1940 Sex Assigned At Not on file [facility] Note 06-15-2022 Letter - Mammography Coordinator - 06/15/2022 4:38 PM EST Note Date & Type Note Facility 06-15-2022 Miscellaneous Notes Formattin g of this note might be different from the original. June 15, 2022 PID: [id number] Kelsey Walden [address] [place] [address] Dear Ms. Walden, We are pleased to [...] report will be kept on file at [facility] as part of your permanent medical record and are available for your continuing care. Thank you for allowing us to help in meeting your health care needs. Sincerely, Dr. Raygoza Interpreting Radiologist [facility] (Normal over 40) documented in this encounter [facility] Summary Purpose Family History No Family [...] DATE CREATED AUTHOR AUTHOR'S ORGANIZ ATION 11/27/2017 [facility] DATE CREATED AUTHOR AUTHOR'S ORGANIZ ATION 01/23/2018 [facility] DATE CREATED AUTHOR AUTHOR'S ORGANIZ ATION 03/15/2018 [facility] ([place]) DATE CREATED AUTHOR AUTHOR'S ORGANIZ ATION 07/11/2020 [facility] DATE CREATED AUTHOR AUTHOR'S ORGANIZ ATION 06/18/2021 [facility] DATE CREATED AUTHOR AUTHOR'S ORGANIZ ATION 06/16/2022 [facility] DATE CREATED AUTHOR AUTHOR'S ORGANIZ ATION 06/17/2022 [facility] Source Comments (unrecognize d section and content) In the event this informatio n is protected by the Federal Confidentiality of Alcohol and Drug Abuse Patient Records regulations: The Federal rules restrict any use of the information to criminally investigate or prosecute any alcohol or drug abuse patient.[facility] the event this information is protected by the Federal Confidentiality of Alcohol and Drug Abuse Patient Records regulations: The Federal rules restrict any use of the information to criminally investigate or prosecute any alcohol or drug abuse patient.[facility] the event this information is protected by the Federal Confidentiality of Alcohol and Drug Abuse Patient Records regulations: The Federal rules restrict any use of the information to criminally investigate or prosecute any alcohol or drug abuse patient.[facility] FOR RECORDS PERTAINING TO PATIENTS WHO [...] BE BASED ON THE PRIMARY CLINICAL RECORDS. [facility] [employer] [facility]. provides no warranty or guarantee of the accuracy or completeness of information in this document.
[2023-08-01 08:35] LABS: Absolute Lymphocyte Count 1.94 X10^3/uL (0.83-4.51); Absolute Neutrophil Count 5.1 X10^3/uL (2.0-7.7); Basophil# 0.03 X10^3/uL; Basophil% 0.3 % (0-1); Eosinophil# 0.76 X10^3/uL; Eosinophils% 8.8 % (0-5); Hematocrit 41.9 % (37-47); Hemoglobin 13.1 g/dL (12.0-15.0); Lymphocyte # 1.94 X10^3/ul (0.83-4.51); Lymphocyte % 22.4 % (19-41); Mean Corp Hgb Conc 31.3 g/dL (32-36); Mean Corpuscular Hgb 28.3 pg (27.0-32.0); Mean Corpuscular Volume 90.5 fL (81-99); Mean Platelet Vol. 9.7 fl (6.2-12.0); Monocyte# 0.75 X10^3/uL; Monocyte% 8.7 % (0-10); NRBC Flagged by Analyzer 0 % (0-5); Neutrophil # 5.14 X10^3/uL (2.7-7.7); Neutrophil % 59.3 % (47-70); Platelet Count 237 K/mm3 (150-450); RBC Distribution Width CV 15.9 % (11.6-14.6); RBC Distribution Width SD 52.3 fl (35.1-43.9); Red Blood Count 4.63 M/mm3 (4.2-5.4); White Blood Count 8.7 K/mm3 (4.4-11.0)
[2023-08-01 10:43] LABS: Anion Gap 4 (5-15); BUN 24 mg/dL (7-18); BUN/Creat Ratio 20.5 RATIO (10-20); Calcium,Total 8.7 mg/dL (8.5-10.1); Chloride 110 mmol/L (98-107); Creatinine, Serum 1.17 mg/dL (0.55-1.02); EST Glomerular Filtration Rate 47 mL/min (>60); Est Glom Filt Rate - Afr Amer 57 mL/min (>60); Glucose 68 mg/dL (74-106); Potassium 3.8 mmol/L (3.5-5.1); Sodium Level 142 mmol/L (136-145)
== END ==
LOC: OLS.WHLEAS 05:00
PROVIDERS: PCP Internal Medicine Geriatric Medicine; Visit Provider Internal Medicine
DX: D64.9 Anemia, unspecified (principal); E11.22 Type 2 diabetes mellitus with diabetic chronic kidney disease; N18.9 Chronic kidney disease, unspecified
CPT/HCPCS: 36415; 80048; 85025

== ENCOUNTER → 2023-08-29 | Outpatient (REF) | payer MEDICARE, MEDICAID, SELFPAY ==
[2023-08-29 09:00] LABS: Absolute Lymphocyte Count 1.63 X10^3/uL (0.83-4.51); Absolute Neutrophil Count 4.3 X10^3/uL (2.0-7.7); Basophil# 0.06 X10^3/uL; Basophil% 0.8 % (0-1); Eosinophil# 0.55 X10^3/uL; Eosinophils% 7.5 % (0-5); Hematocrit 42.1 % (37-47); Lymphocyte # 1.63 X10^3/ul (0.83-4.51); Lymphocyte % 22.3 % (19-41); Mean Corp Hgb Conc 30.9 g/dL (32-36); Mean Corpuscular Hgb 27.5 pg (27.0-32.0); Monocyte# 0.78 X10^3/uL; Monocyte% 10.7 % (0-10); NRBC Flagged by Analyzer 0 % (0-5); Neutrophil # 4.28 X10^3/uL (2.7-7.7); Neutrophil % 58.4 % (47-70); Platelet Count 235 K/mm3 (150-450); RBC Distribution Width CV 14.8 % (11.6-14.6); RBC Distribution Width SD 48.2 fl (35.1-43.9); Red Blood Count 4.73 M/mm3 (4.2-5.4); White Blood Count 7.3 K/mm3 (4.4-11.0)
[2023-08-29 09:34] LABS: AST(SGOT) 19 U/L (15-37); Alanine Aminotransfer ALT/SGPT 25 U/L (13-56); Albumin, Serum 2.8 g/dL (3.2-5.0); Alkaline Phosphatase 75 U/L (45-117); Anion Gap 8 (5-15); BUN 25 mg/dL (7-18); BUN/Creat Ratio 18.9 RATIO (10-20); Bilirubin, Direct 0.09 mg/dL (0.00-0.30); Calcium,Total 8.7 mg/dL (8.5-10.1); Chloride 109 mmol/L (98-107); Cholesterol 207 mg/dL (200); Creatinine, Serum 1.32 mg/dL (0.55-1.02); EST Glomerular Filtration Rate 41 mL/min (>60); Est Glom Filt Rate - Afr Amer 49 mL/min (>60); Globulin 3.5 g/dL (2.2-4.2); Glucose 107 mg/dL (74-106); Hemoglobin A1c 6.9 % (3.8-5.6); High Density Lipoprotein 37 mg/dL; Potassium 3.9 mmol/L (3.5-5.1); Protein, Total 6.3 g/dL (6.4-8.2); Sodium Level 143 mmol/L (136-145); Thyroid Stim Hormone (TSH) 1.51 uIU/mL (0.358-3.74); Triglycerides 231 mg/dL; Very Low Density Lipoprotein 46 mg/dL (5-40)
== END ==
LOC: OLS.WHLEAS 05:00
PROVIDERS: PCP Internal Medicine Geriatric Medicine; Visit Provider Internal Medicine
DX: D69.6 Thrombocytopenia, unspecified (principal); E11.22 Type 2 diabetes mellitus with diabetic chronic kidney disease; N18.9 Chronic kidney disease, unspecified; M81.0 Age-related osteoporosis without current pathological fracture; G30.9 Alzheimer's disease, unspecified
CPT/HCPCS: 36415; 80048; 80061; 80076; 83036; 84443; 85025

== ENCOUNTER → 2023-09-26 | Outpatient (REF) | payer MEDICARE, MEDICAID, SELFPAY ==
[2023-09-26 08:37] LABS: Absolute Lymphocyte Count 1.66 X10^3/uL (0.83-4.51); Absolute Neutrophil Count 6.6 X10^3/uL (2.0-7.7); Basophil# 0.03 X10^3/uL; Basophil% 0.3 % (0-1); Eosinophil# 0.32 X10^3/uL; Eosinophils% 3.4 % (0-5); Hematocrit 38.8 % (37-47); Hemoglobin 12.3 g/dL (12.0-15.0); Lymphocyte # 1.66 X10^3/ul (0.83-4.51); Lymphocyte % 17.7 % (19-41); Mean Corp Hgb Conc 31.7 g/dL (32-36); Mean Corpuscular Hgb 27.9 pg (27.0-32.0); Monocyte# 0.73 X10^3/uL; Monocyte% 7.8 % (0-10); NRBC Flagged by Analyzer 0 % (0-5); Neutrophil # 6.56 X10^3/uL (2.7-7.7); Neutrophil % 70.2 % (47-70); Platelet Count 243 K/mm3 (150-450); RBC Distribution Width CV 14.9 % (11.6-14.6); RBC Distribution Width SD 47.7 fl (35.1-43.9); Red Blood Count 4.41 M/mm3 (4.2-5.4); White Blood Count 9.4 K/mm3 (4.4-11.0)
[2023-09-26 08:49] LABS: Anion Gap 6 (5-15); BUN 30 mg/dL (7-18); BUN/Creat Ratio 23.6 RATIO (10-20); Calcium,Total 8.6 mg/dL (8.5-10.1); Chloride 108 mmol/L (98-107); Creatinine, Serum 1.27 mg/dL (0.55-1.02); EST Glomerular Filtration Rate 43 mL/min (>60); Est Glom Filt Rate - Afr Amer 52 mL/min (>60); Glucose 111 mg/dL (74-106); Potassium 3.7 mmol/L (3.5-5.1); Sodium Level 141 mmol/L (136-145)
== END ==
LOC: OLS.WHLCAR 05:00
PROVIDERS: PCP Internal Medicine Geriatric Medicine; Visit Provider Internal Medicine
DX: D64.9 Anemia, unspecified (principal); E11.22 Type 2 diabetes mellitus with diabetic chronic kidney disease; N18.9 Chronic kidney disease, unspecified
CPT/HCPCS: 36415; 80048; 85025

== ENCOUNTER → 2023-10-09 | Outpatient (REF) | payer MEDICARE, MEDICAID, SELFPAY ==
[2023-10-09 09:32] LABS: Anion Gap 7 (5-15); BUN 29 mg/dL (7-18); BUN/Creat Ratio 21.5 RATIO (10-20); Calcium,Total 8.7 mg/dL (8.5-10.1); Chloride 106 mmol/L (98-107); Creatinine, Serum 1.35 mg/dL (0.55-1.02); EST Glomerular Filtration Rate 40 mL/min (>60); Est Glom Filt Rate - Afr Amer 48 mL/min (>60); Glucose 139 mg/dL (74-106); Potassium 3.8 mmol/L (3.5-5.1); Sodium Level 140 mmol/L (136-145)
== END ==
LOC: OLS.WHLCAR 05:00
PROVIDERS: PCP Internal Medicine Geriatric Medicine; Visit Provider Nurse Practitioner Adult Health
DX: E11.22 Type 2 diabetes mellitus with diabetic chronic kidney disease (principal); N18.9 Chronic kidney disease, unspecified; R60.9 Edema, unspecified
CPT/HCPCS: 36415; 80048

== ENCOUNTER → 2023-10-16 | Outpatient (REF) | payer MEDICARE, MEDICAID, SELFPAY ==
[2023-10-16 08:49] LABS: Anion Gap 6 (5-15); BUN 24 mg/dL (7-18); BUN/Creat Ratio 17.4 RATIO (10-20); Calcium,Total 8.3 mg/dL (8.5-10.1); Chloride 107 mmol/L (98-107); Creatinine, Serum 1.38 mg/dL (0.55-1.02); EST Glomerular Filtration Rate 39 mL/min (>60); Est Glom Filt Rate - Afr Amer 47 mL/min (>60); Glucose 164 mg/dL (74-106); Potassium 3.7 mmol/L (3.5-5.1); Sodium Level 140 mmol/L (136-145)
== END ==
LOC: OLS.WHLCAR 04:00
PROVIDERS: PCP Internal Medicine Geriatric Medicine; Referring Provider Internal Medicine; Visit Provider Internal Medicine
DX: R60.9 Edema, unspecified (principal); E11.22 Type 2 diabetes mellitus with diabetic chronic kidney disease; M81.0 Age-related osteoporosis without current pathological fracture; N18.9 Chronic kidney disease, unspecified
CPT/HCPCS: 36415; 80048

== ENCOUNTER → 2023-10-31 | Outpatient (REF) | payer MEDICARE, MEDICAID, SELFPAY ==
[2023-10-31 08:29] LABS: Absolute Lymphocyte Count 1.77 X10^3/uL (0.83-4.51); Absolute Neutrophil Count 6.3 X10^3/uL (2.0-7.7); Basophil# 0.06 X10^3/uL; Basophil% 0.6 % (0-1); Eosinophil# 0.54 X10^3/uL; Eosinophils% 5.6 % (0-5); Hemoglobin 12.7 g/dL (12.0-15.0); Lymphocyte # 1.77 X10^3/ul (0.83-4.51); Lymphocyte % 18.4 % (19-41); Mean Corpuscular Hgb 27.5 pg (27.0-32.0); Mean Corpuscular Volume 88.9 fL (81-99); Mean Platelet Vol. 10.3 fl (6.2-12.0); Monocyte# 0.87 X10^3/uL; Monocyte% 9.1 % (0-10); NRBC Flagged by Analyzer 0 % (0-5); Neutrophil % 65.7 % (47-70); Platelet Count 248 K/mm3 (150-450); Red Blood Count 4.61 M/mm3 (4.2-5.4); White Blood Count 9.6 K/mm3 (4.4-11.0)
[2023-10-31 09:16] LABS: Anion Gap 6 (5-15); BUN 25 mg/dL (7-18); BUN/Creat Ratio 18.8 RATIO (10-20); Calcium,Total 8.7 mg/dL (8.5-10.1); Chloride 108 mmol/L (98-107); Creatinine, Serum 1.33 mg/dL (0.55-1.02); EST Glomerular Filtration Rate 40 mL/min (>60); Est Glom Filt Rate - Afr Amer 49 mL/min (>60); Glucose 100 mg/dL (74-106); Potassium 3.8 mmol/L (3.5-5.1); Sodium Level 139 mmol/L (136-145)
== END ==
LOC: OLS.WHLCAR 05:00
PROVIDERS: PCP Internal Medicine Geriatric Medicine; Visit Provider Internal Medicine
DX: D64.9 Anemia, unspecified (principal); E11.22 Type 2 diabetes mellitus with diabetic chronic kidney disease; N18.9 Chronic kidney disease, unspecified; M81.0 Age-related osteoporosis without current pathological fracture
CPT/HCPCS: 36415; 80048; 85025

== ENCOUNTER → 2023-11-06 | Outpatient (REF) | payer MEDICARE, MEDICAID, SELFPAY ==
[2023-11-07 08:48] LABS: Protein, Urine (Random) 33.6 mg/dL (<11.9); Protein:Creat Ratio 968 mg/g CRE (0-200)
== END ==
LOC: OLS.WHLCAR 23:15
PROVIDERS: PCP Internal Medicine Geriatric Medicine; Visit Provider Internal Medicine
DX: E11.22 Type 2 diabetes mellitus with diabetic chronic kidney disease (principal); N18.9 Chronic kidney disease, unspecified; M81.0 Age-related osteoporosis without current pathological fracture; Z79.899 Other long term (current) drug therapy
CPT/HCPCS: 82570; 84156

== ENCOUNTER → 2023-11-28 | Outpatient (REF) | payer MEDICARE, MEDICAID, SELFPAY ==
[2023-11-28 09:41] LABS: AST(SGOT) 17 U/L (15-37); Alanine Aminotransfer ALT/SGPT 27 U/L (13-56); Albumin, Serum 2.9 g/dL (3.2-5.0); Alkaline Phosphatase 85 U/L (45-117); Anion Gap 6 (5-15); BUN 48 mg/dL (7-18); BUN/Creat Ratio 29.6 RATIO (10-20); Bilirubin, Direct 0.11 mg/dL (0.00-0.30); Calcium,Total 8.8 mg/dL (8.5-10.1); Chloride 109 mmol/L (98-107); Cholesterol 143 mg/dL (200); Creatinine, Serum 1.62 mg/dL (0.55-1.02); EST Glomerular Filtration Rate 32 mL/min (>60); Est Glom Filt Rate - Afr Amer 39 mL/min (>60); Globulin 3.7 g/dL (2.2-4.2); Glucose 159 mg/dL (74-106); High Density Lipoprotein 38 mg/dL; Potassium 4.4 mmol/L (3.5-5.1); Protein, Total 6.6 g/dL (6.4-8.2); Sodium Level 141 mmol/L (136-145); Thyroid Stim Hormone (TSH) 1.96 uIU/mL (0.358-3.74); Triglycerides 204 mg/dL; Very Low Density Lipoprotein 41 mg/dL (5-40)
[2023-11-28 09:42] LABS: Absolute Lymphocyte Count 1.91 X10^3/uL (0.83-4.51); Absolute Neutrophil Count 5.1 X10^3/uL (2.0-7.7); Basophil# 0.06 X10^3/uL; Basophil% 0.7 % (0-1); Eosinophil# 0.41 X10^3/uL; Eosinophils% 4.9 % (0-5); Hematocrit 42.8 % (37-47); Hemoglobin 13.3 g/dL (12.0-15.0); Lymphocyte # 1.91 X10^3/ul (0.83-4.51); Mean Corp Hgb Conc 31.1 g/dL (32-36); Mean Corpuscular Hgb 27.7 pg (27.0-32.0); Mean Corpuscular Volume 89.2 fL (81-99); Mean Platelet Vol. 10.5 fl (6.2-12.0); Monocyte# 0.82 X10^3/uL; Monocyte% 9.9 % (0-10); NRBC Flagged by Analyzer 0 % (0-5); Neutrophil % 61.3 % (47-70); Platelet Count 228 K/mm3 (150-450); RBC Distribution Width CV 15.9 % (11.6-14.6); RBC Distribution Width SD 52.5 fl (35.1-43.9); White Blood Count 8.3 K/mm3 (4.4-11.0)
[2023-11-28 11:48] LABS: Hemoglobin A1c 7.4 % (3.8-5.6)
== END ==
LOC: OLS.WHLCAR 05:55
PROVIDERS: PCP Internal Medicine Geriatric Medicine; Visit Provider Internal Medicine
DX: D64.9 Anemia, unspecified (principal); F03.A2 Unspecified dementia, mild, with psychotic disturbance; E11.22 Type 2 diabetes mellitus with diabetic chronic kidney disease; N18.9 Chronic kidney disease, unspecified; M81.0 Age-related osteoporosis without current pathological fracture
CPT/HCPCS: 36415; 80048; 80061; 80076; 83036; 84443; 85025

== ENCOUNTER → 2023-12-26 | Outpatient (REF) | payer MEDICARE, MEDICAID, SELFPAY ==
[2023-12-26 08:07] LABS: Absolute Lymphocyte Count 2.33 X10^3/uL (0.83-4.51); Absolute Neutrophil Count 4.8 X10^3/uL (2.0-7.7); Basophil# 0.04 X10^3/uL; Basophil% 0.5 % (0-1); Eosinophil# 0.37 X10^3/uL; Eosinophils% 4.4 % (0-5); Hematocrit 41.1 % (37-47); Lymphocyte # 2.33 X10^3/ul (0.83-4.51); Lymphocyte % 27.8 % (19-41); Mean Corp Hgb Conc 31.6 g/dL (32-36); Mean Corpuscular Hgb 28.2 pg (27.0-32.0); Mean Corpuscular Volume 89.2 fL (81-99); Mean Platelet Vol. 10.2 fl (6.2-12.0); Monocyte# 0.79 X10^3/uL; Monocyte% 9.4 % (0-10); NRBC Flagged by Analyzer 0 % (0-5); Neutrophil # 4.82 X10^3/uL (2.7-7.7); Neutrophil % 57.4 % (47-70); Platelet Count 222 K/mm3 (150-450); RBC Distribution Width CV 15.9 % (11.6-14.6); RBC Distribution Width SD 51.8 fl (35.1-43.9); Red Blood Count 4.61 M/mm3 (4.2-5.4); White Blood Count 8.4 K/mm3 (4.4-11.0)
[2023-12-26 08:25] LABS: Anion Gap 5 (5-15); BUN 44 mg/dL (7-18); BUN/Creat Ratio 25.3 RATIO (10-20); Calcium,Total 8.9 mg/dL (8.5-10.1); Chloride 111 mmol/L (98-107); Creatinine, Serum 1.74 mg/dL (0.55-1.02); EST Glomerular Filtration Rate 30 mL/min (>60); Est Glom Filt Rate - Afr Amer 36 mL/min (>60); Glucose 96 mg/dL (74-106); Potassium 4.2 mmol/L (3.5-5.1); Sodium Level 140 mmol/L (136-145)
== END ==
LOC: OLS.WHLCAR 05:00
PROVIDERS: PCP Internal Medicine Geriatric Medicine; Visit Provider Internal Medicine
DX: D64.9 Anemia, unspecified (principal); E11.22 Type 2 diabetes mellitus with diabetic chronic kidney disease; N18.9 Chronic kidney disease, unspecified
CPT/HCPCS: 36415; 80048; 85025

== ENCOUNTER → 2024-01-05 | Outpatient (REF) | payer MEDICARE, MEDICAID, SELFPAY ==
[2024-01-05 16:19] LABS: Color, Urine Yellow (Yellow); Glucose, Dipstick 1000 mg/dl (Normal); Ketone-Dipstick Negative (Negative); Leukocyte Esterase-Dipstick 500 /ul (Negative); Nitrite-Dipstick Negative (Negative); Occult Blood-Urine 50 /ul (Negative); Protein-Dipstick 30 mg/dl (Negative); Urine Bilirubin Dipstick Negative (Negative); Urine Clarity Cloudy (Clear); Urine Urobilinogen Normal (Normal)
== END ==
LOC: OLS.WHLCAR 14:19
PROVIDERS: PCP Internal Medicine Geriatric Medicine; Referring Provider Internal Medicine; Visit Provider Internal Medicine
DX: R30.0 Dysuria (principal)
CPT/HCPCS: 81002; 87077; 87086; 87088; 87186

== ENCOUNTER → 2024-01-13 | Outpatient (REF) | payer MEDICARE, MEDICAID, SELFPAY ==
[2024-01-13 15:51] LABS: Color, Urine Yellow (Yellow); Glucose, Dipstick 50 mg/dl (Normal); Ketone-Dipstick Negative (Negative); Leukocyte Esterase-Dipstick 500 /ul (Negative); Nitrite-Dipstick Negative (Negative); Occult Blood-Urine 25 /ul (Negative); Protein-Dipstick 15 mg/dl (Negative); Specific Gravity, Urine 1.015 (1.002-1.030); Urine Bilirubin Dipstick Negative (Negative); Urine Clarity Cloudy (Clear); Urine Urobilinogen Normal (Normal)
== END ==
LOC: OLS.WHLCAR 13:30
PROVIDERS: PCP Internal Medicine Geriatric Medicine; Visit Provider Internal Medicine
DX: N39.0 Urinary tract infection, site not specified (principal); E11.22 Type 2 diabetes mellitus with diabetic chronic kidney disease; N18.9 Chronic kidney disease, unspecified
CPT/HCPCS: 81002; 87077; 87086; 87088; 87186

== ENCOUNTER → 2024-01-30 05:00 | Outpatient (REF) | payer MEDICARE, MEDICAID, SELFPAY ==
[2024-01-30 08:12] LABS: Absolute Lymphocyte Count 1.91 X10^3/uL (0.83-4.51); Basophil# 0.05 X10^3/uL; Basophil% 0.5 % (0-1); Eosinophil# 0.34 X10^3/uL; Eosinophils% 3.6 % (0-5); Hematocrit 37.5 % (37-47); Lymphocyte # 1.91 X10^3/ul (0.83-4.51); Lymphocyte % 20.1 % (19-41); Mean Corpuscular Hgb 28.3 pg (27.0-32.0); Mean Corpuscular Volume 88.4 fL (81-99); Monocyte# 1.09 X10^3/uL; Monocyte% 11.5 % (0-10); NRBC Flagged by Analyzer 0 % (0-5); Neutrophil # 6.02 X10^3/uL (2.7-7.7); Neutrophil % 63.5 % (47-70); Platelet Count 231 K/mm3 (150-450); RBC Distribution Width CV 14.6 % (11.6-14.6); RBC Distribution Width SD 46.8 fl (35.1-43.9); Red Blood Count 4.24 M/mm3 (4.2-5.4); White Blood Count 9.5 K/mm3 (4.4-11.0)
[2024-01-30 10:17] LABS: Anion Gap 13 (5-15); BUN 64 mg/dL (7-18); BUN/Creat Ratio 32.8 RATIO (10-20); Calcium,Total 9.2 mg/dL (8.5-10.1); Chloride 106 mmol/L (98-107); Creatinine, Serum 1.95 mg/dL (0.55-1.02); EST Glomerular Filtration Rate 26 mL/min (>60); Est Glom Filt Rate - Afr Amer 31 mL/min (>60); Glucose 130 mg/dL (74-106); Potassium 4.3 mmol/L (3.5-5.1); Sodium Level 139 mmol/L (136-145)
== END ==
LOC: OLS.WHLCAR 05:00
PROVIDERS: PCP Internal Medicine Geriatric Medicine; Visit Provider Internal Medicine
DX: D64.9 Anemia, unspecified (principal)
CPT/HCPCS: 36415; 80048; 85025

== ENCOUNTER → 2024-02-06 05:00 | Outpatient (REF) | payer MEDICARE, MEDICAID, SELFPAY ==
[2024-02-06 09:18] LABS: Anion Gap 11 (5-15); BUN 69 mg/dL (7-18); BUN/Creat Ratio 41.3 RATIO (10-20); Calcium,Total 9.1 mg/dL (8.5-10.1); Chloride 109 mmol/L (98-107); Creatinine, Serum 1.67 mg/dL (0.55-1.02); EST Glomerular Filtration Rate 31 mL/min (>60); Est Glom Filt Rate - Afr Amer 38 mL/min (>60); Glucose 105 mg/dL (74-106); Potassium 4.2 mmol/L (3.5-5.1); Sodium Level 140 mmol/L (136-145)
== END ==
LOC: OLS.WHLCAR 05:00
PROVIDERS: PCP Internal Medicine Geriatric Medicine; Visit Provider Internal Medicine
DX: E11.22 Type 2 diabetes mellitus with diabetic chronic kidney disease (principal); N18.4 Chronic kidney disease, stage 4 (severe)
CPT/HCPCS: 36415; 80048

== ENCOUNTER → 2024-02-21 | Outpatient (REF) | payer MEDICARE, MEDICAID, SELFPAY ==
[2024-02-21 06:37] LABS: Absolute Lymphocyte Count 2.08 X10^3/uL (0.83-4.51); Absolute Neutrophil Count 6.7 X10^3/uL (2.0-7.7); Basophil# 0.06 X10^3/uL; Basophil% 0.6 % (0-1); Eosinophil# 0.52 X10^3/uL; Eosinophils% 5.1 % (0-5); Hematocrit 36.5 % (37-47); Hemoglobin 11.9 g/dL (12.0-15.0); Lymphocyte # 2.08 X10^3/ul (0.83-4.51); Lymphocyte % 20.4 % (19-41); Mean Corp Hgb Conc 32.6 g/dL (32-36); Mean Corpuscular Hgb 28.1 pg (27.0-32.0); Mean Corpuscular Volume 86.1 fL (81-99); Mean Platelet Vol. 10.3 fl (6.2-12.0); Monocyte# 0.84 X10^3/uL; Monocyte% 8.2 % (0-10); NRBC Flagged by Analyzer 0 % (0-5); Neutrophil # 6.65 X10^3/uL (2.7-7.7); Neutrophil % 65.3 % (47-70); Platelet Count 222 K/mm3 (150-450); RBC Distribution Width CV 14.8 % (11.6-14.6); RBC Distribution Width SD 46.5 fl (35.1-43.9); Red Blood Count 4.24 M/mm3 (4.2-5.4); White Blood Count 10.2 K/mm3 (4.4-11.0)
[2024-02-21 06:50] LABS: ALB/GLOB Ratio 0.8 RATIO (0.9-2.4); AST(SGOT) 10 U/L (15-37); Alanine Aminotransfer ALT/SGPT 13 U/L (13-56); Alkaline Phosphatase 75 U/L (45-117); Anion Gap 9 (5-15); BUN 98 mg/dL (7-18); Calcium,Total 9.1 mg/dL (8.5-10.1); Chloride 108 mmol/L (98-107); Creatinine, Serum 2.39 mg/dL (0.55-1.02); EST Glomerular Filtration Rate 21 mL/min (>60); Est Glom Filt Rate - Afr Amer 25 mL/min (>60); Globulin 3.7 g/dL (2.2-4.2); Glucose 92 mg/dL (74-106); Potassium 4.3 mmol/L (3.5-5.1); Protein, Total 6.7 g/dL (6.4-8.2); Sodium Level 135 mmol/L (136-145)
== END ==
LOC: OLS.WHLCAR 05:00
PROVIDERS: PCP Internal Medicine Geriatric Medicine; Visit Provider Internal Medicine
DX: R53.83 Other fatigue (principal); E11.22 Type 2 diabetes mellitus with diabetic chronic kidney disease; N18.9 Chronic kidney disease, unspecified; M81.0 Age-related osteoporosis without current pathological fracture
CPT/HCPCS: 36415; 80053; 85025

== ENCOUNTER 2024-02-22 10:35 | Inpatient (IN) | payer MEDICARE, MEDICAID, SELFPAY ==
[2024-02-22] VITALS (24 sets, daily range): BP systolic 79–136; BP diastolic 39–90; PULSE 60–80; RESP 16–29; TEMP 36.1–36.7; O2SAT 93–98; BMI 35.3; BMI 34.9
--- NOTE | 2024-02-22 10:56 | EDS_ITS ---
HPI History of Present Illness Chief Complaint: Hypotension [facility] Medical History Diabetes Hyperlipidemia Atrial fibrillation Irregular heart beat Dementia Home Medications ?Medication ?Instructions ?Recorded ?Last Taken ?Type donepezil 10 mg tablet 10 mg PO QHS memory 02/25/18 08/07/18 History levothyroxine 150 mcg tablet 150 mcg PO DAILY 02/25/18 08/08/18 History hydrocortisone 5 mg tablet 5 mg PO TID 08/08/18 08/08/18 History atorvastatin 20 mg tablet 20 mg PO DAILY 11/20/20 Unknown History clonidine HCl 0.1 mg tablet 0.5 mg PO DAILY 11/20/20 Unknown History lisinopril 5 mg tablet 5 mg PO DAILY 11/20/20 Unknown History acetaminophen 500 mg tablet 1,000 mg PO BID PRN fever or pain 02/22/24 Unknown History acetylcysteine 600 mg capsule 600 mg PO BID 02/22/24 Unknown History albuterol sulfate 2.5 mg/3 mL 2.5 mg inhalation Q4H PRN 02/22/24 Unknown History (0.083 %) solution for nebulization shortness of breath or wheezing dextrose 40 % oral gel (Glucose 10 g PO Q15M PRN hypoglycemia 02/22/24 Unknown History Gel) dupilumab 300 mg/2 mL subcutaneous 300 mg subcut WE 02/22/24 Unknown History pen injector (Dupixent) empagliflozin 25 mg tablet 25 mg PO DAILY 02/22/24 Unknown History (Jardiance) furosemide 20 mg tablet 20 mg PO DAILY 02/22/24 Unknown History guaifenesin 100 mg/5 mL oral 200 mg PO Q4H PRN congestion 02/22/24 Unknown History liquid (Adult Tussin Chest Congestion) hydroxyzine HCl 25 mg tablet 25 mg PO DAILY 02/22/24 Unknown History insulin aspart U-100 100 unit/mL 1 sliding scale dose subcut TID 02/22/24 Unknown History (3 mL) subcutaneous pen (Novolog FlexPen U-100 Insulin aspart) insulin glargine 100 unit/mL (3 40 unit SQ 0800 dm 02/22/24 Unknown History mL) subcutaneous pen (Basaglar KwikPen U-100 Insulin) insulin glargine 100 unit/mL 32 unit subcut QHS 02/22/24 Unknown History subcutaneous solution polyethylene glycol 3350 17 17 g PO DAILY 02/22/24 Unknown History gram/dose oral powder ruxolitinib 1.5 % topical cream 1 applic topical QHS 02/22/24 Unknown History (Opzelura) sertraline 100 mg tablet 100 mg PO DAILY 02/22/24 Unknown History sertraline 50 mg tablet 150 mg PO DAILY 02/22/24 Unknown History Allergy/AdvReac Type Severity Reaction Status Date / Time Iodinated Contrast Media AdvReac Other Verified 02/22/24 10:40 (Iodinated Contrast Media - IV Dye) Family History Other Cancer Surgical History H/O: hysterectomy History of tonsillectomy Social History (Updated 02/22/24 @ 20:[address] Isabela Hernandez DO) housing: [facility] Smoking Status: Former smoker alcohol intake: never substance use type: does not use EXAM Physical Exam Const Vital Signs: 02/22/24 10:37 02/22/24 10:39 02/22/24 11:59 Temperature 97.8 F Temperature Source Oral Pulse Rate 61 60 Respiratory Rate 16 20 H Respiratory Effort Normal Respiratory Pattern Normal Blood Pressure 107/90 H 79/79 L Blood Pressure Mean 95 79 Pulse Ox 93 94 Oxygen Delivery Method Room Air Room Air 02/22/24 13:00 02/22/24 13:35 02/22/24 14:48 Temperature 97.9 F Temperature Source Pulse Rate 63 68 Respiratory Rate 23 H 21 H Respiratory Effort Respiratory Pattern Blood Pressure 88/42 L 100/43 L 79/48 L Blood Pressure Mean 57 62 58 Pulse Ox 93 93 Oxygen Delivery Method Room Air 02/22/24 14:49 02/22/24 15:00 Temperature 97.9 F Temperature Source Oral Pulse Rate 68 70 Respiratory Rate 21 H 29 H Respiratory Effort Respiratory Pattern Blood Pressure 79/48 L 85/40 L Blood Pressure Mean 58 55 Pulse Ox 93 93 Oxygen Delivery Method Room Air Room Air MDM MDM MDM Narrative Medical decision making narrative: HISTORY OF PRESENT ILLNESS: 84-year-old female presents concern for being dehydrated. I received report from nurse practitioner Capri Burks who reported the patient has decreased p.o. intake and they were concerned about dehydration. She reported the patient's BUN/creatinine was 103/2.32. She does note several episodes of nonbloody nonbilious vomitus 2 days ago. REVIEW OF SYSTEMS: Pertinent positives: Decreased p.o. intake, vomiting Pertinent negatives: Headache, chest pain, palpitations, abdominal pain, diarr hea, bleeding diathesis PHYSICAL EXAM: Nursing triage notes reviewed, Vital signs reviewed Constitutional: please see mdm HENT: MMM Eyes: Pupils equal round and reactive to light, Extraocular muscles intact Neck: No stridor, no JVD, full neck ROM Lungs: Clear to auscultation, No wheezing or rales. No increased work of breathing, no conversational dyspnea, no accessory muscle use, no nasal flaring. No respiratory distress noted Heart: Regular rate and rhythm, No murmurs, No rubs and No gallops, 2+ distal pulses (radial, femoral, posterior tibial) in all extremities Abdomen: Soft, there is no tenderness, rigidity, rebound or guarding, no obvious peritoneal signs, no palpable pulsatile abdominal masses, no auscultated abdominal bruit : No CVAT Back: No obvious ulcerations or necrotic lesions noted to the back or sacral area. Extremities: No edema Neuro: No focal neurological deficits, cranial nerves II through XII intact, 5/5 strength in all extremities. Intact sensation to light touch in all extremities, 2+ reflexes bilateral patella tendons. Normal gait. No ataxia. Skin: No rash or lesions noted MEDICAL DECISION MAKING: Chief Complaint: Dehydration External records reviewed: Reviewed patient's labs: Baseline creatinine approximately 1.7-1.9, baseline BUN approximately 50-60 Factors affecting care: CKD, type 2 diabetes, adrenal insufficiency, epilepsy, Social determinants of health: [place] patient History obtained from others: The patient's nurse practitioner Consults: internal medicine [facility] Narrative: The patient was hemodynamically stable, afebrile, nontoxic-appearing. I considered the following differential diagnosis: Distributive shock, dehydration, JEB, UTI, cardiogenic shock, obstructive shock, hemorrhagic shock, neurogenic shock. The patient's history and clinical exam was not consistent with the following: Neurogenic shock. Patient did not report any trauma or back pain. There is no chest pain palpitations or signs of CHF to suggest cardiogenic shock. Patient had a low risk factor profile for PE. Patient had a normal voltage on EKG making obstructive shock less likely. I obtained a broad lab and imaging workup to further elucidate the etiology of the patient's complaints I initially assessed the patient 1 L normal saline, patient is given stress dose of steroids given history of adrenal insufficiency I kevin a lactate, blood cultures, urine cultures per sepsis protocol ALL IMAGES (IF OBTAINED) HAVE BEEN PERSONALLY REVIEWED AND INTERPRETED BY MYSELF. EKG with sinus bradycardia, left axis deviation, normal intervals, no STEMI CBC without leukocytosis, severe anemia, no thrombocytopenia. Lactate is wnl indicating no end-organ hypoperfusion and/or hypoxia. High-sensitivity troponin is negative, no evidence of myocardial ischemia EKG with sinus bradycardia, left ax deviation, normal intervals, no STEMI I have personally reviewed the patient's chest x-ray. Chest x-ray is unremarkable for pulmonary edema, pneumothorax, pneumonia or focal cardiopulmonary abnormality. Urinalysis consistent with UTI gave ceftriaxone. After discussion with hospitalist added meropenem for broader coverage given history of ESBL in the past The patient was resuscitated with 30 cc/kg bolus given hypotension with improvement in blood pressure translate in the ED. At this time I do not think the patient needed pressors or a central line placed given her blood pressure improved in the ED. Discussed with the hospitalist who agreed admit the patient to the ICU given signs of UTI hypotension concerning for urosepsis. The patient and/or family, caregivers express understanding. The patient and/or family, caregivers agrees with the plan. Shared decision making: I will have a discussion with the patient and or visitors regarding risk/benefits of further testing or admission. They will be made aware of of the risk/benefits inherent in this decision they will be given the opportunity to voice understanding. Total critical care time today provided was at least 60 minutes. This excludes separately billable procedures. Critical care time (if documented) is secondary to the patient having high probability of clinically significant/life threatening deterioration in the patient's condition which required my urgent intervention. Impression: 1. Hypotension 2. Acute kidney injury on CKD 3. UTI 4. History of adrenal insufficiency Dispo: Admit to ICU This note was generated with evly dictation software. It may contain incorrect words, spelling, and punctuation that were not noted in review of the chart prior to signing. Lab Data Labs: Laboratory Results - last 24 hr 02/22/24 02/22/24 11:17 12:24 WBC 9.6 RBC 4.27 Hgb 12.0 Hct 36.8 L MCV 86.2 MCH 28.1 MCHC 32.6 RDW Std Deviation 45.9 H RDW Coeff of Neisha 14.6 Plt Count 225 MPV 10.2 Sodium 139 Potassium 4.6 Chloride 111 H Carbon Dioxide 18.0 L Anion Gap 10 BUN 101 H* Creatinine 2.34 H Estim Creat Clear Calc 19.11 Est GFR (MDRD) Af Amer 26 L Est GFR (MDRD) Non-Af 21 L BUN/Creatinine Ratio 43.2 H Glucose 93 Lactic Acid 0.9 Calcium 9.3 Total Bilirubin 0.20 Direct Bilirubin 0.08 AST 9 L ALT 16 Alkaline Phosphatase 78 Total Creatine Kinase 22 L Troponin I High Sens 19 Total Protein 6.9 Albumin 2.9 L Globulin 4.0 Urine Color Yellow Urine Clarity Cloudy Urine pH 6.0 Ur Specific [place] 1.020 Urine Protein 30 H Urine Glucose (UA) Normal Urine Ketones Negative Urine Occult Blood 25 H Urine Nitrite Positive H Urine Bilirubin Negative Urine Urobilinogen Normal Ur Leukocyte Esterase 500 H Urine RBC 0-5 SEEN Urine WBC >100 SEEN Ur Squamous Epith Cells 0-5 SEEN Urine Bacteria 2+ Urine Mucus 0 SEEN Urine Yeast 2+ Radiography Diagnostic Testing: Clinical Impression(s) from Imaging Studies Chest X-Ray 02/22/24 11:24 IMPRESSION: No acute abnormality is seen. Electronically Signed: Maxime Arreguin MD at 12:13 EDT , Discharge Plan Disposition Disposition: Acute Care Hospital [facility] Discharge Date/Time: 02/22/24 15:09
--- NOTE | 2024-02-22 11:24 | RAD_ITS ---
STUDY: X-RAY CHEST REASON FOR EXAM: Female, 84 years old. Dehydration TECHNIQUE: Single AP portable view of the chest. COMPARISON: Comparison is made with prior study November 20, 2020. FINDINGS: EKG electrodes are seen. The lungs are clear and expanded. There is no demonstrated pleural abnormality. Normal size heart. Normal mediastinum and violet. Normal visualized pulmonary arteries. There is atherosclerotic calcification of the aortic arch with tortuosity. There are diffuse degenerative changes of the visualized thoracic spine. There is degenerative osteoarthritis of the bilateral shoulders. There is no demonstrated abnormality of the visualized soft tissue structures of the upper abdomen. RAD/Chest 1 View (Portable) IMPRESSION: No acute abnormality is seen. Electronically Signed: Maxime Arreguin MD at 12:13 EDT ,
--- NOTE | 2024-02-22 11:24 | EKG12_ITS ---
Test Reason : HYPOTENSION Blood Pressure : / mmHG Vent. Rate : 057 BPM Atrial Rate : 057 BPM P-R Int : 190 ms QRS Dur : 106 ms QT Int : 470 ms P-R-T Axes : 060 -23 043 degrees QTc Int : 457 ms Sinus bradycardia Minimal voltage criteria for LVH, may be normal variant ( R in aVL ) Cannot rule out Anterior infarct , age undetermined Abnormal ECG Confirmed by Luis Robin ([id number]), editor greeting card ABEL ROBLES ([id number]) on 02/26/2024 1:18:51 PM Referred By: Confirmed By:Luis Robin
[2024-02-22] MEDS: 0.9% Normal Saline (1000mL) 1,000 ML 1000 ML IV (11:31)
[2024-02-22] MEDS: Ondansetron 4 MG/2 ML Vial IV (11:32)
[2024-02-22 11:40] LABS: Hematocrit 36.8 % (37-47); Mean Corp Hgb Conc 32.6 g/dL (32-36); Mean Corpuscular Hgb 28.1 pg (27.0-32.0); Mean Corpuscular Volume 86.2 fL (81-99); Mean Platelet Vol. 10.2 fl (6.2-12.0); Platelet Count 225 K/mm3 (150-450); RBC Distribution Width CV 14.6 % (11.6-14.6); RBC Distribution Width SD 45.9 fl (35.1-43.9); Red Blood Count 4.27 M/mm3 (4.2-5.4); White Blood Count 9.6 K/mm3 (4.4-11.0)
[2024-02-22 11:57] LABS: Lactic Acid 0.9 mmol/L (0.4-1.9)
[2024-02-22] MEDS: Hydrocortisone Sod Succinate 100 MG/2 ML Vial IV ×2 (12:05→20:01)
[2024-02-22] MEDS: 0.9% Normal Saline (1000mL) 1,000 ML 999 ML IV ×2 (12:05→12:59)
--- NOTE | 2024-02-22 12:05 | ED.RN ---
lab called critical of bun 101. dr sánchez
[2024-02-22 12:06] LABS: AST(SGOT) 9 U/L (15-37); Alanine Aminotransfer ALT/SGPT 16 U/L (13-56); Albumin, Serum 2.9 g/dL (3.2-5.0); Alkaline Phosphatase 78 U/L (45-117); Anion Gap 10 (5-15); BUN 101 mg/dL (7-18); BUN/Creat Ratio 43.2 RATIO (10-20); Bilirubin, Direct 0.08 mg/dL (0.00-0.30); Calcium,Total 9.3 mg/dL (8.5-10.1); Chloride 111 mmol/L (98-107); Creatinine, Serum 2.34 mg/dL (0.55-1.02); EST Glomerular Filtration Rate 21 mL/min (>60); Est Glom Filt Rate - Afr Amer 26 mL/min (>60); Estimated Creatinine Clearance 19.11 ml/min; Glucose 93 mg/dL (74-106); Potassium 4.6 mmol/L (3.5-5.1); Protein, Total 6.9 g/dL (6.4-8.2); Sodium Level 139 mmol/L (136-145); Troponin-I HS 19 pg/mL (3.0-54.0)
[2024-02-22 12:29] LABS: Mucous, Urine 0 SEEN /hpf (<or=2+)
[2024-02-22 12:33] LABS: Color, Urine Yellow (Yellow); Glucose, Dipstick Normal (Normal); Ketone-Dipstick Negative (Negative); Leukocyte Esterase-Dipstick 500 /ul (Negative); Nitrite-Dipstick Positive (Negative); Occult Blood-Urine 25 /ul (Negative); Protein-Dipstick 30 mg/dl (Negative); Urine Bilirubin Dipstick Negative (Negative); Urine Clarity Cloudy (Clear); Urine Urobilinogen Normal (Normal)
[2024-02-22 12:54] LABS: Bacteria 2+ /hpf (None Seen); Squamous Epithelial Cells - UA 0-5 SEEN /hpf (5-10); White Blood Cells >100 SEEN /hpf (0-5); Yeast-Urine 2+ /hpf (None Seen)
[2024-02-22 12:55] LABS: Red Blood Cells-Urine 0-5 SEEN /hpf (0-5)
--- NOTE | 2024-02-22 13:52 | ED.RN ---
DR ORDERED ANTIBIOTIC FOR PT AT 1332, MEDICATION HAS NOT COME UP YET AT THIS TIME.
--- NOTE | 2024-02-22 14:05 | ED.RN ---
THIS RN CALLED PHARMACY ([facility]) ABOUT UPDATE ON ANTIBIOTIC ROCEPHIN, STATED THEY WOULD GET IT TO US SOON THEY CAN. ORDERED AT 4119.
[2024-02-22] MEDS: Ceftriaxone 1 GM/50 ML BAG IV (14:23)
--- NOTE | 2024-02-22 14:54 | NURSING ---
ICU ROSELINE HYPOTENSION
[2024-02-22] MEDS: Meropenem 1 GM in 0.9% Normal Saline (100mL MB+) 100 ML IV (15:09)
--- NOTE | 2024-02-22 15:14 | PCM.HP.STD ---
HPI - General General Date of Admission: 02/22/24 Date of Service: 02/22/24 Chief Complaint: Hypotension HPI Narrative SVETLANA ELLIS, is a 84 F who presented to the emergency department at [facility] on 02/22/2024 from local nursing facility due to concerns of being dehydrated. She was sent in by the nurse practitioner Vincent Vu who reported the patient has had decreased p.o. intake over the last couple days and they were concerned about dehydration. She was also noted to be hypotensive today and more confused than typical. Outpatient labs showed a BUN of 103 and a serum creatinine of 2.32 so they sent her for the emergency department for further evaluation. There were reports of several episodes of nonbilious vomitus 2 days ago but none since. Patient's ability to give a history is limited at this time as she seems agitated and her family reports that she is not at her baseline with regards to her mental status although she is alert oriented to self place and year but not month. They do indicate she has some mild cognitive impairment but no significant dementia and this is not typical for her behavior. Vital signs on presentation showed a temperature of 97.8, heart rate 61, respiratory rate was 16, blood pressure was 88/42, respiratory rate was 20-29 and pulse ox was 93 to 94% on room air. CBC showed a normal white count but differential was not obtained. Her chemistry panel was notable for elevated chloride at 111, serum bicarb of 18, BUN of 101, serum creatinine of 2.34 (baseline 1.3-1.75), her UA showed elevated specific gravity of urine at 1.02 with protein and 38, occult blood, nitrate positive and leukoesterase elevation with greater than 100 white cells per high-powered field and 2+ bacteria. Chest x-ray was negative for any acute findings. She was bolused with IV fluid in the emergency department at 30 cc/kg body weight and started on antibiotics. She was initially given ceftriaxone however after discussion and review of previous cultures she was placed on meropenem for history of ESBL producing organism. Boluses were given the emergency department unfortunately her pressure remained soft and intermittently hypotensive and she required initiation of Levophed. [facility] Medical History Diabetes Hyperlipidemia Atrial fibrillation Irregular heart beat Dementia Home Medications ?Medication ?Instructions ?Recorded ?Last Taken ?Type donepezil 10 mg tablet 10 mg PO QHS memory 02/25/18 08/07/18 History levothyroxine 150 mcg tablet 150 mcg PO DAILY 02/25/18 08/08/18 History hydrocortisone 5 mg tablet 5 mg PO TID 08/08/18 08/08/18 History atorvastatin 20 mg tablet 20 mg PO DAILY 11/20/20 Unknown History clonidine HCl 0.1 mg tablet 0.5 mg PO DAILY 11/20/20 Unknown History lisinopril 5 mg tablet 5 mg PO DAILY 11/20/20 Unknown History acetaminophen 500 mg tablet 1,000 mg PO BID PRN fever or pain 02/22/24 Unknown History acetylcysteine 600 mg capsule 600 mg PO BID 02/22/24 Unknown History albuterol sulfate 2.5 mg/3 mL 2.5 mg inhalation Q4H PRN 02/22/24 Unknown History (0.083 %) solution for nebulization shortness of breath or wheezing dextrose 40 % oral gel (Glucose 10 g PO Q15M PRN hypoglycemia 02/22/24 Unknown History Gel) dupilumab 300 mg/2 mL subcutaneous 300 mg subcut WE 02/22/24 Unknown History pen injector (Dupixent) empagliflozin 25 mg tablet 25 mg PO DAILY 02/22/24 Unknown History (Jardiance) furosemide 20 mg tablet 20 mg PO DAILY 02/22/24 Unknown History guaifenesin 100 mg/5 mL oral 200 mg PO Q4H PRN congestion 02/22/24 Unknown History liquid (Adult Tussin Chest Congestion) hydroxyzine HCl 25 mg tablet 25 mg PO DAILY 02/22/24 Unknown History insulin aspart U-100 100 unit/mL 1 sliding scale dose subcut TID 02/22/24 Unknown History (3 mL) subcutaneous pen (Novolog FlexPen U-100 Insulin aspart) insulin glargine 100 unit/mL (3 40 unit SQ 0800 dm 02/22/24 Unknown History mL) subcutaneous pen (Basaglar KwikPen U-100 Insulin) insulin glargine 100 unit/mL 32 unit subcut QHS 02/22/24 Unknown History subcutaneous solution polyethylene glycol 3350 17 17 g PO DAILY 02/22/24 Unknown History gram/dose oral powder ruxolitinib 1.5 % topical cream 1 applic topical QHS 02/22/24 Unknown History (Opzelura) sertraline 100 mg tablet 100 mg PO DAILY 02/22/24 Unknown History sertraline 50 mg tablet 150 mg PO DAILY 02/22/24 Unknown History Allergy/AdvReac Type Severity Reaction Status Date / Time Iodinated Contrast Media AdvReac Other Verified 02/22/24 10:40 (Iodinated Contrast Media - IV Dye) Family History Other Cancer Surgical History H/O: hysterectomy History of tonsillectomy Social History (Updated 02/22/24 @ 20:[address] Isabela Hernandez DO) housing: detention Smoking Status: Former smoker alcohol intake: never substance use type: does not use ROS ROS Narrative Patient unable to give a reliable review of systems based on current mentation. She was oriented to self and place and year but was not very clear on recent events. She denied any significant symptoms at the time of my evaluation and Saying she wanted to go home. Vital Signs Vital Signs Vital Signs: 02/22/24 10:37 02/22/24 10:39 02/22/24 11:59 Temperature 97.8 F Temperature Source Oral Pulse Rate 61 60 Respiratory Rate 16 20 H Respiratory Effort Normal Respiratory Pattern Normal Blood Pressure 107/90 H 79/79 L Blood Pressure Mean 95 79 Pulse Ox 93 94 Oxygen Delivery Method Room Air Room Air 02/22/24 13:00 02/22/24 13:35 02/22/24 14:48 Temperature 97.9 F Temperature Source Pulse Rate 63 68 Respiratory Rate 23 H 21 H Respiratory Effort Respiratory Pattern Blood Pressure 88/42 L 100/43 L 79/48 L Blood Pressure Mean 57 62 58 Pulse Ox 93 93 Oxygen Delivery Method Room Air 02/22/24 14:49 02/22/24 15:00 Temperature 97.9 F Temperature Source Oral Pulse Rate 68 70 Respiratory Rate 21 H 29 H Respiratory Effort Respiratory Pattern Blood Pressure 79/48 L 79/78 L Blood Pressure Mean 58 78 Pulse Ox 93 93 Oxygen Delivery Method Room Air Room Air Weight Weight: 90.5 kg Body Mass Index (BMI) 35.3 Physical Exam Const alert; Negative for oriented x3 Constitutional Narrative: Obese, agitated, elderly, white female, lying in bed, family at bedside, patient appears ill, oriented to self place and year but not month but markedly confused on recent events and current situation, yelling out repetitively and stating she wanted to go home, was intermittently redirectable especially with family at bedside Orientation / Consciousness: confused HEENT normocephalic and head/scalp atraumatic HEENT Narrative: Mucous membranes appear dry, Mallampati 2-3, no thrush Eyes PERRL, EOMs intact bilaterally and conjunctivae normal Eyes Narrative: No scleral icterus Neck no lymphadenopathy and supple Neck Narrative: Trachea midline, no thyroid enlargement noted, neck veins are flat Resp normal respiratory effort, no retractions, no use of accessory muscles and clear to auscultation bilaterally Auscultation: Negative for rales, rhonchi or wheezes Cardio regular rate, regular rhythm, S1 normal heart sound, S2 normal heart sound, no murmurs, no rub, no gallops and no clicks GI normal to inspection, nondistended, normoactive bowel sounds, soft to palpation and non-tender GI Narrative: Small umbilical hernia Extremity no clubbing, cyanosis or edema Extremity Narrative: Cap refill is 2+, radial pulses are 2+ Neuro moves all extremities and no focal motor deficits Speech: speech normal Psych Psych Narrative: Agitated and confused but redirectable Results Lab / Micro Data 02/22/24 11:17 02/22/24 11:17 Labs: Laboratory Results - last 24 hr 02/22/24 11:17: WBC 9.6, RBC 4.27, Hgb 12.0, Hct 36.8 L, MCV 86.2, MCH 28.1, MCHC 32.6, RDW Std Deviation 45.9 H, RDW Coeff of Neisha 14.6, Plt Count 225, MPV 10.2, Sodium 139, Potassium 4.6, Chloride 111 H, Carbon Dioxide 18.0 L, Anion Gap 10, BUN 101 H*, Creatinine 2.34 H, Estim Creat Clear Calc 19.11, Est GFR (MDRD) Af Amer 26 L, Est GFR (MDRD) Non-Af 21 L, BUN/Creatinine Ratio 43.2 H, Glucose 93, Lactic Acid 0.9, Calcium 9.3, Total Bilirubin 0.20, Direct Bilirubin 0.08, AST 9 L, ALT 16, Alkaline Phosphatase 78, Troponin I High Sens 19, Total Protein 6.9, Albumin 2.9 L, Globulin 4.0 02/22/24 12:24: Urine Color Yellow, Urine Clarity Cloudy, Urine pH 6.0, Ur Specific [place] 1.020, Urine Protein 30 H, Urine Glucose (UA) Normal, Urine Ketones Negative, Urine Occult Blood 25 H, Urine Nitrite Positive H, Urine Bilirubin Negative, Urine Urobilinogen Normal, Ur Leukocyte Esterase 500 H, Urine RBC 0-5 SEEN, Urine WBC >100 SEEN, Ur Squamous Epith Cells 0-5 SEEN, Urine Bacteria 2+, Urine Mucus 0 SEEN, Urine Yeast 2+ Imaging Radiology Impression Chest X-Ray 02/22/24 11:24 IMPRESSION: No acute abnormality is seen. Electronically Signed: Maxime Arreguin MD at 12:13 EDT , Assessment & Plan Assessment/Plan (1) Hypotension: (2) Adrenal insufficiency: (3) Septic shock: (4) Abnormal urinalysis: (5) JEB (acute kidney injury): (6) Dehydration: (7) Tachypnea: PLAN: Plan Septic shock secondary to suspected urinary tract infection -Cultures obtained and pending -Patient volume resuscitated with 30 cc/kg body weight and patient remained hypotensive so Levophed was initiated -Place PICC line -Start meropenem and vancomycin -Most recent urine culture from 01/13/2024 showed ESBL producing E. coli, Proteus mirabilis, and Klebsiella pneumoniae -Patient is on hydrocortisone chronically for history of adrenal insufficiency so we will give stress dose steroids at 100 every 8 -Admit to ICU -[facility] consulted Acute hypotension -Treatment as noted above -Hold home clonidine and lisinopril -On hydrocortisone at baseline so will use there is dose steroids JEB on CKD stage IIIb -Baseline serum creatinine runs between 1.3 and 1.75 as of recently -Serum creatinine on admission was 2.34 -Patient did appear dry so we will continue IV fluids at 75 cc/h with LR in addition to volume resuscitation above -Will hold off on [place] for now as I believe this would agitate her more -Avoid nephrotoxins -Hold home lisinopril -Hold home Lasix -Repeat lab in a.m. -No current urgent or emergent needs for dialysis -Will hold on nephrology consult for now History of adrenal insufficiency -Hold home cortisone -Stress dose steroids as above Essential hypertension -Hold home clonidine -Hold home Lasix -Hold home lisinopril Constipation -Continue bowel regimen DM-2 -Will continue home basal insulin but at decreased doses due to renal dysfunction and anticipated decreased p.o. intake -May need to resume home doses depending on what happens with steroids -SSI as ordered -Accu-Cheks as ordered -Okay for cardiac/carb controlled diet as long as mental status permits -Will continue home Jardiance for now however this will increase risk for recurrent urinary tract infections then may need to be discontinued if this is chronically problematic as a increase glucosuria Toxic/metabolic encephalopathy on chronic mild cognitive impairment -Patient awake but confused more than baseline -Will add low-dose risperidone to help with sundowning -Acute issues are likely related to infection and markedly elevated BUN -Anticipate improvement with resolution of these issues Generalized weakness/debility -Consult PT/OT -Consult social work/case management for assistance with discharge planning History of atrial fibrillation -In sinus rhythm on admission -Patient is not chronically anticoagulated -Not on any rate controlling medications either -Monitor on telemetry Hypothyroidism -Continue home levothyroxine Depression -Continue home sertraline Obesity -BMI 35 -Complicates treatment, prognosis, outcomes DVT prophylaxis -Subcu heparin 3 times daily CODE STATUS -DNR CCA with no intubation per discussion with family. Okay for BiPAP pressors and central lines in the form of PICC Critical care time greater than 35 minutes excluding procedures Sepsis Attestation Sepsis Alert: Yes Sepsis Attestation: Agree w/Sepsis Date exam was performed: 02/22/24 Time exam was performed: 15:15 Possible Source of Sepsis: Genitourinary Sepsis Organ Dysfunction Criteria Present: SBP < 90 mmHg or MAP < 65 mmHg, Creatinine > 2.0 mg/dL and New/Unexplained change in mental status Fluid Resuscitation Fluid resuscitation indicated?: Yes Fluid Resuscitation ordered: 30 ml/kg fluid bolus ordered Amount of fluid ordered: 3,000 Sepsis Note Date exam was performed: 02/22/24 Time exam was performed: 15:34 Response to fluids: Non Fluid responsive hypotension and Vasopressors started Charges/Coding Procedures Hospitalists Procedures: 79355 Critical Care 1st Hr
[2024-02-22] MEDS: Lactated Ringers 1,000 ML 75 ML IV (16:33)
[2024-02-22 16:53] LABS: CPK Total, Creatine Kinase 22 U/L (26-192)
[2024-02-22 16:54] LABS: Bedside Glucose 94 mg/dL (74-106)
--- NOTE | 2024-02-22 17:11 | PCM.RX.CS ---
Consult Antibiotic Management Pharmacy has been consulted to manage selected antibiotic: Vancomycin Type of Intervention Type of Consult: New start Suspected Infection Suspected Infection: Sepsis Prior Doses of Antibiotics Prior Doses of Antibiotics Received/Current Regimen: Vancomycin 1250 mg IV x 1 ordered for the evening of 02/21 Labs Labs: Sodium 139 mmol/L (136-145) 02/22/24 11:17 Potassium 4.6 mmol/L (3.5-5.1) 02/22/24 11:17 Chloride 111 mmol/L (98-107) H 02/22/24 11:17 Carbon Dioxide 18.0 mmol/L (21.0-32.0) L 02/22/24 11:17 Anion Gap 10 (5-15) 02/22/24 11:17 BUN 101 mg/dL (7-18) H* 02/22/24 11:17 Creatinine 2.34 mg/dL (0.55-1.02) H 02/22/24 11:17 Est GFR (MDRD) Af Amer 26 mL/min (>60) L 02/22/24 11:17 Est GFR (MDRD) Non-Af 21 mL/min (>60) L 02/22/24 11:17 BUN/Creatinine Ratio 43.2 RATIO (10-20) H 02/22/24 11:17 Glucose 93 mg/dL (74-106) 02/22/24 11:17 Dosing Weight Weight used for dosin kg Estimated Creatinine Clearance Estimated Creatinine Clearance: ~19 Goal Trough Goal Trough: 15-20 mcg/mL Pharmacy Plan for Drug Dosing Pharmacy Plan for Drug Dosing: Vancomycin 1250 mg IV x 1, then random level on the morning of the to assess. Reassessment to be made in the AM pending renal function changes. Pharmacy Service will continue to monitor and adjust dosing as required. Follow-Up Labs Follow-Up Labs: Trough: Vancomycin Date/Time Labs Ordered Labs to be done on [date and time ordered]: 02/24/24 @ 0600
[2024-02-22] MEDS: Vancomycin HCl 1,250 MG in 0.9% Normal Saline (250mL Bag) 250 ML 167 MG IV (17:15)
[2024-02-22] MEDS: Norepinephrine 8 MG in 0.9% Normal Saline (250mL Bag) 242 ML 9.4 MG CONT INF (19:02)
[2024-02-22] MEDS: Insulin Glargine-YFGN 100 UNIT/ML Pen 22 UNIT SC (19:59)
[2024-02-22] MEDS: Heparin Injection (Vial) 5,000 UNIT/ML VIAL 5000 UNIT SC (19:59)
--- NOTE | 2024-02-22 19:59 | CON.PCM.CC_ITS ---
HPI Consult Data Date of Consult: 02/23/24 HPI Narrative HPI Narrative: SVETLANA ELLIS, is a 84 F who presents [facility] Medical History Diabetes Hyperlipidemia Atrial fibrillation Irregular heart beat Dementia Home Medications ?Medication ?Instructions ?Recorded ?Last Taken ?Type donepezil 10 mg tablet 10 mg PO QHS memory 02/25/18 08/07/18 History levothyroxine 150 mcg tablet 150 mcg PO DAILY 02/25/18 08/08/18 History hydrocortisone 5 mg tablet 5 mg PO TID 08/08/18 08/08/18 History atorvastatin 20 mg tablet 20 mg PO DAILY 11/20/20 Unknown History clonidine HCl 0.1 mg tablet 0.5 mg PO DAILY 11/20/20 Unknown History lisinopril 5 mg tablet 5 mg PO DAILY 11/20/20 Unknown History acetaminophen 500 mg tablet 1,000 mg PO BID PRN fever or pain 02/22/24 Unknown History acetylcysteine 600 mg capsule 600 mg PO BID 02/22/24 Unknown History albuterol sulfate 2.5 mg/3 mL 2.5 mg inhalation Q4H PRN 02/22/24 Unknown History (0.083 %) solution for nebulization shortness of breath or wheezing dextrose 40 % oral gel (Glucose 10 g PO Q15M PRN hypoglycemia 02/22/24 Unknown History Gel) dupilumab 300 mg/2 mL subcutaneous 300 mg subcut WE 02/22/24 Unknown History pen injector (Dupixent) empagliflozin 25 mg tablet 25 mg PO DAILY 02/22/24 Unknown History (Jardiance) furosemide 20 mg tablet 20 mg PO DAILY 02/22/24 Unknown History guaifenesin 100 mg/5 mL oral 200 mg PO Q4H PRN congestion 02/22/24 Unknown History liquid (Adult Tussin Chest Congestion) hydroxyzine HCl 25 mg tablet 25 mg PO DAILY 02/22/24 Unknown History insulin aspart U-100 100 unit/mL 1 sliding scale dose subcut TID 02/22/24 Unknown History (3 mL) subcutaneous pen (Novolog FlexPen U-100 Insulin aspart) insulin glargine 100 unit/mL (3 40 unit SQ 0800 dm 02/22/24 Unknown History mL) subcutaneous pen (Basaglar KwikPen U-100 Insulin) insulin glargine 100 unit/mL 32 unit subcut QHS 02/22/24 Unknown History subcutaneous solution polyethylene glycol 3350 17 17 g PO DAILY 02/22/24 Unknown History gram/dose oral powder ruxolitinib 1.5 % topical cream 1 applic topical QHS 02/22/24 Unknown History (Opzelura) sertraline 100 mg tablet 100 mg PO DAILY 02/22/24 Unknown History sertraline 50 mg tablet 150 mg PO DAILY 02/22/24 Unknown History Allergy/AdvReac Type Severity Reaction Status Date / Time Iodinated Contrast Media AdvReac Other Verified 02/22/24 10:40 (Iodinated Contrast Media - IV Dye) Family History Other Cancer Surgical History H/O: hysterectomy History of tonsillectomy Social History (Updated 02/22/24 @ 20:[address] Isabela Hernandez DO) housing: [facility] Smoking Status: Former smoker alcohol intake: never substance use type: does not use Objective Data Objective Data Vital Signs: Vital Signs Last response 3 Temperature 36.1 C L 02/22/24 16:00 Temperature Source Temporal 02/22/24 16:00 Pulse Rate 72 02/22/24 19:00 Respiratory Rate 22 H 02/22/24 19:00 Respiratory Effort Normal, Non-Labored 02/22/24 17:32 Respiratory Depth Normal 02/22/24 17:32 Respiratory Pattern Normal 02/22/24 17:32 Blood Pressure 110/65 02/22/24 19:30 Blood Pressure Mean 80 02/22/24 19:30 Blood Pressure Source Monitor 02/22/24 19:00 Blood Pressure Position Semi-Fowlers 02/22/24 19:00 Blood Pressure Location Right Arm 02/22/24 19:00 Pulse Ox 93 02/22/24 19:00 Oxygen Delivery Method Room Air 02/22/24 19:00 I&O: I&O Last 24 Hours 3 02/21/24 02/22/24 02/22/24 23:59 11:59 23:59 Intake Total 3669.39 / 3669.39 Output Total 900 / 900 Balance 2769.39 / 2769.39 I&O: Total Stay 3 02/22/24 10:35 thru 02/22/24 19:30 Intake Total 3669.39 Output Total 900 Balance 2769.39 Current Meds Ordered / Administered: Current meds ordered / Administered 3 Generic Name Dose Route Start Last Admin Trade Name Freq PRN Reason Stop Dose Admin Acetaminophen 650 mg 02/22/24 16:18 Acetaminophen 325 Mg Tablet PO Q6H PRN PRN Pain 1-10 Or Fever>100.7 Albuterol Sulfate 2.5 mg 02/22/24 16:18 Albuterol 2.5 Mg/3 Ml Vial.Neb. INHALATION Q4H PRN shortness of breath or wheezing Atorvastatin Calcium 20 mg 02/23/24 10:00 Atorvastatin Calcium 20 Mg Tablet PO DAILY DEANN Clarify Med Order 1 each 02/22/24 19:00 02/22/24 19:39 Clarify Order NOTE Not Given CLARIFY DEANN Empagliflozin 25 mg 02/23/24 10:00 Empagliflozin 25 Mg Tablet PO DAILY DEANN Glucagon 1 mg 02/22/24 16:18 Glucagon 1 Mg/Ml Syringe IM X1 PRN HYPOGLYCEMIA Protocol Guaifenesin 10 ml 02/22/24 16:18 Guaifenesin 10 Ml Udc (200mg/10ml) PO Q4H PRN congestion Heparin Sodium (Porcine) 5,000 unit 02/22/24 22:00 Heparin Injection (Vial) 5,000 Unit/Ml Vial SC Q8 DEANN Hydrocortisone Sodium Succinate 100 mg 02/22/24 22:00 Hydrocortisone Sod Succinate 100 Mg/2 Ml Vial IV Q8 DEANN Hydroxyzine Pamoate 25 mg 02/23/24 10:00 Hydroxyzine Yuki 25 Mg Capsule PO DAILY DEANN Sodium Chloride 250 mls @ 15 mls/hr 02/22/24 15:53 IV .[id number] PRN Additional IVPB Infusion Sodium Chloride 250 mls @ 15 mls/hr 02/22/24 15:53 IV .[id number] PRN Saline Flush Meropenem 500 mg/ Sodium 60 mls @ 100 mls/hr 02/22/24 22:00 Chloride IV Q12 DEANN Norepinephrine Bitartrate 8 mg 250 mls @ 9.375 mls/hr 02/22/24 16:18 02/22/24 19:30 / Sodium Chloride CONT INF 5 mcg/min .[id number] DEANN 9.4 mls/hr Titration Protocol 5 MCG/MIN Vancomycin IV-PHARMACY TO DOSE 500 mls @ 250 mls/hr 02/22/24 16:18 1 each/ Sodium Chloride IV PRN PRN Rx to Dose Protocol Dextrose 250 mls @ 0 mls/hr 02/22/24 16:18 Dextrose 10%-Water IV .Q0M PRN HYPOGLYCEMIA Protocol As Directed Lactated Ringer's 1,000 mls @ 75 mls/hr 02/22/24 16:18 02/22/24 16:33 IV 75 mls/hr .[id number] DEANN Administration Insulin Glargine 22 unit 02/22/24 22:00 Insulin Glargine-Yfgn 100 Unit/Ml Pen SC QHS [facility] Insulin Glargine 25 unit 02/23/24 08:00 Insulin Glargine-Yfgn 100 Unit/Ml Pen SC 0800 [facility] Insulin Human Lispro 0 unit 02/22/24 16:18 02/22/24 16:30 Insulin Lispro 100 Unit/Ml Insuln.Pen SC Not Given TIDAC [facility] Protocol Levothyroxine Sodium 150 mcg 02/23/24 06:00 Levothyroxine 150 Mcg Tablet PO DAILY@0600 [facility] Non-Formulary Medication 1 applic 02/22/24 22:00 Ruxolitinib [Opzelura] TOPICAL QHS [facility] Ondansetron HCl 4 mg 02/22/24 16:18 Ondansetron 4 Mg/2 Ml Vial IV Q8H PRN PRN NAUSEA/VOMITING Polyethylene Glycol 17 gm 02/23/24 10:00 Polyethylene Glycol 3350 17 Gm Packet PO DAILY [facility] Risperidone 0.25 mg 02/22/24 22:00 Risperidone 0.25 Mg Tablet PO QHS [facility] Protocol Senna/Docusate Sodium 2 tablet 02/22/24 16:18 Senna/Docusate Sodium 1 Tablet PO BID PRN PRN Constipation Sertraline HCl 150 mg 02/23/24 10:00 Sertraline 50 Mg Tablet PO DAILY [facility] Sodium Chloride 10 - 40 ml 02/22/24 15:53 0.9% Saline Lock 10 Ml Syringe IV UD PRN SALINE FLUSH Vancomycin Protocol 1 lab 02/24/24 04:00 Vancomycin Trough/Random Due MC 02/24/24 08:00 DAILY [facility] Lab / Micro Data 02/22/24 11:17 02/22/24 11:17 Labs: Laboratory Results - last 24 hr 02/22/24 11:17: WBC 9.6, RBC 4.27, Hgb 12.0, Hct 36.8 L, MCV 86.2, MCH 28.1, MCHC 32.6, RDW Std Deviation 45.9 H, RDW Coeff of Neisha 14.6, Plt Count 225, MPV 10.2, Sodium 139, Potassium 4.6, Chloride 111 H, Carbon Dioxide 18.0 L, Anion Gap 10, BUN 101 H*, Creatinine 2.34 H, Estim Creat Clear Calc 19.11, Est GFR (MDRD) Af Amer 26 L, Est GFR (MDRD) Non-Af 21 L, BUN/Creatinine Ratio 43.2 H, Glucose 93, Lactic Acid 0.9, Calcium 9.3, Total Bilirubin 0.20, Direct Bilirubin 0.08, AST 9 L, ALT 16, Alkaline Phosphatase 78, Total Creatine Kinase 22 L, Troponin I High Sens 19, Total Protein 6.9, Albumin 2.9 L, Globulin 4.0 02/22/24 12:24: Urine Color Yellow, Urine Clarity Cloudy, Urine pH 6.0, Ur Specific [place] 1.020, Urine Protein 30 H, Urine Glucose (UA) Normal, Urine Ketones Negative, Urine Occult Blood 25 H, Urine Nitrite Positive H, Urine Bilirubin Negative, Urine Urobilinogen Normal, Ur Leukocyte Esterase 500 H, Urine RBC 0-5 SEEN, Urine WBC >100 SEEN, Ur Squamous Epith Cells 0-5 SEEN, Urine Bacteria 2+, Urine Mucus 0 SEEN, Urine Yeast 2+ 02/22/24 16:29: POC Glucose 94 Imaging Radiology Impression Chest X-Ray 02/22/24 11:24 IMPRESSION: No acute abnormality is seen. Electronically Signed: Maxime Arreguin MD at 12:13 EDT , Assessment and Plan . Assessment and plan: HPI 84 yo woman admitted 02/22/24 w/ N/V and malaise. Lab evaluation revealed renal insufficiency w/ azotemia, LA WNL, pyuria and bacteruria. She has received IVF and IV ABX. She has required low dose NE for BP support. There is a h/o prior UTU w/ ESBL-producing GNR. She also apparently has a h/o AI EXAM GEN non-toxic VS as above HEENT MM dry NECK supple COR irreg CHEST CTA ABD soft EXT no edema SKIN w/d SUHA NF ASSESSMENT 1. Severe sepsis 2. Pyuria 3. h/o ESBL-producing GNR infections 4. Chronic AF 5. h/o AI 6. Renal insufficiency w/ azotemia TREATMENT PLAN -volume expansion -follow renal function -carbapenem -IV hydrocortisone -VTE ppx The entirety of this encounter was done via Telemedicine
[2024-02-22] MEDS: Meropenem 500 MG in 0.9% Normal Saline (50mL MB+) 50 ML 100 MG IV (20:00)
[2024-02-22] MEDS: 0.9% Saline Lock 10 ML Syringe IV (20:01)
[2024-02-22] MEDS: RisperiDONE 0.25 MG Tablet PO (22:41)
[2024-02-22] MEDS: TITRATION PARAMETER CHANGE 1 EACH IV (23:11)
[2024-02-23] VITALS (54 sets, daily range): BP systolic 87–146; BP diastolic 36–115; PULSE 61–87; RESP 14–28; TEMP 36.3–37.1; O2SAT 90–99; BMI 35.0
[2024-02-23] MEDS: Hydrocortisone Sod Succinate 100 MG/2 ML Vial IV ×3 (05:16→20:09)
[2024-02-23] MEDS: Levothyroxine 150 MCG Tablet PO (05:16)
[2024-02-23] MEDS: Heparin Injection (Vial) 5,000 UNIT/ML VIAL 5000 UNIT SC ×3 (05:16→20:09)
[2024-02-23] MEDS: Lactated Ringers 1,000 ML 75 ML IV ×2 (05:16→17:39)
[2024-02-23] MEDS: 0.9% Saline Lock 10 ML Syringe IV (05:17)
[2024-02-23 05:38] LABS: Absolute Lymphocyte Count 0.91 X10^3/uL (0.83-4.51); Absolute Neutrophil Count 11.2 X10^3/uL (2.0-7.7); Basophil# 0.04 X10^3/uL; Basophil% 0.3 % (0-1); Eosinophil# 0.05 X10^3/uL; Eosinophils% 0.4 % (0-5); Hematocrit 36.7 % (37-47); Lymphocyte # 0.91 X10^3/ul (0.83-4.51); Mean Corp Hgb Conc 32.7 g/dL (32-36); Mean Corpuscular Hgb 28.2 pg (27.0-32.0); Mean Corpuscular Volume 86.2 fL (81-99); Mean Platelet Vol. 9.7 fl (6.2-12.0); Monocyte# 0.75 X10^3/uL; Monocyte% 5.7 % (0-10); NRBC Flagged by Analyzer 0 % (0-5); Neutrophil # 11.24 X10^3/uL (2.7-7.7); Neutrophil % 86.1 % (47-70); Platelet Count 232 K/mm3 (150-450); RBC Distribution Width CV 14.6 % (11.6-14.6); RBC Distribution Width SD 46.4 fl (35.1-43.9); Red Blood Count 4.26 M/mm3 (4.2-5.4); White Blood Count 13.1 K/mm3 (4.4-11.0)
[2024-02-23 05:55] LABS: ALB/GLOB Ratio 0.8 RATIO (0.9-2.4); AST(SGOT) 15 U/L (15-37); Alanine Aminotransfer ALT/SGPT 14 U/L (13-56); Albumin, Serum 2.8 g/dL (3.2-5.0); Alkaline Phosphatase 70 U/L (45-117); Anion Gap 7 (5-15); BUN 73 mg/dL (7-18); BUN/Creat Ratio 40.6 RATIO (10-20); Calcium,Total 8.5 mg/dL (8.5-10.1); Chloride 116 mmol/L (98-107); EST Glomerular Filtration Rate 29 mL/min (>60); Est Glom Filt Rate - Afr Amer 35 mL/min (>60); Estimated Creatinine Clearance 24.22 ml/min; Globulin 3.6 g/dL (2.2-4.2); Glucose 205 mg/dL (74-106); Magnesium 1.8 mg/dL (1.6-2.6); Phosphorus 3.9 mg/dL (2.5-4.9); Potassium 3.9 mmol/L (3.5-5.1); Protein, Total 6.4 g/dL (6.4-8.2); Sodium Level 142 mmol/L (136-145)
[2024-02-23] MEDS: Meropenem 500 MG in 0.9% Normal Saline (50mL MB+) 50 ML 100 MG IV ×2 (08:37→20:31)
[2024-02-23] MEDS: Sertraline 50 MG Tablet 150 MG PO (08:38)
[2024-02-23] MEDS: Insulin Glargine-YFGN 100 UNIT/ML Pen 25 UNIT SC (08:38)
[2024-02-23] MEDS: Empagliflozin 25 MG Tablet PO (08:39)
[2024-02-23] MEDS: hydrOXYzine PAM 25 MG Capsule PO (08:39)
[2024-02-23] MEDS: Atorvastatin Calcium 20 MG Tablet PO (08:39)
--- NOTE | 2024-02-23 08:39 | PCM.PN.HOSP ---
Reason for Visit Reason for Visit: Diagnoses Sepsis, unspecified organism (02/22/24) Unspecified adrenocortical insufficiency (02/22/24) Dehydration (02/22/24) Hypotension, unspecified (02/22/24) Acute kidney failure, unspecified (02/22/24) Tachypnea, not elsewhere classified (02/22/24) Severe sepsis with septic shock (02/22/24) Unspecified abnormal findings in urine (02/22/24) Objective Data Objective Data Vital Signs: Vital Signs Temp Pulse Resp BP Pulse Ox O2 Del Method 98.0 F 65 14 128/53 H 93 Room Air 02/23/24 00:00 02/23/24 07:00 02/23/24 07:00 02/23/24 07:00 02/23/24 07:00 02/23/24 07:00 Oxygen Delivery Method Room Air Weight: 197 lb 12.8 oz Body Mass Index (BMI) 35.0 Intake & Output: Intake and Output for Last 24 Hours 02/21/24 02/22/24 02/23/24 23:59 23:59 23:59 Intake Total 3885.14 / 4006.09 1170.30 / 1170.30 Output Total 1325 / 1325 600 / 600 Balance 2560.14 / 2681.09 570.30 / 570.30 Lab / Micro Data 02/23/24 05:25 02/23/24 05:25 Labs: Laboratory Results - last 24 hr 02/22/24 11:17: WBC 9.6, RBC 4.27, Hgb 12.0, Hct 36.8 L, MCV 86.2, MCH 28.1, MCHC 32.6, RDW Std Deviation 45.9 H, RDW Coeff of Neisha 14.6, Plt Count 225, MPV 10.2, Sodium 139, Potassium 4.6, Chloride 111 H, Carbon Dioxide 18.0 L, Anion Gap 10, BUN 101 H*, Creatinine 2.34 H, Estim Creat Clear Calc 19.11, Est GFR (MDRD) Af Amer 26 L, Est GFR (MDRD) Non-Af 21 L, BUN/Creatinine Ratio 43.2 H, Glucose 93, Lactic Acid 0.9, Calcium 9.3, Total Bilirubin 0.20, Direct Bilirubin 0.08, AST 9 L, ALT 16, Alkaline Phosphatase 78, Total Creatine Kinase 22 L, Troponin I High Sens 19, Total Protein 6.9, Albumin 2.9 L, Globulin 4.0 02/22/24 12:24: Urine Color Yellow, Urine Clarity Cloudy, Urine pH 6.0, Ur Specific Laurel 1.020, Urine Protein 30 H, Urine Glucose (UA) Normal, Urine Ketones Negative, Urine Occult Blood 25 H, Urine Nitrite Positive H, Urine Bilirubin Negative, Urine Urobilinogen Normal, Ur Leukocyte Esterase 500 H, Urine RBC 0-5 SEEN, Urine WBC >100 SEEN, Ur Squamous Epith Cells 0-5 SEEN, Urine Bacteria 2+, Urine Mucus 0 SEEN, Urine Yeast 2+ 02/22/24 16:29: POC Glucose 94 02/23/24 05:25: WBC 13.1 H, RBC 4.26, Hgb 12.0, Hct 36.7 L, MCV 86.2, MCH 28.2, MCHC 32.7, RDW Std Deviation 46.4 H, RDW Coeff of Neisha 14.6, Plt Count 232, MPV 9.7, Immature Gran % (Auto) 0.500, Neut % (Auto) 86.1 H, Lymph % (Auto) 7.0 L, [place] % (Auto) 5.7, Eos % (Auto) 0.4, Baso % (Auto) 0.3, Absolute Neuts (auto) 11.2 H, Absolute Lymphs (auto) 0.91, Nucleated RBC % 0, Sodium 142, Potassium 3.9, Chloride 116 H, Carbon Dioxide 19.0 L, Anion Gap 7, BUN 73 H, Creatinine 1.80 H, Estim Creat Clear Calc 24.22, Est GFR (MDRD) Af Amer 35 L, Est GFR (MDRD) Non-Af 29 L, BUN/Creatinine Ratio 40.6 H, Glucose 205 H, Calcium 8.5, Phosphorus 3.9, Magnesium 1.8, Total Bilirubin 0.20, AST 15, ALT 14, Alkaline Phosphatase 70, Total Protein 6.4, Albumin 2.8 L, Globulin 3.6, Albumin/Globulin Ratio 0.8 L Radiography Diagnostic Testing: Radiology Impression Chest X-Ray 02/22/24 11:24 IMPRESSION: No acute abnormality is seen. Electronically Signed: Maxime Arreguin MD at 12:13 EDT , Physical Exam Narrative Seen and examined. Patient complaining of 4 to 5 days of burning micturition/suprapubic discomfort/pain for last 4 to 5 days before admission in senior care. Did not had catheter. Currently on Levophed drip. No fever. Physical exam General: Alert, Oriented x3, Cooperative. Obesity grade 2 BMI 35.0 kg per square HEENT: Atraumatic, PERRLA, EOMI, Normocephalic Oral: No Gingival or Mucosal Lesions/ Ulcerations Neck: Supple, No JVD, Negative Carotid Bruits Chest wall/Lungs: Air entry diminished in bilateral lung bases. No crepitation/rhonchi. No hypoxia Cardiovascular: Sinus rhythm on the monitor, Normal S1, Normal S2, No M/G/R Abdomen: Bowel Sounds Present, Soft, Non Tender, Non-Distended : No dysuria. No renal angle tenderness. No suprapubic tenderness. Extremities: Right arm PICC line, no tenderness. No edema, Capillary Refill Less than 3 Seconds Skin: No rashes, No breakdown Musculoskeletal: No Tenderness to Palpation of Joints or Extremities. ROM restricted Neurological: Cranial nerves II-XII grossly intact, DTR 2+/4. No acute focal neurological deficit. Psych/Mental Status: Flat affect Assessment & Plan Assessment/Plan (1) Hypotension: (2) Adrenal insufficiency: (3) Septic shock: (4) JEB (acute kidney injury): PLAN: Plan 84-year-old female came to ED for being dehydrated, decreased p.o. intake, BUN/creatinine 103/2.32. Several episodes of vomiting with no bile or blood for last 2 days. Patient complain of burning micturition/dysuria. No fever 1. Septic shock secondary to urinary tract infection: Patient being admitted in ICU. Initially volume resuscitated as per septic shock protocol. Currently, on Levophed drip. Cultures are pending. No fever. Patient did not had urinary tract instrumentation or Henderson catheter recently. Right arm PICC line. -Most recent urine culture from 01/13/2024 showed ESBL producing E. coli, Proteus mirabilis, and Klebsiella pneumoniae. Chest x-ray initially which was clear and expanded no acute abnormality. Patient on meropenem and vancomycin. Vancomycin discontinued -Patient is on hydrocortisone chronically for history of adrenal insufficiency so stress dose steroids at 100 every 8. Warp Tension Tester is 2. Acute hypotension due to septic shock with history of adrenal insufficiency: As mentioned above 3 JEB on CKD stage IIIb -Baseline serum creatinine runs between 1.3 and 1.75 as of recently -Serum creatinine on admission was 2.34 02/22: Creatinine improved from 2.39-1.80. -After fluid bolus protocol of septic shock, continue IV fluids at 75 cc/h with LR No Henderson catheter. Avoid nephrotoxins including lisinopril Lasix. -Avoid nephrotoxins 3. Essential hypertension: Hold antihypertensive medications as patient is on Levophed 4 constipation -Continue bowel regimen 5. DM-2: Continue home basal insulin but at decreased doses due to renal dysfunction and anticipated decreased p.o. intake. Glucose in BMP 205. Low-dose Lantus insulin started as patient is also on IV hydrocortisone. Jardiance risk for UTI therefore currently on hold but might need to be discontinued in future Toxic/metabolic encephalopathy on chronic mild cognitive impairment most likely due to infectious, toxic/metabolic encephalopathy low-dose risperidone to help with sundowning Generalized weakness/debility -Consult PT/OT -Consult social work/case management for assistance with discharge planning History of atrial fibrillation -In sinus rhythm on admission -Patient is not chronically anticoagulated -Not on any rate controlling medications either -Monitor on telemetry Hypothyroidism -Continue home levothyroxine Depression -Continue home sertraline Obesity -BMI 35 -Complicates treatment, prognosis, outcomes DVT prophylaxis -Subcu heparin 3 times daily CODE STATUS -DNR CCA with no intubation per discussion with family. Okay for BiPAP pressors and central lines in the form of PICC Total time of the visit including total time spent in counseling or coordination of care, (more than 50% of the total time, spent in obtaining medical information from nurses and other ancillary care providers,explaining to the patient about labs, imaging, diagnosis and management of active complex medical conditions), discussion with nursing staff, review of home medications, review of labs and imaging is 40 minutes. Charges/Coding Visit Charges Inpatient E&M: 68732 Subs Hosp L3
[2024-02-23] MEDS: Insulin Lispro 100 UNIT/ML INSULN.PEN SC ×3 (08:45→16:03)
[2024-02-23 11:29] LABS: Bedside Glucose 172 mg/dL (74-106)
[2024-02-23 11:58] LABS: Bedside Glucose 304 mg/dL (74-106)
[2024-02-23] MEDS: Nystatin Powder 15gm Bottle 1 APPLIC TOPICAL ×2 (12:13→20:10)
[2024-02-23] MEDS: Menthol/Lanolin/Calamine/Znox 113 GM Tube 1 APPLIC TOPICAL ×2 (12:14→20:10)
--- NOTE | 2024-02-23 13:24 | PN.CC_ITS ---
Objective Data Objective Data Vital Signs: Vital Signs Last response 3 Temperature 37.1 C 02/23/24 12:00 Temperature Source Temporal 02/23/24 12:00 Pulse Rate 68 02/23/24 12:00 Pulse Strength Normal (2+) 02/23/24 08:28 Respiratory Rate 25 H 02/23/24 12:00 Respiratory Effort Normal, Non-Labored 02/23/24 12:00 Respiratory Depth Normal 02/23/24 12:00 Respiratory Pattern Normal 02/23/24 12:00 Blood Pressure 112/67 02/23/24 12:00 Blood Pressure Mean 82 02/23/24 12:00 Blood Pressure Source Monitor 02/23/24 12:00 Blood Pressure Position Semi-Fowlers 02/23/24 12:00 Blood Pressure Location Left Arm 02/23/24 12:00 Pulse Ox 94 02/23/24 12:00 Oxygen Delivery Method Room Air 02/23/24 12:00 I&O: I&O Last 24 Hours 3 02/22/24 02/23/24 02/23/24 23:59 11:59 23:59 Intake Total 3885.14 / 4006.09 1615.87 / 1615.87 Output Total 1325 / 1325 1400 / 1400 Balance 2560.14 / 2681.09 215.87 / 215.87 I&O: Total Stay 3 02/22/24 10:35 thru 02/23/24 11:50 Intake Total 5501.01 Output Total 2725 Balance 2776.01 Current Meds Ordered / Administered: Current meds ordered / Administered 3 Generic Name Dose Route Start Last Admin Trade Name Freq PRN Reason Stop Dose Admin Acetaminophen 650 mg 02/22/24 16:18 Acetaminophen 325 Mg Tablet PO Q6H PRN PRN Pain 1-10 Or Fever>100.7 Albuterol Sulfate 2.5 mg 02/22/24 16:18 Albuterol 2.5 Mg/3 Ml Vial.Neb. INHALATION Q4H PRN shortness of breath or wheezing Atorvastatin Calcium 20 mg 02/23/24 10:00 02/23/24 08:39 Atorvastatin Calcium 20 Mg Tablet PO 20 mg DAILY DEANN Administration Calamine/Phenol 1 applic 02/23/24 14:00 02/23/24 12:14 Menthol/Lanolin/Calamine/Znox 113 Gm Tube TOPICAL 1 applic TID DEANN Administration Protocol Glucagon 1 mg 02/22/24 16:18 Glucagon 1 Mg/Ml Syringe IM X1 PRN HYPOGLYCEMIA Protocol Heparin Sodium (Porcine) 5,000 unit 02/22/24 22:00 02/23/24 05:16 Heparin Injection (Vial) 5,000 Unit/Ml Vial SC 5,000 unit Q8 DEANN Administration Hydrocortisone Sodium Succinate 100 mg 02/22/24 22:00 02/23/24 05:16 Hydrocortisone Sod Succinate 100 Mg/2 Ml Vial IV 100 mg Q8 DEANN Administration Hydroxyzine Pamoate 25 mg 02/23/24 10:00 02/23/24 08:39 Hydroxyzine Yuki 25 Mg Capsule PO 25 mg DAILY DEANN Administration Sodium Chloride 250 mls @ 15 mls/hr 02/22/24 15:53 IV .[id number] PRN Additional IVPB Infusion Sodium Chloride 250 mls @ 15 mls/hr 02/22/24 15:53 IV .[id number] PRN Saline Flush Meropenem 500 mg/ Sodium 60 mls @ 100 mls/hr 02/22/24 22:00 02/23/24 09:15 Chloride IV Infused Q12 DEANN Infusion Norepinephrine Bitartrate 8 mg 250 mls @ 9.375 mls/hr 02/22/24 16:18 02/23/24 11:50 / Sodium Chloride CONT INF 2 mcg/min .[id number] DEANN 3.8 mls/hr Titration Protocol 5 MCG/MIN Dextrose 250 mls @ 0 mls/hr 02/22/24 16:18 Dextrose 10%-Water IV .Q0M PRN HYPOGLYCEMIA Protocol As Directed Lactated Ringer's 1,000 mls @ 75 mls/hr 02/22/24 16:18 02/23/24 05:16 IV 75 mls/hr .[id number] DEANN Administration Dextrose 250 mls @ 0 mls/hr 02/23/24 08:56 Dextrose 10%-Water IV .Q0M PRN HYPOGLYCEMIA Protocol As Directed Insulin Glargine 10 unit 02/23/24 10:00 02/23/24 09:28 Insulin Glargine-Yfgn 100 Unit/Ml Pen SC Not Given DAILY [facility] Insulin Glargine 10 unit 02/23/24 22:00 Insulin Glargine-Yfgn 100 Unit/Ml Pen SC QHS [facility] Insulin Human Lispro 0 unit 02/22/24 16:18 02/23/24 11:40 Insulin Lispro 100 Unit/Ml Insuln.Pen SC 6 units TIDAC [facility] Administration Protocol Levothyroxine Sodium 150 mcg 02/23/24 06:00 02/23/24 05:16 Levothyroxine 150 Mcg Tablet PO 150 mcg DAILY@0600 [facility] Administration Nystatin 1 applic 02/23/24 14:00 02/23/24 12:13 Nystatin Powder 15gm Bottle TOPICAL 1 applic TID [facility] Administration Protocol Ondansetron HCl 4 mg 02/22/24 16:18 Ondansetron 4 Mg/2 Ml Vial IV Q8H PRN PRN NAUSEA/VOMITING Polyethylene Glycol 17 gm 02/23/24 10:00 02/23/24 08:39 Polyethylene Glycol 3350 17 Gm Packet PO Not Given DAILY [facility] Risperidone 0.25 mg 02/22/24 22:00 02/22/24 22:41 Risperidone 0.25 Mg Tablet PO 0.25 mg QHS [facility] Administration Protocol Senna/Docusate Sodium 2 tablet 02/22/24 16:18 Senna/Docusate Sodium 1 Tablet PO BID PRN PRN Constipation Sertraline HCl 150 mg 02/23/24 10:00 02/23/24 08:38 Sertraline 50 Mg Tablet PO 150 mg DAILY [facility] Administration Sodium Chloride 10 - 40 ml 02/22/24 15:53 02/23/24 05:17 0.9% Saline Lock 10 Ml Syringe IV 10 ml UD PRN Administration SALINE FLUSH Lab / Micro Data 02/23/24 05:25 02/23/24 05:25 Labs: Laboratory Results - last 24 hr 02/22/24 11:17: Total Creatine Kinase 22 L 02/22/24 16:29: POC Glucose 94 02/23/24 05:25: WBC 13.1 H, RBC 4.26, Hgb 12.0, Hct 36.7 L, MCV 86.2, MCH 28.2, MCHC 32.7, RDW Std Deviation 46.4 H, RDW Coeff of Neisha 14.6, Plt Count 232, MPV 9.7, Immature Gran % (Auto) 0.500, Neut % (Auto) 86.1 H, Lymph % (Auto) 7.0 L, [place] % (Auto) 5.7, Eos % (Auto) 0.4, Baso % (Auto) 0.3, Absolute Neuts (auto) 11.2 H, Absolute Lymphs (auto) 0.91, Nucleated RBC % 0, Sodium 142, Potassium 3.9, Chloride 116 H, Carbon Dioxide 19.0 L, Anion Gap 7, BUN 73 H, Creatinine 1.80 H, Estim Creat Clear Calc 24.22, Est GFR (MDRD) Af Amer 35 L, Est GFR (MDRD) Non-Af 29 L, BUN/Creatinine Ratio 40.6 H, Glucose 205 H, Calcium 8.5, Phosphorus 3.9, Magnesium 1.8, Total Bilirubin 0.20, AST 15, ALT 14, Alkaline Phosphatase 70, Total Protein 6.4, Albumin 2.8 L, Globulin 3.6, Albumin/Globulin Ratio 0.8 L 02/23/24 08:36: POC Glucose 172 H 02/23/24 11:38: POC Glucose 304 H Micro: Microbiology 02/22/24 12:24 Urine, Clean Catch Urine Culture - Preliminary GNR lactose cook enchilada Assessment and Plan . Assessment and plan: HPI 84 yo woman admitted 02/22/24 w/ N/V and malaise. Lab evaluation revealed renal insufficiency w/ azotemia, LA WNL, pyuria and bacteruria. She has received IVF and IV ABX. She has required low dose NE for BP support. There is a h/o prior UTU w/ ESBL-producing GNR. She also apparently has a h/o AI 02/23/24 NE recently turned off UCX reveals GNR Renal function and UOP improved EXAM GEN non-toxic VS as above HEENT MM dry NECK supple COR irreg CHEST CTA ABD soft EXT no edema SKIN w/d SUHA NF ASSESSMENT 1. Severe sepsis 2. Pyuria / UTI 3. h/o ESBL-producing GNR infections 4. Chronic AF 5. h/o AI 6. Renal insufficiency w/ azotemia TREATMENT PLAN -s/p volume expansion -follow renal function -carbapenem - f/u final CX -IV hydrocortisone -VTE ppx The entirety of this encounter was done via Telemedicine
--- NOTE | 2024-02-23 13:50 | CASEMGMT ---
Addendum entered by Katherin Rueda 02/23/24 15:29: Social Work SW met with pt and two dgts and discharge discussed. Pt and family do not want pt to return to [facility]. A list of SNF providers including quality and resource use data and consistent with the patient?s preferred geographic region, medical needs, and insurance network were provided from the [facility]Port Guide. Preferred provider is [facility]. Phone call to [facility] and they do not have care home beds available. Pt and family updated and additional preferences are [facility], [facility] and [facility] in no particular order. DC ophthalmic medical assistant updated and referrals to be sent to all three facilities. Plan: Pt to change [facility] care SNF, accepting facility pending. FELICITA Parks LSW Original Note: Social Work SW met with pt and introduced self and role of SW. 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 RUTHIE inquired about pt return and pt states that she would prefer not to return there but would prefer a different SNF. With pt permission, phone call to pt dgt Jemma to discuss discharge plan. Jemma states that she is aware that pt is unhappy at [facility] and feels if pt wants to change facilities, this would be ok. Jemma inquiring about [facility]. Phone call to [facility] and the do not have predatory animal exterminator beds available. RUTHIE attempted to meet with pt to discuss and pt receiving care. Will follow up for SNF choices. FELICITA Parks
--- NOTE | 2024-02-23 16:08 | CASEMGMT ---
Addendum entered by Mendy Holloway 02/28/24 08:57: left for Aneta @ [facility] to check on status of referral. Mendy Holloway DC Planning Asst. Addendum entered by Mendy Holloway 02/27/24 08:48: [facility] msgs sent out this morning to all snfs re: referral status. Mendy Holloway DC Planning Asst. Addendum entered by Mendy Holloway 02/27/24 08:47: [facility] declined d/t no superintendent container terminal bed availability. Mendy Holloway DC Planning Asst. Addendum entered by Mendy Holloway 02/26/24 12:28: Referral sent again to [facility], [facility], [facility], and [facility] asking to reconsider under pts [employer] EVELINA benefits. Mendy Holloway DC Planning Asst. Addendum entered by Mendy Holloway 02/26/24 11:42: [facility] is out of network. Mendy Holloway DC Planning Asst. Addendum entered by Mendy Holloway 02/26/24 11:39: [facility] declinced d/t being out of network. SW updated. Mendy Holloway DC Planning Asst. Addendum entered by Mendy Holloway 02/26/24 09:48: [facility] declined d/t being out of network. Mendy Holloway DC Planning Asst. Addendum entered by Mendy Holloway 02/26/24 09:45: [facility] has declined. Mendy Holloway DC Planning Asst. Addendum entered by Mendy Holloway 02/26/24 08:58: Msg sent in [facility]port to all snfs to check on status of referral. Mendy Holloway DC Planning asst. Original Note: Discharge Planning Referral sent to [facility], [facility], and [facility]. Mendy Holloway DC Planning Asst.
[2024-02-23 16:23] LABS: Bedside Glucose 242 mg/dL (74-106)
[2024-02-23] MEDS: Insulin Glargine-YFGN 100 UNIT/ML Pen 15 UNIT SC (17:38)
[2024-02-23] MEDS: Insulin Lispro 100 UNIT/ML INSULN.PEN 10 UNIT SC (17:39)
[2024-02-23] MEDS: RisperiDONE 0.25 MG Tablet PO (20:09)
[2024-02-23 22:19] LABS: Bedside Glucose 172 mg/dL (74-106)
[2024-02-24] VITALS (44 sets, daily range): BP systolic 84–155; BP diastolic 43–87; PULSE 57–91; RESP 13–25; TEMP 35.8–36.9; O2SAT 94–100; BMI 35.2
[2024-02-24 03:08] LABS: Absolute Lymphocyte Count 0.83 X10^3/uL (0.83-4.51); Absolute Neutrophil Count 10.2 X10^3/uL (2.0-7.7); Basophil# 0.03 X10^3/uL; Basophil% 0.3 % (0-1); Hematocrit 36.2 % (37-47); Hemoglobin 11.7 g/dL (12.0-15.0); Lymphocyte # 0.83 X10^3/ul (0.83-4.51); Lymphocyte % 7.1 % (19-41); Mean Corp Hgb Conc 32.3 g/dL (32-36); Mean Corpuscular Volume 86.6 fL (81-99); Mean Platelet Vol. 9.8 fl (6.2-12.0); Monocyte# 0.52 X10^3/uL; Monocyte% 4.5 % (0-10); NRBC Flagged by Analyzer 0 % (0-5); Neutrophil # 10.19 X10^3/uL (2.7-7.7); Neutrophil % 87.4 % (47-70); Platelet Count 201 K/mm3 (150-450); RBC Distribution Width CV 14.7 % (11.6-14.6); RBC Distribution Width SD 46.6 fl (35.1-43.9); Red Blood Count 4.18 M/mm3 (4.2-5.4); White Blood Count 11.7 K/mm3 (4.4-11.0)
[2024-02-24 03:43] LABS: Anion Gap 6 (5-15); BUN 61 mg/dL (7-18); BUN/Creat Ratio 40.9 RATIO (10-20); Calcium,Total 8.9 mg/dL (8.5-10.1); Chloride 117 mmol/L (98-107); Creatinine, Serum 1.49 mg/dL (0.55-1.02); EST Glomerular Filtration Rate 35 mL/min (>60); Est Glom Filt Rate - Afr Amer 43 mL/min (>60); Estimated Creatinine Clearance 29.26 ml/min; Glucose 236 mg/dL (74-106); Sodium Level 144 mmol/L (136-145)
[2024-02-24] MEDS: 0.9% Saline Lock 10 ML Syringe IV (05:27)
[2024-02-24] MEDS: Nystatin Powder 15gm Bottle 1 APPLIC TOPICAL ×3 (05:27→20:28)
[2024-02-24] MEDS: Menthol/Lanolin/Calamine/Znox 113 GM Tube 1 APPLIC TOPICAL ×3 (05:27→20:27)
[2024-02-24] MEDS: Heparin Injection (Vial) 5,000 UNIT/ML VIAL 5000 UNIT SC ×3 (05:28→20:27)
[2024-02-24] MEDS: Hydrocortisone Sod Succinate 100 MG/2 ML Vial IV ×3 (05:28→20:27)
[2024-02-24] MEDS: Levothyroxine 150 MCG Tablet PO (05:28)
[2024-02-24] MEDS: Insulin Glargine-YFGN 100 UNIT/ML Pen 20 UNIT SC (08:04)
[2024-02-24] MEDS: Sertraline 50 MG Tablet 150 MG PO (08:05)
[2024-02-24] MEDS: Insulin Lispro 100 UNIT/ML INSULN.PEN SC ×3 (08:05→16:08)
[2024-02-24] MEDS: Insulin Lispro 100 UNIT/ML INSULN.PEN 10 UNIT SC ×3 (08:05→16:09)
[2024-02-24] MEDS: Meropenem 500 MG in 0.9% Normal Saline (50mL MB+) 50 ML 100 MG IV ×2 (08:06→20:38)
[2024-02-24] MEDS: Atorvastatin Calcium 20 MG Tablet PO (08:06)
[2024-02-24] MEDS: hydrOXYzine PAM 25 MG Capsule PO (08:06)
[2024-02-24 09:28] LABS: Hemoglobin A1c 7.6 % (3.8-5.6)
[2024-02-24 09:37] LABS: Bedside Glucose 211 mg/dL (74-106)
--- NOTE | 2024-02-24 10:47 | PN.HOSP_ITS ---
Subjective Subjective Doing well, no issues overnight Objective Data Objective Data Vital Signs: Vital Signs Temp Pulse Resp BP Pulse Ox O2 Del Method 97.8 F 73 23 H 136/49 H 96 Room Air 02/24/24 08:00 02/24/24 09:00 02/24/24 09:00 02/24/24 09:00 02/24/24 09:00 02/24/24 09:00 Oxygen Delivery Method Room Air Weight: 198 lb 6.656 oz Body Mass Index (BMI) 35.2 Intake & Output: Intake and Output for Last 24 Hours 02/23/24 02/24/24 02/25/24 03:59 03:59 03:59 Intake Total 4019.29 / 4024.89 2872.26 / 2873.21 139.95 / 139.95 Output Total 1325 / 1725 2950 / 2950 900 / 900 Balance 2694.29 / 2299.89 -77.74 / -76.79 -760.05 / -760.05 Lab / Micro Data 02/24/24 03:00 02/24/24 03:00 Labs: Laboratory Results - last 24 hr 02/23/24 08:36: POC Glucose 172 H 02/23/24 11:38: POC Glucose 304 H 02/23/24 16:01: POC Glucose 242 H 02/23/24 22:00: POC Glucose 172 H 02/24/24 03:00: WBC 11.7 H, RBC 4.18 L, Hgb 11.7 L, Hct 36.2 L, MCV 86.6, MCH 28.0, MCHC 32.3, RDW Std Deviation 46.6 H, RDW Coeff of Neisha 14.7 H, Plt Count 201, MPV 9.8, Immature Gran % (Auto) 0.700, Neut % (Auto) 87.4 H, Lymph % (Auto) 7.1 L, [place] % (Auto) 4.5, Eos % (Auto) 0.0, Baso % (Auto) 0.3, Absolute Neuts (auto) 10.2 H, Absolute Lymphs (auto) 0.83, Nucleated RBC % 0, Sodium 144, Potassium 4.0, Chloride 117 H, Carbon Dioxide 21.0, Anion Gap 6, BUN 61 H, C reatinine 1.49 H, Estim Creat Clear Calc 29.26, Est GFR (MDRD) Af Amer 43 L, Est GFR (MDRD) Non-Af 35 L, BUN/Creatinine Ratio 40.9 H, Glucose 236 H, Hemoglobin A1c 7.6 H, Calcium 8.9 02/24/24 07:51: POC Glucose 211 H Micro: Microbiology 02/22/24 12:24 Urine, Clean Catch Urine Culture - Preliminary ESBL Escherichia coli Physical Exam Narrative General: Alert, Oriented x 2, Cooperative, No apparent distress HEENT: Atraumatic, PERRLA, EOMI, Normocephalic Oral: Moist Mucosa Neck: Supple, No JVD Lungs: Diminished, Normal air movement, No rhonchi, No wheeze, No rales Cardiovascular: Regular rate, Regular Rhythm, Normal S1, Normal S2, No murmurs Abdomen: Soft, Non Tender, Non-Distended, No Hepato-splenomegaly Extremities: No edema, Capillary Refill Less than 3 Seconds Skin: No rashes, No breakdown Musculoskeletal: No Tenderness to Palpation of Joints or Extremities Neurological: No focal neurological deficits, Motor Exam 5/5 strength throughout, Sensory exam intact to light touch and pain Psych/Mental Status: Normal Affect, Appropriate Assessment & Plan Assessment/Plan (1) Hypotension: (2) Adrenal insufficiency: (3) Septic shock: (4) JEB (acute kidney injury): PLAN: Plan 1. Septic shock secondary to urinary tract infection: Patient being admitted in ICU. Initially volume resuscitated as per septic shock protocol. Currently, on Levophed drip. Cultures are pending. No fever. Patient did not had urinary tract instrumentation or Henderson catheter recently. Right arm PICC line. -Most recent urine culture from 01/13/2024 showed ESBL producing E. coli, Proteus mirabilis, and Klebsiella pneumoniae. Chest x-ray initially which was clear and expanded no acute abnormality. Patient on meropenem and vancomycin. Vancomycin discontinued -Patient is on hydrocortisone chronically for history of adrenal insufficiency so stress dose steroids at 100 every 8. 02/24/2024: Doing well today, Levophed is down to 2. Urine culture demonstrates that her septic shock is secondary to ESBL E. coli, continue with meropenem 3 JEB on CKD stage IIIb -Baseline serum creatinine runs between 1.3 and 1.75 as of recently -Serum creatinine on admission was 2.34 02/22: Creatinine improved from 2.39-1.80. -After fluid bolus protocol of septic shock, continue IV fluids at 75 cc/h with LR No Henderson catheter. Avoid nephrotoxins including lisinopril Lasix. -Avoid nephrotoxins 02/24/2024: Renal function is back to baseline 3. Essential hypertension: Hold antihypertensive medications as patient is on Levophed 4 constipation -Continue bowel regimen 5. DM-2: Continue home basal insulin but at decreased doses due to renal dysfunction and anticipated decreased p.o. intake. Glucose in BMP 205. Low- dose Lantus insulin started as patient is also on IV hydrocortisone. Jardiance risk for UTI therefore currently on hold but might need to be discontinued in future Toxic/metabolic encephalopathy on chronic mild cognitive impairment most likely due to infectious, toxic/metabolic encephalopathy low-dose risperidone to help with sundowning Generalized weakness/debility -Consult PT/OT -Consult social work/case management for assistance with discharge planning History of atrial fibrillation -In sinus rhythm on admission -Patient is not chronically anticoagulated -Not on any rate controlling medications either -Monitor on telemetry Hypothyroidism -Continue home levothyroxine Depression -Continue home sertraline Obesity -BMI 35 -Complicates treatment, prognosis, outcomes DVT: Heparin Charges/Coding Visit Charges Inpatient E&M: 01408 Subs Hosp L2
[2024-02-24 11:52] LABS: Bedside Glucose 280 mg/dL (74-106)
--- NOTE | 2024-02-24 12:16 | CASEMGMT ---
Social Work SW checked [facility], no responses on any of the SNF referrals. It is not anticipated the referrals will be reviewed today. SW will follow up on Monday. NANO Law
--- NOTE | 2024-02-24 14:42 | PN.CC_ITS ---
Objective Data Objective Data Vital Signs: Vital Signs Last response 3 Temperature 36.2 C L 02/24/24 12:00 Temperature Source Temporal 02/24/24 12:00 Pulse Rate 67 02/24/24 14:00 Pulse Strength Normal (2+) 02/24/24 08:10 Respiratory Rate 15 02/24/24 14:00 Respiratory Effort Normal, Non-Labored 02/24/24 12:00 Respiratory Depth Normal 02/24/24 12:00 Respiratory Pattern Normal 02/24/24 12:00 Blood Pressure 114/51 L 02/24/24 14:00 Blood Pressure Mean 72 02/24/24 14:00 Blood Pressure Source Monitor 02/24/24 12:00 Blood Pressure Position Semi-Fowlers 02/24/24 12:00 Blood Pressure Location Left Arm 02/24/24 12:00 Pulse Ox 96 02/24/24 14:00 Oxygen Delivery Method Room Air 02/24/24 14:00 I&O: I&O Last 24 Hours 3 02/23/24 02/24/24 02/24/24 23:59 11:59 23:59 Intake Total 1378.96 / 2995.46 161.36 / 425.65 264.29 / 425.65 Output Total 1550 / 2950 1450 / 1650 200 / 1650 Balance -171.04 / 45.46 -1288.64 / -1224.35 64.29 / -1224.35 I&O: Total Stay 3 02/22/24 10:35 thru 02/24/24 14:00 Intake Total 7305.30 Output Total 5925 Balance 1380.30 Current Meds Ordered / Administered: Current meds ordered / Administered 3 Generic Name Dose Route Start Last Admin Trade Name Freq PRN Reason Stop Dose Admin Acetaminophen 650 mg 02/22/24 16:18 Acetaminophen 325 Mg Tablet PO Q6H PRN PRN Pain 1-10 Or Fever>100.7 Albuterol Sulfate 2.5 mg 02/22/24 16:18 Albuterol 2.5 Mg/3 Ml Vial.Neb. INHALATION Q4H PRN shortness of breath or wheezing Atorvastatin Calcium 20 mg 02/23/24 10:00 02/24/24 08:06 Atorvastatin Calcium 20 Mg Tablet PO 20 mg DAILY DEANN Administration Calamine/Phenol 1 applic 02/23/24 14:00 02/24/24 11:24 Menthol/Lanolin/Calamine/Znox 113 Gm Tube TOPICAL 1 applic TID DEANN Administration Protocol Glucagon 1 mg 02/22/24 16:18 Glucagon 1 Mg/Ml Syringe IM X1 PRN HYPOGLYCEMIA Protocol Heparin Sodium (Porcine) 5,000 unit 02/22/24 22:00 02/24/24 14:03 Heparin Injection (Vial) 5,000 Unit/Ml Vial SC 5,000 unit Q8 DEANN Administration Hydrocortisone Sodium Succinate 100 mg 02/22/24 22:00 02/24/24 14:03 Hydrocortisone Sod Succinate 100 Mg/2 Ml Vial IV 100 mg Q8 DEANN Administration Hydroxyzine Pamoate 25 mg 02/23/24 10:00 02/24/24 08:06 Hydroxyzine Yuki 25 Mg Capsule PO 25 mg DAILY DEANN Administration Sodium Chloride 250 mls @ 15 mls/hr 02/22/24 15:53 IV .[id number] PRN Additional IVPB Infusion Sodium Chloride 250 mls @ 15 mls/hr 02/22/24 15:53 IV .[id number] PRN Saline Flush Meropenem 500 mg/ Sodium 60 mls @ 100 mls/hr 02/22/24 22:00 02/24/24 08:45 Chloride IV Infused Q12 DEANN Infusion Norepinephrine Bitartrate 8 mg 250 mls @ 9.375 mls/hr 02/22/24 16:18 02/24/24 14:00 / Sodium Chloride CONT INF 0 mcg/min .[id number] DEANN 0 mls/hr Titration Protocol 5 MCG/MIN Dextrose 250 mls @ 0 mls/hr 02/22/24 16:18 Dextrose 10%-Water IV .Q0M PRN HYPOGLYCEMIA Protocol As Directed Dextrose 250 mls @ 0 mls/hr 02/23/24 08:56 Dextrose 10%-Water IV .Q0M PRN HYPOGLYCEMIA Protocol As Directed Insulin Glargine 15 unit 02/23/24 17:10 02/23/24 17:38 Insulin Glargine-Yfgn 100 Unit/Ml Pen SC 15 unit DINNER DEANN Administration Insulin Glargine 20 unit 02/24/24 10:00 02/24/24 08:04 Insulin Glargine-Yfgn 100 Unit/Ml Pen SC 20 unit DAILY DEANN Administration Insulin Human Lispro 0 unit 02/22/24 16:18 02/24/24 11:24 Insulin Lispro 100 Unit/Ml Insuln.Pen SC 6 units TIDAC [facility] Administration Protocol Insulin Human Lispro 10 unit 02/23/24 17:10 02/24/24 11:24 Insulin Lispro 100 Unit/Ml Insuln.Pen SC 10 units TIDAC [facility] Administration Levothyroxine Sodium 150 mcg 02/23/24 06:00 02/24/24 05:28 Levothyroxine 150 Mcg Tablet PO 150 mcg DAILY@0600 [facility] Administration Nystatin 1 applic 02/23/24 14:00 02/24/24 11:25 Nystatin Powder 15gm Bottle TOPICAL 1 applic TID [facility] Administration Protocol Ondansetron HCl 4 mg 02/22/24 16:18 Ondansetron 4 Mg/2 Ml Vial IV Q8H PRN PRN NAUSEA/VOMITING Polyethylene Glycol 17 gm 02/23/24 10:00 02/24/24 08:06 Polyethylene Glycol 3350 17 Gm Packet PO Not Given DAILY [facility] Risperidone 0.25 mg 02/22/24 22:00 02/23/24 20:09 Risperidone 0.25 Mg Tablet PO 0.25 mg QHS [facility] Administration Protocol Senna/Docusate Sodium 2 tablet 02/22/24 16:18 Senna/Docusate Sodium 1 Tablet PO BID PRN PRN Constipation Sertraline HCl 150 mg 02/23/24 10:00 02/24/24 08:05 Sertraline 50 Mg Tablet PO 150 mg DAILY [facility] Administration Sodium Chloride 10 - 40 ml 02/22/24 15:53 02/24/24 05:27 0.9% Saline Lock 10 Ml Syringe IV 10 ml UD PRN Administration SALINE FLUSH Lab / Micro Data 02/24/24 03:00 02/24/24 03:00 Labs: Laboratory Results - last 24 hr 02/23/24 16:01: POC Glucose 242 H 02/23/24 22:00: POC Glucose 172 H 02/24/24 03:00: WBC 11.7 H, RBC 4.18 L, Hgb 11.7 L, Hct 36.2 L, MCV 86.6, MCH 28.0, MCHC 32.3, RDW Std Deviation 46.6 H, RDW Coeff of [place] 14.7 H, Plt Count 201, MPV 9.8, Immature Gran % (Auto) 0.700, Neut % (Auto) 87.4 H, Lymph % (Auto) 7.1 L, [place] % (Auto) 4.5, Eos % (Auto) 0.0, Baso % (Auto) 0.3, Absolute Neuts (auto) 10.2 H, Absolute Lymphs (auto) 0.83, Nucleated RBC % 0, Sodium 144, Potassium 4.0, Chloride 117 H, Carbon Dioxide 21.0, Anion Gap 6, BUN 61 H, C reatinine 1.49 H, Estim Creat Clear Calc 29.26, Est GFR (MDRD) Af Amer 43 L, Est GFR (MDRD) Non-Af 35 L, BUN/Creatinine Ratio 40.9 H, Glucose 236 H, Hemoglobin A1c 7.6 H, Calcium 8.9 02/24/24 07:51: POC Glucose 211 H 02/24/24 11:21: POC Glucose 280 H Micro: Microbiology 02/22/24 13:39 Blood Culture (Wb) - Anticubital Right Blood Culture - Preliminary No growth in 48 hours. 02/22/24 12:24 Urine, Clean Catch Urine Culture - Preliminary ESBL Escherichia coli Assessment and Plan . Assessment and plan: Chart and data reviewed Case d/w staff Clinically improved Off vasopressors CX reviewed Should be able to TX out of ICU The entirety of this encounter was done via Telemedicine
[2024-02-24] MEDS: Insulin Glargine-YFGN 100 UNIT/ML Pen 15 UNIT SC (16:09)
[2024-02-24 16:28] LABS: Bedside Glucose 154 mg/dL (74-106)
[2024-02-24] MEDS: RisperiDONE 0.25 MG Tablet PO (20:29)
[2024-02-25] VITALS (11 sets, daily range): BP systolic 104–142; BP diastolic 50–72; PULSE 57–76; RESP 14–24; TEMP 36.6–37.1; O2SAT 95–99; BMI 31.6
[2024-02-25] MEDS: Menthol/Lanolin/Calamine/Znox 113 GM Tube 1 APPLIC TOPICAL ×3 (06:06→20:49)
[2024-02-25] MEDS: Nystatin Powder 15gm Bottle 1 APPLIC TOPICAL ×3 (06:07→20:50)
[2024-02-25] MEDS: Hydrocortisone Sod Succinate 100 MG/2 ML Vial IV (06:08)
[2024-02-25] MEDS: Levothyroxine 150 MCG Tablet PO (06:08)
[2024-02-25] MEDS: Heparin Injection (Vial) 5,000 UNIT/ML VIAL 5000 UNIT SC ×3 (06:08→20:49)
[2024-02-25 06:36] LABS: Absolute Lymphocyte Count 1.75 X10^3/uL (0.83-4.51); Absolute Neutrophil Count 8.7 X10^3/uL (2.0-7.7); Basophil# 0.02 X10^3/uL; Basophil% 0.2 % (0-1); Eosinophil# 0.01 X10^3/uL; Eosinophils% 0.1 % (0-5); Hemoglobin 11.7 g/dL (12.0-15.0); Lymphocyte # 1.75 X10^3/ul (0.83-4.51); Lymphocyte % 15.5 % (19-41); Mean Corp Hgb Conc 32.5 g/dL (32-36); Mean Corpuscular Hgb 28.5 pg (27.0-32.0); Mean Corpuscular Volume 87.8 fL (81-99); Mean Platelet Vol. 9.9 fl (6.2-12.0); Monocyte# 0.74 X10^3/uL; Monocyte% 6.5 % (0-10); NRBC Flagged by Analyzer 0 % (0-5); Neutrophil % 76.9 % (47-70); Platelet Count 202 K/mm3 (150-450); RBC Distribution Width CV 15.1 % (11.6-14.6); RBC Distribution Width SD 48.1 fl (35.1-43.9); White Blood Count 11.3 K/mm3 (4.4-11.0)
[2024-02-25 06:51] LABS: Anion Gap 6 (5-15); BUN 55 mg/dL (7-18); BUN/Creat Ratio 38.5 RATIO (10-20); Calcium,Total 8.9 mg/dL (8.5-10.1); Chloride 122 mmol/L (98-107); Creatinine, Serum 1.43 mg/dL (0.55-1.02); EST Glomerular Filtration Rate 37 mL/min (>60); Est Glom Filt Rate - Afr Amer 45 mL/min (>60); Estimated Creatinine Clearance 30.54 ml/min; Glucose 159 mg/dL (74-106); Potassium 3.6 mmol/L (3.5-5.1); Sodium Level 150 mmol/L (136-145)
[2024-02-25] MEDS: Insulin Lispro 100 UNIT/ML INSULN.PEN SC ×2 (08:46→11:31)
[2024-02-25] MEDS: Insulin Glargine-YFGN 100 UNIT/ML Pen 20 UNIT SC (08:47)
[2024-02-25] MEDS: Insulin Lispro 100 UNIT/ML INSULN.PEN 10 UNIT SC ×2 (08:47→11:31)
[2024-02-25] MEDS: hydrOXYzine PAM 25 MG Capsule PO (08:50)
[2024-02-25] MEDS: Atorvastatin Calcium 20 MG Tablet PO (08:50)
[2024-02-25] MEDS: Sertraline 50 MG Tablet 150 MG PO (08:50)
--- NOTE | 2024-02-25 09:35 | PCM.PN.HOSP ---
Subjective Subjective Doing well, no issues overnight. Levophed is off Objective Data Objective Data Vital Signs: Vital Signs Temp Pulse Resp BP Pulse Ox O2 Del Method 98.3 F 67 18 132/63 H 97 Room Air 02/25/24 00:00 02/25/24 07:00 02/25/24 07:00 02/25/24 07:00 02/25/24 07:00 02/25/24 07:00 Oxygen Delivery Method Room Air Weight: 178 lb 9.6 oz Body Mass Index (BMI) 31.6 Intake & Output: Intake and Output for Last 24 Hours 02/24/24 02/25/24 02/26/24 03:59 03:59 03:59 Intake Total 2872.26 / 2873.21 833.75 / 833.75 600 / 600 Output Total 2950 / 2950 2350 / 2350 350 / 350 Balance -77.74 / -76.79 -1516.25 / -1516.25 250 / 250 Lab / Micro Data 02/25/24 06:20 02/25/24 06:20 Labs: Laboratory Results - last 24 hr 02/24/24 07:51: POC Glucose 211 H 02/24/24 11:21: POC Glucose 280 H 02/24/24 16:07: POC Glucose 154 H 02/25/24 06:20: WBC 11.3 H, RBC 4.10 L, Hgb 11.7 L, Hct 36.0 L, MCV 87.8, MCH 28.5, MCHC 32.5, RDW Std Deviation 48.1 H, RDW Coeff of Neisha 15.1 H, Plt Count 202, MPV 9.9, Immature Gran % (Auto) 0.800, Neut % (Auto) 76.9 H, Lymph % (Auto) 15.5 L, [place] % (Auto) 6.5, Eos % (Auto) 0.1, Baso % (Auto) 0.2, Absolute Neuts (auto) 8.7 H, Absolute Lymphs (auto) 1.75, Nucleated RBC % 0, Sodium 150 H, Potassium 3.6, Chloride 122 H, Carbon Dioxide 22.0, Anion Gap 6, BUN 55 H, Creatinine 1.43 H, Estim Creat Clear Calc 30.54, Est GFR (MDRD) Af Amer 45 L, Est GFR (MDRD) Non-Af 37 L, BUN/Creatinine Ratio 38.5 H, Glucose 159 H, Calcium 8.9 Micro: Microbiology 02/22/24 12:24 Urine, Clean Catch Urine Culture - Final ESBL Escherichia coli 02/22/24 13:39 Blood Culture (Wb) - Anticubital Right Blood Culture - Preliminary No growth in 48 hours. Physical Exam Narrative General: Alert, Oriented x 2, Cooperative, No apparent distress HEENT: Atraumatic, PERRLA, EOMI, Normocephalic Oral: Moist Mucosa Neck: Supple, No JVD Lungs: Diminished, Normal air movement, No rhonchi, No wheeze, No rales Cardiovascular: Regular rate, Regular Rhythm, Normal S1, Normal S2, No murmurs Abdomen: Soft, Non Tender, Non-Distended, No Hepato-splenomegaly Extremities: No edema, Capillary Refill Less than 3 Seconds Skin: No rashes, No breakdown Musculoskeletal: No Tenderness to Palpation of Joints or Extremities Neurological: No focal neurological deficits, Motor Exam 5/5 strength throughout, Sensory exam intact to light touch and pain Psych/Mental Status: Normal Affect, Appropriate Assessment & Plan Assessment/Plan (1) Hypotension: (2) Adrenal insufficiency: (3) Septic shock: (4) JEB (acute kidney injury): PLAN: Plan 1. Septic shock secondary to urinary tract infection: Patient being admitted in ICU. Initially volume resuscitated as per septic shock protocol. Currently, on Levophed drip. Cultures are pending. No fever. Patient did not had urinary tract instrumentation or Henderson catheter recently. Right arm PICC line. -Most recent urine culture from 01/13/2024 showed ESBL producing E. coli, Proteus mirabilis, and Klebsiella pneumoniae. Chest x-ray initially which was clear and expanded no acute abnormality. Patient on meropenem and vancomycin. Vancomycin discontinued -Patient is on hydrocortisone chronically for history of adrenal insufficiency so stress dose steroids at 100 every 8. 02/24/2024: Doing well today, Levophed is down to 2. Urine culture demonstrates that her septic shock is secondary to ESBL E. coli, continue with meropenem 02/25/2024: Will transfer out of the ICU as her Levophed has been off of close 24 hours. Continue with meropenem, PT/OT 2. JEB on CKD stage IIIb -Baseline serum creatinine runs between 1.3 and 1.75 as of recently -Serum creatinine on admission was 2.34 02/22: Creatinine improved from 2.39-1.80. -After fluid bolus protocol of septic shock, continue IV fluids at 75 cc/h with LR No Henderson catheter. Avoid nephrotoxins including lisinopril Lasix. -Avoid nephrotoxins 02/24/2024: Renal function is back to baseline 3. Essential hypertension: Hold antihypertensive medications as patient is on Levophed 5. Constipation -Continue bowel regimen 6. DM-2: Continue home basal insulin but at decreased doses due to renal dysfunction and anticipated decreased p.o. intake. Glucose in BMP 205. Low-dose Lantus insulin started as patient is also on IV hydrocortisone. Jardiance risk for UTI therefore currently on hold but might need to be discontinued in future Toxic/metabolic encephalopathy on chronic mild cognitive impairment most likely due to infectious, toxic/metabolic encephalopathy low-dose risperidone to help with sundowning Generalized weakness/debility -Consult PT/OT -Consult social work/case management for assistance with discharge planning History of atrial fibrillation -In sinus rhythm on admission -Patient is not chronically anticoagulated -Not on any rate controlling medications either -Monitor on telemetry Hypothyroidism -Continue home levothyroxine Depression -Continue home sertraline Obesity -BMI 35 -Complicates treatment, prognosis, outcomes DVT: Heparin Charges/Coding Visit Charges Inpatient E&M: 08602 Subs Hosp L2
[2024-02-25] MEDS: Meropenem 500 MG in 0.9% Normal Saline (50mL MB+) 50 ML 100 MG IV ×2 (11:30→20:51)
[2024-02-25 11:45] LABS: Bedside Glucose 170 mg/dL (74-106)
[2024-02-25] MEDS: 0.9% Saline Lock 10 ML Syringe IV (14:12)
[2024-02-25] MEDS: Hydrocortisone Sod Succinate 100 MG/2 ML Vial 50 MG IV ×2 (14:14→20:50)
[2024-02-25 16:54] LABS: Bedside Glucose 72 mg/dL (74-106)
[2024-02-25 18:06] LABS: Bedside Glucose 183 mg/dL (74-106)
[2024-02-25] MEDS: RisperiDONE 0.25 MG Tablet PO (20:50)
[2024-02-25 23:32] LABS: Bedside Glucose 179 mg/dL (74-106)
--- NOTE | 2024-02-26 03:35 | NURSING ---
Patient refusing care at this time, refusing to let RN obtain vitals signs. Will continue to monitor.
[2024-02-26 05:25] VITALS: BMI 35.2
[2024-02-26] MEDS: Hydrocortisone Sod Succinate 100 MG/2 ML Vial 50 MG IV ×3 (06:30→23:37)
[2024-02-26] MEDS: Heparin Injection (Vial) 5,000 UNIT/ML VIAL 5000 UNIT SC ×3 (06:42→23:37)
[2024-02-26] MEDS: Levothyroxine 150 MCG Tablet PO (06:42)
[2024-02-26 06:49] VITALS: BP 133/65; PULSE 58; RESP 18; TEMP 36.6; O2SAT 98
[2024-02-26] MEDS: Insulin Lispro 100 UNIT/ML INSULN.PEN SC ×2 (07:52→11:28)
[2024-02-26] MEDS: Insulin Lispro 100 UNIT/ML INSULN.PEN 10 UNIT SC ×3 (07:53→16:54)
[2024-02-26 07:57] LABS: Absolute Lymphocyte Count 2.01 X10^3/uL (0.83-4.51); Basophil# 0.03 X10^3/uL; Basophil% 0.3 % (0-1); Eosinophil# 0.07 X10^3/uL; Eosinophils% 0.7 % (0-5); Hematocrit 36.9 % (37-47); Lymphocyte # 2.01 X10^3/ul (0.83-4.51); Lymphocyte % 20.2 % (19-41); Mean Corp Hgb Conc 32.5 g/dL (32-36); Mean Corpuscular Hgb 28.6 pg (27.0-32.0); Mean Corpuscular Volume 88.1 fL (81-99); Mean Platelet Vol. 9.9 fl (6.2-12.0); Monocyte# 0.75 X10^3/uL; Monocyte% 7.5 % (0-10); NRBC Flagged by Analyzer 0 % (0-5); Neutrophil # 6.98 X10^3/uL (2.7-7.7); Neutrophil % 70.1 % (47-70); Platelet Count 173 K/mm3 (150-450); RBC Distribution Width SD 48.4 fl (35.1-43.9); Red Blood Count 4.19 M/mm3 (4.2-5.4)
[2024-02-26 08:14] LABS: Bedside Glucose 171 mg/dL (74-106)
--- NOTE | 2024-02-26 08:19 | PN.HOSP_ITS ---
Subjective Subjective Doing well, no issues overnight Objective Data Objective Data Vital Signs: Vital Signs Temp Pulse Resp BP Pulse Ox O2 Del Method 97.8 F 58 L 18 133/65 H 98 Room Air 02/26/24 06:49 02/26/24 06:49 02/26/24 06:49 02/26/24 06:49 02/26/24 06:49 02/26/24 06:49 Oxygen Delivery Method Room Air Weight: 199 lb 1.6 oz Body Mass Index (BMI) 35.2 Intake & Output: Intake and Output for Last 24 Hours 02/25/24 02/26/24 02/27/24 03:59 03:59 03:59 Intake Total 833.75 / 833.75 1090 / 1090 Output Total 2350 / 2350 350 / 350 700 / 700 Balance -1516.25 / -1516.25 740 / 740 -700 / -700 Lab / Micro Data 02/26/24 07:10 02/25/24 06:20 Labs: Laboratory Results - last 24 hr 02/25/24 11:27: POC Glucose 170 H 02/25/24 16:35: POC Glucose 72 L 02/25/24 17:47: POC Glucose 183 H 02/25/24 23:14: POC Glucose 179 H 02/26/24 07:10: WBC 10.0, RBC 4.19 L, Hgb 12.0, Hct 36.9 L, MCV 88.1, MCH 28.6, MCHC 32.5, RDW Std Deviation 48.4 H, RDW Coeff of Neisha 15.0 H, Plt Count 173, MPV 9.9, Immature Gran % (Auto) 1.200 H, Neut % (Auto) 70.1 H, Lymph % (Auto) 20.2, [place] % (Auto) 7.5, Eos % (Auto) 0.7, Baso % (Auto) 0.3, Absolute Neuts (auto) 7.0, Absolute Lymphs (auto) 2.01, Nucleated RBC % 0 02/26/24 07:48: POC Glucose 171 H Micro: Microbiology 02/22/24 12:24 Urine, Clean Catch Urine Culture - Final ESBL Escherichia coli 02/22/24 13:39 Blood Culture (Wb) - Anticubital Right Blood Culture - Preliminary No growth in 48 hours. Physical Exam Narrative General: Alert, Oriented x 2, Cooperative, No apparent distress HEENT: Atraumatic, PERRLA, EOMI, Normocephalic Oral: Moist Mucosa Neck: Supple, No JVD Lungs: Diminished, Normal air movement, No rhonchi, No wheeze, No rales Cardiovascular: Regular rate, Regular Rhythm, Normal S1, Normal S2, No murmurs Abdomen: Soft, Non Tender, Non-Distended, No Hepato-splenomegaly Extremities: No edema, Capillary Refill Less than 3 Seconds Skin: No rashes, No breakdown Musculoskeletal: No Tenderness to Palpation of Joints or Extremities Neurological: No focal neurological deficits, Motor Exam 5/5 strength throughout, Sensory exam intact to light touch and pain Psych/Mental Status: Normal Affect, Appropriate Assessment & Plan Assessment/Plan (1) Hypotension: (2) Adrenal insufficiency: (3) Septic shock: (4) JEB (acute kidney injury): PLAN: Plan 1. Septic shock secondary to urinary tract infection: Patient being admitted in ICU. Initially volume resuscitated as per septic shock protocol. Currently, on Levophed drip. Cultures are pending. No fever. Patient did not had urinary tract instrumentation or Henderson catheter recently. Right arm PICC line. -Most recent urine culture from 01/13/2024 showed ESBL producing E. coli, Proteus mirabilis, and Klebsiella pneumoniae. Chest x-ray initially which was clear and expanded no acute abnormality. Patient on meropenem and vancomycin. Vancomycin discontinued -Patient is on hydrocortisone chronically for history of adrenal insufficiency so stress dose steroids at 100 every 8. 02/24/2024: Doing well today, Levophed is down to 2. Urine culture demonstrates that her septic shock is secondary to ESBL E. coli, continue with meropenem 02/25/2024: Will transfer out of the ICU as her Levophed has been off of close 24 hours. Continue with meropenem, PT/OT 02/26/2024: Plan on obtaining insurance approval for SNF placement. Currently on day 4 of antibiotics 2. JEB on CKD stage IIIb -Baseline serum creatinine runs between 1.3 and 1.75 as of recently -Serum creatinine on admission was 2.34 02/22: Creatinine improved from 2.39-1.80. -After fluid bolus protocol of septic shock, continue IV fluids at 75 cc/h with LR No Henderson catheter. Avoid nephrotoxins including lisinopril Lasix. -Avoid nephrotoxins 02/24/2024: Renal function is back to baseline 3. Essential hypertension: Hold antihypertensive medications as patient is on Levophed 5. Constipation -Continue bowel regimen 6. DM-2: Continue home basal insulin but at decreased doses due to renal dysfunction and anticipated decreased p.o. intake. Glucose in BMP 205. Low- dose Lantus insulin started as patient is also on IV hydrocortisone. Jardiance risk for UTI therefore currently on hold but might need to be discontinued in future Toxic/metabolic encephalopathy on chronic mild cognitive impairment most likely due to infectious, toxic/metabolic encephalopathy low-dose risperidone to help with sundowning Generalized weakness/debility -Consult PT/OT -Consult social work/case management for assistance with discharge planning History of atrial fibrillation -In sinus rhythm on admission -Patient is not chronically anticoagulated -Not on any rate controlling medications either -Monitor on telemetry Hypothyroidism -Continue home levothyroxine Depression -Continue home sertraline Obesity -BMI 35 -Complicates treatment, prognosis, outcomes DVT: Heparin Charges/Coding Visit Charges Inpatient E&M: 39632 Subs Hosp L2
[2024-02-26 08:44] LABS: Anion Gap 10 (5-15); BUN 51 mg/dL (7-18); Calcium,Total 8.6 mg/dL (8.5-10.1); Chloride 114 mmol/L (98-107); Creatinine, Serum 1.38 mg/dL (0.55-1.02); EST Glomerular Filtration Rate 39 mL/min (>60); Est Glom Filt Rate - Afr Amer 47 mL/min (>60); Estimated Creatinine Clearance 31.71 ml/min; Glucose 155 mg/dL (74-106); Potassium 3.6 mmol/L (3.5-5.1); Sodium Level 146 mmol/L (136-145)
[2024-02-26 09:35] VITALS: O2SAT 98
[2024-02-26] MEDS: Insulin Glargine-YFGN 100 UNIT/ML Pen 20 UNIT SC (10:37)
[2024-02-26] MEDS: Atorvastatin Calcium 20 MG Tablet PO (10:37)
[2024-02-26] MEDS: Polyethylene Glycol 3350 17 GM PACKET PO (10:38)
[2024-02-26] MEDS: hydrOXYzine PAM 25 MG Capsule PO (10:38)
[2024-02-26] MEDS: Sertraline 50 MG Tablet 150 MG PO (10:38)
[2024-02-26] MEDS: Meropenem 500 MG in 0.9% Normal Saline (50mL MB+) 50 ML 100 MG IV ×2 (10:38→23:36)
[2024-02-26 11:34] VITALS: BP 124/56; PULSE 64; RESP 16; TEMP 36.2; O2SAT 96
[2024-02-26 12:10] LABS: Bedside Glucose 202 mg/dL (74-106)
[2024-02-26] MEDS: Menthol/Lanolin/Calamine/Znox 113 GM Tube 1 APPLIC TOPICAL ×2 (14:33→23:36)
[2024-02-26] MEDS: Nystatin Powder 15gm Bottle 1 APPLIC TOPICAL ×2 (14:34→23:36)
--- NOTE | 2024-02-26 15:06 | CHAPLAIN ---
Type of Pastoral Visit _x__ Initial Visit ___ Follow-up Visit ___ On-call Visit ___ General Patient Visit ___ Spiritual Assessment ___ Family Conference ___ Bereavement ___ Rapid Response ___ Code Blue ___ Other (describe below) Pastoral Care Referral From _x__ Patient ___ Family ___ Nurse ___ Physician ___ Special Events Assistant ___ Care Provider ___ Other (describe below) Sacrament/Intervention _x__ Active listening ___ Anointing ___ Alevism ___ Bereavement ___ Communion ___ Shanice exploration ___ ___ Life review _x__ Prayer ___ Reconciliation ___ Sacrament of Sick _x__ Supportive presence ___ Wedding ___ Other (describe below) Pastoral Comments patient is pleasant but somewhat confused and kept asking what do you want?; pt was focused on getting the right channel on the TV so this airport operations duty manager assisted her in finding what she wanted; pt states she is maybe a little bit better, I don't know and okay, I guess, what do you want?; pt remembered that at one time she went to confucianism and could name it but other details were not as clear; pt welcomed a prayer
[2024-02-26] MEDS: 0.9% Saline Lock 10 ML Syringe IV ×2 (15:14→23:36)
[2024-02-26 16:20] VITALS: BP 145/65; PULSE 60; RESP 17; TEMP 36.8; O2SAT 96
[2024-02-26] MEDS: Insulin Glargine-YFGN 100 UNIT/ML Pen 15 UNIT SC (16:58)
[2024-02-26 17:17] LABS: Bedside Glucose 145 mg/dL (74-106)
[2024-02-26 23:05] VITALS: BP 132/64; PULSE 60; RESP 16; TEMP 36.8; O2SAT 98
[2024-02-26] MEDS: RisperiDONE 0.25 MG Tablet PO (23:37)
[2024-02-27 00:10] LABS: Bedside Glucose 120 mg/dL (74-106)
[2024-02-27 01:26] VITALS: BMI 35.2
[2024-02-27 05:00] VITALS: BP 142/67; PULSE 71; RESP 16; TEMP 36.3; O2SAT 98
[2024-02-27] MEDS: Levothyroxine 150 MCG Tablet PO (05:40)
[2024-02-27] MEDS: Hydrocortisone Sod Succinate 100 MG/2 ML Vial 50 MG IV ×3 (05:40→22:16)
[2024-02-27] MEDS: Heparin Injection (Vial) 5,000 UNIT/ML VIAL 5000 UNIT SC ×3 (05:40→22:15)
[2024-02-27] MEDS: Nystatin Powder 15gm Bottle 1 APPLIC TOPICAL ×3 (05:41→22:11)
[2024-02-27] MEDS: Menthol/Lanolin/Calamine/Znox 113 GM Tube 1 APPLIC TOPICAL ×3 (05:41→22:11)
[2024-02-27] MEDS: Insulin Glargine-YFGN 100 UNIT/ML Pen 20 UNIT SC (08:18)
[2024-02-27] MEDS: Insulin Lispro 100 UNIT/ML INSULN.PEN 10 UNIT SC ×3 (08:18→17:27)
[2024-02-27] MEDS: Insulin Lispro 100 UNIT/ML INSULN.PEN SC ×2 (08:18→17:27)
[2024-02-27] MEDS: Atorvastatin Calcium 20 MG Tablet PO (08:19)
[2024-02-27] MEDS: Sertraline 50 MG Tablet 150 MG PO (08:19)
[2024-02-27] MEDS: Polyethylene Glycol 3350 17 GM PACKET PO (08:19)
[2024-02-27] MEDS: hydrOXYzine PAM 25 MG Capsule PO (08:20)
[2024-02-27 08:30] LABS: Bedside Glucose 174 mg/dL (74-106)
[2024-02-27 08:34] VITALS: BP 145/64; PULSE 63; RESP 18; TEMP 36.6; O2SAT 99
--- NOTE | 2024-02-27 09:55 | PN.HOSP_ITS ---
Subjective Subjective No issues overnight, doing well Objective Data Objective Data Vital Signs: Vital Signs Temp Pulse Resp BP Pulse Ox O2 Del Method 97.8 F 63 18 145/64 H 99 Room Air 02/27/24 08:34 02/27/24 08:34 02/27/24 08:34 02/27/24 08:34 02/27/24 08:34 02/27/24 08:34 Oxygen Delivery Method Room Air Weight: 199 lb 1.239 oz Body Mass Index (BMI) 35.2 Intake & Output: Intake and Output for Last 24 Hours 02/26/24 02/27/24 02/28/24 03:59 03:59 03:59 Intake Total 1090 / 1090 340 / 340 Output Total 350 / 350 1250 / 1250 Balance 740 / 740 -910 / -910 Lab / Micro Data 02/26/24 07:10 02/26/24 07:10 Labs: Laboratory Results - last 24 hr 02/26/24 11:27: POC Glucose 202 H 02/26/24 16:51: POC Glucose 145 H 02/26/24 23:09: POC Glucose 120 H 02/27/24 08:10: POC Glucose 174 H Micro: Microbiology 02/22/24 12:24 Urine, Clean Catch Urine Culture - Final ESBL Escherichia coli 02/22/24 13:39 Blood Culture (Wb) - Anticubital Right Blood Culture - Preliminary No growth in 48 hours. Physical Exam Narrative General: Alert, Oriented x 2, Cooperative, No apparent distress HEENT: Atraumatic, PERRLA, EOMI, Normocephalic Oral: Moist Mucosa Neck: Supple, No JVD Lungs: Diminished, Normal air movement, No rhonchi, No wheeze, No rales Cardiovascular: Regular rate, Regular Rhythm, Normal S1, Normal S2, No murmurs Abdomen: Soft, Non Tender, Non-Distended, No Hepato-splenomegaly Extremities: No edema, Capillary Refill Less than 3 Seconds Skin: No rashes, No breakdown Musculoskeletal: No Tenderness to Palpation of Joints or Extremities Neurological: No focal neurological deficits, Motor Exam 5/5 strength throughout, Sensory exam intact to light touch and pain Psych/Mental Status: Normal Affect, Appropriate Assessment & Plan Assessment/Plan (1) Hypotension: (2) Adrenal insufficiency: (3) Septic shock: (4) JEB (acute kidney injury): PLAN: Plan 1. Septic shock secondary to urinary tract infection: Patient being admitted in ICU. Initially volume resuscitated as per septic shock protocol. Currently, on Levophed drip. Cultures are pending. No fever. Patient did not had urinary tract instrumentation or Henderson catheter recently. Right arm PICC line. -Most recent urine culture from 01/13/2024 showed ESBL producing E. coli, Proteus mirabilis, and Klebsiella pneumoniae. Chest x-ray initially which was clear and expanded no acute abnormality. Patient on meropenem and vancomycin. Vancomycin discontinued -Patient is on hydrocortisone chronically for history of adrenal insufficiency so stress dose steroids at 100 every 8. 02/24/2024: Doing well today, Levophed is down to 2. Urine culture demonstrates that her septic shock is secondary to ESBL E. coli, continue with meropenem 02/25/2024: Will transfer out of the ICU as her Levophed has been off of close 24 hours. Continue with meropenem, PT/OT 02/26/2024: Plan on obtaining insurance approval for SNF placement. Currently on day 4 of antibiotics 02/27/2024: Today is day 5 of antibiotics, will likely complete course prior to discharge 2. JEB on CKD stage IIIb -Baseline serum creatinine runs between 1.3 and 1.75 as of recently -Serum creatinine on admission was 2.34 02/22: Creatinine improved from 2.39-1.80. -After fluid bolus protocol of septic shock, continue IV fluids at 75 cc/h with LR No Henderson catheter. Avoid nephrotoxins including lisinopril Lasix. -Avoid nephrotoxins 02/24/2024: Renal function is back to baseline 3. Essential hypertension: Hold antihypertensive medications as patient is on Levophed 5. Constipation -Continue bowel regimen 6. DM-2: Continue home basal insulin but at decreased doses due to renal dysfunction and anticipated decreased p.o. intake. Glucose in BMP 205. Low- dose Lantus insulin started as patient is also on IV hydrocortisone. Jardiance risk for UTI therefore currently on hold but might need to be discontinued in future Toxic/metabolic encephalopathy on chronic mild cognitive impairment most likely due to infectious, toxic/metabolic encephalopathy low-dose risperidone to help with sundowning 02/27/2024: Baseline dementia is evident but her encephalopathy appears to have resolved Generalized weakness/debility -Consult PT/OT -Consult social work/case management for assistance with discharge planning History of atrial fibrillation -In sinus rhythm on admission -Patient is not chronically anticoagulated -Not on any rate controlling medications either -Monitor on telemetry Hypothyroidism -Continue home levothyroxine Depression -Continue home sertraline Obesity -BMI 35 -Complicates treatment, prognosis, outcomes DVT: Heparin Charges/Coding Visit Charges Inpatient E&M: 65776 Subs Hosp L2
--- NOTE | 2024-02-27 10:58 | CASEMGMT ---
Addendum entered by Yamilet Serna 02/27/24 11:56: Social Work- SW updated pt on declinations by Miles Rey, Millicent Preston, [facility] Abreu, and advised that [facility] is still reviewing. Pt reported that if she could not find an accepting facility, she would consider return to [facility]. Pt was observed to express some confusion. SW called pt dtr, Jemma, who states that she has no other facilities in mind and is uncertain if she would want [facility], as she recently heard of reyes failure. Pt dtr asked SW to call [facility] to determine impact of reyes failure of ptcare; SW encouraged her to call [facility] to discuss concerns directly. Pt dtr states she is unable to make calls until 3pm. SW provided [place] half-way navigator website to pt dtr to assist in choice of preferences, as pt dtr was requesting safety counselor in making choices. SW relayed that staff is unable to make recommendations, but referred pt dtr to ratings on SNF list and website. Pt dtr reports that she will research and call with additional choices. SW encouraged a return call early afternoon so additional referrals can be made. FELICITA Valentino Original Note: Social Work- SW called [facility] Abreu to verify that pt would come under [facility]. [facility] Abreu declined referral. FELICITA Valentino
[2024-02-27] MEDS: Meropenem 500 MG in 0.9% Normal Saline (50mL MB+) 50 ML 12 MG IV (10:59)
[2024-02-27 12:24] LABS: Bedside Glucose 141 mg/dL (74-106)
[2024-02-27] MEDS: 0.9% Saline Lock 10 ML Syringe IV (14:01)
[2024-02-27 15:32] VITALS: BP 107/54; PULSE 61; RESP 18; TEMP 37.3; O2SAT 97
[2024-02-27 15:35] VITALS: PULSE 70
[2024-02-27 16:02] LABS: Bedside Glucose 154 mg/dL (74-106)
--- NOTE | 2024-02-27 17:03 | CASEMGMT ---
Social Work- SW called dtr Jemma who states that she has not had the opportunity to research. Pt dtr asked if SW could have [facility] call her to discuss the reyes; SW again encouraged dtr to call [facility]. SW provided education on the SNF/discharge process and encouraged that we need to continue to be seeking placement for d/c. SW will send SNF list via email, as pt dtr states that she does not have the list previously provided. SW sent list. SW will follow up with pt dtr tomorrow after she has had a chance to research facilities this evening. FELICITA Valentino
[2024-02-27] MEDS: Insulin Glargine-YFGN 100 UNIT/ML Pen 15 UNIT SC (17:28)
[2024-02-27 17:51] LABS: Bedside Glucose 182 mg/dL (74-106)
[2024-02-27] MEDS: 0.9% Normal Saline (250mL Bag) 250 ML 15 ML IV (18:33)
[2024-02-27] MEDS: RisperiDONE 0.25 MG Tablet PO (22:20)
[2024-02-27] MEDS: Meropenem 500 MG in 0.9% Normal Saline (50mL MB+) 50 ML 100 MG IV (22:20)
[2024-02-27 22:50] LABS: Bedside Glucose 184 mg/dL (74-106)
[2024-02-28 01:05] VITALS: BP 135/60; PULSE 59; RESP 16; TEMP 36.4; O2SAT 97
[2024-02-28] MEDS: Levothyroxine 150 MCG Tablet PO (06:39)
[2024-02-28] MEDS: Heparin Injection (Vial) 5,000 UNIT/ML VIAL 5000 UNIT SC ×3 (06:39→22:06)
[2024-02-28] MEDS: Hydrocortisone Sod Succinate 100 MG/2 ML Vial 50 MG IV ×3 (06:39→22:06)
[2024-02-28] MEDS: Menthol/Lanolin/Calamine/Znox 113 GM Tube 1 APPLIC TOPICAL ×3 (06:39→22:06)
[2024-02-28] MEDS: Nystatin Powder 15gm Bottle 1 APPLIC TOPICAL ×3 (06:40→22:07)
[2024-02-28 07:11] LABS: Absolute Lymphocyte Count 1.47 X10^3/uL (0.83-4.51); Absolute Neutrophil Count 7.7 X10^3/uL (2.0-7.7); Basophil# 0.02 X10^3/uL; Basophil% 0.2 % (0-1); Eosinophil# 0.07 X10^3/uL; Eosinophils% 0.7 % (0-5); Hematocrit 35.2 % (37-47); Hemoglobin 11.4 g/dL (12.0-15.0); Lymphocyte # 1.47 X10^3/ul (0.83-4.51); Lymphocyte % 14.5 % (19-41); Mean Corp Hgb Conc 32.4 g/dL (32-36); Mean Corpuscular Hgb 28.4 pg (27.0-32.0); Mean Corpuscular Volume 87.8 fL (81-99); Mean Platelet Vol. 10.1 fl (6.2-12.0); Monocyte# 0.71 X10^3/uL; NRBC Flagged by Analyzer 0 % (0-5); Neutrophil # 7.74 X10^3/uL (2.7-7.7); Neutrophil % 76.3 % (47-70); Platelet Count 167 K/mm3 (150-450); RBC Distribution Width CV 14.6 % (11.6-14.6); Red Blood Count 4.01 M/mm3 (4.2-5.4); White Blood Count 10.1 K/mm3 (4.4-11.0)
[2024-02-28] MEDS: Sertraline 50 MG Tablet 150 MG PO (07:36)
[2024-02-28] MEDS: Atorvastatin Calcium 20 MG Tablet PO (07:36)
[2024-02-28] MEDS: Polyethylene Glycol 3350 17 GM PACKET PO (07:36)
[2024-02-28] MEDS: hydrOXYzine PAM 25 MG Capsule PO (07:40)
[2024-02-28 07:54] LABS: Bedside Glucose 182 mg/dL (74-106)
[2024-02-28 08:00] LABS: Anion Gap 7 (5-15); BUN 45 mg/dL (7-18); BUN/Creat Ratio 39.5 RATIO (10-20); Calcium,Total 8.6 mg/dL (8.5-10.1); Chloride 115 mmol/L (98-107); Creatinine, Serum 1.14 mg/dL (0.55-1.02); EST Glomerular Filtration Rate 48 mL/min (>60); Est Glom Filt Rate - Afr Amer 58 mL/min (>60); Estimated Creatinine Clearance 38.38 ml/min; Glucose 195 mg/dL (74-106); Potassium 3.6 mmol/L (3.5-5.1); Sodium Level 144 mmol/L (136-145)
[2024-02-28 08:30] VITALS: BP 128/56; PULSE 58; RESP 16; TEMP 36.8; O2SAT 98
--- NOTE | 2024-02-28 09:07 | CASEMGMT ---
Social Work- RUTHIE spoke with pt dtr who reports that she would like [facility]. RUTHIE advised DCA. FELICITA Valentino
[2024-02-28] MEDS: Insulin Lispro 100 UNIT/ML INSULN.PEN SC ×3 (09:16→17:12)
[2024-02-28] MEDS: Insulin Glargine-YFGN 100 UNIT/ML Pen 20 UNIT SC (09:17)
[2024-02-28] MEDS: Insulin Lispro 100 UNIT/ML INSULN.PEN 10 UNIT SC ×3 (09:17→17:12)
[2024-02-28] MEDS: Meropenem 500 MG in 0.9% Normal Saline (50mL MB+) 50 ML 100 MG IV ×2 (09:20→22:06)
--- NOTE | 2024-02-28 09:27 | PN.HOSP_ITS ---
Subjective Subjective No issues overnight. Doing well. Objective Data Objective Data Vital Signs: Vital Signs Temp Pulse Resp BP Pulse Ox O2 Del Method 98.2 F 58 L 16 128/56 H 98 Room Air 02/28/24 08:30 02/28/24 08:30 02/28/24 08:30 02/28/24 08:30 02/28/24 08:30 02/28/24 08:30 Oxygen Delivery Method Room Air Weight: 199 lb 1.239 oz Body Mass Index (BMI) 35.2 Intake & Output: Intake and Output for Last 24 Hours 02/27/24 02/28/24 02/29/24 03:59 03:59 03:59 Intake Total 340 / 340 570 / 570 Output Total 1250 / 1250 1750 / 1750 600 / 600 Balance -910 / -910 -1180 / -1180 -600 / -600 Lab / Micro Data 02/28/24 06:15 02/28/24 06:15 Labs: Laboratory Results - last 24 hr 02/27/24 12:04: POC Glucose 141 H 02/27/24 15:43: POC Glucose 154 H 02/27/24 17:25: POC Glucose 182 H 02/27/24 22:09: POC Glucose 184 H 02/28/24 06:15: WBC 10.1, RBC 4.01 L, Hgb 11.4 L, Hct 35.2 L, MCV 87.8, MCH 28.4, MCHC 32.4, RDW Std Deviation 47.0 H, RDW Coeff of Neisha 14.6, Plt Count 167, MPV 10.1, Immature Gran % (Auto) 1.300 H, Neut % (Auto) 76.3 H, Lymph % (Auto) 14.5 L, [place] % (Auto) 7.0, Eos % (Auto) 0.7, Baso % (Auto) 0.2, Absolute Neuts (auto) 7.7, Absolute Lymphs (auto) 1.47, Nucleated RBC % 0, Sodium 144, Potassium 3.6, Chloride 115 H, Carbon Dioxide 22.0, Anion Gap 7, BUN 45 H, C reatinine 1.14 H, Estim Creat Clear Calc 38.38, Est GFR (MDRD) Af Amer 58 L, Est GFR (MDRD) Non-Af 48 L, BUN/Creatinine Ratio 39.5 H, Glucose 195 H, Calcium 8.6 02/28/24 07:31: POC Glucose 182 H Micro: Microbiology 02/22/24 13:39 Blood Culture (Wb) - Anticubital Right Blood Culture - Final No growth in 5 days. 02/22/24 12:24 Urine, Clean Catch Urine Culture - Final ESBL Escherichia coli Physical Exam Narrative General: Alert, Oriented x 2, Cooperative, No apparent distress HEENT: Atraumatic, PERRLA, EOMI, Normocephalic Oral: Moist Mucosa Neck: Supple, No JVD Lungs: Diminished, Normal air movement, No rhonchi, No wheeze, No rales Cardiovascular: Regular rate, Regular Rhythm, Normal S1, Normal S2, No murmurs Abdomen: Soft, Non Tender, Non-Distended, No Hepato-splenomegaly Extremities: No edema, Capillary Refill Less than 3 Seconds Skin: No rashes, No breakdown Musculoskeletal: No Tenderness to Palpation of Joints or Extremities Neurological: No focal neurological deficits, Motor Exam 5/5 strength throughout, Sensory exam intact to light touch and pain Psych/Mental Status: Normal Affect, Appropriate Assessment & Plan Assessment/Plan (1) Hypotension: (2) Adrenal insufficiency: (3) Septic shock: (4) JEB (acute kidney injury): PLAN: Plan 1. Septic shock secondary to urinary tract infection: Patient being admitted in ICU. Initially volume resuscitated as per septic shock protocol. Currently, on Levophed drip. Cultures are pending. No fever. Patient did not had urinary tract instrumentation or Henderson catheter recently. Right arm PICC line. -Most recent urine culture from 01/13/2024 showed ESBL producing E. coli, Proteus mirabilis, and Klebsiella pneumoniae. Chest x-ray initially which was clear and expanded no acute abnormality. Patient on meropenem and vancomycin. Vancomycin discontinued -Patient is on hydrocortisone chronically for history of adrenal insufficiency so stress dose steroids at 100 every 8. 02/24/2024: Doing well today, Levophed is down to 2. Urine culture demonstrates that her septic shock is secondary to ESBL E. coli, continue with meropenem 02/25/2024: Will transfer out of the ICU as her Levophed has been off of close 24 hours. Continue with meropenem, PT/OT 02/26/2024: Plan on obtaining insurance approval for SNF placement. Currently on day 4 of antibiotics 02/27/2024: Today is day 5 of antibiotics, will likely complete course prior to discharge 02/28/2024: Continue with meropenem will discontinue prior to discharge. Awaiting pre-CERT for SNF placement 2. JEB on CKD stage IIIb -Baseline serum creatinine runs between 1.3 and 1.75 as of recently -Serum creatinine on admission was 2.34 02/22: Creatinine improved from 2.39-1.80. -After fluid bolus protocol of septic shock, continue IV fluids at 75 cc/h with LR No Henderson catheter. Avoid nephrotoxins including lisinopril Lasix. -Avoid nephrotoxins 02/24/2024: Renal function is back to baseline 3. Essential hypertension: Hold antihypertensive medications as patient is on Levophed 5. Constipation -Continue bowel regimen 6. DM-2: Continue home basal insulin but at decreased doses due to renal dysfunction and anticipated decreased p.o. intake. Glucose in BMP 205. Low- dose Lantus insulin started as patient is also on IV hydrocortisone. Jardiance risk for UTI therefore currently on hold but might need to be discontinued in future Toxic/metabolic encephalopathy on chronic mild cognitive impairment most likely due to infectious, toxic/metabolic encephalopathy low-dose risperidone to help with sundowning 02/27/2024: Baseline dementia is evident but her encephalopathy appears to have resolved Generalized weakness/debility -Consult PT/OT -Consult social work/case management for assistance with discharge planning History of atrial fibrillation -In sinus rhythm on admission -Patient is not chronically anticoagulated -Not on any rate controlling medications either -Monitor on telemetry Hypothyroidism -Continue home levothyroxine Depression -Continue home sertraline Obesity -BMI 35 -Complicates treatment, prognosis, outcomes DVT: Heparin Charges/Coding Visit Charges Inpatient E&M: 60541 Subs Hosp L2
--- NOTE | 2024-02-28 09:54 | CASEMGMT ---
Addendum entered by Mendy Holloway 02/28/24 16:34: Patient has decided to return to [facility]. [facility] and Laura asked to cancel referral. Mendy Holloway DC Planning Asst. Addendum entered by Mendy Holloway 02/28/24 14:39: [facility] has accepted. SW updated. Mendy Holloway DC Planning Asst. Original Note: Discharge Planning Referral sent to [facility] at [place]. Mendy Holloway DC Planning Asst.
[2024-02-28] MEDS: 0.9% Normal Saline (250mL Bag) 250 ML 15 ML IV (09:58)
[2024-02-28 11:04] VITALS: BP 119/53; PULSE 61; RESP 16; TEMP 36.8; O2SAT 98
[2024-02-28 11:22] LABS: Bedside Glucose 233 mg/dL (74-106)
--- NOTE | 2024-02-28 15:24 | CASEMGMT ---
Social Work- SW called marybeth Easton pt dtr, to advise that [facility] did accept referral and that [facility] remains pending. RUTHIE left a voicemail requesting a return call on how to proceed. FELICITA Valentino
[2024-02-28 15:44] VITALS: BP 127/53; PULSE 63; RESP 16; TEMP 36.8; O2SAT 100
--- NOTE | 2024-02-28 16:28 | CASEMGMT ---
Social Work- SW met with pt, pt dtr Jemma and Fely. Jemma reports that they had a care plan meeting at [facility] today and discussed pt returning with palliative care. Pt and pt dtr are agreeable to pt returning with this extra care. SW advised DCA. RUTHIE will discuss with physician. FELICITA Valentino
[2024-02-28 16:51] LABS: Bedside Glucose 165 mg/dL (74-106)
[2024-02-28] MEDS: Insulin Glargine-YFGN 100 UNIT/ML Pen 15 UNIT SC (17:11)
[2024-02-28 20:26] VITALS: BP 118/48; PULSE 60; RESP 16; TEMP 36.7; O2SAT 97
[2024-02-28] MEDS: RisperiDONE 0.25 MG Tablet PO (22:06)
[2024-02-28 22:18] LABS: Bedside Glucose 187 mg/dL (74-106)
[2024-02-29 02:25] VITALS: BP 127/53; PULSE 58; RESP 16; TEMP 36.9; O2SAT 97
[2024-02-29] MEDS: Nystatin Powder 15gm Bottle 1 APPLIC TOPICAL ×2 (06:17→15:47)
[2024-02-29] MEDS: Menthol/Lanolin/Calamine/Znox 113 GM Tube 1 APPLIC TOPICAL ×2 (06:17→15:47)
[2024-02-29] MEDS: Heparin Injection (Vial) 5,000 UNIT/ML VIAL 5000 UNIT SC ×2 (06:21→15:47)
[2024-02-29] MEDS: Levothyroxine 150 MCG Tablet PO (06:21)
[2024-02-29] MEDS: Hydrocortisone Sod Succinate 100 MG/2 ML Vial 50 MG IV ×2 (06:22→15:46)
[2024-02-29] MEDS: Insulin Lispro 100 UNIT/ML INSULN.PEN SC ×2 (07:36→12:11)
[2024-02-29] MEDS: Insulin Lispro 100 UNIT/ML INSULN.PEN 10 UNIT SC ×3 (07:37→17:30)
[2024-02-29 08:00] LABS: Bedside Glucose 180 mg/dL (74-106)
[2024-02-29 08:25] VITALS: BP 130/58; PULSE 55; RESP 16; TEMP 37; O2SAT 98
--- NOTE | 2024-02-29 08:53 | CASEMGMT ---
Discharge Planning Updates sent to [facility] via [facility]. Mendy Holloway DC Planning Asst.
[2024-02-29] MEDS: Insulin Glargine-YFGN 100 UNIT/ML Pen 20 UNIT SC (10:41)
[2024-02-29] MEDS: Polyethylene Glycol 3350 17 GM PACKET PO (10:42)
[2024-02-29] MEDS: Atorvastatin Calcium 20 MG Tablet PO (10:42)
[2024-02-29] MEDS: Sertraline 50 MG Tablet 150 MG PO (10:42)
[2024-02-29] MEDS: hydrOXYzine PAM 25 MG Capsule PO (10:46)
[2024-02-29] MEDS: Meropenem 500 MG in 0.9% Normal Saline (50mL MB+) 50 ML 100 MG IV (10:46)
--- NOTE | 2024-02-29 11:09 | PN.HOSP_ITS ---
Subjective Subjective Doing well, no issues overnight Objective Data Objective Data Vital Signs: Vital Signs Temp Pulse Resp BP Pulse Ox O2 Del Method 98.6 F 55 L 16 130/58 H 98 Room Air 02/29/24 08:25 02/29/24 08:25 02/29/24 08:25 02/29/24 08:25 02/29/24 08:25 02/29/24 09:28 Oxygen Delivery Method Room Air Weight: 199 lb 1.239 oz Body Mass Index (BMI) 35.2 Intake & Output: Intake and Output for Last 24 Hours 02/28/24 02/29/24 03/01/24 03:59 03:59 03:59 Intake Total 570 / 570 1301.25 / 1301.25 Output Total 1750 / 1750 1300 / 1300 400 / 400 Balance -1180 / -1180 1.25 / 1.25 -400 / -400 Lab / Micro Data 02/28/24 06:15 02/28/24 06:15 Labs: Laboratory Results - last 24 hr 02/28/24 10:59: POC Glucose 233 H 02/28/24 16:31: POC Glucose 165 H 02/28/24 21:58: POC Glucose 187 H 02/29/24 07:29: POC Glucose 180 H Micro: Microbiology 02/22/24 13:39 Blood Culture (Wb) - Anticubital Right Blood Culture - Final No growth in 5 days. 02/22/24 12:24 Urine, Clean Catch Urine Culture - Final ESBL Escherichia coli Physical Exam Narrative General: Alert, Oriented x 2, Cooperative, No apparent distress HEENT: Atraumatic, PERRLA, EOMI, Normocephalic Oral: Moist Mucosa Neck: Supple, No JVD Lungs: Diminished, Normal air movement, No rhonchi, No wheeze, No rales Cardiovascular: Regular rate, Regular Rhythm, Normal S1, Normal S2, No murmurs Abdomen: Soft, Non Tender, Non-Distended, No Hepato-splenomegaly Extremities: No edema, Capillary Refill Less than 3 Seconds Skin: No rashes, No breakdown Musculoskeletal: No Tenderness to Palpation of Joints or Extremities Neurological: No focal neurological deficits, Motor Exam 5/5 strength throughout, Sensory exam intact to light touch and pain Psych/Mental Status: Normal Affect, Appropriate Assessment & Plan Assessment/Plan (1) Hypotension: (2) Adrenal insufficiency: (3) Septic shock: (4) JEB (acute kidney injury): PLAN: Plan 1. Septic shock secondary to urinary tract infection: Patient being admitted in ICU. Initially volume resuscitated as per septic shock protocol. Currently, on Levophed drip. Cultures are pending. No fever. Patient did not had urinary tract instrumentation or Henderson catheter recently. Right arm PICC line. -Most recent urine culture from 01/13/2024 showed ESBL producing E. coli, Proteus mirabilis, and Klebsiella pneumoniae. Chest x-ray initially which was clear and expanded no acute abnormality. Patient on meropenem and vancomycin. Vancomycin discontinued -Patient is on hydrocortisone chronically for history of adrenal insufficiency so stress dose steroids at 100 every 8. 02/24/2024: Doing well today, Levophed is down to 2. Urine culture demonstrates that her septic shock is secondary to ESBL E. coli, continue with meropenem 02/25/2024: Will transfer out of the ICU as her Levophed has been off of close 24 hours. Continue with meropenem, PT/OT 02/26/2024: Plan on obtaining insurance approval for SNF placement. Currently on day 4 of antibiotics 02/27/2024: Today is day 5 of antibiotics, will likely complete course prior to discharge 02/28/2024: Continue with meropenem will discontinue prior to discharge. Awaiting pre-CERT for SNF placement 02/29/2024: Continuing to wait for pre-CERT 2. JEB on CKD stage IIIb -Baseline serum creatinine runs between 1.3 and 1.75 as of recently -Serum creatinine on admission was 2.34 02/22: Creatinine improved from 2.39-1.80. -After fluid bolus protocol of septic shock, continue IV fluids at 75 cc/h with LR No Henderson catheter. Avoid nephrotoxins including lisinopril Lasix. -Avoid nephrotoxins 02/24/2024: Renal function is back to baseline 3. Essential hypertension: Hold antihypertensive medications as patient is on Levophed 5. Constipation -Continue bowel regimen 6. DM-2: Continue home basal insulin but at decreased doses due to renal dysfunction and anticipated decreased p.o. intake. Glucose in BMP 205. Low- dose Lantus insulin started as patient is also on IV hydrocortisone. Jardiance risk for UTI therefore currently on hold but might need to be discontinued in future Toxic/metabolic encephalopathy on chronic mild cognitive impairment most likely due to infectious, toxic/metabolic encephalopathy low-dose risperidone to help with sundowning 02/27/2024: Baseline dementia is evident but her encephalopathy appears to have resolved Generalized weakness/debility -Consult PT/OT -Consult social work/case management for assistance with discharge planning History of atrial fibrillation -In sinus rhythm on admission -Patient is not chronically anticoagulated -Not on any rate controlling medications either -Monitor on telemetry Hypothyroidism -Continue home levothyroxine Depression -Continue home sertraline Obesity -BMI 35 -Complicates treatment, prognosis, outcomes DVT: Heparin Charges/Coding Visit Charges Inpatient E&M: 78441 Subs Hosp L1
[2024-02-29] MEDS: 0.9% Normal Saline (250mL Bag) 250 ML 15 ML IV (12:14)
[2024-02-29 12:34] LABS: Bedside Glucose 227 mg/dL (74-106)
--- NOTE | 2024-02-29 14:18 | CASEMGMT ---
Social Work- SW called pt dtr Jemma to advise that [facility] is willing to accept with palliative referral and has started precert. Physician advised that pt will need palliative referral. Plan: [facility], intermediate level of care with palliative referral FELICITA Valentino
--- NOTE | 2024-02-29 15:13 | TREXTCAR_ITS ---
Diet Diet Order/Speech Therapy: 02/22/24 16:18 Diet: Consistent Carb - Calorie Controlled How many daily calories?: 1800 calorie Routine Orders/Code Status Routine Lab Work: CBC and BMP Code Status: DNRCC-A Wound(s) left buttock: Wound Type: Pressure Injury Face: Wound Type: Scabbing BUE: Wound Type: Scabbing Therapies Physical Therapy: Eval and Treat Occupational Therapy: Eval and Treat Problem/Diagnosis (1) Hypotension: Status: Acute Code(s): I95.9 - Hypotension, unspecified (2) Adrenal insufficiency: Status: Acute Code(s): E27.40 - Unspecified adrenocortical insufficiency (3) Septic shock: Status: Acute Code(s): A41.9 - Sepsis, unspecified organism; R65.21 - Severe sepsis with septic shock (4) JEB (acute kidney injury): Status: Acute Code(s): N17.9 - Acute kidney failure, unspecified Plan 1. Septic shock secondary to urinary tract infection: Patient being admitted in ICU. Initially volume resuscitated as per septic shock protocol. Currently, on Levophed drip. Cultures are pending. No fever. Patient did not had urinary tract instrumentation or Henderson catheter recently. Right arm PICC line. -Most recent urine culture from 01/13/2024 showed ESBL producing E. coli, Proteus mirab ilis, and Klebsiella pneumoniae. Chest x-ray initially which was clear and expanded no acute abnormality. Patient on meropenem and vancomycin. Vancomycin discontinued -Patient is on hydrocortisone chronically for history of adrenal insufficiency so stress dose steroids at 100 every 8. 02/24/2024: Doing well today, Levophed is down to 2. Urine culture demonstrates that her septic shock is secondary to ESBL E. coli, continue with meropenem 02/25/2024: Will transfer out of the ICU as her Levophed has been off of close 24 hours. Continue with meropenem, PT/OT 02/26/2024: Plan on obtaining insurance approval for SNF placement. Currently on day 4 of antibiotics 02/27/2024: Today is day 5 of antibiotics, will likely complete course prior to discharge 02/28/2024: Continue with meropenem will discontinue prior to discharge. Awaiting pre-CERT for SNF placement 02/29/2024: Continuing to wait for pre-CERT 2. JEB on CKD stage IIIb -Baseline serum creatinine runs between 1.3 and 1.75 as of recently -Serum creatinine on admission was 2.34 02/22: Creatinine improved from 2.39-1.80. -After fluid bolus protocol of septic shock, continue IV fluids at 75 cc/h with LR No Henderson catheter. Avoid nephrotoxins including lisinopril Lasix. -Avoid nephrotoxins 02/24/2024: Renal function is back to baseline 3. Essential hypertension: Hold antihypertensive medications as patient is on Levophed 5. Constipation -Continue bowel regimen 6. DM-2: Continue home basal insulin but at decreased doses due to renal dysfunction and anticipated decreased p.o. intake. Glucose in BMP 205. Low- dose Lantus insulin started as patient is also on IV hydrocortisone. Jardiance risk for UTI therefore currently on hold but might need to be discontinued in future Toxic/metabolic encephalopathy on chronic mild cognitive impairment most likely due to infectious, toxic/metabolic encephalopathy low-dose risperidone to help with sundowning 02/27/2024: Baseline dementia is evident but her encephalopathy appears to have resolved Generalized weakness/debility -Consult PT/OT -Consult social work/case management for assistance with discharge planning History of atrial fibrillation -In sinus rhythm on admission -Patient is not chronically anticoagulated -Not on any rate controlling medications either -Monitor on telemetry Hypothyroidism -Continue home levothyroxine Depression -Continue home sertraline Obesity -BMI 35 -Complicates treatment, prognosis, outcomes DVT: Heparin Allergies/Procedures Done in Hospital Allergies Iodinated Contrast Media (Iodinated Contrast Media - IV Dye) Adverse Reaction (Verified 02/22/24 10:40) Other NAUSEA AFFECTS KIDNEYS Procedures: None Type of Care/Length of Stay Estimated LOS: Convalescent Care Less Than 30 days Type of Care Needed: Skilled Rehab Potential: Fair Prognosis: Fair Additional Orders/Day of Discharge Day of Discharge: 02/29/24 Dietary and Speech Recommendations Dietitian Recommendations/Changes: Continue 1800 og Consistent CHO diet as ordered Monitor for changes in pt nutritional status and make additional rec as indicated. Will monitor weight, as available. Reviewed and approved by Jacklyn Tong RDN, LD. Discharge Plan Admission Admit Date/Time: 02/22/24 15:34 Attending Provider: Joel Cárdenas Primary Care Provider: Yenni Hallman Consulting Providers: Isabela Hernandez; Vince Jenkins; Tyler Louise; Rafiq Cassidy; Clinton Gaming; Ashu Dunn; Cali Vega; Rene Rhoades; Wendy Perez; Ascencion Roberts; Willy Gonsales; Aysha Bustos; Karena Isbell; Jostin Gabriel; Lyle Sosa; Wagner Palacios; Joe Yousif; Jamie Burnham; Cory Francois; Rhoda Oakes; Sabina Weldon; Ashu Boone; Myrtle Pablo; Maggie Gifford; Tanya Huerta [employer] Discharge Orders/Prescriptions Prescriptions: Continued donepezil 10 MG tablet 10 mg PO QHS levothyroxine 150 MCG tablet 150 mcg PO DAILY hydrocortisone 5 MG tablet 5 mg PO TID clonidine HCl 0.1 mg Tablet 0.5 mg PO DAILY atorvastatin 20 mg Tablet 20 mg PO DAILY lisinopril 5 mg Tablet 5 mg PO DAILY dextrose [Glucose Gel] 40 % gel 10 g PO Q15M PRN (Reason: hypoglycemia) Rx Instructions: for hypoglycemia less that 60 guaifenesin [Adult Tussin Chest Congestion] 100 mg/5 mL liquid 200 mg PO Q4H PRN (Reason: congestion) acetylcysteine 600 mg capsule 600 mg PO BID Dupixent Pen 300 mg/2 mL pen injector 300 mg subcut WE polyethylene glycol 3350 17 gram/dose powder 17 g PO DAILY Opzelura 1.5 % cream 1 applic topical QHS Rx Instructions: APPLY TO FULL FACE AT BEDTIME acetaminophen 500 mg tablet 1,000 mg PO BID PRN (Reason: fever or pain) hydroxyzine HCl 25 mg tablet 25 mg PO DAILY albuterol sulfate 2.5 mg /3 mL (0.083 %) solution for nebulization 2.5 mg inhalation Q4H PRN (Reason: shortness of breath or wheezing) furosemide 20 mg tablet 20 mg PO DAILY insulin glargine 100 unit/mL solution 32 unit subcut QHS insulin aspart U-100 [Novolog FlexPen U-100 Insulin] 100 unit/mL (3 mL) insulin pen 1 sliding scale dose subcut TID Protocol: 6. Sliding Scale Insulin Custom Condition: mg/dl range Dose/Route: Number of Units Condition: 250-349 Dose/Route: 2 Condition: >349 Dose/Route: 4 Protocol Text: INJECT PER SLIDING SCALE BEFORE MEALS sertraline 50 mg tablet 150 mg PO DAILY insulin glargine [Basaglar KwikPen U-100 Insulin] 100 UNIT/ML insulin pen 40 unit SQ 0800 Held Jardiance 25 mg tablet 25 mg PO DAILY Hold Instructions: Resume on 03/05/24. Discontinued sertraline 100 mg tablet 100 mg PO DAILY Referrals / Follow Up: Yenni Hallman MD [Primary Care Provider] - Enedina Castaneda MD [Non-Staff] - Disposition Disposition (needs filled in before D/C Order can be placed): Residential Facility
--- NOTE | 2024-02-29 15:26 | CASEMGMT ---
Pt screened with [facility] Palliative care screening tool. Pt met criteria, order placed. Order will be sent to [facility], [facility] will be scheduling palliative consult with [facility].
--- NOTE | 2024-02-29 15:32 | CASEMGMT ---
Social Work- Precert has been obtained.? Physician updated and pt is ready for discharge today.? SW called pt marybeth, Jemma, and she is agreeable to discharge plan as stated above.? DCA notified of discharge. Disposition:[facility] under intermediate level of care with palliative referral. [facility] has applied for a skilled level of care; that remains pending. FELICITA Valentino
[2024-02-29] MEDS: 0.9% Saline Lock 10 ML Syringe IV (15:46)
--- NOTE | 2024-02-29 15:53 | PCM.DC.SUM ---
Providers Date of Admission: 02/22/24 Primary Care Physician: Dr. Yenni Hallman MD Consultations 02/22/24 16:18 Consult: Data Software Engineer / Pulmonary Medicine Routine Consulting Provider: Intensivists/Pulmonary Med Reason for Consult: sepsis EMERGENT Consult: No Notified: Yes Date Notified: 02/22/24 Time Notified: 15:39 Method of Notification: Text 02/29/24 15:01 Consult: Hospice / Palliative Care Routine Consulting Provider: [facility] Reason for Consult: Palliative Care EMERGENT Consult: No Notified: Yes Date Notified: 02/29/24 Time Notified: 15:01 Method of Notification: Verbal Reason For Visit: HYPOTENSION Diagnosis Discharge Diagnosis (1) Hypotension: Status: Acute Code(s): I95.9 - Hypotension, unspecified (2) Adrenal insufficiency: Status: Acute Code(s): E27.40 - Unspecified adrenocortical insufficiency (3) Septic shock: Status: Acute Code(s): A41.9 - Sepsis, unspecified organism; R65.21 - Severe sepsis with septic shock (4) JEB (acute kidney injury): Status: Acute Code(s): N17.9 - Acute kidney failure, unspecified Medications at Discharge Home Medications donepezil 10 mg tablet 10 mg PO QHS memory 02/25/18 levothyroxine 150 mcg tablet 150 mcg PO DAILY 02/25/18 hydrocortisone 5 mg tablet 5 mg PO TID 08/08/18 atorvastatin 20 mg tablet 20 mg PO DAILY 11/20/20 clonidine HCl 0.1 mg tablet 0.5 mg PO DAILY 11/20/20 lisinopril 5 mg tablet 5 mg PO DAILY 11/20/20 acetaminophen 500 mg tablet 1,000 mg PO BID PRN fever or pain 02/22/24 acetylcysteine 600 mg capsule 600 mg PO BID 02/22/24 albuterol sulfate 2.5 mg/3 mL (0.083 %) solution for nebulization 2.5 mg inhalation Q4H PRN shortness of breath or wheezing 02/22/24 dextrose 40 % oral gel (Glucose Gel) 10 g PO Q15M PRN hypoglycemia 02/22/24 dupilumab 300 mg/2 mL subcutaneous pen injector (Dupixent) 300 mg subcut WE 02/22/24 empagliflozin 25 mg tablet (Jardiance) 25 mg PO DAILY 02/22/24 furosemide 20 mg tablet 20 mg PO DAILY 02/22/24 guaifenesin 100 mg/5 mL oral liquid (Adult Tussin Chest Congestion) 200 mg PO Q4H PRN congestion 02/22/24 hydroxyzine HCl 25 mg tablet 25 mg PO DAILY 02/22/24 insulin aspart U-100 100 unit/mL (3 mL) subcutaneous pen (Novolog FlexPen U-100 Insulin aspart) 1 sliding scale dose subcut TID 02/22/24 insulin glargine 100 unit/mL (3 mL) subcutaneous pen (Basaglar KwikPen U-100 Insulin) 40 unit SQ 0800 dm 02/22/24 insulin glargine 100 unit/mL subcutaneous solution 32 unit subcut QHS 02/22/24 polyethylene glycol 3350 17 gram/dose oral powder 17 g PO DAILY 02/22/24 ruxolitinib 1.5 % topical cream (Opzelura) 1 applic topical QHS 02/22/24 sertraline 50 mg tablet 150 mg PO DAILY 02/22/24 Hospital Course Operations None Procedures None Summary of Care Provided Minutes Spent on Discharge: 37 Hospital Course: Per HPI: SVETLANA ELLIS, is a 84 F who presented to the emergency department at [facility] on 02/22/2024 from local nursing facility due to concerns of being dehydrated. She was sent in by the nurse practitioner Vincent Vu who reported the patient has had decreased p.o. intake over the last couple days and they were concerned about dehydration. She was also noted to be hypotensive today and more confused than typical. Outpatient labs showed a BUN of 103 and a serum creatinine of 2.32 so they sent her for the emergency department for further evaluation. There were reports of several episodes of nonbilious vomitus 2 days ago but none since. Patient's ability to give a history is limited at this time as she seems agitated and her family reports that she is not at her baseline with regards to her mental status although she is alert oriented to self place and year but not month. They do indicate she has some mild cognitive impairment but no significant dementia and this is not typical for her behavior. Vital signs on presentation showed a temperature of 97.8, heart rate 61, respiratory rate was 16, blood pressure was 88/42, respiratory rate was 20-29 and pulse ox was 93 to 94% on room air. CBC showed a normal white count but differential was not obtained. Her chemistry panel was notable for elevated chloride at 111, serum bicarb of 18, BUN of 101, serum creatinine of 2.34 (baseline 1.3-1.75), her UA showed elevated specific gravity of urine at 1.02 with protein and 38, occult blood, nitrate positive and leukoesterase elevation with greater than 100 white cells per high-powered field and 2+ bacteria. Chest x-ray was negative for any acute findings. She was bolused with IV fluid in the emergency department at 30 cc/kg body weight and started on antibiotics. She was initially given ceftriaxone however after discussion and review of previous cultures she was placed on meropenem for history of ESBL producing organism. Boluses were given the emergency department unfortunately her pressure remained soft and intermittently hypotensive and she required initiation of Levophed. Hospital Course: 1. Septic shock secondary to urinary tract infection: Patient being admitted in ICU. Initially volume resuscitated as per septic shock protocol. Currently, on Levophed drip. Cultures are pending. No fever. Patient did not had urinary tract instrumentation or Henderson catheter recently. Right arm PICC line. -Most recent urine culture from 01/13/2024 showed ESBL producing E. coli, Proteus mirabilis, and Klebsiella pneumoniae. Chest x-ray initially which was clear and expanded no acute abnormality. Patient on meropenem and vancomycin. Vancomycin discontinued -Patient is on hydrocortisone chronically for history of adrenal insufficiency so stress dose steroids at 100 every 8. 02/24/2024: Doing well today, Levophed is down to 2. Urine culture demonstrates that her septic shock is secondary to ESBL E. coli, continue with meropenem 02/25/2024: Will transfer out of the ICU as her Levophed has been off of close 24 hours. Continue with meropenem, PT/OT 02/26/2024: Plan on obtaining insurance approval for SNF placement. Currently on day 4 of antibiotics 02/27/2024: Today is day 5 of antibiotics, will likely complete course prior to discharge 02/28/2024: Continue with meropenem will discontinue prior to discharge. Awaiting pre-CERT for SNF placement 02/29/2024: She will be transferred to SNF today as she has completed 7 days of antibiotics for ESBL E. coli. Will hold her Jardiance as this is likely precipitating her UTIs and will decrease her hydrocortisone back to her home 5 mg p.o. 3 times daily 2. JEB on CKD stage IIIb -Baseline serum creatinine runs between 1.3 and 1.75 as of recently -Serum creatinine on admission was 2.34 02/22: Creatinine improved from 2.39-1.80. -After fluid bolus protocol of septic shock, continue IV fluids at 75 cc/h with LR No Henderson catheter. Avoid nephrotoxins including lisinopril Lasix. -Avoid nephrotoxins 02/24/2024: Renal function is back to baseline 3. Essential hypertension: Hold antihypertensive medications as patient is on Levophed 5. Constipation -Continue bowel regimen 6. DM-2: Continue home basal insulin but at decreased doses due to renal dysfunction and anticipated decreased p.o. intake. Glucose in BMP 205. Low-dose Lantus insulin started as patient is also on IV hydrocortisone. Jardiance risk for UTI therefore currently on hold but might need to be discontinued in future Toxic/metabolic encephalopathy on chronic mild cognitive impairment most likely due to infectious, toxic/metabolic encephalopathy low-dose risperidone to help with sundowning 02/27/2024: Baseline dementia is evident but her encephalopathy appears to have resolved Generalized weakness/debility -Consult PT/OT -Consult social work/case management for assistance with discharge planning History of atrial fibrillation -In sinus rhythm on admission -Patient is not chronically anticoagulated -Not on any rate controlling medications either -Monitor on telemetry Hypothyroidism -Continue home levothyroxine Depression -Continue home sertraline at 150 mg p.o. daily Obesity -BMI 35 -Complicates treatment, prognosis, outcomes Physical Exam Narrative General: Alert, Oriented x 2, Cooperative, No apparent distress HEENT: Atraumatic, PERRLA, EOMI, Normocephalic Oral: Moist Mucosa Neck: Supple, No JVD Lungs: Diminished, Normal air movement, No rhonchi, No wheeze, No rales Cardiovascular: Regular rate, Regular Rhythm, Normal S1, Normal S2, No murmurs Abdomen: Soft, Non Tender, Non-Distended, No Hepato-splenomegaly Extremities: No edema, Capillary Refill Less than 3 Seconds Skin: No rashes, No breakdown Musculoskeletal: No Tenderness to Palpation of Joints or Extremities Neurological: No focal neurological deficits, Motor Exam 5/5 strength throughout, Sensory exam intact to light touch and pain Psych/Mental Status: Normal Affect, Appropriate Weight / BMI Weight Weight: 199 lb 1.239 oz Body Mass Index (BMI) 35.2 ABG / Lab / Microbiology Data 02/28/24 06:15 02/28/24 06:15 Laboratory: Laboratory Results - last 24 hr 02/28/24 16:31: POC Glucose 165 H 02/28/24 21:58: POC Glucose 187 H 02/29/24 07:29: POC Glucose 180 H 02/29/24 12:09: POC Glucose 227 H Microbiology: Microbiology 02/22/24 13:39 Blood Culture (Wb) - Anticubital Right Blood Culture - Final No growth in 5 days. 02/22/24 12:24 Urine, Clean Catch Urine Culture - Final ESBL Escherichia coli Meaningful Use Info Meaningful Use Meaningful Use Diagnoses (Choose all that apply): None applicable Ischemic Stroke Statin Dosing Therapy Reference: STATIN DOSE THERAPY REFERENCE: * Patients > 75 years receive moderate or high dose statin therapy. * Patients 75 years or YOUNGER should receive HIGH intensity statin dose unless contraindicated. You will be required to document reason for non-treatment if statin daily dose does not meet guidelines. HIGH DOSE STATIN THERAPY DAILY Atorvastatin > than or = to 40 mg Rosuvastatin > than or = to 20 mg Amlodipine + Atorvastatin > than or = to 2.5/40 mg Ezetimibe + Simvastatin 10/80 mg Simvastatin 80mg Discharge Plan Admission Admit Date/Time: 02/22/24 15:34 Attending Provider: Joel Cárdenas Primary Care Provider: Yenni Hallman Consulting Providers: Isabela Hernandez; Vince Jenkins; Tyler Louise; Rafiq Cassidy; Clinton Gaming; Ashu Dunn; Cali Vega; Rene Rhoades; Wendy Perez; Ascencion Roberts; Willy Gonsales; Aysha Bustos; Karena Isbell; Jostin Gabriel; Lyle Sosa; Wagner Palacios; Joe Yousif; Jamie Burnham; Cory Francois; Ashu Boone; Rhoda Oakes; Sabina Weldon; Maggie Gifford; Tanya Huerta NP; Myrtle Pablo Discharge Orders/Prescriptions Prescriptions: Continued donepezil 10 MG tablet 10 mg PO QHS levothyroxine 150 MCG tablet 150 mcg PO DAILY hydrocortisone 5 MG tablet 5 mg PO TID clonidine HCl 0.1 mg Tablet 0.5 mg PO DAILY atorvastatin 20 mg Tablet 20 mg PO DAILY lisinopril 5 mg Tablet 5 mg PO DAILY dextrose [Glucose Gel] 40 % gel 10 g PO Q15M PRN (Reason: hypoglycemia) Rx Instructions: for hypoglycemia less that 60 guaifenesin [Adult Tussin Chest Congestion] 100 mg/5 mL liquid 200 mg PO Q4H PRN (Reason: congestion) acetylcysteine 600 mg capsule 600 mg PO BID Dupixent Pen 300 mg/2 mL pen injector 300 mg subcut WE polyethylene glycol 3350 17 gram/dose powder 17 g PO DAILY Opzelura 1.5 % cream 1 applic topical QHS Rx Instructions: APPLY TO FULL FACE AT BEDTIME acetaminophen 500 mg tablet 1,000 mg PO BID PRN (Reason: fever or pain) hydroxyzine HCl 25 mg tablet 25 mg PO DAILY albuterol sulfate 2.5 mg /3 mL (0.083 %) solution for nebulization 2.5 mg inhalation Q4H PRN (Reason: shortness of breath or wheezing) furosemide 20 mg tablet 20 mg PO DAILY insulin glargine 100 unit/mL solution 32 unit subcut QHS insulin aspart U-100 [Novolog FlexPen U-100 Insulin] 100 unit/mL (3 mL) insulin pen 1 sliding scale dose subcut TID Protocol: 6. Sliding Scale Insulin Custom Condition: mg/dl range Dose/Route: Number of Units Condition: 250-349 Dose/Route: 2 Condition: >349 Dose/Route: 4 Protocol Text: INJECT PER SLIDING SCALE BEFORE MEALS sertraline 50 mg tablet 150 mg PO DAILY insulin glargine [Basaglar KwikPen U-100 Insulin] 100 UNIT/ML insulin pen 40 unit SQ 0800 Held Jardiance 25 mg tablet 25 mg PO DAILY Hold Instructions: Resume on 03/05/24. Discontinued sertraline 100 mg tablet 100 mg PO DAILY Referrals / Follow Up: Yenni Hallman MD [Primary Care Provider] - Enedina Castaneda MD [Non-Staff] - Disposition Disposition (needs filled in before D/C Order can be placed): Group Home Facility Charges/Coding Visit Charges Inpatient E&M: 34581 Disch Hosp >30min
--- NOTE | 2024-02-29 15:59 | CASEMGMT ---
Discharge Planning Discharge orders, signed med list, palliative referral, and transport time sent to [facility] via [facility]. Physicians will transport patient by cot at 6:30p. Nursing, SW, and patients daughter (Jemma) updated. Mendy Holloway DC Planning Asst.
[2024-02-29 16:02] VITALS: BP 132/60; PULSE 64; RESP 18; TEMP 36.9; O2SAT 98
[2024-02-29] MEDS: Insulin Glargine-YFGN 100 UNIT/ML Pen 15 UNIT SC (17:30)
[2024-02-29 17:41] LABS: Bedside Glucose 142 mg/dL (74-106)
--- NOTE | 2024-02-29 18:43 | NURSING ---
talked with Nurse from [facility] regarding clonidine DC med. nurse states patient was on 0.1mg prn at the [facility]. this was verified via [facility] papers on chart. discussed pt was not getting clonidine here. nurse states she was just going to dc it and get new orders from the [facility] tomorrow given hx hypotension on admission. Dr. Cárdenas updated.
== END 2024-02-29 19:40 | disposition skilled nursing facility (03) | DRG 871 ==
LOC: ED 14:53 → ICU 15:47 → MS3 02-26 18:45
PROVIDERS: Internal Medicine; Admitting Provider Internal Medicine; Emergency Provider Emergency Medicine; PCP Internal Medicine; Visit Provider Family Medicine
DX: A41.51 Sepsis due to Escherichia coli [E. coli] (principal); R65.21 Severe sepsis with septic shock; G92.8 Other toxic encephalopathy; N17.9 Acute kidney failure, unspecified; E27.40 Unspecified adrenocortical insufficiency; N39.0 Urinary tract infection, site not specified; E11.22 Type 2 diabetes mellitus with diabetic chronic kidney disease; N18.32 Chronic kidney disease, stage 3b; E03.9 Hypothyroidism, unspecified; I12.9 Hypertensive chronic kidney disease with stage 1 through stage 4 chronic kidney disease, or unspecified chronic kidney disease; F32.A Depression, unspecified; E66.9 Obesity, unspecified; Z79.4 Long term (current) use of insulin; E78.5 Hyperlipidemia, unspecified; E86.0 Dehydration; G31.84 Mild cognitive impairment of uncertain or unknown etiology; K59.00 Constipation, unspecified; R53.81 Other malaise; Z79.84 Long term (current) use of oral hypoglycemic drugs; Z66 Do not resuscitate; Z87.891 Personal history of nicotine dependence; Z68.35 Body mass index [BMI] 35.0-35.9, adult; Z90.710 Acquired absence of both cervix and uterus
CPT/HCPCS: 36415; 36569; 71045; 80048; 80053; 80076; 81001; 82550; 82962; 83036; 83605; 83735; 84100; 84484; 85025; 85027; 87040; 87077; 87086; 87088; 87186; 93005; 94668; 97110; 97162; 97166; 97530; 97535; 97802; 97803; 99252; 99285; J2185; J7030; J7040; J7050; J7120; A4216; G0463; J2405

== ENCOUNTER → 2024-02-22 | Outpatient (REF) | payer MEDICARE, MEDICAID, SELFPAY ==
[2024-02-22 09:47] LABS: Anion Gap 11 (5-15); BUN 103 mg/dL (7-18); BUN/Creat Ratio 44.4 RATIO (10-20); Chloride 110 mmol/L (98-107); Creatinine, Serum 2.32 mg/dL (0.55-1.02); EST Glomerular Filtration Rate 21 mL/min (>60); Est Glom Filt Rate - Afr Amer 26 mL/min (>60); Glucose 125 mg/dL (74-106); Potassium 4.6 mmol/L (3.5-5.1); Sodium Level 138 mmol/L (136-145)
== END ==
LOC: OLS.WHLCAR 05:00
PROVIDERS: PCP Internal Medicine Geriatric Medicine; Visit Provider Internal Medicine
DX: E11.22 Type 2 diabetes mellitus with diabetic chronic kidney disease (principal); N18.4 Chronic kidney disease, stage 4 (severe); M81.0 Age-related osteoporosis without current pathological fracture
CPT/HCPCS: 36415; 80048

== ENCOUNTER → 2024-03-04 | Outpatient (REF) | payer MEDICARE, MEDICAID, SELFPAY ==
[2024-03-04 07:18] LABS: Absolute Lymphocyte Count 1.44 X10^3/uL (0.83-4.51); Absolute Neutrophil Count 5.5 X10^3/uL (2.0-7.7); Basophil# 0.03 X10^3/uL; Basophil% 0.4 % (0-1); Eosinophils% 4.9 % (0-5); Hematocrit 36.6 % (37-47); Hemoglobin 11.7 g/dL (12.0-15.0); Lymphocyte # 1.44 X10^3/ul (0.83-4.51); Lymphocyte % 17.5 % (19-41); Mean Corpuscular Volume 90.8 fL (81-99); Mean Platelet Vol. 10.3 fl (6.2-12.0); Monocyte# 0.83 X10^3/uL; Monocyte% 10.1 % (0-10); NRBC Flagged by Analyzer 0 % (0-5); Neutrophil # 5.47 X10^3/uL (2.7-7.7); Neutrophil % 66.4 % (47-70); Platelet Count 143 K/mm3 (150-450); RBC Distribution Width CV 15.7 % (11.6-14.6); RBC Distribution Width SD 50.4 fl (35.1-43.9); Red Blood Count 4.03 M/mm3 (4.2-5.4); White Blood Count 8.2 K/mm3 (4.4-11.0)
[2024-03-04 07:57] LABS: Anion Gap 7 (5-15); BUN 34 mg/dL (7-18); BUN/Creat Ratio 30.4 RATIO (10-20); Calcium,Total 8.5 mg/dL (8.5-10.1); Chloride 110 mmol/L (98-107); Cholesterol 162 mg/dL (200); Creatinine, Serum 1.12 mg/dL (0.55-1.02); EST Glomerular Filtration Rate 49 mL/min (>60); Est Glom Filt Rate - Afr Amer 60 mL/min (>60); Glucose 176 mg/dL (74-106); High Density Lipoprotein 42 mg/dL; Potassium 3.9 mmol/L (3.5-5.1); Sodium Level 144 mmol/L (136-145); Triglycerides 240 mg/dL; Very Low Density Lipoprotein 48 mg/dL (5-40)
== END ==
LOC: OLS.WHLCAR 05:00
PROVIDERS: PCP Internal Medicine; Visit Provider Internal Medicine
DX: N17.9 Acute kidney failure, unspecified (principal); N18.32 Chronic kidney disease, stage 3b; R65.21 Severe sepsis with septic shock; N39.0 Urinary tract infection, site not specified; M62.561 Muscle wasting and atrophy, not elsewhere classified, right lower leg; M62.562 Muscle wasting and atrophy, not elsewhere classified, left lower leg
CPT/HCPCS: 36415; 80048; 80061; 84443; 85025

== ENCOUNTER → 2024-03-11 | Outpatient (REF) | payer MEDICARE, MEDICAID, SELFPAY ==
[2024-03-11 08:29] LABS: Absolute Lymphocyte Count 1.34 X10^3/uL (0.83-4.51); Basophil# 0.05 X10^3/uL; Basophil% 0.7 % (0-1); Eosinophil# 0.43 X10^3/uL; Eosinophils% 5.7 % (0-5); Hematocrit 39.5 % (37-47); Hemoglobin 12.6 g/dL (12.0-15.0); Lymphocyte # 1.34 X10^3/ul (0.83-4.51); Lymphocyte % 17.8 % (19-41); Mean Corp Hgb Conc 31.9 g/dL (32-36); Mean Corpuscular Hgb 28.8 pg (27.0-32.0); Mean Corpuscular Volume 90.2 fL (81-99); Mean Platelet Vol. 10.7 fl (6.2-12.0); Monocyte# 0.73 X10^3/uL; Monocyte% 9.7 % (0-10); NRBC Flagged by Analyzer 0 % (0-5); Neutrophil # 4.95 X10^3/uL (2.7-7.7); Neutrophil % 65.7 % (47-70); Platelet Count 175 K/mm3 (150-450); RBC Distribution Width CV 15.5 % (11.6-14.6); Red Blood Count 4.38 M/mm3 (4.2-5.4); White Blood Count 7.5 K/mm3 (4.4-11.0)
[2024-03-11 10:09] LABS: Anion Gap 9 (5-15); BUN 34 mg/dL (7-18); BUN/Creat Ratio 25.4 RATIO (10-20); Calcium,Total 9.2 mg/dL (8.5-10.1); Chloride 107 mmol/L (98-107); Creatinine, Serum 1.34 mg/dL (0.55-1.02); EST Glomerular Filtration Rate 40 mL/min (>60); Est Glom Filt Rate - Afr Amer 48 mL/min (>60); Glucose 235 mg/dL (74-106); Potassium 4.4 mmol/L (3.5-5.1); Sodium Level 140 mmol/L (136-145)
== END ==
LOC: OLS.WHLCAR 04:00
PROVIDERS: PCP Internal Medicine; Visit Provider Internal Medicine
DX: N17.9 Acute kidney failure, unspecified (principal); N18.32 Chronic kidney disease, stage 3b; R65.21 Severe sepsis with septic shock; N39.0 Urinary tract infection, site not specified
CPT/HCPCS: 36415; 80048; 85025

== ENCOUNTER → 2024-03-18 | Outpatient (REF) | payer MEDICARE, MEDICAID, SELFPAY ==
[2024-03-18 07:45] LABS: Absolute Lymphocyte Count 1.82 X10^3/uL (0.83-4.51); Absolute Neutrophil Count 4.5 X10^3/uL (2.0-7.7); Basophil# 0.06 X10^3/uL; Basophil% 0.8 % (0-1); Eosinophil# 0.47 X10^3/uL; Eosinophils% 6.1 % (0-5); Hematocrit 37.1 % (37-47); Hemoglobin 11.7 g/dL (12.0-15.0); Lymphocyte # 1.82 X10^3/ul (0.83-4.51); Lymphocyte % 23.6 % (19-41); Mean Corp Hgb Conc 31.5 g/dL (32-36); Mean Corpuscular Hgb 28.6 pg (27.0-32.0); Mean Corpuscular Volume 90.7 fL (81-99); Mean Platelet Vol. 10.4 fl (6.2-12.0); Monocyte# 0.78 X10^3/uL; Monocyte% 10.1 % (0-10); NRBC Flagged by Analyzer 0 % (0-5); Neutrophil % 58.5 % (47-70); Platelet Count 203 K/mm3 (150-450); RBC Distribution Width CV 15.8 % (11.6-14.6); RBC Distribution Width SD 52.1 fl (35.1-43.9); Red Blood Count 4.09 M/mm3 (4.2-5.4); White Blood Count 7.7 K/mm3 (4.4-11.0)
[2024-03-18 08:08] LABS: Anion Gap 8 (5-15); BUN 45 mg/dL (7-18); BUN/Creat Ratio 34.4 RATIO (10-20); Calcium,Total 9.1 mg/dL (8.5-10.1); Chloride 110 mmol/L (98-107); Creatinine, Serum 1.31 mg/dL (0.55-1.02); EST Glomerular Filtration Rate 41 mL/min (>60); Est Glom Filt Rate - Afr Amer 50 mL/min (>60); Glucose 179 mg/dL (74-106); Potassium 4.1 mmol/L (3.5-5.1); Sodium Level 141 mmol/L (136-145)
== END ==
LOC: OLS.WHLCAR 05:00
PROVIDERS: PCP Internal Medicine; Visit Provider Internal Medicine
DX: N18.32 Chronic kidney disease, stage 3b (principal); N17.9 Acute kidney failure, unspecified; R65.21 Severe sepsis with septic shock; N39.0 Urinary tract infection, site not specified
CPT/HCPCS: 36415; 80048; 85025

== ENCOUNTER → 2024-06-03 | Outpatient (REF) | payer MEDICARE, MEDICAID, SELFPAY | LOC: OLS.WHLCAR 10:00 | PROVIDERS: PCP Internal Medicine; Visit Provider Internal Medicine | DX: N39.0 Urinary tract infection, site not specified (principal) | CPT/HCPCS: 87086 ==